=== PATIENT | male | born 1945 | race Caucasian/White ===

== ENCOUNTER 2021-06-05 06:34 | Observation (INO) | payer MEDICARE, OTHER, SELFPAY ==
[2021-06-05] VITALS (15 sets, daily range): BP systolic 110–181; BP diastolic 63–122; PULSE 78–117; RESP 14–26; TEMP 36.5–36.8; O2SAT 95–100; BMI 33.4
--- NOTE | 2021-06-05 06:58 | ECG_ITS ---
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 Measurements Intervals [place] Rate: 91 P: [place]: QRS: -10 QRSD: 86 T: 70 QT: 336 QTc: 413 Interpretive Statements ATRIAL FIBRILLATION WITH ABERRANT CONDUCTION OR VENTRICULAR PREMATURE COMPLEXES Compared to ECG 01/20/2018 12:39:18 Aberrant conduction of supraventricular beat(s) now present Sinus rhythm no longer present Left-axis deviation no longer present Electronically Signed On 06-05-2021 18:28:45 CDT by Grzegorz Santo M.D. [id number]
--- NOTE | 2021-06-05 06:59 | W.ED.SOB ---
HPI - SOB/Dyspnea General: Chief Complaint: Shortness of Breath/Dyspnea Stated Complaint: Pneumonia Time Seen by Provider: 06/05/21 06:36 History of Present Illness: HPI Narrative: 75-year-old male presents to the emergency room complaining of cough and shortness of breath. Reports this been going on for over a week he denies any fever he said moderately productive cough. He has some mild dementia does not provide much for history other than answering some yes/no questions his does answer little bit more. She reports that he is on ivermectin as well as some oral antibiotics. Is generally has not been feeling well no nausea vomiting or diarrhea he is not been vaccinated for Covid nor has he had it that he is aware of. Denies chest pain denies any abdominal pain no dysuria urgency or frequency. MD elicited complaint: shortness of breath and cough Onset (ago): week(s) (1) Timing: constant Exacerbating factors: exertion Relieving factors: rest Associated symptoms: Reports chest congestion, cough, fever(s), myalgias and nausea; Deny abdominal pain, chest pain, diaphoresis, dizziness, extremity pain, hemoptysis, lightheadedness, orthopnea, palpitations, paresthesias, polydipsia, polyuria, rash, sense of impending doom, syncope or vomiting Treatment prior to arrival: none Review of Systems Const: Reports: fever(s); Denies: diaphoresis ENMT: Denies: throat pain, ear or mastoid pain, nasal discharge or nasal congestion Card: Denies: chest pain, palpitations, lightheadedness, syncope or orthopnea Resp: Reports: chest congestion; Denies: hemoptysis GI: Reports: nausea; Denies: abdominal pain or vomiting : Denies: flank pain, dysuria, urinary frequency or urinary urgency Musc: Denies: extremity pain Skin/Breast: Denies: rash or pruritus Neuro: Denies: dizziness Endo: Denies: polyuria or polydipsia PFSH ED PFSH: Medical History Hypogonadism Type 2 diabetes mellitus Social History Smoking and tobacco status: current every day smoker cigarettes Packs smoked per day: 1 Alcohol intake: never Physical Exam Const: COMMON NORMALS: no acute distress GENERAL APPEARANCE: cooperative and comfortable ORIENTATION/CONSCIOUSNESS: Yes awake HENMT: COMMON NORMALS: normocephalic, atraumatic and hearing grossly normal bilaterally HEAD & SCALP: normocephalic and atraumatic Neck/C-Spine: COMMON NORMALS: no JVD Resp: COMMON NORMALS: normal respiratory effort, No retractions, No use of accessory muscles and clear to auscultation bilaterally AUSCULTATION: clear to auscultation bilaterally Cardio: COMMON NORMALS: no JVD, regular rate, regular rhythm and No murmurs present (Cardio) RATE: regular rate RHYTHM: regular rhythm GI: COMMON NORMALS: Soft to palpation and No hepatosplenomegaly present AUSCULTATION: Yes normoactive bowel sounds PALPATION: Yes Soft to palpation, No Tenderness to palpation present (GI), No Guarding due to palpation present (GI) and Yes No hepatosplenomegaly present Extremity: COMMON NORMALS: normal to inspection, capillary refill normal, no clubbing, cyanosis or edema, no calf tenderness and no pedal edema Skin: COMMON NORMALS: no rashes or lesions noted GENERAL SKIN EXAM: no rashes or lesions noted Course Vital Signs: Vital signs: Vital Signs Temperature 98.2 F 06/05/21 12:15 Pulse Rate 78 06/05/21 12:15 Respiratory Rate 20 H 06/05/21 12:15 Blood Pressure 163/76 06/05/21 12:15 Pulse Oximetry 99 06/05/21 12:15 MDM - SOB/Dyspnea MDM Narrative: Medical decision making narrative: Covid PCR is pending. Admit for hyperkalemia hyponatremia hyperglycemia insulin and fluids given discussed with Dr. Matta. Orders written. Lab Data: Labs: Lab Results 06/05/21 06/05/21 06/05/21 Range/Units 06:27 07:08 07:27 WBC (4.0-10.0) 10^3/ uL RBC (4.1-5.3) 10^6/u L Hgb (11.7-16.6) g/dL Hct (42.0-52.0) % MCV (80-94) fL MCH (28.0-34.0) pg MCHC (30.0-36.0) g/dL RDW (12.1-15.1) % Plt Count (130-400) 10^3/c mm MPV (7.4-10.4) fL Neut % (Auto) % Lymph % (Auto) % [place] % (Auto) % Eos % (Auto) % Baso % (Auto) % Neut # (Auto) (1.8-7.7) 10^3/u L Lymph # (Auto) (0.8-4.8) 10^3/u L [place] # (Auto) (0.2-0.9) 10^3/u L Eos # (Auto) (0.0-0.8) 10^3/u L Baso # (Auto) (0.0-0.1) 10^3/u L Nucleated RBC % (a uto) % Nucleated RBCs # /100WBC Sodium (136-145) mmol/L Potassium (3.5-5.1) mmol/L Chloride (98-107) mmol/L Carbon Dioxide (22-29) mmol/L Anion Gap (5-19) BUN (8-23) mg/dL Creatinine (0.7-1.2) mg/dL GFR Calculation Glucose (65-115) mg/dL POC Glucose (70-110) mg/dL Calculated Osmolal ity (285-295) mOsm/k g Lactic Acid 3.6 H (0.5-2.2) mmol/L Lactic Acid (Sepsi s) (0.5-2.2) mmol/L Calcium (8.5-10.5) mg/dL Magnesium (1.7-2.3) mg/dL Total Bilirubin (0.15-1.2) mg/dL AST (0-40) U/L ALT (0-41) U/L Alkaline Phosphata se (40-130) IU/L Creatine Kinase (39-308) U/L Troponin T Baselin e (0-15) ng/L Troponin T 120 Min [place] (0-15) ng/L Delta Troponin T (0-10) ABS# NT-Pro-B Natriuret Pep (0-450) pg/mL Total Protein (6.6-8.7) g/dL Albumin (3.5-5.2) g/dL Globulin (1.3-4.6) g/dL TSH 0.78 (0.27-4.20) uIU/ mL Random Cortisol 6.30 (2.47-19.5) ug/d L Urine Color (Yellow) Urine Appearance (CLEAR) Urine pH (5-7) Ur Specific Gravit y (1.005-1.030) Urine Protein (Negative) Urine Glucose (UA) (Normal) Urine Ketones (Negative) Urine Blood (Negative) Urine Nitrate (Negative) Urine Bilirubin (Negative) Urine Urobilinogen (Negative) mg/dL Ur Leukocyte Peggy ase (Negative) SARS-CoV-2 Ag (Rap id) Negative (Negative) 06/05/21 06/05/21 06/05/21 Range/Units 07:27 07:27 07:27 WBC 14.5 H (4.0-10.0) 10^3/ uL RBC 4.07 L (4.1-5.3) 10^6/u L Hgb 8.5 L (11.7-16.6) g/dL Hct 28.6 L (42.0-52.0) % MCV 70.3 L (80-94) fL MCH 20.9 L (28.0-34.0) pg MCHC 29.7 L (30.0-36.0) g/dL RDW 21.3 H (12.1-15.1) % Plt Count 308 (130-400) 10^3/c mm MPV 10.6 H (7.4-10.4) fL Neut % (Auto) 91.5 % Lymph % (Auto) 5.9 % [place] % (Auto) 1.9 % Eos % (Auto) 0.0 % Baso % (Auto) 0.1 % Neut # (Auto) 13.31 H (1.8-7.7) 10^3/u L Lymph # (Auto) 0.9 (0.8-4.8) 10^3/u L [place] # (Auto) 0.3 (0.2-0.9) 10^3/u L Eos # (Auto) 0.0 (0.0-0.8) 10^3/u L Baso # (Auto) 0.0 (0.0-0.1) 10^3/u L Nucleated RBC % (a uto) 0 % Nucleated RBCs # 0.0 /100WBC Sodium 128 L (136-145) mmol/L Potassium 5.9 H (3.5-5.1) mmol/L Chloride 94 L (98-107) mmol/L Carbon Dioxide 22 (22-29) mmol/L Anion Gap 17.9 (5-19) BUN 26 H (8-23) mg/dL Creatinine 1.2 (0.7-1.2) mg/dL GFR Calculation Not Reportable Glucose 500 H (65-115) mg/dL POC Glucose (70-110) mg/dL Calculated Osmolal ity 293 (285-295) mOsm/k g Lactic Acid (0.5-2.2) mmol/L Lactic Acid (Sepsi s) (0.5-2.2) mmol/L Calcium 9.9 (8.5-10.5) mg/dL Magnesium (1.7-2.3) mg/dL Total Bilirubin 0.4 (0.15-1.2) mg/dL AST 24 (0-40) U/L ALT 32 (0-41) U/L Alkaline Phosphata se 93 (40-130) IU/L Creatine Kinase 45 (39-308) U/L Troponin T Baselin e 20 H (0-15) ng/L Troponin T 120 Min [place] (0-15) ng/L Delta Troponin T (0-10) ABS# NT-Pro-B Natriuret Pep (0-450) pg/mL Total Protein 5.8 L (6.6-8.7) g/dL Albumin 3.5 (3.5-5.2) g/dL Globulin 2.3 (1.3-4.6) g/dL TSH (0.27-4.20) uIU/ mL Random Cortisol (2.47-19.5) ug/d L Urine Color (Yellow) Urine Appearance (CLEAR) Urine pH (5-7) Ur Specific Gravit y (1.005-1.030) Urine Protein (Negative) Urine Glucose (UA) (Normal) Urine Ketones (Negative) Urine Blood (Negative) Urine Nitrate (Negative) Urine Bilirubin (Negative) Urine Urobilinogen (Negative) mg/dL Ur Leukocyte Peggy ase (Negative) SARS-CoV-2 Ag (Rap id) (Negative) 06/05/21 06/05/21 06/05/21 Range/Units 09:48 09:48 09:48 WBC (4.0-10.0) 10^3/ uL RBC (4.1-5.3) 10^6/u L Hgb (11.7-16.6) g/dL Hct (42.0-52.0) % MCV (80-94) fL MCH (28.0-34.0) pg MCHC (30.0-36.0) g/dL RDW (12.1-15.1) % Plt Count (130-400) 10^3/c mm MPV (7.4-10.4) fL Neut % (Auto) % Lymph % (Auto) % [place] % (Auto) % Eos % (Auto) % Baso % (Auto) % Neut # (Auto) (1.8-7.7) 10^3/u L Lymph # (Auto) (0.8-4.8) 10^3/u L [place] # (Auto) (0.2-0.9) 10^3/u L Eos # (Auto) (0.0-0.8) 10^3/u L Baso # (Auto) (0.0-0.1) 10^3/u L Nucleated RBC % (a uto) % Nucleated RBCs # /100WBC Sodium (136-145) mmol/L Potassium (3.5-5.1) mmol/L Chloride (98-107) mmol/L Carbon Dioxide (22-29) mmol/L Anion Gap (5-19) BUN (8-23) mg/dL Creatinine (0.7-1.2) mg/dL GFR Calculation Glucose (65-115) mg/dL POC Glucose (70-110) mg/dL Calculated Osmolal ity (285-295) mOsm/k g Lactic Acid (0.5-2.2) mmol/L Lactic Acid (Sepsi s) 2.9 H (0.5-2.2) mmol/L Calcium (8.5-10.5) mg/dL Magnesium 2.1 (1.7-2.3) mg/dL Total Bilirubin (0.15-1.2) mg/dL AST (0-40) U/L ALT (0-41) U/L Alkaline Phosphata se (40-130) IU/L Creatine Kinase (39-308) U/L Troponin T Baselin e (0-15) ng/L Troponin T 120 Min [place] 17.17 H (0-15) ng/L Delta Troponin T -2.83 L (0-10) ABS# NT-Pro-B Natriuret Pep 1776 H (0-450) pg/mL Total Protein (6.6-8.7) g/dL Albumin (3.5-5.2) g/dL Globulin (1.3-4.6) g/dL TSH (0.27-4.20) uIU/ mL Random Cortisol (2.47-19.5) ug/d L Urine Color (Yellow) Urine Appearance (CLEAR) Urine pH (5-7) Ur Specific Gravit y (1.005-1.030) Urine Protein (Negative) Urine Glucose (UA) (Normal) Urine Ketones (Negative) Urine Blood (Negative) Urine Nitrate (Negative) Urine Bilirubin (Negative) Urine Urobilinogen (Negative) mg/dL Ur Leukocyte Peggy ase (Negative) SARS-CoV-2 Ag (Rap id) (Negative) 06/05/21 06/05/21 Range/Units 10:41 10:56 WBC (4.0-10.0) 10^3/ uL RBC (4.1-5.3) 10^6/u L Hgb (11.7-16.6) g/dL Hct (42.0-52.0) % MCV (80-94) fL MCH (28.0-34.0) pg MCHC (30.0-36.0) g/dL RDW (12.1-15.1) % Plt Count (130-400) 10^3/c mm MPV (7.4-10.4) fL Neut % (Auto) % Lymph % (Auto) % [place] % (Auto) % Eos % (Auto) % Baso % (Auto) % Neut # (Auto) (1.8-7.7) 10^3/u L Lymph # (Auto) (0.8-4.8) 10^3/u L [place] # (Auto) (0.2-0.9) 10^3/u L Eos # (Auto) (0.0-0.8) 10^3/u L Baso # (Auto) (0.0-0.1) 10^3/u L Nucleated RBC % (a uto) % Nucleated RBCs # /100WBC Sodium (136-145) mmol/L Potassium (3.5-5.1) mmol/L Chloride (98-107) mmol/L Carbon Dioxide (22-29) mmol/L Anion Gap (5-19) BUN (8-23) mg/dL Creatinine (0.7-1.2) mg/dL GFR Calculation Glucose (65-115) mg/dL POC Glucose 331 H (70-110) mg/dL Calculated Osmolal ity (285-295) mOsm/k g Lactic Acid (0.5-2.2) mmol/L Lactic Acid (Sepsi s) (0.5-2.2) mmol/L Calcium (8.5-10.5) mg/dL Magnesium (1.7-2.3) mg/dL Total Bilirubin (0.15-1.2) mg/dL AST (0-40) U/L ALT (0-41) U/L Alkaline Phosphata se (40-130) IU/L Creatine Kinase (39-308) U/L Troponin T Baselin e (0-15) ng/L Troponin T 120 Min [place] (0-15) ng/L Delta Troponin T (0-10) ABS# NT-Pro-B Natriuret Pep (0-450) pg/mL Total Protein (6.6-8.7) g/dL Albumin (3.5-5.2) g/dL Globulin (1.3-4.6) g/dL TSH (0.27-4.20) uIU/ mL Random Cortisol (2.47-19.5) ug/d L Urine Color Straw (Yellow) Urine Appearance Clear (CLEAR) Urine pH 5 (5-7) Ur Specific Gravit y 1.015 (1.005-1.030) Urine Protein Neg (Negative) Urine Glucose (UA) 4+ H (Normal) Urine Ketones Negative (Negative) Urine Blood Neg (Negative) Urine Nitrate Negative (Negative) Urine Bilirubin Neg (Negative) Urine Urobilinogen Norm (Negative) mg/dL Ur Leukocyte Peggy ase Negative (Negative) SARS-CoV-2 Ag (Rap id) (Negative) Discharge Plan Discharge Patient Disposition: Admitted As Inpatient Admit Provider: Reece De La Rosa Clinical Impression: Anemia, Hyperkalemia, Hypernatremia, Dyspnea Condition: Stable Coding Level of Care Code 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
[2021-06-05 07:40] LABS: Basophils % 0.1 %; Hematocrit 28.6 % (42.0-52.0); Hemoglobin 8.5 g/dL (11.7-16.6); Lymphocytes # 0.9 10^3/uL (0.8-4.8); Lymphocytes % 5.9 %; Mean Corpuscular HGB Conc 29.7 g/dL (30.0-36.0); Mean Corpuscular Hemoglobin 20.9 pg (28.0-34.0); Mean Corpuscular Volume 70.3 fL (80-94); Mean Platelet Volume 10.6 fL (7.4-10.4); Monocytes # 0.3 10^3/uL (0.2-0.9); Monocytes % 1.9 %; Neutrophils # 13.31 10^3/uL (1.8-7.7); Neutrophils % 91.5 %; Nucleated Red Blood Cells % 0 %; Platelet Count 308 10^3/cmm (130-400); Red Blood Count 4.07 10^6/uL (4.1-5.3); Red Cell Distribution Width 21.3 % (12.1-15.1); White Blood Count 14.5 10^3/uL (4.0-10.0)
[2021-06-05 07:56] LABS: Lactic Sepsis W/Reflex 3.6 mmol/L (0.5-2.2)
[2021-06-05 07:57] LABS: Alanine Aminotransferase 32 U/L (0-41); Albumin Level 3.5 g/dL (3.5-5.2); Alkaline Phosphatase 93 IU/L (40-130); Aspartate Amino Transferase 24 U/L (0-40); Blood Urea Nitrogen 26 mg/dL (8-23); Calcium 9.9 mg/dL (8.5-10.5); Carbon Dioxide 22 mmol/L (22-29); Chloride 94 mmol/L (98-107); Creatine Phosphokinase 45 U/L (39-308); Globulin 2.3 g/dL (1.3-4.6); Glucose 500 mg/dL (65-115); Osmolality Calculated 293 mOsm/kg (285-295); Sodium 128 mmol/L (136-145); Total Bilirubin 0.4 mg/dL (0.15-1.2); Total Protein 5.8 g/dL (6.6-8.7)
[2021-06-05 08:00] LABS: Anion Gap 17.9 (5-19); Potassium 5.9 mmol/L (3.5-5.1); Troponin(5th) Baseline 20 ng/L (0-15)
[2021-06-05 08:17] LABS: SARS Covid-2 Antigen Negative (Negative)
--- NOTE | 2021-06-05 08:44 | XR_ITS ---
WS: [id number] Portable AP upright chest, 06/05/2021 Clinical Data: dyspnea/cough Comparison: PA and lateral chest, 12/27/2018. Findings: No nodules, masses or effusions are seen. The heart is normal. The pulmonary vascularity is not increased. No pneumonia or pneumothorax is seen. The aortic arch and descending aorta shows mild tortuosity. Monitor leads are on the chest wall. XR/XR chest 1V portable [id number] Impression: Negative chest.
--- NOTE | 2021-06-05 08:58 | ECG_ITS ---
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 Measurements Intervals [place] Rate: 92 P: [place]: QRS: -20 QRSD: 88 T: 55 QT: 336 QTc: 417 Interpretive Statements ATRIAL FIBRILLATION WITH ABERRANT CONDUCTION OR VENTRICULAR PREMATURE COMPLEXES NONSPECIFIC T-WAVE ABNORMALITY Compared to ECG 06/05/2021 07:22:56 T-wave abnormality now present Electronically Signed On 06-05-2021 18:35:14 CDT by Grzegorz Santo M.D. [id number]
[2021-06-05 09:19] LABS: Reflex Lactate Order REFLEX LACTIC ORDERD
[2021-06-05] MEDS: insulin regular-human 100 units/1 mL 10 UNIT IVP (09:38)
[2021-06-05] MEDS: sodium polystyrene sulfonate 15 gm/60 mL Btl PO (09:38)
[2021-06-05] MEDS: sodium chloride 0.9% 1,000 ML 999 ML IV (09:38)
[2021-06-05 09:53] LABS: Thyroid Stimulating Hormone 0.78 uIU/mL (0.27-4.20)
--- NOTE | 2021-06-05 10:00 | PC.PHAR ---
PT STATES HE IS UNSURE OF THE NAMES OF HIS MEDICATIONS-PT STATES HIS KNOWS WHAT HE TAKES-PTS STATES THE PT HASNT TAKEN HIS REGULAR MEDS FOR A MONTH OR SO
[2021-06-05 10:12] LABS: Lactic Acid level (Lactate) 2.9 mmol/L (0.5-2.2)
[2021-06-05 10:20] LABS: Troponin 5 2HR 17.17 ng/L (0-15)
[2021-06-05 10:21] LABS: Troponin 5 2HR Delta -2.83 ABS# (0-10)
[2021-06-05 10:46] LABS: Glucose Point of Care 331 mg/dL (70-110)
[2021-06-05 11:11] LABS: Add Urine Microscopic? NO; Charge for UA Resulting for Rev
[2021-06-05 11:14] LABS: Bilirubin Urine Neg (Negative); Blood Urine Neg (Negative); Glucose Urine UA 4+ (Normal); Ketones Urine Negative (Negative); Leukocyte Esterase Urine Negative (Negative); Nitrate Urine Negative (Negative); Protein Urine Neg (Negative); Specific Gravity, Urine 1.015 (1.005-1.030); Urine Appearance Clear (CLEAR); Urine Color Straw (Yellow); Urobilinogen Urine Norm (Negative); pH Urine 5 (5-7)
--- NOTE | 2021-06-05 12:50 | USCV_ITS ---
Luis Jensen Age: 75 Gender: M : 1945 Exam Date: 06/05/2021 14:00 Ordering Phys: Reece De La Rosa MD Technologist: Irwin Lucio [place] [facility] [place]: chest pain BP: 134 / 75 HR: 90 Rhythm: Sinus Technical Quality: Adequate MEASUREMENTS (Male / Female) Normal Values 2D ECHO LV Diastolic Diameter PLAX 4.3 cm 4.2 - 5.9 / 3.9 - 5.3 cm LV Systolic Diameter PLAX 3.1 cm IVS Diastolic Thickness 1.1 cm 0.6 - 1.0 / 0.6 - 0.9 cm IVS Systolic Thickness 1.6 cm LVPW Diastolic Thickness 1.2 cm 0.6 - 1.0 / 0.6 - 0.9 cm LVPW Systolic Thickness 1.6 cm LVOT Diameter 2.0 cm LV Ejection Fraction 2D Teich 53.2 % LV Ejection Fraction MOD 2C 70.9 % LV Ejection Fraction 2C AL 70.0 % LA Diameter 4.3 cm LA Width 4.3 cm LA Height 6.0 cm RA Width 3.4 cm RA Height 5.6 cm Aorta at Sinotubular Diameter 3.1 cm M-MODE Aortic Annulus Diameter 3.4 cm LA Ao Ratio MM 1.1 MV E Point Septal Separation 1.0 cm DOPPLER AV Peak Velocity 203.3 cm/s LVOT Peak Velocity 98.0 cm/s AV Area Cont Eq vti 1.4 cm squared AV Area Cont Eq pk 1.6 cm squared MV Area PHT 4.2 cm squared Mitral E to A Ratio 3.4 MV E' Velocity 79.5 cm/s Mitral E to MV E' Ratio 13.9 Mitral E to LV E' Lateral Ratio 12.5 Mitral E to LV E' Septal Ratio 15.7 TR Peak Velocity 136.0 cm/s TR Peak Gradient 7.4 mmHg PV Peak Velocity 78.0 cm/s FINDINGS Left Ventricle Normal left ventricular cavity size. Moderate left ventricular hypertrophy. No regional wall motion abnormalities. Left ventricular ejection fraction is estimated at 55 %. In the presence of atrial fibrillation diastolic function cannot be assessed accurately. Right Ventricle The right ventricle is normal in size and function. RVSP could not be calculated due to incomplete tricuspid regurgitation velocity profile. Right Atrium The right atrium is normal in size. Left Atrium Moderately increased left atrial size. Mitral Valve Moderately thickened mitral valve. No mitral valve stenosis. Mild mitral annular calcification. Trace mitral valve regurgitation. Aortic Valve Severe aortic valve calcification. Moderate aortic valve stenosis, mean gradient 8.3 mmHg, [place] 1.4 cm2 no aortic valve regurgitation. . Tricuspid Valve Mild tricuspid valve regurgitation. Pulmonic Valve Structurally normal pulmonic valve without significant stenosis. There is no pulmonic regurgitation. Pericardium Normal pericardium without effusion. Aorta Normal ascending aorta dimension. CONCLUSIONS 1-Normal left ventricular cavity size. Moderate left ventricular hypertrophy. No regional wall motion abnormalities. Left ventricular ejection fraction is estimated at 55 %. In the presence of atrial fibrillation diastolic function cannot be assessed accurately. 2-Severe aortic valve calcification. Moderate aortic valve stenosis, mean gradient 8.3 mmHg, [place] 1.4 cm2 no aortic valve regurgitation. . 3-Moderately thickened mitral valve. No mitral valve stenosis. Mild mitral annular calcification. Trace mitral valve regurgitation. 4-Mild tricuspid valve regurgitation. 5-The right ventricle is normal in size and function. RVSP could not be calculated due to incomplete tricuspid regurgitation velocity profile. 6-When compared to the prior echocardiogram dated October 02, 2014 there is moderate aortic valve stenosis now Leidy Vidal MD (Electronically Signed) Final Date: 05 June 2021 19:14 S
--- NOTE | 2021-06-05 12:58 | ECG_ITS ---
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 Measurements Intervals [place] Rate: 89 P: MD: QRS: 0 QRSD: 94 T: 53 QT: 338 QTc: 413 Interpretive Statements ATRIAL FIBRILLATION Compared to ECG 06/05/2021 10:37:06 Ventricular premature complex(es) no longer present Aberrant conduction of supraventricular beat(s) no longer present T-wave abnormality no longer present Electronically Signed On 06-05-2021 18:34:37 CDT by Grzegorz Santo M.D. [id number]
--- NOTE | 2021-06-05 13:08 | PM.HP ---
Providers/Chief Complaint Chief Complaint: Pneumonia History of Present Illness Luis Jensen is a 75 year old male who presents to the emergency department with at least 1 week of cough. He had been put on some ivermectin, Plaquenil, and clindamycin as an outpatient. He has not been tested for Covid prior to arrival to the emergency department. He has been short of breath with exertion. He has had no fever that he is aware of. He has still been eating and drinking. He denies any history of cardiac arrhythmia, CHF. He is hard of hearing. In the emergency department he was Hemoccult negative. Review of Systems General: Reports: 10 or more systems reviewed and unremarkable except in HPI and below Const: Denies: fever(s) or chills Eyes: Denies: change in vision ENMT: Denies: throat pain Card: Denies: chest pain or palpitations Resp: Reports: dyspnea and productive cough GI: Denies: abdominal pain, nausea, vomiting, hematochezia or melena : Denies: flank pain Musc: Denies: neck pain Skin/Breast: Denies: rash Neuro: Denies: headache(s) Psych: Denies: anxiety Endo: Denies: polyuria Roe/Lymph: Denies: easy bruising All/Imm: Denies: urticaria Medications/Allergies Home Medications Medication Instructions Recorded Confirmed Last Taken Type aspirin 325 mg PO DAILY 06/05/21 06/05/21 Unknown History atenolol 25 mg PO DAILY 06/05/21 06/05/21 Unknown History benzonatate [Tessalon Perles] 100 mg PO BID 06/05/21 06/05/21 06/05/21 06:30 History clindamycin HCl 150 mg PO TID 06/05/21 06/05/21 06/05/21 06:30 History diphenhydramine HCl [Benadryl] 25 - 50 mg PO PRN 06/05/21 06/05/21 Unknown History glipizide 10 mg PO DAILY 06/05/21 06/05/21 06/05/21 06:30 History hydroxychloroquine [Plaquenil] 200 mg PO BID 06/05/21 06/05/21 06/05/21 06:30 History ivermectin 3 mg PO BID 06/05/21 06/05/21 06/05/21 06:30 History lisinopril-hydrochlorothiazide 1 tab PO DAILY 06/05/21 06/05/21 Unknown History metformin 1,000 mg PO BID 06/05/21 06/05/21 06/05/21 06:30 History methylprednisolone [Medrol ([place])] See Rx Instructions .ROUTE .COMPLEX 06/05/21 06/05/21 06/05/21 History Allergies Allergy/AdvReac Type Severity Reaction Status Date / Time No Known Allergies Allergy Verified 06/05/21 09:59 PFSH Acute PFSH: Medical History (Updated 06/05/21 @ 14:19 by Reece De La Rosa MD) Hypertension Hypogonadism Type 2 diabetes mellitus Family History (Updated 06/05/21 @ 14:00 by Reece De La Rosa MD) Other Cancer Social History Smoking and tobacco status: current every day smoker cigarettes Packs smoked per day: 1 Alcohol intake: never Supplemental PFSH Information: Denies any significant surgery. Vitals/I&O/Wt Last Vital Signs Temp 98.2 F 06/05/21 12:15 Pulse 78 06/05/21 12:15 Resp 20 H 06/05/21 12:15 BP 163/76 06/05/21 12:15 Pulse Ox 99 06/05/21 12:15 06/04/21 06/05/21 06/05/21 22:59 06:59 14:59 Intake Total 1000 / 1000 Balance 1000 / 1000 Weight last 48 hrs Weight 99.79 kg Physical Exam Narrative: EXAM NARRATIVE: General exam is a white male, with frequent cough HEENT: Atraumatic normocephalic. Pupils equally round. Oropharynx clear. Neck is supple no lymphadenopathy thyromegaly Cardiovascular irregular, irregular with rate of approximately 100 Lungs coarse breath sounds bilaterally but no wheezes or crackles Abdomen is soft with positive bowel sounds. No obvious organomegaly exam is deferred Extremities no cyanosis clubbing or edema, cap refill brisk Skin no rash Neuro no obvious focal deficits. Data : 06/05/21 07:27 06/05/21 07:27 Micro: Microbiology 06/05/21 08:14 Blood Culture - Preliminary Blood SPECIMEN COLLECTED 06/05/21 07:27 Blood Culture - Preliminary Blood SPECIMEN COLLECTED Other data: Glucose was 500 on arrival magnesium 2.1 LFTs normal Troponin XX with repeat of 17 BNP 1776 Urinalysis with glucose but otherwise negative. Rapid Covid negative, PCR pending Chest x-ray no obvious infiltrate EKG demonstrates atrial fibrillation with borderline tachycardia. Occasional PVC. Left axis deviation. Blood culture was collected. A&P Assessment and plan (1) Hyperkalemia: Given Kayexalate in the emergency department as well as insulin Repeat potassium now Hold any products that would contain potassium Discontinue lisinopril currently Observation patient at this time. Status: Acute (2) Anemia: Anemia panel Stool Hemoccult He was Hemoccult negative in the emergency department Monitor hemoglobin carefully Protonix 40 mg twice daily Status: Acute (3) Atrial fibrillation: Change atenolol to metoprolol 25 mg twice daily for rate control DVT prophylaxis anticoagulation initially secondary to significant anemia, and consider increasing if tolerated to full dose BNP significantly elevated, with cough and slight hyponatremia. Lasix x1 Check echocardiogram Troponin without significant delta. Status: Acute (4) Elevated lactic acid level: Hold Metformin Status: Acute (5) Type 2 diabetes mellitus: Sliding scale insulin, aggressive Status: Acute Additional A&P Information Persistent cough with concern of COVID-19 pneumonia. PUI, await PCR, isolation precautions at this time. Discontinue ivermectin, steroids, clindamycin, Plaquenil he was prescribed. Check procalcitonin level. 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
[2021-06-05 13:27] LABS: Magnesium 2.1 mg/dL (1.7-2.3); NT Pro B Type Natriuretic Pept 1776 pg/mL (0-450)
[2021-06-05 14:05] LABS: Coronavirus Test Green County Detected
[2021-06-05 14:11] LABS: Troponin 5 6HR 19.03 ng/L (0-15)
[2021-06-05 14:15] LABS: Troponin 5 6HR Delta -0.97 ng/L (0-12)
[2021-06-05 14:27] LABS: Anion Gap 21.2 (5-19); Blood Urea Nitrogen 24 mg/dL (8-23); Calcium 10.1 mg/dL (8.5-10.5); Carbon Dioxide 18 mmol/L (22-29); Chloride 95 mmol/L (98-107); Glucose 386 mg/dL (65-115); Osmolality Calculated 288 mOsm/kg (285-295); Potassium 5.2 mmol/L (3.5-5.1); Sodium 129 mmol/L (136-145)
[2021-06-05] MEDS: FUROsemide 10 mg/mL SDV 4mL 40 MG IVP (14:57)
[2021-06-05 15:00] LABS: Estmated Average Glucose 306; Hemoglobin A1C 12.3 % (4.0-6.0)
[2021-06-05 15:23] LABS: Procalcitonin 0.28 ng/mL (0-0.5); Vitamin B12 897 pg/mL (232-1245)
--- NOTE | 2021-06-05 15:35 | PC.NURSE ---
fsbs 335
[2021-06-05 15:36] LABS: Glucose Point of Care 335 mg/dL (70-110)
--- NOTE | 2021-06-05 15:36 | PC.NURSE ---
report to Tahira HELM
[2021-06-05 15:37] LABS: Ferritin 23 ng/mL (30-400); Iron 21 ug/dL (59-158); Percent Saturation 6.6 % (20-50); Total Iron Binding Capacity 315 mcg/dl; Unsaturated Iron Binding 294 ug/dL (112-347)
[2021-06-05 17:07] LABS: Folate Level 13.5 ng/mL (4.5-32.2)
[2021-06-05] MEDS: hyDRALAzine 20 mg/mL INJ 1 mL 10 MG IVP (17:24)
[2021-06-05] MEDS: enoxaparin 40 mg/0.4 mL Syringe SUBCUT (17:25)
[2021-06-05] MEDS: pantoprazole DR 40 mg Tablet PO (17:25)
[2021-06-05] MEDS: metoprolol tartrate 25 mg Tablet PO (20:24)
[2021-06-05 20:27] LABS: Glucose Point of Care 373 mg/dL (70-110)
[2021-06-06] VITALS (7 sets, daily range): BP systolic 121–136; BP diastolic 71–79; PULSE 75–100; RESP 17–24; TEMP 36.6–37.1; O2SAT 94–98
[2021-06-06 06:01] LABS: Basophils # 0.1 10^3/uL (0.0-0.1); Basophils % 0.3 %; Eosinophils % 0.3 %; Hematocrit 27.2 % (42.0-52.0); Hemoglobin 7.9 g/dL (11.7-16.6); Lymphocytes # 3.8 10^3/uL (0.8-4.8); Lymphocytes % 26.2 %; Mean Corpuscular Hemoglobin 20.2 pg (28.0-34.0); Mean Corpuscular Volume 69.6 fL (80-94); Mean Platelet Volume 10.9 fL (7.4-10.4); Monocytes # 1.4 10^3/uL (0.2-0.9); Monocytes % 9.5 %; Neutrophils % 63.4 %; Nucleated Red Blood Cells % 0 %; Platelet Count 328 10^3/cmm (130-400); Red Blood Count 3.91 10^6/uL (4.1-5.3); Red Cell Distribution Width 21.6 % (12.1-15.1); White Blood Count 14.5 10^3/uL (4.0-10.0)
[2021-06-06 06:15] LABS: Blood Urea Nitrogen 23 mg/dL (8-23); Calcium 9.5 mg/dL (8.5-10.5); Carbon Dioxide 25 mmol/L (22-29); Chloride 102 mmol/L (98-107); Glucose 75 mg/dL (65-115); Magnesium 2.1 mg/dL (1.7-2.3); Osmolality Calculated 284 mOsm/kg (285-295); Sodium 136 mmol/L (136-145)
[2021-06-06 06:25] LABS: Glucose Point of Care 147 mg/dL (70-110)
--- NOTE | 2021-06-06 08:00 | PC.NURSE ---
Pt lying in bed resting with eyes closed. Resp even and non-labored no distress noted. Pt on room air. Pt had no c/o pain or discomfort at the present time. No needs voiced. Call light in reach.
--- NOTE | 2021-06-06 08:01 | CT_ITS ---
WS: [id number] CT HEAD TECHNIQUE: Noncontrast CT of the head obtained from the skullbase to the vertex. CLINICAL INFORMATION: confusion COMPARISON: CT December 27, 2018 DLP: 905.[address] scans at [facility] use at least one of these dose optimization techniques: automat ed exposure control; mA and/or kV adjustment per patient size (includes targeted exams where dose is matched to clinical indication); or iterative reconstruction. FINDINGS: No evidence of intracranial hemorrhage or mass effect. Ventricular system and basal cisterns are mcintosh nt. Moderate small vessel changes with moderate parenchymal volume loss. Chronic lacunar infarct righ t thalamus. Chronic infarct left parasagittal occipital lobe with encephalomalacia. No extra-axial fl uid collections. No evidence of mass or mass effect. Normal diallo-white differentiation. Maxillary sinuses are well aerated. Paranasal sinusitis. Fluid within the ethmoid air cells and sphen oid sinuses. Left maxillary sinusitis. Cutaneous lesion left frontal scalp. CT/CT head wo con* [id number] IMPRESSION: 1. No evidence of intracranial hemorrhage or mass effect. 2. Mild small vessel changes. Moderate parenchymal volume loss. 3. Chronic lacunar infarct right thalamus. 4. Mastoid air cells well aerated. 5. Paranasal sinusitis. Fluid within the ethmoid air cells and sphenoid sinus es. Left maxillary sinusitis.
[2021-06-06] MEDS: pantoprazole DR 40 mg Tablet PO (08:06)
[2021-06-06] MEDS: metoprolol tartrate 25 mg Tablet PO (08:06)
[2021-06-06] MEDS: iron sucrose 500 MG in sodium chloride 0.9% 250 ML 68.75 MG IV (08:39)
--- NOTE | 2021-06-06 11:00 | PC.CHAP ---
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 engineer soils visit [] Patient/Family/Request visit [] Outpatient visit [] Follow-up visit [] Physician referral [] Code/Alert [] Routine visit [] Staff referral [] Actively dying [] Patient sleeping [] Family support [] [] Out of room [] Palliative care [] [] Receiving care in room [] Pre-surgical visit [] Trauma [] Long length of stay [] ICU visit [x] Other: Isoation Relational/Emotional Strength [] Patient feels connected with others/family/visitors/staff [] Distress [] Loneliness/isolation [] Abandonment Spirituality of Patient [] Person of Mayra [] Attends Sabianism of their Mayra [] Believes in Prayer [] Reads Bible or Temple materials [] There are Spiritual issues to be addressed Psychologist Counseling Interventions [] Prayer [] Active listening [] Non-anxious presence [] Spiritual/emotional support [] Crisis/trauma care [] Spiritual counseling [] Bereavement support [] Provided bereavement packet [] Provided Bible/devotional materials [] Provided toy/stuffed animal, coloring book to patient or family member [] Provided Communion [] Anointing/[place] [] Salvation [] Completed spiritual assessment [] Other: Impact on Illness or Injury [] Angry [] Fearful [] Anxious [] Often cries [] Exhaustion [] Unable to work [] Unable to attend samaritan [] Unable to walk/stand [] Unable to read [] Unable to drive [] Unable to eat/drink [] Unable to sleep [] Unable to be with family [] Patient intubated [] Other: Summary Isoation Time spent with patient 5 mins
[2021-06-06 11:40] LABS: Glucose Point of Care 182 mg/dL (70-110)
[2021-06-06 13:59] LABS: Hematocrit 26.1 % (42.0-52.0); Hemoglobin 7.7 g/dL (11.7-16.6)
--- NOTE | 2021-06-06 14:47 | PM.DCS ---
Discharge Providers Date of Admission: 06/05/21 11:05 Date of Discharge: June 06, 2021 Attending Provider at Admission: Reece De La Rosa MD Attending Provider at Discharge: Reece De La Rosa MD Diagnoses at Discharge Discharge Diagnosis (1) Hyperkalemia: Status: Acute (2) Anemia: Status: Acute (3) Atrial fibrillation: Status: Acute (4) Elevated lactic acid level: Status: Acute (5) Type 2 diabetes mellitus: Status: Acute Reason for Visit Reason for Visit: Pneumonia Hospital Course Hospital Course Luis is a 75-year-old white male with history of being ill for the last several weeks with suspected Covid who presented to the hospital with increased confusion over his baseline, some shortness of breath with exertion. While in the emergency department he was found to have significant anemia, and electrolyte abnormality. He was given Kayexalate. His lisinopril was held. He was placed on Protonix for his anemia. All anticoagulants and antiplatelet medication was held. He was heme-negative in the emergency department. BNP was elevated so he received a dose of Lasix IV. He was also noted to have an elevated lactic acid so his Metformin was held. Chest x-ray showed no pneumonia. Head CT no acute changes. Rapid Covid negative but PCR positive. Echocardiogram demonstrated normal ejection fraction, moderate aortic valve stenosis. EKG demonstrated atrial fibrillation, borderline rapid ventricular rate. After treatment of his hyperkalemia, 1 dose of Lasix, and adjustment of medication for atrial fibrillation the next day he was doing well. who I talked with several times reported he was near her his baseline but still has some confusion which she had been struggling with the last several months. Physical therapy had worked with him to make sure he was safe from a strength and balance point to go home. Hemoglobin had been repeated several times, and appeared to be stable greater than 7 at time of discharge. He had no evidence of significant stooling to suggest a GI bleed. Anemia panel was performed demonstrating significant evidence of iron deficiency anemia and an iron transfusion was given while in the hospital. B12, TSH, random cortisol, procalcitonin, magnesium were all normal. I discussed with his he would need close follow-up with his primary care provider in the next 3 to 5 days and a repeat CBC at that time. His Metformin can be resumed in 1 day at 500 mg twice daily. It is doubtful, although possible that his concomitant illness could have resulted in lactic acidosis from his Metformin. Aspirin will be discontinued. He is not a candidate for anticoagulation secondary to his anemia and this was discussed with the who acknowledges the risks. Aspirin was also discontinued as well as Benadryl which could increase his fall risk. Clindamycin, hydroxychloroquine, ivermectin, steroids are not needed and he appears to be in the recovery phase of Covid secondary to his length of symptoms. He also did not require any oxygen with saturations of 98% on room air. Physical Exam Narrative: EXAM NARRATIVE: General exam is no apparent distress Neck is supple no lymphadenopathy or thyromegaly Cardiovascular regular rate and rhythm without murmur Lungs clear Abdomen is soft with positive bowel sounds Extremities no cyanosis clubbing or edema Discharge Data Data Completed and Pending: Completed Studies During Hospitalization Category Date Time Status CT head wo con* [id number] Routine Cat Scan 06/06/21 08:01 Completed XR chest 1V amanda ble [id number] Stat Exams 06/05/21 08:44 Completed CV. echo complete * [id number] Routine Ultrasound 06/05/21 12:50 Completed Pending at discharge Category Date Time Status Blood Culture Sta t Lab 06/05/21 08:14 Results Immunochemical Fe galo OCB Routine Lab 06/05/21 16:30 Uncollected Labs from last 24 hours 06/06/21 06/06/21 06/06/21 13:27 11:28 06:19 WBC RBC Hgb 7.7 L Hct 26.1 L MCV MCH MCHC RDW Plt Count MPV Neut % (Auto) Lymph % (Auto) [place] % (Auto) Eos % (Auto) Baso % (Auto) Neut # (Auto) Lymph # (Auto) [place] # (Auto) Eos # (Auto) Baso # (Auto) Nucleated RBC % (a uto) Nucleated RBCs # Sodium Potassium Chloride Carbon Dioxide Anion Gap BUN Creatinine GFR Calculation Glucose POC Glucose 182 H 147 H Estimat Average Gl ucose Hemoglobin A1c Calculated Osmolal ity Calcium Magnesium Iron TIBC % Saturation Unsat Iron Binding Ferritin Vitamin B12 Folate Procalcitonin 06/06/21 06/06/21 06/05/21 05:12 05:12 18:55 WBC 14.5 H RBC 3.91 L Hgb 7.9 L Hct 27.2 L MCV 69.6 L MCH 20.2 L MCHC 29.0 L RDW 21.6 H Plt Count 328 MPV 10.9 H Neut % (Auto) 63.4 Lymph % (Auto) 26.2 [place] % (Auto) 9.5 Eos % (Auto) 0.3 Baso % (Auto) 0.3 Neut # (Auto) 9.20 H Lymph # (Auto) 3.8 [place] # (Auto) 1.4 H Eos # (Auto) 0.0 Baso # (Auto) 0.1 Nucleated RBC % (a uto) 0 Nucleated RBCs # 0.0 Sodium 136 Potassium 4.0 Chloride 102 Carbon Dioxide 25 Anion Gap 13.0 BUN 23 Creatinine 1.2 GFR Calculation Not Reportable Glucose 75 POC Glucose 373 H Estimat Average Gl ucose Hemoglobin A1c Calculated Osmolal ity 284 L Calcium 9.5 Magnesium 2.1 Iron TIBC % Saturation Unsat Iron Binding Ferritin Vitamin B12 Folate Procalcitonin 06/05/21 06/05/21 06/05/21 15:32 13:39 07:27 WBC RBC Hgb Hct MCV MCH MCHC RDW Plt Count MPV Neut % (Auto) Lymph % (Auto) [place] % (Auto) Eos % (Auto) Baso % (Auto) Neut # (Auto) Lymph # (Auto) [place] # (Auto) Eos # (Auto) Baso # (Auto) Nucleated RBC % (a uto) Nucleated RBCs # Sodium Potassium Chloride Carbon Dioxide Anion Gap BUN Creatinine GFR Calculation Glucose POC Glucose 335 H Estimat Average Gl ucose Hemoglobin A1c Calculated Osmolal ity Calcium Magnesium Iron 21 L TIBC 315 % Saturation 6.6 L Unsat Iron Binding 294 Ferritin 23 L Vitamin B12 897 Folate 13.5 Procalcitonin 0.28 06/05/21 07:27 WBC RBC Hgb Hct MCV MCH MCHC RDW Plt Count MPV Neut % (Auto) Lymph % (Auto) [place] % (Auto) Eos % (Auto) Baso % (Auto) Neut # (Auto) Lymph # (Auto) [place] # (Auto) Eos # (Auto) Baso # (Auto) Nucleated RBC % (a uto) Nucleated RBCs # Sodium Potassium Chloride Carbon Dioxide Anion Gap BUN Creatinine GFR Calculation Glucose POC Glucose Estimat Average Gl ucose 306 Hemoglobin A1c 12.3 H Calculated Osmolal ity Calcium Magnesium Iron TIBC % Saturation Unsat Iron Binding Ferritin Vitamin B12 Folate Procalcitonin Vitals: Last Vital Signs Temp 98.1 F 06/06/21 12:00 Pulse 78 06/06/21 14:00 Resp 17 06/06/21 12:00 BP 121/73 06/06/21 12:00 Pulse Ox 98 06/06/21 12:00 Discharge Plan Discharge Patient Disposition: Home Condition: Stable Prescriptions: New metoprolol tartrate 25 mg Tablet 25 mg PO BID@0900,2100 Qty: 60 RF: 0 pantoprazole 40 mg Tablet,Delayed Release (Dr/Ec) 40 mg PO BID Qty: 60 RF: 0 metformin 500 mg tablet 500 mg PO BID Qty: 60 RF: 0 Continued aspirin 325 mg Tablet 325 mg PO DAILY RF: 0 glipizide 10 mg Tablet 10 mg PO DAILY RF: 0 Tessalon Perles 100 mg Capsule 100 mg PO BID RF: 0 Discontinued ivermectin 3 mg Tablet 3 mg PO BID RF: 0 atenolol 25 mg Tablet 25 mg PO DAILY RF: 0 clindamycin HCl 150 mg Capsule 150 mg PO TID RF: 0 Benadryl 25 mg Capsule 25 - 50 mg PO PRN RF: 0 metformin 1,000 mg Tablet 1,000 mg PO BID RF: 0 lisinopril-hydrochlorothiazide 20-25 mg Tablet 1 tab PO DAILY RF: 0 Plaquenil 200 mg Tablet 200 mg PO BID RF: 0 Medrol ([place]) 4 mg Tablets,Dose Pack See Rx Instructions .ROUTE .COMPLEX RF: 0 Discharge Orders: Discharge Order (Routine); Ordered 06/06/21 Ordered By: Reece De La Rosa Referrals: Katelynn Beckford DO [Family Provider] - 4-7 days (CBC, BMP on follow-up) Discharge Diet: Diabetic Discharge Activity: Increase activity as tolerated Patient Instructions: Opioid Safety Activity Restrictions/Additional Instructions: Take all medicine as prescribed. Note your dose of Metformin is 500 mg twice daily. May start this tomorrow. Dose has been lowered. Return for any concerns Avoid all anti-inflammatories such as ibuprofen, Aleve Motrin or Naprosyn. You may take Tylenol. No aspirin Follow-up with your primary care provider in 3 to 5 days, and CBC and BMP at that time. Your primary care provider may wish to refer you to have endoscopy when you recover from Covid secondary to your iron deficiency anemia. Discharge Attestations Time Spent in Discharge Care*: greater than 30 min Quality Metrics Clinical Quality Measures During this hospital stay, did patient experience: None Coding Level of Care Code Acute g [facility] note Diagnoses Hyperkalemia E87.5 Anemia D64.9 Atrial fibrillation I48.91 Elevated lactic acid level R79.89 Type 2 diabetes mellitus E11.9
[2021-06-06 16:48] LABS: Glucose Point of Care 99 mg/dL (70-110)
--- NOTE | 2021-06-06 18:16 | PC.NURSE ---
Pt discharged home. IV removed no redness or swelling noted. Pts discharge instructions given along with follow up appointments. Pt had no c/o pain or discomfort at the time of discharge.
--- NOTE | 2021-06-07 17:05 | PC.RESP ---
SMOKING CESSATION INFORMATION SENT TO PATIENT.
== END 2021-06-06 18:15 | disposition home or self-care (01) ==
LOC: ER 13:04 → CSU 21:48
PROVIDERS: Admitting Provider Internal Medicine; Emergency Provider Family Medicine; Family Provider Surgery Plastic and Reconstructive Surgery; Visit Provider Internal Medicine
DX: U07.1 COVID-19 (principal); E87.5 Hyperkalemia; D64.9 Anemia, unspecified; I48.91 Unspecified atrial fibrillation; R79.89 Other specified abnormal findings of blood chemistry; E11.9 Type 2 diabetes mellitus without complications; Z79.82 Long term (current) use of aspirin; Z79.84 Long term (current) use of oral hypoglycemic drugs; F17.210 Nicotine dependence, cigarettes, uncomplicated
CPT/HCPCS: 36415; 36416; 70450; 71045; 80048; 80053; 81003; 82533; 82550; 82607; 82728; 82746; 82962; 83036; 83540; 83550; 83605; 83735; 83880; 84145; 84443; 84484; 85014; 85018; 85025; 87040; 87426; 87635; 93005; 93306; 96361; 96365; 96366; 96367; 96372; 96375; 97161; 99285; G0378; J0360; J1650; J1756; J1815; J1940; J7030; J7050

== ENCOUNTER 2021-06-20 20:32 | Emergency (ER) | payer MEDICARE, OTHER, SELFPAY ==
[2021-06-20] VITALS (9 sets, daily range): BP systolic 151–194; BP diastolic 68–104; PULSE 68–86; RESP 16–22; TEMP 36.9–37.4; O2SAT 97–99; BMI 26.0
--- NOTE | 2021-06-20 20:34 | CTR_ITS ---
PROCEDURE INFORMATION: Exam: CT Head Without Contrast Exam date and time: 06/20/2021 8:34 PM Age: 75 years old Clinical indication: Speech disturbance and weakness, extremity and weakness, facial; Dysphasia; Patient HX: Sudden onset of RT facial droop, right upper ext weakness, and difficulty speaking. ; Additional info: Right sided weakness TECHNIQUE: Imaging protocol: Computed tomography of the head without contrast. Radiation optimization: All CT scans at this facility use at least one of these dose optimization techniques: automated exposure control; mA and/or kV adjustment per patient size (includes targeted exams where dose is matched to clinical indication); or iterative reconstruction. Other technique: STROKE PROTOCOL was implemented. COMPARISON: CT head wo con* [id number] 06/06/2021 8:26 AM RADIATION DOSE METRICS: Total DLP (mGy-cm): 870.77 FINDINGS: Brain: There is moderate cortical atrophy. Low-density changes in the white matter are consistent with nonspecific small vessel chronic ischemic change. There is no intracranial mass, hemorrhage or edema. There is small old lacunar infarct in the right thalamus there is small old cortical infarct in the left occipital lobe tip. Cerebral ventricles: No ventriculomegaly. Paranasal sinuses: Visualized sinuses are unremarkable. No fluid levels. Mastoid air cells: Visualized mastoid air cells are well aerated. Bones/joints: Unremarkable. No acute fracture. Soft tissues: Unremarkable. CT/CT head wo con* [id number] IMPRESSION: Old infarcts. No acute intracranial finding. ASSESSMENT: ASPECTS ([place] Stroke Program Early CT Score) is 10. Radiation Dose CTDIVOL = (mGy): DLP = 870.77 (mGy-cm)
--- NOTE | 2021-06-20 20:35 | ECG_ITS ---
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 Measurements Intervals [place] Rate: 80 P: 70 IN: 160 QRS: 4 QRSD: 83 T: 90 QT: 366 QTc: 425 Interpretive Statements SINUS RHYTHM Compared to ECG 06/05/2021 15:10:15 Atrial fibrillation no longer present Electronically Signed On 06-21-2021 13:57:00 CDT by Martha Dias M.D. [email or web address] [email or web address] stokes clevel[facility].[email or web address]/store/[id number]
--- NOTE | 2021-06-20 20:35 | XRR_ITS ---
PROCEDURE INFORMATION: Exam: XR Chest Exam date and time: 06/20/2021 8:35 PM Age: 75 years old Clinical indication: Chest wall pain; Additional info: Cp TECHNIQUE: Imaging protocol: XR of the chest. Views: 1 view. COMPARISON: CR XR chest 1V portable [id number] 06/05/2021 8:49 AM FINDINGS: Limitations: Study is made with lordotic positioning. Lungs: Visualized portions of the lungs are clear. Pleural spaces: Unremarkable. No pleural effusion. No pneumothorax. Heart/Mediastinum: Heart is within normal limits of size. Bones/joints: There are degenerative changes in the thoracic spine. XR/XR chest 1V portable [id number] IMPRESSION: No acute findings.
--- NOTE | 2021-06-20 20:36 | CTR_ITS ---
PROCEDURE INFORMATION: Exam: CT Angiography Head With Contrast, Arteriography Exam date and time: 06/20/2021 8:36 PM Age: 75 years old Clinical indication: Speech disturbance and weakness; Patient HX: RT side facial droop. RT upper ext weakness. Dysphasia. History of prior stroke. ; Additional info: CVA TECHNIQUE: Imaging protocol: Computed tomography angiography of the head with contrast. Exam focused on the arteries. 3D rendering (Not supervised by radiologist): MIP and/or 3D reconstructed images were created by the technologist. Radiation optimization: All CT scans at this facility use at least one of these dose optimization techniques: automated exposure control; mA and/or kV adjustment per patient size (includes targeted exams where dose is matched to clinical indication); or iterative reconstruction. Contrast material: VISI 320; Contrast volume: 95 ml; Contrast route: INTRAVENOUS (IV); COMPARISON: CT head wo con* [id number] 06/20/2021 8:32 PM RADIATION DOSE METRICS: Total DLP (mGy-cm): 2758.36 FINDINGS: ANTERIOR CIRCULATION: Right internal carotid artery: Unremarkable. Intracranial segment is patent with no significant stenosis. No aneurysm. Right middle cerebral artery: Unremarkable. No occlusion or significant stenosis. No aneurysm. Right anterior cerebral artery: Unremarkable. No occlusion or significant stenosis. No aneurysm. Left internal carotid artery: There is some mild atherosclerotic calcification in the left cavernous carotid artery without significant stenosis. Left middle cerebral artery: There is a focal thrombus or occlusion in in mid left M2 branch in the sylvian fissure such as an image number 228 or 229 of series 4. Distal vessels fill via collaterals. There are some distal M2 branches in the left sylvian fissure that show relative the diminished enhancement. Left anterior cerebral artery: Unremarkable. No occlusion or significant stenosis. No aneurysm. POSTERIOR CIRCULATION: Right vertebral artery: Distal right V4 vertebral artery segment is small, probably on a congenital basis. Left vertebral artery: The basilar artery is supplied mainly by the large left vertebral artery. Basilar artery: Unremarkable. No occlusion or significant stenosis. No aneurysm. Right posterior cerebral artery: Unremarkable. No occlusion or significant stenosis. No aneurysm. Left posterior cerebral artery: Unremarkable. No occlusion or significant stenosis. No aneurysm. Brain: No definite mass, mass effect, or midline shift. Cerebral ventricles: No ventriculomegaly. Bones/joints: Unremarkable. No acute fracture. Soft tissues: Unremarkable. IMPRESSION: There is focal thrombus in left M2 middle cerebral artery branch. COMMENTS: THIS REPORT CONTAINS FINDINGS THAT MAY BE CRITICAL TO PATIENT CARE. The findings were verbally communicated via telephone conference with THOMAS CAST at 9:05 PM CDT on 06/20/2021. The findings were acknowledged and understood. PROCEDURE INFORMATION: Exam: CT Angiography Neck With Contrast Exam date and time: 06/20/2021 8:36 PM Age: 75 years old Clinical indication: Speech disturbance and weakness; Patient HX: RT side facial droop. RT upper ext weakness. Dysphasia. History of prior stroke. ; Additional info: CVA TECHNIQUE: Imaging protocol: Computed tomography angiography of the neck with contrast. 3D rendering (Not supervised by radiologist): MIP and/or 3D reconstructed images were created by the technologist. Radiation optimization: All CT scans at this facility use at least one of these dose optimization techniques: automated exposure control; mA and/or kV adjustment per patient size (includes targeted exams where dose is matched to clinical indication); or iterative reconstruction. Contrast material: VISI 320; Contrast volume: 95 ml; Contrast route: INTRAVENOUS (IV); COMPARISON: CT head wo con* [id number] 06/20/2021 8:32 PM RADIATION DOSE METRICS: Total DLP (mGy-cm): 2758.36 FINDINGS: Limitations: Study is somewhat limited by patient motion. Right common carotid artery: No stenosis. No dissection or occlusion. Right internal carotid artery: There is some minimal calcified plaque in the right carotid bifurcation without evidence of stenosis. Right external carotid artery: No occlusion or stenosis of the origin. Left common carotid artery: No stenosis. No dissection or occlusion. Left internal carotid artery: There is mild calcified plaque in the proximal left internal carotid artery without stenosis as measured according to the NASCET criteria. Left external carotid artery: No occlusion or stenosis of the origin. 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 Left vertebral artery: Left vertebral artery is dominant. There is no stenosis or occlusion. Soft tissues: Normal. No significant soft tissue swelling. Bones/joints: No acute fracture. CT/CT angio headneck* [id number] IMPRESSION: There is no evidence of significant stenosis or occlusion in the carotid or vertebral arteries in the neck. REFERENCES: NASCET CRITERIA. The degree of internal carotid artery stenosis is based on NASCET criteria. Normal is no stenosis. Mild is less than 50% stenosis. Moderate is 50-69% stenosis. Severe is 70% to 99% stenosis. Total occlusion is no detectable patent lumen. Radiation Dose CTDIVOL = (mGy): DLP = 2758.36~2758.36 (mGy-cm)
--- NOTE | 2021-06-20 20:40 | ED_ITS ---
HPI - Neuro Symptoms/Deficit General: Chief Complaint: Neuro Symptoms/Deficit Stated Complaint: STROKE ALERT Time Seen by Provider: 06/20/21 20:34 Source: patient and EMS Mode of arrival: EMS Limitations: no limitations History of Present Illness: HPI Narrative: 75-year-old male who was sent in on the porch with his for 8 PM and had sudden onset of left-sided weakness along with right-sided facial droop and difficulty speaking. EMS states that he has had some slight improvement to the weakness but he still is quite aphasic. He does have a arm drift and does have a right-sided facial droop as well. He denies any headache. Associated symptoms: Deny chest pain, nausea or vomiting Review of Systems Const: Denies: fever(s), chills, body aches or change in appetite Eyes: Denies: blurry vision or eye discomfort ENMT: Denies: throat pain or dental pain Card: Denies: chest pain Resp: Denies: dyspnea GI: Denies: abdominal pain, nausea, vomiting or diarrhea : Denies: dysuria Musc: Denies: neck pain or back pain Skin/Breast: Denies: rash Neuro: Reports: weakness in extremities Psych: Denies: depression Roe/Lymph: Denies: easy bruising All/Imm: Denies: urticaria PFSH ED PFSH: Medical History (Updated 06/07/21 @ 00:02 by ) Hypertension Hypogonadism Type 2 diabetes mellitus Family History (Updated 06/05/21 @ 14:00 by Reece De La Rosa MD) Other Cancer Social History Smoking and tobacco status: current every day smoker cigarettes Packs smoked per day: 1 Alcohol intake: never NIH stroke score NIHSS: Level Of Consciousness - 1a: 0 Level Of Consciousness Questions - 1b: Both Correct Level Of Consciousness Commands - 1c: Both Correct Best Gaze - 2: Normal Visual Zhu - 3: No Visual Loss Facial Palsy - 4: Minor Paralysis Motor Arm Right - 5: Drift Motor Arm Left - 5: No Drift Motor Leg Right - 6: No Drift Motor Leg Left - 6: No Drift Limb Ataxia - 7: Absent Sensory - 8: Normal Best Language - 9: Severe Aphasia Dysarthia - 10: Severe Dysarthia Extinction And Inattention - 11: 0 Score: Total Score: 6 Physical Exam Const: COMMON NORMALS: no acute distress, patient oriented x3 and healthy appearing HENMT: COMMON NORMALS: normocephalic and atraumatic HEAD & SCALP: normocephalic and atraumatic Eye: COMMON NORMALS: Equal, round and reactive pupils present and EOMs intact bilaterally PUPIL: Yes Equal, round and reactive pupils present Neck/C-Spine: COMMON NORMALS: full ROM and supple Chest: COMMONS NORMALS: normal inspection of the chest and normal palpation of entire chest wall Resp: COMMON NORMALS: normal respiratory effort, No retractions, No use of accessory muscles and clear to auscultation bilaterally AUSCULTATION: clear to auscultation bilaterally Cardio: COMMON NORMALS: regular rate, regular rhythm and No murmurs present (Cardio) RATE: regular rate RHYTHM: regular rhythm GI: COMMON NORMALS: Normal to inspection, nondistended, normoactive bowel sounds present, Soft to palpation, non-tender and no masses PALPATION: Yes Soft to palpation Extremity: COMMON NORMALS: normal to inspection and full ROM Neuro: COMMON NORMALS: patient oriented x3 SPEECH: abnormal speech GAIT: Yes Unable to assess gait MOTOR EXAM: No 5/5 motor strength present throughout Psych: COMMON NORMALS: mental status grossly normal, Normal thought process present and cooperative THOUGHT PROCESS: Normal thought process present Skin: COMMON NORMALS: no rashes or lesions noted and no wounds GENERAL SKIN EXAM: no rashes or lesions noted Course Vital Signs: Vital signs: Vital Signs Temperature 98.9 F 06/20/21 20:53 Pulse Rate 68 06/20/21 21:35 Respiratory Rate 21 H 06/20/21 22:00 Blood Pressure 164/74 06/20/21 21:35 Pulse Oximetry 98 06/20/21 22:00 MDM - Neuro Symptoms/Deficit MDM Narrative: Medical decision making narrative: Patient presents here with a CVA with last known normal roughly 805. Patient was given TPA here. He has had minimal improvement here. CTA did show a clot in left MCA. Spoke to physician at [facility] and will transfer there for possible thrombectomy if he still continues to not improve. Lab Data: Labs: Lab Results 06/20/21 06/20/21 06/20/21 Range/Units 20:27 20:27 21:02 WBC 10.0 (4.0-10.0) 10^3/ uL RBC 4.15 (4.1-5.3) 10^6/u L Hgb 8.9 L (11.7-16.6) g/dL Hct 31.2 L (42.0-52.0) % MCV 75.2 L (80-94) fL MCH 21.4 L (28.0-34.0) pg MCHC 28.5 L (30.0-36.0) g/dL RDW 26.9 H (12.1-15.1) % Plt Count 704 H (130-400) 10^3/c mm MPV 8.8 (7.4-10.4) fL Neut % (Auto) 67.5 % Lymph % (Auto) 20.3 % [place] % (Auto) 9.8 % Eos % (Auto) 1.1 % Baso % (Auto) 0.4 % Neut # (Auto) 6.78 (1.8-7.7) 10^3/u L Lymph # (Auto) 2.0 (0.8-4.8) 10^3/u L [place] # (Auto) 1.0 H (0.2-0.9) 10^3/u L Eos # (Auto) 0.1 (0.0-0.8) 10^3/u L Baso # (Auto) 0.0 (0.0-0.1) 10^3/u L Nucleated RBC % (a uto) 0.2 % Nucleated RBCs # 0.0 /100WBC PT 15.20 H (12.1-14.9) SECO NDS INR 1.16 (0.8-1.2) Sodium 136 (136-145) mmol/L Potassium 4.7 (3.5-5.1) mmol/L Chloride 101 (98-107) mmol/L Carbon Dioxide 25 (22-29) mmol/L Anion Gap 14.7 (5-19) BUN 15 (8-23) mg/dL Creatinine 1.4 H (0.7-1.2) mg/dL GFR Calculation Not Reportable Glucose 171 H (65-115) mg/dL Calculated Osmolal ity 287 (285-295) mOsm/k g Calcium 10.0 (8.5-10.5) mg/dL Total Bilirubin 0.4 (0.15-1.2) mg/dL AST 32 (0-40) U/L ALT 23 (0-41) U/L Alkaline Phosphata se 94 (40-130) IU/L Total Protein 7.0 (6.6-8.7) g/dL Albumin 3.6 (3.5-5.2) g/dL Globulin 3.4 (1.3-4.6) g/dL Imaging Data^: CT Head: Radiologist's impression: [address] [address] [address] Scan Report Signed Patient: Luis Jensen Unit #: [id number] : 1945 Age/Sex: 75 / M ADM Date: 06/20/21 Loc: ER Room/Bed: Attending Dr: Ordering Provider/Ordering MD: Thomas Cast MD Date of Service: 06/20/21 Procedure(s): CT head wo con* [id number] Accession Number(s): [id number] Report Number: [id number] PROCEDURE INFORMATION: Exam: CT Head Without Contrast Exam date and time: 06/20/2021 8:34 PM Age: 75 years old Clinical indication: Speech disturbance and weakness, extremity and weakness, facial; Dysphasia; Patient HX: Sudden onset of RT facial droop, right upper ext weakness, and difficulty speaking. ; Additional info: Right sided weakness TECHNIQUE: Imaging protocol: Computed tomography of the head without contrast. Radiation optimization: All CT scans at this facility use at least one of these dose optimization techniques: automated exposure control; mA and/or kV adjustment per patient size (includes targeted exams where dose is matched to clinical indication); or iterative reconstruction. Other technique: STROKE PROTOCOL was implemented. COMPARISON: CT head wo con* [id number] 06/06/2021 8:26 AM RADIATION DOSE METRICS: Total DLP (mGy-cm): 870.77 FINDINGS: Brain: There is moderate cortical atrophy. Low-density changes in the white matter are consistent with nonspecific small vessel chronic ischemic change. There is no intracranial mass, hemorrhage or edema. There is small old lacunar infarct in the right thalamus there is small old cortical infarct in the left occipital lobe tip. Cerebral ventricles: No ventriculomegaly. Paranasal sinuses: Visualized sinuses are unremarkable. No fluid levels. Mastoid air cells: Visualized mastoid air cells are well aerated. Bones/joints: Unremarkable. No acute fracture. Soft tissues: Unremarkable. CT/CT head wo con* [id number] IMPRESSION: Old infarcts. No acute intracranial finding. ASSESSMENT: ASPECTS ([place] Stroke Program Early CT Score) is 10. Radiation Dose CTDIVOL = (mGy): DLP = 870.77 (mGy-cm) Dictated By: Cristhian Calixto Signed By: Cristhian Calixto Signed Date/Time: 06/20/212049 DD/ [address]: Radiologist's impression: [facility] [employer] [address] [address] Scan Report Signed Patient: Luis Jensen Unit #: [id number] : 1945 Age/Sex: 75 / M ADM Date: 06/20/21 Loc: ER Room/Bed: Attending Dr: Ordering Provider/Ordering MD: Thomas Cast MD Date of Service: 06/20/21 Procedure(s): CT angio headneck* [id number] Accession Number(s): [id number] Report Number: [id number] PROCEDURE INFORMATION: Exam: CT Angiography Head With Contrast, Arteriography Exam date and time: 06/20/2021 8:36 PM Age: 75 years old Clinical indication: Speech disturbance and weakness; Patient HX: RT side facial droop. RT upper ext weakness. Dysphasia. History of prior stroke. ; Additional info: CVA TECHNIQUE: Imaging protocol: Computed tomography angiography of the head with contrast. Exam focused on the arteries. 3D rendering (Not supervised by radiologist): MIP and/or 3D reconstructed images were created by the technologist. Radiation optimization: All CT scans at this facility use at least one of these dose optimization techniques: automated exposure control; mA and/or kV adjustment per patient size (includes targeted exams where dose is matched to clinical indication); or iterative reconstruction. Contrast material: VISI 320; Contrast volume: 95 ml; Contrast route: INTRAVENOUS (IV); COMPARISON: CT head wo con* [id number] 06/20/2021 8:32 PM RADIATION DOSE METRICS: Total DLP (mGy-cm): 2758.36 FINDINGS: ANTERIOR CIRCULATION: Right internal carotid artery: Unremarkable. Intracranial segment is patent with no significant stenosis. No aneurysm. Right middle cerebral artery: Unremarkable. No occlusion or significant stenosis. No aneurysm. Right anterior cerebral artery: Unremarkable. No occlusion or significant stenosis. No aneurysm. Left internal carotid artery: There is some mild atherosclerotic calcification in the left cavernous carotid artery without significant stenosis. Left middle cerebral artery: There is a focal thrombus or occlusion in in mid left M2 branch in the sylvian fissure such as an image number 228 or 229 of series 4. Distal vessels fill via collaterals. There are some distal M2 branches in the left sylvian fissure that show relative the diminished enhancement. Left anterior cerebral artery: Unremarkable. No occlusion or significant stenosis. No aneurysm. POSTERIOR CIRCULATION: Right vertebral artery: Distal right V4 vertebral artery segment is small, probably on a congenital basis. Left vertebral artery: The basilar artery is supplied mainly by the large left vertebral artery. Basilar artery: Unremarkable. No occlusion or significant stenosis. No aneurysm. Right posterior cerebral artery: Unremarkable. No occlusion or significant stenosis. No aneurysm. Left posterior cerebral artery: Unremarkable. No occlusion or significant stenosis. No aneurysm. Brain: No definite mass, mass effect, or midline shift. Cerebral ventricles: No ventriculomegaly. Bones/joints: Unremarkable. No acute fracture. Soft tissues: Unremarkable. IMPRESSION: There is focal thrombus in left M2 middle cerebral artery branch. COMMENTS: THIS REPORT CONTAINS FINDINGS THAT MAY BE CRITICAL TO PATIENT CARE. The findings were verbally communicated via telephone conference with THOMAS CAST at 9:05 PM CDT on 06/20/2021. The findings were acknowledged and understood. PROCEDURE INFORMATION: Exam: CT Angiography Neck With Contrast Exam date and time: 06/20/2021 8:36 PM Age: 75 years old Clinical indication: Speech disturbance and weakness; Patient HX: RT side facial droop. RT upper ext weakness. Dysphasia. History of prior stroke. ; Additional info: CVA TECHNIQUE: Imaging protocol: Computed tomography angiography of the neck with contrast. 3D rendering (Not supervised by radiologist): MIP and/or 3D reconstructed images were created by the technologist. Radiation optimization: All CT scans at this facility use at least one of these dose optimization techniques: automated exposure control; mA and/or kV adjustment per patient size (includes targeted exams where dose is matched to clinical indication); or iterative reconstruction. Contrast material: VISI 320; Contrast volume: 95 ml; Contrast route: INTRAVENOUS (IV); COMPARISON: EKG Data^: EKG 1: Attestation: I personally reviewed and interpreted this EKG as follows: EKG interpretation date: 06/20/21 EKG interpretation time: 20:51 Interpretation: nsr hr [address] or t wave abnormalities qrs 83 qtc 403 Critical Care Time Critical Care Time: Critical Care Time: Yes Total Critical Care Time: 36 Attestation: This case had a high probability of a clinically significant, sudden, or life threatening deterioration of this patient's condition which required my full and direct attention, intervention and personal management. Discharge Plan Discharge Prescriptions: No Action aspirin 325 mg Tablet 325 mg PO DAILY RF: 0 glipizide 10 mg Tablet 10 mg PO DAILY RF: 0 Tessalon Perles 100 mg Capsule 100 mg PO BID RF: 0 pantoprazole 40 mg Tablet,Delayed Release (Dr/Ec) 40 mg PO BID Qty: 60 RF: 0 metoprolol tartrate 25 mg Tablet 25 mg PO BID@0900,2100 Qty: 60 RF: 0 metformin 500 mg tablet 500 mg PO BID Qty: 60 RF: 0 Coding Level of Care Code ED Multifocal Lens Assembler for Chg 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
[2021-06-20] MEDS: iodixanol 320 mg/mL 100mL Btl IV (20:43)
[2021-06-20 20:44] LABS: Basophils % 0.4 %; Eosinophils # 0.1 10^3/uL (0.0-0.8); Eosinophils % 1.1 %; Hematocrit 31.2 % (42.0-52.0); Hemoglobin 8.9 g/dL (11.7-16.6); Lymphocytes % 20.3 %; Mean Corpuscular HGB Conc 28.5 g/dL (30.0-36.0); Mean Corpuscular Hemoglobin 21.4 pg (28.0-34.0); Mean Corpuscular Volume 75.2 fL (80-94); Mean Platelet Volume 8.8 fL (7.4-10.4); Monocytes % 9.8 %; Neutrophils # 6.78 10^3/uL (1.8-7.7); Neutrophils % 67.5 %; Nucleated Red Blood Cells % 0.2 %; Platelet Count 704 10^3/cmm (130-400); Red Blood Count 4.15 10^6/uL (4.1-5.3); Red Cell Distribution Width 26.9 % (12.1-15.1)
[2021-06-20] MEDS: labetalol 5 mg/mL SDV 20mL 20 MG IVP (20:54)
[2021-06-20 21:10] LABS: Alanine Aminotransferase 23 U/L (0-41); Albumin Level 3.6 g/dL (3.5-5.2); Alkaline Phosphatase 94 IU/L (40-130); Anion Gap 14.7 (5-19); Aspartate Amino Transferase 32 U/L (0-40); Blood Urea Nitrogen 15 mg/dL (8-23); Carbon Dioxide 25 mmol/L (22-29); Chloride 101 mmol/L (98-107); Globulin 3.4 g/dL (1.3-4.6); Glucose 171 mg/dL (65-115); Osmolality Calculated 287 mOsm/kg (285-295); Potassium 4.7 mmol/L (3.5-5.1); Sodium 136 mmol/L (136-145); Total Bilirubin 0.4 mg/dL (0.15-1.2)
[2021-06-20 21:25] LABS: INR 1.16 (0.8-1.2)
[2021-06-20] MEDS: morphine 4 mg/mL SDV 1 mL IVP (22:00)
[2021-06-20] MEDS: ondansetron 2 mg/ML SDV 2 mL 4 MG IVP (22:00)
--- NOTE | 2021-06-20 22:16 | PC.NURSE ---
Report called to Emili Lawrence RN @ [facility]. All questions answered.
[2021-06-20 22:58] LABS: Glucose Point of Care 197 mg/dL (70-110)
--- NOTE | 2021-06-20 23:04 | PC.NURSE ---
RETURNS FROM RADIOLOGY
--- NOTE | 2021-06-21 11:31 | PM.SAN ---
Stroke Alert Activation ED Arrival Date: 06/20/21 ED Arrival Time: 20:30 ED Physican at Bedside: 20:34 Last Known Normal/at Baseline: < 1 hour ago Other Last Known Well Infomation: I was called stat for stroke alert just as the patient was rolling through the door at 2030. I immediately talked with the triage nurse who notified me that Dr. Booth was in the company of the patient on the way to CAT scan. Dr. Booth called me as soon as he had completed his evaluation and described a stroke scale score of 5 based upon right-sided weakness more in the right arm and face than the leg with some impairment of speech in the form of dysarthria. Dr. Booth sent me the CAT scan on video and there were no acute abnormalities. At that time the blood pressure was normal and Tracer was unremarkable and we did a timeout and agreed that based upon the patient's stroke scale score, significant right-sided weakness and lack of any contraindications to treatment that he would go ahead and receive TPA. We both agreed he should have CT angiogram to rule out thrombus or embolus. Subsequently the patient's blood pressure went up and he had to get labetalol before he could be treated with TPA and that was done. The patient was treated with TPA within 30 minutes of arrival to [facility] and approximately 1 hour from onset of symptoms. Subsequently his CT angiogram revealed a focal thrombus in the left M2 middle cerebral artery branch. He was transferred to [facility] at 2216. Stroke Alert Activated by: Triage Stroke Alert Activation Time: 20:30 Stroke MD @ Bedside Time: 20:30 Critical Care Time Critical Care Time: less than 30 mins A&P Assessment and plan (1) Left middle cerebral artery stroke: 75-year-old man, diabetic and hypertensive presented with an acute left middle cerebral artery stroke and a clot in the left middle cerebral artery. I participated in his care through telemetry stroke. Status: Acute Coding Level of Care Code Acute Market Intelligence Consultant for William Reyes Diagnoses Left middle cerebral artery stroke I63.512
== END 2021-06-20 22:25 ==
PROVIDERS: Emergency Provider Emergency Medicine; Family Provider Surgery Plastic and Reconstructive Surgery
DX: R53.1 Weakness (principal); Z79.82 Long term (current) use of aspirin; Z79.84 Long term (current) use of oral hypoglycemic drugs; I10 Essential (primary) hypertension; E11.9 Type 2 diabetes mellitus without complications; F17.210 Nicotine dependence, cigarettes, uncomplicated
CPT/HCPCS: 36416; 70450; 70496; 70498; 71045; 80053; 82962; 85025; 85610; 93005; 96374; 96375; 99291; 99292; J2270; J2405; J2997; J3490; Q9967

== ENCOUNTER 2021-07-24 06:00 | Outpatient (RCR) | payer MEDICARE, OTHER, SELFPAY | END 2021-08-15 23:59 | disposition home or self-care (01) | LOC: SPO 06:00 | PROVIDERS: PCP Physical Medicine & Rehabilitation; Referring Provider Physical Medicine & Rehabilitation; Visit Provider Physical Medicine & Rehabilitation | DX: I63.81 Other cerebral infarction due to occlusion or stenosis of small artery (principal); R26.89 Other abnormalities of gait and mobility | CPT/HCPCS: 97110; 97112; 97116; 97161; 97167; 97535 ==

== ENCOUNTER 2021-08-16 06:00 | Outpatient (RCR) | payer MEDICARE, OTHER, SELFPAY | END 2021-09-15 23:59 | disposition home or self-care (01) | LOC: SPO 06:00 | PROVIDERS: PCP Surgery Plastic and Reconstructive Surgery; Referring Provider Physical Medicine & Rehabilitation; Visit Provider Physical Medicine & Rehabilitation | DX: R26.89 Other abnormalities of gait and mobility (principal); I63.81 Other cerebral infarction due to occlusion or stenosis of small artery | CPT/HCPCS: 97110; 97112; 97116; 97140; 97530; 97535 ==

== ENCOUNTER → 2021-09-04 12:51 | Outpatient (BNVA) | payer MEDICARE, OTHER, SELFPAY | PROVIDERS: PCP Surgery Plastic and Reconstructive Surgery; Visit Provider Specialist | DX: G31.84 Mild cognitive impairment of uncertain or unknown etiology (principal); I69.320 Aphasia following cerebral infarction; I48.91 Unspecified atrial fibrillation; Z79.01 Long term (current) use of anticoagulants; Z87.891 Personal history of nicotine dependence | CPT/HCPCS: 99205 ==

== ENCOUNTER 2021-09-16 06:00 | Outpatient (RCR) | payer MEDICARE, OTHER, SELFPAY | END 2021-10-15 23:59 | disposition home or self-care (01) | LOC: SPO 06:00 | PROVIDERS: PCP Surgery Plastic and Reconstructive Surgery; Visit Provider Physical Medicine & Rehabilitation | DX: I63.81 Other cerebral infarction due to occlusion or stenosis of small artery (principal); R26.89 Other abnormalities of gait and mobility | CPT/HCPCS: 97110; 97112; 97116; 97140; L3923 ==

== ENCOUNTER 2021-10-16 06:00 | Outpatient (RCR) | payer MEDICARE, OTHER, SELFPAY | END 2021-11-15 23:59 | disposition home or self-care (01) | LOC: SPO 06:00 | PROVIDERS: PCP Surgery Plastic and Reconstructive Surgery; Visit Provider Physical Medicine & Rehabilitation | DX: I63.81 Other cerebral infarction due to occlusion or stenosis of small artery (principal) | CPT/HCPCS: 97110; 97112; 97116; 97140; 97168 ==

== ENCOUNTER 2022-03-20 12:53 | Emergency (ER) | payer MEDICARE, OTHER, SELFPAY ==
[2022-03-20 12:38] VITALS: BP 103/71; PULSE 67; RESP 16; O2SAT 99
[2022-03-20 12:44] VITALS: BMI 30.4
--- NOTE | 2022-03-20 12:48 | PC.NURSE ---
Patient vitals stable upon arrival to triage 99% on room air.
[2022-03-20 12:51] VITALS: BP 139/67
--- NOTE | 2022-03-20 13:20 | US_ITS ---
WS: [id number] ULTRASOUND ABDOMEN CLINICAL INFORMATION: abd distention COMPARISON: None. FINDINGS: Limited examination due to bowel gas. Liver Size: Normal. Craniocaudal length: 13.8 cm. Echogenicity: Normal. Surface nodularity: None. Mass (size and location): None. Bile ducts Intrahepatic ducts: Normal. Common bile duct diameter: 0.4 cm. Gallbladder Normal. Gallstones: None. Gallbladder sludge: None. Gallbladder wall thickening: None. Pericholecystic fluid: None. Sonographic Wyman sign: Absent. Pancreas Not well seen Spleen Not seen due to bowel gas Right kidney: Nonobstructing renal parenchymal calculi. Hydronephrosis: None. Size: 10.7 cm x 6.3 cm x 4.2 cm Left kidney: Nonobstructing renal parenchymal calculi. Hydronephrosis: None. Size: 10.3 cm x 4.7 cm x 4.4 cm. Abdominal aorta and IVC Visualized portions are normal. Ascites: None. US/US abdomen complete* [id number] IMPRESSION: Technically difficult examination due to bowel gas. 1. Normal liver. 2. Normal gallbladder. No cholelithiasis. 3. No hydronephrosis in either kidney. 4. Nonobstructing renal parenchymal calculi upper pole both kidneys largest on the RIGHT measuring 15 mm 5. Spleen not seen due to bowel gas. 6. No ascites.
--- NOTE | 2022-03-20 13:20 | ED_ITS ---
HPI - General Adult General: Chief complaint: General Medical Stated complaint: ABD DISTENDED Source: patient Mode of arrival: EMS Limitations: other (Difficulty with processing and verbalizing due to previous stroke.) History of Present Illness: 76-year-old male presents emergency room complaining lightheadedness dizziness as well as abdominal distention his and him reporting a 40 pound weight gain in the last week with no swelling in the legs. He denies any chest or abdominal pain just a bloating sensation. No vomiting or diarrhea. Patient is diabetic he is on glipizide and metformin he is also on apixaban. Onset (ago): day(s) Location: abdomen Severity: mild Relieving factors: none Exacerbating factors: none Associated symptoms: Reports decreased appetite, malaise and nausea; Deny chest pain, confusion, cough, diaphoresis, dyspnea, fevers/chills, headache(s), rash, palpitations, seizures, short of breath, syncope, vomiting or weakness Treatments prior to arrival: none Review of Systems Const: Reports: malaise; Denies: fever(s), chills, body aches or diaphoresis ENMT: Denies: throat pain, ear or mastoid pain, nasal discharge or nasal congestion Card: Denies: chest pain, palpitations or syncope Resp: Denies: dyspnea GI: Reports: nausea and bloating; Denies: abdominal pain, vomiting, hematemesis, coffee ground emesis, dysphagia, diarrhea, constipation or GI cramping : Denies: flank pain, difficulty urinating, dysuria, urinary frequency or urinary urgency Skin/Breast: Denies: rash Neuro: Denies: headache(s) or confusion PFSH ED PFSH: Medical History Hypertension Hypogonadism Type 2 diabetes mellitus Family History Other Cancer Social History Smoking and tobacco status: former smoker Second hand smoke exposure: No Alcohol intake: never Physical Exam Const: COMMON NORMALS: no acute distress GENERAL APPEARANCE: cooperative and comfortable ORIENTATION/CONSCIOUSNESS: Yes awake, Yes oriented to person, Yes oriented to place and Yes oriented to time HENMT: COMMON NORMALS: normocephalic, atraumatic and hearing grossly normal bilaterally HEAD & SCALP: normocephalic and atraumatic Neck/C-Spine: COMMON NORMALS: no JVD Resp: COMMON NORMALS: normal respiratory effort, No retractions, No use of accessory muscles and clear to auscultation bilaterally AUSCULTATION: clear to auscultation bilaterally Cardio: COMMON NORMALS: no JVD, regular rate, regular rhythm and No murmurs present (Cardio) RATE: regular rate RHYTHM: regular rhythm GI: COMMON NORMALS: Soft to palpation and No hepatosplenomegaly present AUSCULTATION: Yes normoactive bowel sounds PALPATION: Yes Soft to palpation, No Tenderness to palpation present (GI), No Guarding due to palpation present (GI) and Yes No hepatosplenomegaly present Extremity: COMMON NORMALS: normal to inspection, capillary refill normal, no clubbing, cyanosis or edema, no calf tenderness and no pedal edema Neuro: SENSORIUM/ORIENTATION: Yes oriented to person, Yes oriented to place and Yes oriented to time Skin: COMMON NORMALS: no rashes or lesions noted GENERAL SKIN EXAM: no rashes or lesions noted Course Vital Signs: Vital signs: Vital Signs Pulse Rate 66 03/20/22 14:27 Respiratory Rate 16 03/20/22 12:38 Blood Pressure 156/78 03/20/22 14:27 Pulse Oximetry 99 03/20/22 12:38 [facility] - General Adult Medical Decision Making Patient is anemic. Rectal exam is negative for blood. Last she was anemic it was significantly iron deficient. His MCV is improved at this time. As orthostatics are okay he is very slightly hyperkalemic he was given some IV fluids we will discharge him to outpatients with he will get transfused 1 unit of blood follow-up with his primary care doctor. Return if has further problems. Patient reported significant abdominal distention and bloating CT of his abdomen does not show any fluid buildup he is relating this occurred over a week. I do not see any exam findings or imaging findings consistent with follow-up with his primary care doctor this persists. Medical Records I reviewed the patient's medical records. Lab Data I reviewed the patient's lab results. : 03/20/22 13:27 03/20/22 13:27 Laboratory Results WBC 7.3 10^3/uL (4.0-10.0) 03/20/22 13:27 RBC 3.20 10^6/uL (4.1-5.3) L 03/20/22 13:27 Hgb 7.5 g/dL (11.7-16.6) L 03/20/22 13:27 Hct 25.6 % (42.0-52.0) L 03/20/22 13:27 MCV 80.0 fl (80-94) 03/20/22 13:27 MCH 23.4 pg (28.0-34.0) L 03/20/22 13: MCHC 29.3 g/dL (30.0-36.0) L 03/20/22 13:27 RDW 16.8 % (12.1-15.1) H 03/20/22 13:27 Plt Count 375 10^3/cmm (130-400) 03/20/22 13:27 MPV 10.3 fL (7.4-10.4) 03/20/22 13:27 Neut % (Auto) 60.7 % 03/20/22 13:27 Lymph % (Auto) 25.6 % 03/20/22 13:27 [place] % (Auto) 9.7 % 03/20/22 13:27 Eos % (Auto) 2.7 % 03/20/22 13:27 Baso % (Auto) 1.0 % 03/20/22 13:27 Neut # (Auto) 4.45 10^3/uL (1.8-7.7) 03/20/22 13:27 Lymph # (Auto) 1.9 10^3/uL (0.8-4.8) 03/20/22 13:27 [place] # (Auto) 0.7 10^3/uL (0.2-0.9) 03/20/22 13:27 Eos # (Auto) 0.2 10^3/uL (0.0-0.8) 03/20/22 13:27 Baso # (Auto) 0.1 10^3/uL (0.0-0.1) 03/20/22 13:27 Nucleated RBC % (auto) 0 % 03/20/22 13:27 Nucleated RBCs # 0.0 /100WBC 03/20/22 13:27 Sodium 136 mmol/L (136-145) 03/20/22 13:27 Potassium 5.3 mmol/L (3.5-5.1) H 03/20/22 13:27 Chloride 102 mmol/L (98-107) 03/20/22 13:27 Carbon Dioxide 21 mmol/L (22-29) L 03/20/22 13:27 Anion Gap 18.3 (5-19) 03/20/22 13:27 BUN 24 mg/dL (8-23) H 03/20/22 13:27 Creatinine 1.1 mg/dL (0.7-1.2) 03/20/22 13:27 GFR Calculation Not Reportable 03/20/22 13:27 Glucose 176 mg/dL (65-115) H 03/20/22 13:27 Calculated Osmolality 290 mOsm/kg (285-295) 03/20/22 13:27 Calcium 10.4 mg/dL (8.5-10.5) 03/20/22 13:27 Total Bilirubin 0.3 mg/dL (0.15-1.2) 03/20/22 13:27 AST 21 U/L (0-40) 03/20/22 13:27 ALT 15 U/L (0-41) 03/20/22 13:27 Alkaline Phosphatase 88 IU/L (40-130) 03/20/22 13:27 Total Protein 7.2 g/dL (6.6-8.7) 03/20/22 13:27 Albumin 4.1 g/dL (3.5-5.2) 03/20/22 13:27 Globulin 3.1 g/dL (1.3-4.6) 03/20/22 13:27 Blood Type Cancelled 03/20/22 14:14 Rho(D) Type Cancelled 03/20/22 14:14 Antibody Screen Cancelled 03/20/22 14:14 Crossmatch See Detail 03/20/22 14:14 Discharge Plan Discharge Patient Disposition: Home Clinical Impression: Anemia Condition: Stable Prescriptions: No Action galantamine 4 mg tablet 4 mg PO BID Qty: 60 2RF Rx Instructions: administer with AM and PM meals amlodipine 5 mg tablet 5 mg PO DAILY 0RF atorvastatin [Lipitor] 80 mg tablet 80 mg PO DAILY 0RF fluoxetine [Prozac] 10 mg capsule 10 mg PO DAILY 0RF Saccharomyces boulardii [Daily Probiotic (S. boulardii)] 250 mg capsule 250 mg PO BID 0RF Eliquis 5 mg tablet 5 mg PO BID Qty: 180 3RF Rx Instructions: 340 B metoprolol tartrate 25 mg Tablet 25 mg PO BID@0900,2100 Qty: 60 0RF metformin 500 mg tablet 500 mg PO BID Qty: 60 0RF glipizide 10 mg tablet 5 mg PO DAILY 0RF Discharge Orders: Discharge ED (Routine); Ordered 03/20/22 Ordered By: Sammy Nguyen Referrals: Katelynn Beckford DO [Primary Care Provider] - Discharge Diet: Usual diet Discharge Activity: Increase activity as tolerated Patient Instructions: Opioid Safety Activity Restrictions/Additional Instructions: Follow-up with your primary care doctor within the week. Coding Level of Care Code ED Keg Washer for William Fwramin Exam Comprehensive
[2022-03-20 13:34] LABS: Basophils # 0.1 10^3/uL (0.0-0.1); Eosinophils # 0.2 10^3/uL (0.0-0.8); Eosinophils % 2.7 %; Hematocrit 25.6 % (42.0-52.0); Hemoglobin 7.5 g/dL (11.7-16.6); Lymphocytes # 1.9 10^3/uL (0.8-4.8); Lymphocytes % 25.6 %; Mean Corpuscular HGB Conc 29.3 g/dL (30.0-36.0); Mean Corpuscular Hemoglobin 23.4 pg (28.0-34.0); Mean Platelet Volume 10.3 fL (7.4-10.4); Monocytes # 0.7 10^3/uL (0.2-0.9); Monocytes % 9.7 %; Neutrophils # 4.45 10^3/uL (1.8-7.7); Neutrophils % 60.7 %; Nucleated Red Blood Cells % 0 %; Platelet Count 375 10^3/cmm (130-400); Red Cell Distribution Width 16.8 % (12.1-15.1); White Blood Count 7.3 10^3/uL (4.0-10.0)
[2022-03-20 13:57] LABS: Alanine Aminotransferase 15 U/L (0-41); Albumin Level 4.1 g/dL (3.5-5.2); Alkaline Phosphatase 88 IU/L (40-130); Blood Urea Nitrogen 24 mg/dL (8-23); Calcium 10.4 mg/dL (8.5-10.5); Carbon Dioxide 21 mmol/L (22-29); Chloride 102 mmol/L (98-107); Globulin 3.1 g/dL (1.3-4.6); Glucose 176 mg/dL (65-115); Osmolality Calculated 290 mOsm/kg (285-295); Sodium 136 mmol/L (136-145); Total Bilirubin 0.3 mg/dL (0.15-1.2); Total Protein 7.2 g/dL (6.6-8.7)
[2022-03-20 14:00] LABS: Anion Gap 18.3 (5-19); Potassium 5.3 mmol/L (3.5-5.1)
[2022-03-20 14:06] LABS: Aspartate Amino Transferase 21 U/L (0-40)
[2022-03-20 14:27] VITALS: BP 135/48; BP 138/55; BP 156/78; PULSE 66; PULSE 70
[2022-03-20] MEDS: sodium chloride 0.9% 500 ML 999 ML IV (14:33)
[2022-03-20 15:44] VITALS: BP 145/65; PULSE 64; RESP 16; O2SAT 100
[2022-03-20 15:58] VITALS: BP 145/65; PULSE 64; RESP 16; O2SAT 100
== END 2022-03-20 16:01 | disposition home or self-care (01) ==
PROVIDERS: Emergency Provider Family Medicine; PCP Surgery Plastic and Reconstructive Surgery
DX: D64.9 Anemia, unspecified (principal); R11.0 Nausea; E87.5 Hyperkalemia; R14.0 Abdominal distension (gaseous); I10 Essential (primary) hypertension; E11.9 Type 2 diabetes mellitus without complications; I69.398 Other sequelae of cerebral infarction; Z87.891 Personal history of nicotine dependence; Z79.01 Long term (current) use of anticoagulants; Z79.84 Long term (current) use of oral hypoglycemic drugs
CPT/HCPCS: 36430; 76700; 80053; 85025; 86850; 86900; 86920; 96360; 99284; J7040; P9058

== ENCOUNTER 2022-03-20 16:54 | Outpatient (CLI) | payer MEDICARE, OTHER, SELFPAY ==
[2022-03-20] VITALS (7 sets, daily range): BP systolic 159–178; BP diastolic 77–86; PULSE 63–87; RESP 17–18; TEMP 36.6–36.8; O2SAT 98–100
== END 2022-03-20 16:55 | disposition home or self-care (01) ==
PROVIDERS: PCP Surgery Plastic and Reconstructive Surgery; Visit Provider Family Medicine
DX: D64.9 Anemia, unspecified (principal)
CPT/HCPCS: 36430; 86850; 86900; 86920; P9058

== ENCOUNTER 2023-10-08 15:18 | Inpatient (IN) | payer MEDICARE, OTHER, SELFPAY ==
[2023-10-08 15:18] VITALS: BP 189/117; PULSE 119; RESP 20; TEMP 37.7; O2SAT 93; BMI 25.8
--- NOTE | 2023-10-08 15:28 | CTR_ITS ---
PROCEDURE INFORMATION: Exam: CT Head Without Contrast Exam date and time: 10/08/2023 3:42 PM Age: 77 years old Clinical indication: Altered mental status/memory loss; Other: Unknown; Additional info: Possible stroke TECHNIQUE: Imaging protocol: Computed tomography of the head without contrast. Radiation optimization: All CT scans at this facility use at least one of these dose optimization techniques: automated exposure control; mA and/or kV adjustment per patient size (includes targeted exams where dose is matched to clinical indication); or iterative reconstruction. REPORTING DATA: Count of CT and Cardiac NM exams in prior 12 months: This patient has received 0 known CTs and 0 known cardiac nuclear medicine studies in the 12 months prior to the current study. COMPARISON: CT angio headneck* [id number] 06/20/2021 8:38 PM RADIATION DOSE METRICS: Total DLP (mGy-cm): 1087.18 FINDINGS: Brain: There is moderate cortical atrophy. Low-density changes in the white matter are consistent with nonspecific small vessel chronic ischemic change. There is no intracranial mass, hemorrhage or edema. There is some focal low-density in the left internal capsule which may represent chronic lacunar infarct, new from 06/20/2021. There is focal hypodensity in the right thalamus consistent with chronic lacunar infarct not significantly changed. Small chronic infarct in the left occipital lobe tip again identified not significantly changed. Cerebral ventricles: No ventriculomegaly. Paranasal sinuses: Visualized sinuses are unremarkable. No fluid levels. Mastoid air cells: Visualized mastoid air cells are well aerated. Bones/joints: Unremarkable. No acute fracture. Soft tissues: Unremarkable. CT/CT head wo con* [id number] IMPRESSION: 1. Old infarcts. 2. No acute intracranial finding.
--- NOTE | 2023-10-08 15:29 | XRR_ITS ---
PROCEDURE INFORMATION: Exam: XR Chest Exam date and time: 10/08/2023 3:40 PM Age: 77 years old Clinical indication: Shortness of breath; Patient HX: SOB; AMS TECHNIQUE: Imaging protocol: Radiologic exam of the chest. Views: 1 view. COMPARISON: CR (CHEST, ) 06/20/2021 8:34 PM FINDINGS: Lungs: Unremarkable. No consolidation. Pleural spaces: Unremarkable. No pleural effusion. No pneumothorax. Heart/Mediastinum: Unremarkable. No cardiomegaly. Bones/joints: Unremarkable. XR/XR chest 1V portable [id number] IMPRESSION: No acute findings.
--- NOTE | 2023-10-08 15:32 | W.ED.AMS ---
HPI - Altered Mental Status General: Chief Complaint: Altered Mental Status Stated Complaint: weakness Time Seen by Provider: 10/08/23 15:23 History of Present Illness: 77-year-old male presents emergency department via EMS personnel secondary to increased weakness over the previous 1 week. His who is accompanying him states that 1 week ago he was treated for streptococcal pharyngitis and his states she feels like he has not gotten any better. Patient does have a elevated temperature of 101 prior to arrival here in the emergency department. He does a history of CVA and is on apixaban. He does have post stroke weakness with right-sided facial droop and right upper extremity partial paralysis with contraction. Review of Systems General: Reports: 10 or more systems reviewed and unremarkable except in HPI and below Const: Reports: fever(s), chills, body aches, fatigue and malaise Resp: Reports: productive cough Neuro: Reports: weakness in extremities [facility] PFSH: Medical History Hypertension Hypogonadism Type 2 diabetes mellitus Family History Other Cancer Social History Smoking and tobacco/nicotine status: former use of tobacco/nicotine Second hand smoke exposure: No Alcohol intake: never Substance/Drug Use: never Physical Exam Narrative: Constitutional: the patient appears well nourished and with normal development. Vital signs reviewed as documented. Febrile, HENMT: Normocephalic, atraumatic. External ears with normal appearance without drainage. Nose without drainage, normal appearance. Mucus membranes moist. Right-sided facial droop from previous CVA Neck is supple, No jugular venous distension, trachea is midline, no appreciable carotid bruits. No lymphadenopathy. No meningeal signs. Flexion, extension and lateral rotation is without pain. Eyes: Pupils are equal, round, reactive to light and accommodation. No scleral icterus. Extra-ocular movement are intact. Thorax is symmetrical and with equal rise and fall with respirations. Resp: Lungs are clear to auscultation. No wheezes, rales, crackles or ronchi at present. Cardio: Regular rate and rhythm. Positive S1, S2. No appreciable murmurs, rubs or gallops. GI: Abdominal exam reveals normal bowel sounds to all quadrants. No organomegaly. No obvious palpable masses noted. No hepatomegally appreciated. Soft, nontender to palpation. Extremity: Extremities are non-edematous and both femoral and pedal pulses are 2+ and equal bilaterally. Moves all extremities well, sensation in all extremities. Neuro: Alert and oriented x4, person, place, time and situation. Cranial nerves II through XII are grossly intact, there is no focal neurological deficits that I can appreciate at present. Motor strength in the upper and lower extremities are equal and bilateral 5/5. Psych: Cooperative, calm, normal thought process, appropriate judgment. Skin: No lesions, rashes. No gross abnormalities noted. Back: Symmetrical, no obvious deformity, No CVA tenderness Course Vital Signs: Vital signs: Vital Signs Temperature 99.8 F H 10/08/23 15:18 Pulse Rate 109 H 10/08/23 17:45 Respiratory Rate 18 10/08/23 17:45 Blood Pressure 141/111 10/08/23 17:45 Pulse Oximetry 93 10/08/23 17:45 Oxygen Delivery Me thod Room Air 10/08/23 17:45 MDM - Altered Mental Status Medical Decision Making Physical exam completed and documented, I will obtain a CT scan of his head given his increased weakness fatigue and complaints of headache. I will provide him IV Zofran for his nausea and vomiting episode. We will obtain twelve-lead EKG as well as cardiac enzymes and CBC, CMP and influenza, COVID screen and rapid strep screen. Differential diagnosis to include pneumonia, urinary tract infection, CVA, COVID infection, influenza, dehydration, uti Medical Records I reviewed the patient's medical records. Lab Data 10/08/23 15:36 10/08/23 15:[address] 10/08/23 15:28 IMPRESSION: 1. Old infarcts. 2. No acute intracranial finding. Chest X-Ray 10/08/23 15:29 IMPRESSION: No acute findings. Laboratory Results WBC 9.98 10^3/uL (3.29-11.43) 10/08/23 15:36 RBC 4.99 10^6/uL (3.85-5.65) 10/08/23 15:36 Hgb 15.10 g/dL (11.27-16.99) 10/08/23 15:36 Hct 45.9 % (37-53) 10/08/23 15:36 MCV 92.0 fl (82-101) 10/08/23 15:36 MCH 30.3 pg (27-33) 10/08/23 15:36 MCHC 32.9 g/dL (30-55) 10/08/23 15:36 RDW 14.4 % (12.1-15.1) 10/08/23 15:36 Plt Count 275 10^3/cmm (157-399) 10/08/23 15:36 MPV 10.5 fL (7.4-10.4) H 10/08/23 15:36 Neut % (Auto) 79.1 % 10/08/23 15:36 Lymph % (Auto) 8.0 % 10/08/23 15:36 [place] % (Auto) 11.6 % 10/08/23 15:36 Eos % (Auto) 0.4 % 10/08/23 15:36 Baso % (Auto) 0.7 % 10/08/23 15:36 Neut # (Auto) 7.89 10^3/uL (1.8-7.7) H 10/08/23 15:36 Lymph # (Auto) 0.8 10^3/uL (0.8-4.8) 10/08/23 15:36 [place] # (Auto) 1.2 10^3/uL (0.2-0.9) H 10/08/23 15:36 Eos # (Auto) 0.0 10^3/uL (0.0-0.8) 10/08/23 15:36 Baso # (Auto) 0.1 10^3/uL (0.0-0.1) 10/08/23 15:36 Nucleated RBC % (auto) 0 % 10/08/23 15:36 Nucleated RBCs # 0.0 /100WBC 10/08/23 15:36 PT 14.10 SECONDS (12.1-14.9) 10/08/23 15:36 INR 1.06 (0.8-1.2) 10/08/23 15:36 APTT 34.5 SECONDS (23.9-36.7) 10/08/23 15:36 Sodium 140 mmol/L (136-145) 10/08/23 15:36 Potassium 4.4 mmol/L (3.5-5.1) 10/08/23 15:36 Chloride 104 mmol/L (98-107) 10/08/23 15:36 Carbon Dioxide 23 mmol/L (22-29) 10/08/23 15:36 Anion Gap 17.4 (5-19) 10/08/23 15:36 BUN 21 mg/dL (8-23) 10/08/23 15:36 Creatinine 1.4 mg/dL (0.7-1.2) H 10/08/23 15:36 GFR Calculation Not Reportable 10/08/23 15:36 Glucose 132 mg/dL (65-115) H 10/08/23 15:36 Calculated Osmolality 295 mOsm/kg (285-295) 10/08/23 15:36 Lactic Acid 2.4 mmol/L (0.5-2.2) H 10/08/23 15:36 Calcium 10.6 mg/dL (8.5-10.5) H 10/08/23 15:36 Total Bilirubin 0.6 mg/dL (0.15-1.2) 10/08/23 15:36 AST 22 U/L (0-40) 10/08/23 15:36 ALT 30 U/L (0-41) 10/08/23 15:36 Alkaline Phosphatase 107 U/L (40-130) 10/08/23 15:36 Troponin T Baseline 30 ng/L (0-15) H 10/08/23 15:36 NT-Pro-B Natriuret Pep 1440 pg/mL (0-450) H 10/08/23 15:36 Total Protein 7.2 g/dL (6.6-8.7) 10/08/23 15:36 Albumin 4.5 g/dL (3.5-5.2) 10/08/23 15:36 Globulin 2.7 g/dL (1.3-4.6) 10/08/23 15:36 Procalcitonin 0.37 ng/mL (0-0.5) 10/08/23 15:36 Urine Color Yellow (Yellow) 10/08/23 16:31 Urine Appearance Sl hazy (CLEAR) A 10/08/23 16:31 Urine pH 8 (5-7) H 10/08/23 16:31 Ur Specific [place] 1.010 (1.005-1.030) 10/08/23 16:31 Urine Protein 2+ (Negative) H 10/08/23 16:31 Urine Glucose (UA) 1+ (Normal) H 10/08/23 16:31 Urine Ketones 1+ (Negative) H 10/08/23 16:31 Urine Blood Trace (Negative) H 10/08/23 16:31 Urine Nitrate Negative (Negative) 10/08/23 16:31 Urine Bilirubin 1+ (Negative) H 10/08/23 16:31 Prot Sulfosalicylic Acd Positive (Negative) 10/08/23 16:31 Urine Urobilinogen 1 mg/dL (Negative) H 10/08/23 16:31 Ur Leukocyte Esterase 1+ (Negative) H 10/08/23 16:31 Urine RBC 0-4 /hpf (0-2) H 10/08/23 16:31 Urine WBC 25-40 /hpf (0-5) H 10/08/23 16:31 Ur Squamous Epith Cells 0-4 /hpf (0-5) H 10/08/23 16:31 Amorphous Sediment Not Reportable 10/08/23 16:31 Urine Bacteria 1+ /hpf (NONE) H 10/08/23 16:31 Urine Mucus 1+ /hpf 10/08/23 16:31 Influenza Type A Ag negative (Negative) 10/08/23 16:00 Influenza Type B Ag negative (Negative) 10/08/23 16:00 SARS-CoV-2 Ag (Rapid) positive (Negative) H 10/08/23 16:00 Group A Strep Rapid Negative (Negative) 10/08/23 16:00 All radiology interpretation(s) finalized by discharge Critical Care Time Critical Care Time: Critical Care Time: Yes Total Critical Care Time: 60 Attestation: This case had a high probability of a clinically significant, sudden, or life threatening deterioration of this patient's condition which required my full and direct attention, intervention and personal management. Discharge Plan Discharge Patient Disposition: Admitted As Inpatient Clinical Impression: Altered mental status, Acute UTI, COVID-19 Condition: Stable Prescriptions: No Action galantamine 4 mg tablet 4 mg PO BID Qty: 60 2RF Rx Instructions: administer with AM and PM meals amlodipine 5 mg tablet 5 mg PO DAILY atorvastatin [Lipitor] 80 mg tablet 80 mg PO DAILY fluoxetine [Prozac] 10 mg capsule 10 mg PO DAILY Saccharomyces boulardii [Daily Probiotic (S. boulardii)] 250 mg capsule 250 mg PO BID Eliquis 5 mg tablet 5 mg PO BID Qty: 180 3RF Rx Instructions: 340 B metoprolol tartrate 25 mg Tablet 25 mg PO BID@0900,2100 Qty: 60 0RF metformin 500 mg tablet 500 mg PO BID Qty: 60 0RF glipizide 10 mg tablet 5 mg PO DAILY Referrals: Katelynn Beckford DO [Primary Care Provider] - Patient Instructions: Hyponatremia (ED), Benzodiazepine Use Disorder (ED), Dementia (ED), Non-diabetic Hypoglycemia (ED), Hypoglycemia in a Person with Diabetes (ED), Concussion (ED), Alcohol Intoxication (ED), Subarachnoid Hemorrhage (GEN), Altered Mental Status (ED) Coding Level of Care Code ED Tap Builder for William Reyes
--- NOTE | 2023-10-08 15:33 | ECG_ITS ---
[facility] Test Date: 2023-10-08 Pat Name: Luis Jensen Department: Room: Gender: Male Pressure Controller: : 1945 Requested By: Pierre El Order Number: [id number] Fidencio MD: Kane Clarke M.D. Measurements Intervals [place] Rate: 116 P: 0 ME: 0 QRS: -31 QRSD: 85 T: 95 QT: 331 QTc: 460 Interpretive Statements ATRIAL FIBRILLATION WITH RAPID VENTRICULAR RESPONSE WITH ABERRANT CONDUCTION OR VENTRICULAR PREMATURE COMPLEXES LEFT AXIS DEVIATION [QRS AXIS < -30] MODERATE ST DEPRESSION [0.05+ mV ST DEPRESSION] Compared to ECG 06/20/2021 20:51:04 Rhythm is changed from sinus to atrial fibrillation Electronically Signed On 10-09-2023 14:05:01 FOOT WORKER by Kane Clarke M.D. [id number]
[2023-10-08 15:45] LABS: Basophils # 0.1 10^3/uL (0.0-0.1); Basophils % 0.7 %; Eosinophils % 0.4 %; Hematocrit 45.9 % (37-53); Lymphocytes # 0.8 10^3/uL (0.8-4.8); Mean Corpuscular HGB Conc 32.9 g/dL (30-55); Mean Corpuscular Hemoglobin 30.3 pg (27-33); Mean Platelet Volume 10.5 fL (7.4-10.4); Monocytes # 1.2 10^3/uL (0.2-0.9); Monocytes % 11.6 %; Neutrophils # 7.89 10^3/uL (1.8-7.7); Neutrophils % 79.1 %; Nucleated Red Blood Cells % 0 %; Platelet Count 275 10^3/cmm (157-399); Red Blood Count 4.99 10^6/uL (3.85-5.65); Red Cell Distribution Width 14.4 % (12.1-15.1); White Blood Count 9.98 10^3/uL (3.29-11.43)
[2023-10-08 15:55] LABS: INR 1.06 (0.8-1.2)
[2023-10-08 15:56] LABS: Partial Thromboplastin Time 34.5 SECONDS (23.9-36.7)
[2023-10-08 16:00] LABS: Lactic Sepsis W/Reflex 2.4 mmol/L (0.5-2.2)
[2023-10-08 16:02] LABS: Troponin(5th) Baseline 30 ng/L (0-15)
[2023-10-08 16:10] LABS: NT Pro B Type Natriuretic Pept 1440 pg/mL (0-450); Procalcitonin 0.37 ng/mL (0-0.5)
[2023-10-08] MEDS: ondansetron 2 mg/ML SDV 2 mL 4 MG IVP (16:12)
[2023-10-08 16:21] LABS: Alanine Aminotransferase 30 U/L (0-41); Albumin Level 4.5 g/dL (3.5-5.2); Alkaline Phosphatase 107 U/L (40-130); Anion Gap 17.4 (5-19); Aspartate Amino Transferase 22 U/L (0-40); Blood Urea Nitrogen 21 mg/dL (8-23); Calcium 10.6 mg/dL (8.5-10.5); Carbon Dioxide 23 mmol/L (22-29); Chloride 104 mmol/L (98-107); Globulin 2.7 g/dL (1.3-4.6); Glucose 132 mg/dL (65-115); Osmolality Calculated 295 mOsm/kg (285-295); Potassium 4.4 mmol/L (3.5-5.1); Sodium 140 mmol/L (136-145); Total Bilirubin 0.6 mg/dL (0.15-1.2); Total Protein 7.2 g/dL (6.6-8.7)
[2023-10-08 16:28] LABS: Rapid Strep A Test Negative (Negative)
[2023-10-08 16:34] LABS: Influenza A by IFA negative (Negative); Influenza B by IFA negative (Negative)
[2023-10-08 16:49] VITALS: BP 146/84; PULSE 95; RESP 18; O2SAT 94
[2023-10-08 16:55] LABS: SARS Covid-2 Antigen positive (Negative)
[2023-10-08 17:25] LABS: Reflex Lactate Order REFLEX LACTIC ORDERD
--- NOTE | 2023-10-08 17:34 | ECG_ITS ---
[facility] Test Date: 2023-10-08 Pat Name: Luis Jensen Department: Room: Gender: Male Supervisor Stave Cutting: : 1945 Requested By: Pierre El Order Number: [id number] Fidencio MD: Kane Clarke M.D. Measurements Intervals [place] Rate: 114 P: 0 DE: 0 QRS: -45 QRSD: 90 T: 95 QT: 340 QTc: 468 Interpretive Statements ATRIAL FIBRILLATION WITH RAPID VENTRICULAR RESPONSE WITH ABERRANT CONDUCTION OR VENTRICULAR PREMATURE COMPLEXES LEFT AXIS DEVIATION [QRS AXIS < -30] MODERATE ST DEPRESSION [0.05+ mV ST DEPRESSION] ABNORMAL QRS-T ANGLE [QRS-T AXIS DIFFERENCE > 60] Compared to ECG 10/08/2023 15:33:43 No significant changes Electronically Signed On 10-09-2023 14:15:51 CHIN STRAP CUTTER by Kane Clarke M.D. [id number]
[2023-10-08 17:35] LABS: Add Urine Microscopic? YES; Bilirubin Urine 1+ (Negative); Blood Urine Trace (Negative); Glucose Urine UA 1+ (Normal); Ketones Urine 1+ (Negative); Leukocyte Esterase Urine 1+ (Negative); Nitrate Urine Negative (Negative); Protein Urine 2+ (Negative); Sulfosalicylic Acid Urine Positive (Negative); Urine Appearance SL Hazy (CLEAR); Urine Color Yellow (Yellow); Urobilinogen Urine 1 mg/dL (Negative); pH Urine 8 (5-7)
[2023-10-08 17:36] LABS: Add Urine Culture? Yes; Bacteria Urine 1+ /hpf; Mucus Urine 1+ /hpf; RBC Urine 0-4 /hpf (0-2); Squamous Epithelial Cell Urine 0-4 /hpf (0-5); WBC Urine 25-40 /hpf (0-5)
[2023-10-08 17:45] VITALS: BP 141/111; PULSE 109; RESP 18; O2SAT 93
--- NOTE | 2023-10-08 18:01 | P.HP_ITS ---
Providers/Chief Complaint Primary Care Provider: Katelynn Beckford DO Chief Complaint: weakness History of Present Illness Luis Jensen is a 77 year old male who was brought in by for weakness, confusion and fever. Patient developed streptococcal pharyngitis a week ago however since then he has not recovered completely, he does have old CVA with right-sided weakness right facial droop right upper extremity hemiparesis with contracture. Patient is confused, he is on Eliquis for previous history of A- fib and CVA.In the ER work-up showed CELENA, lactic acidemia related to hypotension and dehydration BNP 1440, he does have signs of UTI, COVID antigen positive Most of the information taken from collateral patient is confused with metabolic encephalopathy not able to provide any significant meaningful history. Self interpretation of EKG, A-fib with multiple PVCs unifocal Review of Systems General: Reports: ROS unobtainable due to medical condition Const: Reports: fever(s) and chills Eyes: Denies: change in vision ENMT: Denies: throat pain Medications/Allergies Home Medications Medication Instructions Recorded Confirmed Last Taken Type metformin 500 mg tablet 500 mg PO BID #60 tabs 06/06/21 03/20/22 03/19/22 Rx metoprolol tartrate 25 mg tablet 25 mg PO BID@0900,2100 #60 tabs 06/06/21 03/20/22 03/19/22 Rx Saccharomyces boulardii 250 mg 250 mg PO BID 07/25/21 03/20/22 03/19/22 History capsule (Daily Probiotic (S. boulardii)) amlodipine 5 mg tablet 5 mg PO DAILY 07/25/21 03/20/22 03/19/22 History apixaban 5 mg tablet (Eliquis) 5 mg PO BID #180 tabs 07/25/21 03/20/22 03/19/22 Rx atorvastatin 80 mg tablet (Lipitor) 80 mg PO DAILY 07/25/21 03/20/22 03/19/22 History fluoxetine 10 mg capsule (Prozac) 10 mg PO DAILY 07/25/21 03/20/22 03/19/22 History glipizide 10 mg tablet 5 mg PO DAILY SEE PHARMACY COMMENTS 07/25/21 03/20/22 03/19/22 History galantamine 4 mg tablet 4 mg PO BID #60 tabs 09/04/21 03/20/22 03/19/22 Rx Allergies Allergy/AdvReac Type Severity Reaction Status Date / Time No Known Allergies Allergy Verified 10/08/23 15:27 PFSH Acute PFSH: Medical History Hypertension Hypogonadism Type 2 diabetes mellitus Family History Other Cancer Social History Smoking and tobacco/nicotine status: former use of tobacco/nicotine Second hand smoke exposure: No Alcohol intake: never Substance/Drug Use: never Vitals/I&O/Wt Last Vital Signs Temp 99.8 F H 10/08/23 15:18 Pulse 109 H 10/08/23 17:45 Resp 18 10/08/23 17:45 BP 141/111 10/08/23 17:45 Pulse Ox 93 10/08/23 17:45 O2 Del Method Room Air 10/08/23 17:45 Weight last 48 hrs Weight 77.111 kg Physical Exam Narrative: Patient clinically looks dry GCS 15 Not able to follow commands Confused Speech is muffled Right-sided weakness noted Abdomen distended, mild tenderness left lower quadrant no rebound tenderness or signs of rigidity S1, S2 bradycardia able A-fib RVR 102 Patient able to move extremities Data 10/08/23 15:36 10/08/23 15:36 A&P Assessment and plan (1) Altered mental status: (2) Acute UTI: (3) COVID-19: (4) Mild cognitive impairment with memory loss: (5) Atrial fibrillation: (6) Anemia: (7) Type 2 diabetes mellitus: (8) CELENA (acute kidney injury): Plan Metabolic encephalopathy related to UTI COVID-19 Start remdesivir and Decadron Start antibiotics for UTI Patient has previous history of stroke related to A-fib Continue Eliquis We will use sliding scale with consistent carb diet Patient is full code CELENA likely related to dehydration continue IV fluids Patient does have high BNP clinically looks dry Most of the information taken from collateral, patient not able to provide history EKG interpretation A-fib with unifocal PVCs Mild left lower quadrant tenderness of abdomen noted requested KUB Attestations Medical Necessity Statement*: More than 2 midnights anticipated Diagnoses Altered mental status R41.82 Acute UTI N39.0 COVID-19 U07.1 Mild cognitive impairment with memory loss G31.84 Atrial fibrillation I48.91 Anemia D64.9 Type 2 diabetes mellitus E11.9 CELENA (acute kidney injury) N17.9
[2023-10-08] MEDS: cefTRIAXone 1,000 MG in sodium chloride 0.9% (plus) 50 ML 100 MG IV (18:30)
[2023-10-08 18:37] LABS: Procalcitonin 0.37 ng/mL (0-0.5)
[2023-10-08 18:41] LABS: Lactic Acid level (Lactate) 1.8 mmol/L (0.5-2.2)
[2023-10-08 18:42] LABS: Troponin 5 2HR 34.03 ng/L (0-15); Troponin 5 2HR Delta 4.03 ABS# (0-10)
[2023-10-08 18:45] VITALS: BP 145/107; PULSE 111; RESP 18; O2SAT 96
[2023-10-08 19:52] VITALS: BP 154/103; PULSE 102; RESP 24; TEMP 36.7; O2SAT 95
--- NOTE | 2023-10-08 20:16 | PC.NURSE ---
remdesivir ordered for patient, no pharmacist on duty, medication unavailable. Dr Cantu notified.
[2023-10-08] MEDS: levoFLOXacin 750 mg Tablet PO (20:25)
[2023-10-08] MEDS: metoprolol tartrate 25 mg Tablet PO (20:25)
[2023-10-08 21:01] LABS: Glucose Point of Care 111 mg/dL (70-110)
--- NOTE | 2023-10-08 21:25 | XRR_ITS ---
PROCEDURE INFORMATION: Exam: XR Abdomen Exam date and time: 10/08/2023 10:33 PM Age: 77 years old Clinical indication: Abdominal pain; Generalized; Patient HX: Abdominal tenderness; Bloating TECHNIQUE: Imaging protocol: Radiologic exam of the abdomen. Views: Frontal supine view of the abdomen. 1 View. COMPARISON: CR (CHEST, ) 10/08/2023 3:40 PM FINDINGS: Gastrointestinal tract: There is a nonspecific gas pattern with some mild gaseous distention of the transverse colon but no evidence of obstruction. Organs: No urinary tract calculi are demonstrated. Bones/joints: There are degenerative changes in the lumbar spine. XR/XR KUB portable [id number] IMPRESSION: Nonspecific gas pattern. No acute finding.
[2023-10-08 22:16] LABS: Troponin 5 6HR 39.64 ng/L (0-15)
[2023-10-08 22:17] LABS: Troponin 5 6HR Delta 9.64 ng/L (0-12)
[2023-10-08 22:51] VITALS: RESP 19; O2SAT 94
[2023-10-08] MEDS: morphine IR 15 mg Tablet PO (22:51)
[2023-10-08] MEDS: OLANZapine 10 mg VIAL IM (23:44)
[2023-10-09] VITALS (59 sets, daily range): BP systolic 112–164; BP diastolic 65–115; PULSE 63–140; RESP 18–25; TEMP 36.4–37.9; O2SAT 90–98
[2023-10-09] MEDS: acetaminophen 500 mg Tablet PO (04:04)
[2023-10-09 06:26] LABS: Glucose Point of Care 142 mg/dL (70-110)
[2023-10-09 06:41] LABS: Blood Urea Nitrogen 22 mg/dL (8-23); C Reactive Protein 70.6 mg/L (0.0-4.9); Calcium 9.9 mg/dL (8.5-10.5); Carbon Dioxide 19 mmol/L (22-29); Chloride 104 mmol/L (98-107); Glucose 155 mg/dL (65-115); Magnesium 1.9 mg/dL (1.7-2.3); Osmolality Calculated 292 mOsm/kg (285-295); Sodium 138 mmol/L (136-145)
[2023-10-09 06:45] LABS: Anion Gap 19.6 (5-19); Potassium 4.6 mmol/L (3.5-5.1)
[2023-10-09 07:48] LABS: Basophils % 0.3 %; Hematocrit 39.3 % (37-53); Lymphocytes # 0.7 10^3/uL (0.8-4.8); Lymphocytes % 7.2 %; Mean Corpuscular HGB Conc 33.1 g/dL (30-55); Mean Corpuscular Hemoglobin 30.2 pg (27-33); Mean Corpuscular Volume 91.2 fl (82-101); Mean Platelet Volume 10.8 fL (7.4-10.4); Monocytes # 1.2 10^3/uL (0.2-0.9); Monocytes % 12.8 %; Neutrophils # 7.53 10^3/uL (1.8-7.7); Neutrophils % 79.3 %; Nucleated Red Blood Cells % 0 %; Platelet Count 217 10^3/cmm (157-399); Red Blood Count 4.31 10^6/uL (3.85-5.65); Red Cell Distribution Width 14.4 % (12.1-15.1)
[2023-10-09] MEDS: remdesivir 200 MG in sodium chloride 0.9% (100 ml) 60 ML 100 MG IV (07:54)
[2023-10-09] MEDS: dexamethasone 4 mg Tablet 6 MG PO (08:46)
[2023-10-09] MEDS: metoprolol tartrate 25 mg Tablet PO ×2 (08:47→20:21)
[2023-10-09] MEDS: apixaban 5 mg Tablet PO ×2 (08:47→17:38)
[2023-10-09] MEDS: insulin lispro 100 unit/1 mL SUBCUT ×3 (08:47→17:38)
[2023-10-09] MEDS: sennosides-docusate Tablet 1 TAB PO (08:48)
[2023-10-09 11:04] LABS: Glucose Point of Care 220 mg/dL (70-110)
--- NOTE | 2023-10-09 13:07 | P.PN_ITS ---
Subjective Subjective: This morning. Patient is confused. Sitter at bedside. Vitals/I&O/Wt Last Vital Signs Temp 98.2 F 10/09/23 12:00 Pulse 68 10/09/23 12:00 Resp 20 H 10/09/23 08:00 BP 112/65 10/09/23 12:00 Pulse Ox 97 10/09/23 12:00 O2 Del Method Room Air 10/09/23 12:00 10/08/23 10/09/23 10/09/23 22:59 06:59 14:59 Intake Total 50 / 50 240 / 290 100 / 100 Output Total 200 / 200 Balance 50 / 50 40 / 90 100 / 100 Weight last 48 hrs Weight 79.832 kg Weight 76.748 kg Weight 77.111 kg Physical Exam Narrative: Not able to follow commands Confused Speech is muffled Right-sided weakness noted Abdomen distended, mild tenderness left lower quadrant no rebound tenderness or signs of rigidity S1, S2 irregularly irregular rhythm Patient able to move extremities Urinary Catheter Management: Mckeon: Cath Placed During This Visit: yes Reason for Continuing Indwelling Catheter: Assist Healing of Perineal & Sacral Wounds- Incontinent Patients Urinary Catheter Date of Insertion: 10/09/23 Urinary Catheter Time of Insertion: 01:48 Data 10/09/23 07:28 10/09/23 06:17 Micro: Microbiology 10/08/23 16:00 Group A Streptococcus Rapid Screen - Preliminary Throat 10/08/23 16:31 Urine Culture - Preliminary Urine,Clean Catch Strep species, gamma-hemolytic A&P Assessment and plan (1) Altered mental status: (2) Acute UTI: (3) COVID-19: (4) Mild cognitive impairment with memory loss: (5) Atrial fibrillation: (6) Anemia: (7) Type 2 diabetes mellitus: (8) CELENA (acute kidney injury): Plan #Metabolic encephalopathy related to UTI #COVID-19 #Atrial fibrillation #History of left middle cerebral artery stroke #Type 2 diabetes mellitus #Acute kidney injury on CKD ?Continue Eliquis 5 twice daily ? Continue amlodipine 5 daily ? Continue levothyroxine daily ? Continue venlafaxine daily ? Continue atorvastatin ? Hold glipizide ? Continue on remdesivir and Decadron 6 IV daily ? Ceftriaxone 1 g daily ? Check blood cultures, urine culture ? Patient is COVID-positive ? DuoNeb every 6 hours as needed ? Sliding scale insulin with consistent carbohydrate diet ? CELENA most likely related to dehydration. Continue IV fluids ? Check chest x-ray in a.m. ? KUB reviewed. Nonspecific gas pattern. Patient not experiencing any te nderness at this time. ? Discontinue oral morphine. Placed on Tylenol orally as needed for pain. ? Patient received 10 of Zyprexa overnight. Full code DVT prophylaxis: On Eliquis Diet: Dysphagia level 5 diet minced and moist GI prophylaxis: Patient chronically on Protonix at home Attestations Medical Necessity Statement*: Patient requires inpatient stay for management of altered mental status secondar y to UTI Diagnoses Altered mental status R41.82 Acute UTI N39.0 COVID-19 U07.1 Mild cognitive impairment with memory loss G31.84 Atrial fibrillation I48.91 Anemia D64.9 Type 2 diabetes mellitus E11.9 CELENA (acute kidney injury) N17.9
[2023-10-09 14:33] LABS: Add Urine Microscopic? YES; Bacteria Urine TRACE /hpf; Bilirubin Urine Neg (Negative); Blood Urine 3+ (Negative); Glucose Urine UA 2+ (Normal); Hyaline Casts Urine 0-4 /lpf; Ketones Urine 1+ (Negative); Leukocyte Esterase Urine Negative (Negative); Nitrate Urine Negative (Negative); Protein Urine 1+ (Negative); Specific Gravity, Urine 1.025 (1.005-1.030); Squamous Epithelial Cell Urine 0-4 /hpf (0-5); Urine Appearance Cloudy (CLEAR); Urine Color Yellow (Yellow); Urobilinogen Urine Norm (Negative); WBC Urine 25-40 /hpf (0-5); pH Urine 5 (5-7)
[2023-10-09 14:34] LABS: Add Urine Culture? Yes; Coarse Granular Casts Urine 0-4 /lpf
--- NOTE | 2023-10-09 15:45 | PC.NURSE ---
1:1 sitter was told she could go as patient had no order for a 1:1 sitter and it was no longer needed. Patient calm and relaxed, lying in bed watching TV. Bed alarm will be turned on.
[2023-10-09] MEDS: cefTRIAXone 1,000 MG in sodium chloride 0.9% (plus) 50 ML 100 MG IV (17:10)
[2023-10-09 17:31] LABS: Glucose Point of Care 235 mg/dL (70-110)
[2023-10-09] MEDS: venlafaxine ER (24HR) 37.5 mg Capsule PO (17:38)
[2023-10-09 22:49] LABS: Glucose Point of Care 305 mg/dL (70-110)
[2023-10-10] VITALS (10 sets, daily range): BP systolic 117–164; BP diastolic 63–99; PULSE 74–113; RESP 15–25; TEMP 36–37.4; O2SAT 90–94
[2023-10-10 06:00] LABS: Basophils % 0.1 %; Hematocrit 42.3 % (37-53); Lymphocytes # 1.2 10^3/uL (0.8-4.8); Lymphocytes % 10.6 %; Mean Corpuscular HGB Conc 33.1 g/dL (30-55); Mean Corpuscular Hemoglobin 29.8 pg (27-33); Mean Platelet Volume 11.1 fL (7.4-10.4); Monocytes # 1.5 10^3/uL (0.2-0.9); Monocytes % 12.9 %; Nucleated Red Blood Cells % 0 %; Platelet Count 246 10^3/cmm (157-399); Red Cell Distribution Width 14.3 % (12.1-15.1); White Blood Count 11.31 10^3/uL (3.29-11.43)
[2023-10-10] MEDS: levothyroxine 50 mcg Tablet PO (06:15)
[2023-10-10] MEDS: folic acid 1 mg Tablet PO (06:15)
[2023-10-10] MEDS: pantoprazole DR 40 mg Tablet PO (06:15)
[2023-10-10] MEDS: amlodipine 5 mg Tablet PO (06:15)
[2023-10-10 06:17] LABS: Blood Urea Nitrogen 30 mg/dL (8-23); Calcium 10.2 mg/dL (8.5-10.5); Carbon Dioxide 22 mmol/L (22-29); Chloride 107 mmol/L (98-107); Glucose 192 mg/dL (65-115); Osmolality Calculated 299 mOsm/kg (285-295); Sodium 139 mmol/L (136-145)
[2023-10-10 06:20] LABS: Anion Gap 14.6 (5-19); Potassium 4.6 mmol/L (3.5-5.1)
[2023-10-10] MEDS: remdesivir 100 MG in sodium chloride 0.9% (100 ml) 100 ML IV (06:35)
[2023-10-10 07:21] LABS: Glucose Point of Care 173 mg/dL (70-110)
[2023-10-10] MEDS: metoprolol tartrate 25 mg Tablet PO ×2 (10:13→21:07)
[2023-10-10] MEDS: dexamethasone 4 mg Tablet 6 MG PO (10:13)
[2023-10-10] MEDS: apixaban 5 mg Tablet PO ×2 (10:13→17:52)
[2023-10-10] MEDS: atorvastatin 40 mg Tablet 80 MG PO (10:13)
[2023-10-10] MEDS: sennosides-docusate Tablet 1 TAB PO (10:14)
[2023-10-10] MEDS: insulin lispro 100 unit/1 mL SUBCUT ×3 (10:14→17:54)
[2023-10-10 12:07] LABS: Glucose Point of Care 303 mg/dL (70-110)
--- NOTE | 2023-10-10 14:13 | P.PN_ITS ---
Subjective Subjective: Family requesting SNF placement for rehab Patient alert oriented x3 doing better. I believe he is back to baseline He knows where he is he knows what is going on however is a little hard to understand. Denies pain, shortness of breath, any other problems. Vitals/I&O/Wt Last Vital Signs Temp 98.4 F 10/10/23 12:00 Pulse 75 10/10/23 12:00 Resp 16 10/10/23 07:59 BP 123/63 10/10/23 12:00 Pulse Ox 90 10/10/23 12:00 O2 Del Method Room Air 10/10/23 12:00 O2 Flow Rate 2 10/09/23 23:58 10/09/23 10/10/23 10/10/23 22:59 06:59 14:59 Intake Total 50 / 270 320 / 320 Output Total 880 / 1200 200 / 1400 Balance -830 / -930 -200 / -1130 320 / 320 Weight last 48 hrs Weight 78.245 kg Weight 79.832 kg Weight 76.748 kg Weight 77.111 kg Physical Exam Narrative: Alert oriented x3 Speech is muffled Right-sided weakness noted Abdomen obese rounded, nontender, soft S1, S2 irregularly irregular rhythm Patient able to move extremities Urinary Catheter Management: Mckeon: Cath Placed During This Visit: yes Reason for Continuing Indwelling Catheter: Accurate Measurement of Urinary Output in Critically Ill Patients Urinary Catheter Date of Insertion: 10/09/23 Urinary Catheter Time of Insertion: 01:48 Data 10/10/23 05:05 10/10/23 05:05 Micro: Microbiology 10/08/23 16:31 Urine Culture - Final Urine,Clean Catch Enterococcus faecalis 10/08/23 16:00 Group A Streptococcus Rapid Screen - Final Throat 10/09/23 13:44 Urine Culture - Preliminary Urine,Clean Catch Streptococcus species 10/09/23 16:23 Blood Culture - Preliminary Blood SPECIMEN COLLECTED 10/09/23 16:19 Blood Culture - Preliminary Blood SPECIMEN COLLECTED A&P Assessment and plan (1) Altered mental status: (2) Acute UTI: (3) COVID-19: (4) Mild cognitive impairment with memory loss: (5) Atrial fibrillation: (6) Anemia: (7) Type 2 diabetes mellitus: (8) CELENA (acute kidney injury): Plan #Metabolic encephalopathy related to UTI #COVID-19 #Atrial fibrillation #History of left middle cerebral artery stroke #Type 2 diabetes mellitus #Acute kidney injury on CKD ?Continue Eliquis 5 twice daily ? Continue amlodipine 5 daily ? Continue levothyroxine daily ? Continue venlafaxine daily ? Continue atorvastatin ? Hold glipizide ? Continue on remdesivir and Decadron 6 IV daily ? Ceftriaxone 1 g daily ? Check blood cultures, urine culture. Urine culture grows Enterococcus faecali s pansensitive. Blood cultures negative to date. ? Patient is COVID-positive ? DuoNeb every 6 hours as needed ? Sliding scale insulin with consistent carbohydrate diet ? CELENA most likely related to dehydration. Continue IV fluids Creatinine improving. 1.3 today. ? KUB reviewed. Nonspecific gas pattern. Patient not experiencing any tenderness at this time. ? Discontinue oral morphine. Placed on Tylenol orally as needed for pain. ? Patient received 10 of Zyprexa overnight. Full code DVT prophylaxis: On Eliquis Diet: Dysphagia level 5 diet minced and moist GI prophylaxis: Patient chronically on Protonix at home Disposition: Patient's family is requesting SNF placement. Attestations Medical Necessity Statement*: Continue inpatient treatment for COVID and UTI. Patient may be able to medically discharge in a.m. however is requesting [facility] placement. Diagnoses Altered mental status R41.82 Acute UTI N39.0 COVID-19 U07.1 Mild cognitive impairment with memory loss G31.84 Atrial fibrillation I48.91 Anemia D64.9 Type 2 diabetes mellitus E11.9 CELENA (acute kidney injury) N17.9
[2023-10-10 16:32] LABS: Glucose Point of Care 343 mg/dL (70-110)
[2023-10-10] MEDS: venlafaxine ER (24HR) 37.5 mg Capsule PO (17:53)
[2023-10-10] MEDS: cefTRIAXone 1,000 MG in sodium chloride 0.9% (plus) 50 ML 100 MG IV (17:53)
[2023-10-10 21:26] LABS: Glucose Point of Care 358 mg/dL (70-110)
[2023-10-11] VITALS (11 sets, daily range): BP systolic 122–195; BP diastolic 78–117; PULSE 73–99; RESP 16–28; TEMP 36.3–36.7; O2SAT 92–97
[2023-10-11 03:06] LABS: Basophils % 0.1 %; Hematocrit 41.4 % (37-53); Lymphocytes # 1.1 10^3/uL (0.8-4.8); Lymphocytes % 10.7 %; Mean Corpuscular HGB Conc 33.1 g/dL (30-55); Mean Corpuscular Hemoglobin 30.2 pg (27-33); Mean Corpuscular Volume 91.2 fl (82-101); Mean Platelet Volume 10.9 fL (7.4-10.4); Monocytes # 0.8 10^3/uL (0.2-0.9); Monocytes % 7.5 %; Neutrophils # 8.55 10^3/uL (1.8-7.7); Neutrophils % 81.4 %; Nucleated Red Blood Cells % 0 %; Platelet Count 243 10^3/cmm (157-399); Red Blood Count 4.54 10^6/uL (3.85-5.65); Red Cell Distribution Width 14.3 % (12.1-15.1)
[2023-10-11 03:23] LABS: Anion Gap 13.3 (5-19); Blood Urea Nitrogen 39 mg/dL (8-23); Carbon Dioxide 22 mmol/L (22-29); Chloride 110 mmol/L (98-107); Glucose 285 mg/dL (65-115); Osmolality Calculated 312 mOsm/kg (285-295); Potassium 4.3 mmol/L (3.5-5.1); Sodium 141 mmol/L (136-145)
[2023-10-11] MEDS: pantoprazole DR 40 mg Tablet PO (05:25)
[2023-10-11] MEDS: folic acid 1 mg Tablet PO (05:25)
[2023-10-11] MEDS: amlodipine 5 mg Tablet PO (05:25)
[2023-10-11] MEDS: levothyroxine 50 mcg Tablet PO (05:25)
[2023-10-11 06:43] LABS: Glucose Point of Care 214 mg/dL (70-110)
[2023-10-11] MEDS: remdesivir 100 MG in sodium chloride 0.9% (100 ml) 100 ML IV (07:10)
--- NOTE | 2023-10-11 09:32 | P.PN_ITS ---
Subjective Subjective: Seen this morning. Resting comfortably in bed. Creatinine at 1.8. BP 177/100 this morning. He has not received his morning medications yet. Vitals/I&O/Wt Last Vital Signs Temp 98.1 F 10/11/23 09:04 Pulse 91 10/11/23 09:04 Resp 16 10/11/23 09:04 BP 177/100 10/11/23 09:04 Pulse Ox 95 10/11/23 09:04 O2 Del Method Nasal Cannula 10/11/23 04:00 O2 Flow Rate 2 10/09/23 23:58 10/10/23 10/11/23 10/11/23 22:59 06:59 14:59 Intake Total 150 / 470 300 / 770 Output Total 290 / 290 650 / 940 Balance -140 / 180 -350 / -170 Weight last 48 hrs Weight 80.014 kg Weight 78.245 kg Physical Exam Narrative: Alert oriented x3 Speech is muffled Right-sided weakness noted Abdomen obese rounded, nontender, soft S1, S2 irregularly irregular rhythm but rate controlled Patient able to move extremities Urinary Catheter Management: Mckeon: Cath Placed During This Visit: yes Reason for Continuing Indwelling Catheter: Accurate Measurement of Urinary Outpu t in Critically Ill Patients Urinary Catheter Date of Insertion: 10/09/23 Urinary Catheter Time of Insertion: 01:48 Data 10/11/23 02:28 10/11/23 02:28 Micro: Microbiology 10/09/23 16:23 Blood Culture - Preliminary Blood NEGATIVE TO DATE 10/09/23 16:19 Blood Culture - Preliminary Blood NEGATIVE TO DATE 10/08/23 16:31 Urine Culture - Final Urine,Clean Catch Enterococcus faecalis 10/08/23 16:00 Group A Streptococcus Rapid Screen - Final Throat 10/09/23 13:44 Urine Culture - Preliminary Urine,Clean Catch Streptococcus species A&P Assessment and plan (1) Altered mental status: (2) Acute UTI: (3) COVID-19: (4) Mild cognitive impairment with memory loss: (5) Atrial fibrillation: (6) Anemia: (7) Type 2 diabetes mellitus: (8) CELENA (acute kidney injury): Plan #Metabolic encephalopathy related to UTI #COVID-19 #Atrial fibrillation #History of left middle cerebral artery stroke #Type 2 diabetes mellitus #Acute kidney injury on CKD ?Continue Eliquis 5 twice daily ? Continue amlodipine 5 daily ? Continue levothyroxine daily ? Continue venlafaxine daily ? Continue atorvastatin ? Hold glipizide ? Continue on remdesivir and Decadron 6 IV daily ? Ceftriaxone 1 g daily ? Check blood cultures, urine culture. Urine culture grows Enterococcus faecalis pansensitive. Blood cultures negative to date. ? Patient is COVID-positive ? DuoNeb every 6 hours as needed ? Sliding scale insulin with consistent carbohydrate diet ? CELENA most likely related to dehydration. Continue IV fluids Creatinine improving ? KUB reviewed. Nonspecific gas pattern. Patient not experiencing any tenderness at this time. ? Discontinue oral morphine. Placed on Tylenol orally as needed for pain. Full code DVT prophylaxis: On Eliquis Diet: Dysphagia level 5 diet minced and moist GI prophylaxis: Patient chronically on Protonix at home Disposition: Patient's family is requesting SNF placement. Attestations Medical Necessity Statement*: Continue inpatient treatment for COVID and UTI. Pending placement Diagnoses Altered mental status R41.82 Acute UTI N39.0 COVID-19 U07.1 Mild cognitive impairment with memory loss G31.84 Atrial fibrillation I48.91 Anemia D64.9 Type 2 diabetes mellitus E11.9 CELENA (acute kidney injury) N17.9
[2023-10-11] MEDS: sennosides-docusate Tablet 1 TAB PO (11:47)
[2023-10-11] MEDS: apixaban 5 mg Tablet PO ×2 (11:47→18:38)
[2023-10-11] MEDS: atorvastatin 40 mg Tablet 80 MG PO (11:47)
[2023-10-11] MEDS: dexamethasone 4 mg Tablet 6 MG PO (11:47)
[2023-10-11] MEDS: insulin lispro 100 unit/1 mL SUBCUT ×2 (11:48→18:39)
[2023-10-11] MEDS: metoprolol tartrate 25 mg Tablet PO ×2 (11:48→21:25)
[2023-10-11 12:47] LABS: Glucose Point of Care 349 mg/dL (70-110)
[2023-10-11 17:56] LABS: Glucose Point of Care 221 mg/dL (70-110)
[2023-10-11] MEDS: venlafaxine ER (24HR) 37.5 mg Capsule PO (18:38)
[2023-10-11] MEDS: cefTRIAXone 1,000 MG in sodium chloride 0.9% (plus) 50 ML 100 MG IV (18:38)
[2023-10-11 21:38] LABS: Glucose Point of Care 445 mg/dL (70-110)
[2023-10-11] MEDS: insulin lispro 100 unit/1 mL 15 UNIT SUBCUT (22:45)
[2023-10-12] VITALS (9 sets, daily range): BP systolic 115–183; BP diastolic 70–99; PULSE 56–94; RESP 16–20; TEMP 36.6–36.8; O2SAT 94–100
[2023-10-12 00:09] LABS: Glucose Point of Care 338 mg/dL (70-110)
[2023-10-12 03:37] LABS: Glucose Point of Care 218 mg/dL (70-110)
[2023-10-12 04:59] LABS: Basophils % 0.1 %; Hematocrit 43.9 % (37-53); Lymphocytes # 1.3 10^3/uL (0.8-4.8); Lymphocytes % 14.3 %; Mean Corpuscular HGB Conc 32.3 g/dL (30-55); Mean Corpuscular Hemoglobin 29.4 pg (27-33); Mean Corpuscular Volume 90.9 fl (82-101); Mean Platelet Volume 11.2 fL (7.4-10.4); Monocytes # 0.9 10^3/uL (0.2-0.9); Monocytes % 9.3 %; Neutrophils # 6.94 10^3/uL (1.8-7.7); Neutrophils % 76.1 %; Nucleated Red Blood Cells % 0 %; Platelet Count 275 10^3/cmm (157-399); Red Blood Count 4.83 10^6/uL (3.85-5.65); Red Cell Distribution Width 14.4 % (12.1-15.1); White Blood Count 9.13 10^3/uL (3.29-11.43)
[2023-10-12 05:23] LABS: Anion Gap 14.7 (5-19); Blood Urea Nitrogen 37 mg/dL (8-23); Calcium 10.4 mg/dL (8.5-10.5); Carbon Dioxide 24 mmol/L (22-29); Chloride 107 mmol/L (98-107); Glucose 214 mg/dL (65-115); Osmolality Calculated 307 mOsm/kg (285-295); Potassium 4.7 mmol/L (3.5-5.1); Sodium 141 mmol/L (136-145)
[2023-10-12] MEDS: pantoprazole DR 40 mg Tablet PO (06:12)
[2023-10-12] MEDS: levothyroxine 50 mcg Tablet PO (06:12)
[2023-10-12] MEDS: amlodipine 5 mg Tablet PO (06:12)
[2023-10-12] MEDS: folic acid 1 mg Tablet PO (06:12)
[2023-10-12 06:56] LABS: Glucose Point of Care 185 mg/dL (70-110)
[2023-10-12 11:33] LABS: Glucose Point of Care 230 mg/dL (70-110)
[2023-10-12] MEDS: metoprolol tartrate 25 mg Tablet PO ×2 (11:34→22:14)
[2023-10-12] MEDS: sennosides-docusate Tablet 1 TAB PO (11:34)
[2023-10-12] MEDS: atorvastatin 40 mg Tablet 80 MG PO (11:34)
[2023-10-12] MEDS: apixaban 5 mg Tablet PO ×2 (11:35→18:30)
[2023-10-12] MEDS: remdesivir 100 MG in sodium chloride 0.9% (100 ml) 100 ML IV (11:35)
[2023-10-12] MEDS: dexamethasone 4 mg Tablet 6 MG PO (11:35)
[2023-10-12] MEDS: insulin lispro 100 unit/1 mL SUBCUT ×2 (11:36→18:30)
--- NOTE | 2023-10-12 16:49 | P.PN_ITS ---
Subjective Subjective: No new complaints, resting in bed at time of assessment Medications: Reviewed: Yes Vitals/I&O/Wt Last Vital Signs Temp 98.3 F 10/12/23 07:40 Pulse 62 10/12/23 15:52 Resp 18 10/12/23 15:52 BP 144/70 10/12/23 15:52 Pulse Ox 97 10/12/23 15:52 O2 Del Method Nasal Cannula 10/12/23 15:52 O2 Flow Rate 2 10/12/23 08:00 10/12/23 10/12/23 10/12/23 06:59 14:59 22:59 Intake Total 240 / 240 Output Total 500 / 1150 Balance -500 / -760 240 / 240 Weight last 48 hrs Weight 75.296 kg Weight 80.014 kg Physical Exam Narrative: General: No acute distress, AO x1-2 HEENT: PERRLA, pupils bilaterally equal and reactive, pallors not present Chest: Normal vesicular breath sounds, no added sounds, equal good air entry bilaterally CVS: S1-S2 regular, no murmurs, no tachycardia, no gallops, no rubs Abdomen: Soft, nontender, no organomegaly, bowel sounds present Urinary Catheter Management: Mckeon: Cath Placed During This Visit: yes Reason for Continuing Indwelling Catheter: Accurate Measurement of Urinary Output in Critically Ill Patients Urinary Catheter Date of Insertion: 10/09/23 Urinary Catheter Time of Insertion: 01:48 Data 10/12/23 04:15 10/12/23 04:15 Micro: Microbiology 10/09/23 13:44 Urine Culture - Final Urine,Clean Catch Enterococcus faecalis A&P Assessment and plan (1) Altered mental status: (2) Acute UTI: (3) COVID-19: (4) Mild cognitive impairment with memory loss: (5) Atrial fibrillation: (6) Anemia: (7) Type 2 diabetes mellitus: (8) CELENA (acute kidney injury): Plan #Metabolic encephalopathy related to UTI #COVID-19 #Atrial fibrillation #History of left middle cerebral artery stroke #Type 2 diabetes mellitus #Acute kidney injury on CKD ?Continue Eliquis 5 twice daily ? Continue amlodipine 5 daily ? Continue levothyroxine daily ? Continue venlafaxine daily ? Continue atorvastatin ? Hold glipizide ? Continue on remdesivir and Decadron 6 IV daily ? Ceftriaxone 1 g daily ? Check blood cultures, urine culture. Urine culture grows Enterococcus charlie calis pansensitive. Blood cultures negative to date. ? Patient is COVID-positive ? DuoNeb every 6 hours as needed ? Sliding scale insulin with consistent carbohydrate diet ? CELENA most likely related to dehydration. Continue IV fluids Creatinine improving ? KUB reviewed. Nonspecific gas pattern. Patient not experiencing any tenderness at this time. ? Discontinue oral morphine. Placed on Tylenol orally as needed for pain. Full code DVT prophylaxis: On Eliquis Diet: Dysphagia level 5 diet minced and moist GI prophylaxis: Patient chronically on Protonix at home Disposition: Patient's family is requesting SNF placement. Plan for today: COntinued treatment of COvid pneumonia, continue iv abx and iv remdisivir, monitor respiratory status Attestations Medical Necessity Statement*: continued need for iv antibiotics, monitor respiratory status, disposiiton planning Coding Level of Care Code Acute Code for Chg Fwd Diagnoses Altered mental status R41.82 Acute UTI N39.0 COVID-19 U07.1 Mild cognitive impairment with memory loss G31.84 Atrial fibrillation I48.91 Anemia D64.9 Type 2 diabetes mellitus E11.9 CELENA (acute kidney injury) N17.9
[2023-10-12 16:53] LABS: Glucose Point of Care 365 mg/dL (70-110)
[2023-10-12] MEDS: venlafaxine ER (24HR) 37.5 mg Capsule PO (18:30)
[2023-10-12] MEDS: cefTRIAXone 1,000 MG in sodium chloride 0.9% (plus) 50 ML 100 MG IV (18:31)
[2023-10-12 22:18] LABS: Glucose Point of Care 380 mg/dL (70-110)
[2023-10-13] VITALS (12 sets, daily range): BP systolic 142–169; BP diastolic 70–109; PULSE 56–82; RESP 17–20; TEMP 36.4–36.8; O2SAT 95–98
[2023-10-13] MEDS: folic acid 1 mg Tablet PO (06:48)
[2023-10-13] MEDS: levothyroxine 50 mcg Tablet PO (06:49)
[2023-10-13] MEDS: pantoprazole DR 40 mg Tablet PO (06:49)
[2023-10-13] MEDS: remdesivir 100 MG in sodium chloride 0.9% (100 ml) 100 ML IV (06:50)
[2023-10-13 08:22] LABS: Glucose Point of Care 229 mg/dL (70-110)
[2023-10-13 08:27] LABS: Alanine Aminotransferase 71 U/L (0-41); Albumin Level 3.4 g/dL (3.5-5.2); Alkaline Phosphatase 88 U/L (40-130); Anion Gap 13.6 (5-19); Aspartate Amino Transferase 64 U/L (0-40); Blood Urea Nitrogen 36 mg/dL (8-23); Calcium 10.2 mg/dL (8.5-10.5); Carbon Dioxide 24 mmol/L (22-29); Chloride 106 mmol/L (98-107); Globulin 2.8 g/dL (1.3-4.6); Glucose 263 mg/dL (65-115); Osmolality Calculated 305 mOsm/kg (285-295); Potassium 4.6 mmol/L (3.5-5.1); Sodium 139 mmol/L (136-145); Total Bilirubin 0.3 mg/dL (0.15-1.2); Total Protein 6.2 g/dL (6.6-8.7)
[2023-10-13 09:25] LABS: C Reactive Protein 13.2 mg/L (0.0-4.9)
[2023-10-13] MEDS: apixaban 5 mg Tablet PO ×2 (09:41→18:41)
[2023-10-13] MEDS: atorvastatin 40 mg Tablet 80 MG PO (09:41)
[2023-10-13] MEDS: sennosides-docusate Tablet 1 TAB PO (09:41)
[2023-10-13] MEDS: dexamethasone 4 mg Tablet 6 MG PO (09:41)
[2023-10-13] MEDS: amlodipine 5 mg Tablet PO (09:41)
[2023-10-13] MEDS: insulin lispro 100 unit/1 mL SUBCUT ×3 (09:42→18:42)
[2023-10-13] MEDS: metoprolol tartrate 25 mg Tablet PO ×2 (09:45→22:05)
[2023-10-13 12:53] LABS: Glucose Point of Care 297 mg/dL (70-110)
[2023-10-13 16:41] LABS: Glucose Point of Care 449 mg/dL (70-110)
--- NOTE | 2023-10-13 16:45 | P.PN_ITS ---
Subjective 2 Subjective: No acute events overnight. Awaiting disposition planning. Patient feels well today. He is on room air. Medications: Reviewed: Yes Vitals/I&O/Wt Last Vital Signs Temp 98.1 F 10/13/23 08:54 Pulse 67 10/13/23 16:00 Resp 20 H 10/13/23 16:00 BP 156/109 10/13/23 16:00 Pulse Ox 96 10/13/23 16:00 O2 Del Method Room Air 10/13/23 16:00 O2 Flow Rate 2 10/13/23 08:44 10/13/23 10/13/23 10/13/23 06:59 14:59 22:59 Intake Total 580 / 580 Output Total 950 / 950 800 / 1750 Balance -370 / -370 -800 / -1170 Weight last 48 hrs Weight 75.296 kg Physical Exam 2 Narrative: General: No acute distress, AO x3 HEENT: PERRLA, pupils bilaterally equal and reactive, pallors not present Chest: Normal vesicular breath sounds, no added sounds, equal good air entry bilaterally CVS: S1-S2 regular, no murmurs, no tachycardia, no gallops, no rubs Abdomen: Soft, nontender, no organomegaly, bowel sounds present Urinary Catheter Management: Mckeon: Cath Placed During This Visit: yes, but has since been removed by the nurse Reason for Continuing Indwelling Catheter: Decision to DC Catheter Urinary Catheter Date of Insertion: 10/09/23 Urinary Catheter Time of Insertion: 01:48 Date Urinary Catheter Removed: 10/13/23 Time Urinary Catheter Discontinued: 16:00 Data 10/14/23 07:29 10/13/23 04:20 A&P Assessment and plan (1) Altered mental status: (2) Acute UTI: (3) COVID-19: (4) Mild cognitive impairment with memory loss: (5) Atrial fibrillation: (6) Anemia: (7) Type 2 diabetes mellitus: (8) CELENA (acute kidney injury): Plan #Metabolic encephalopathy related to UTI #COVID-19 #Atrial fibrillation #History of left middle cerebral artery stroke #Type 2 diabetes mellitus #Acute kidney injury on CKD ?Continue Eliquis 5 twice daily ? Continue amlodipine 5 daily ? Continue levothyroxine daily ? Continue venlafaxine daily ? Continue atorvastatin ? Hold glipizide ? Continue on remdesivir and Decadron 6 IV daily ? Ceftriaxone 1 g daily ? Check blood cultures, urine culture. Urine culture grows Enterococcus faecalis pansensitive. Blood cultures negative to date. ? Patient is COVID-positive ? DuoNeb every 6 hours as needed ? Sliding scale insulin with consistent carbohydrate diet ? CELENA most likely related to dehydration. Continue IV fluids Creatinine improving ? KUB reviewed. Nonspecific gas pattern. Patient not experiencing any tenderness at this time. ? Discontinue oral morphine. Placed on Tylenol orally as needed for pain. Full code DVT prophylaxis: On Eliquis Diet: Dysphagia level 5 diet minced and moist GI prophylaxis: Patient chronically on Protonix at home Disposition: Patient's family is requesting SNF placement. Plan for today: COntinued treatment of COvid pneumonia, continue iv abx and iv remdisivir, monitor respiratory status Attestations 2 Medical Necessity Statement*: Continue treatment for COVID-pneumonia, awaiting disposition planning. Coding Level of Care Code Acute Code for Chg Fwd Diagnoses Altered mental status R41.82 Acute UTI N39.0 COVID-19 U07.1 Mild cognitive impairment with memory loss G31.84 Atrial fibrillation I48.91 Anemia D64.9 Type 2 diabetes mellitus E11.9 CELENA (acute kidney injury) N17.9
[2023-10-13] MEDS: cefTRIAXone 1,000 MG in sodium chloride 0.9% (plus) 50 ML 100 MG IV (18:41)
[2023-10-13] MEDS: venlafaxine ER (24HR) 37.5 mg Capsule PO (18:41)
[2023-10-14] VITALS (8 sets, daily range): BP systolic 151–180; BP diastolic 85–95; PULSE 50–65; RESP 18; TEMP 36.6–37; O2SAT 93–97
[2023-10-14 00:05] LABS: Glucose Point of Care 301 mg/dL (70-110)
[2023-10-14 01:31] LABS: SARS Covid-2 Antigen positive (Negative)
[2023-10-14] MEDS: levothyroxine 50 mcg Tablet PO (06:33)
[2023-10-14] MEDS: folic acid 1 mg Tablet PO (06:33)
[2023-10-14] MEDS: pantoprazole DR 40 mg Tablet PO (06:34)
[2023-10-14] MEDS: amlodipine 5 mg Tablet PO (07:38)
--- NOTE | 2023-10-14 07:39 | PC.NURSE ---
amlodipine was given 10/14, could not scan, 10/13 dose was scanned for the 10/14.
[2023-10-14 07:40] LABS: Basophils % 0.1 %; Eosinophils % 0.1 %; Hematocrit 44.1 % (37-53); Lymphocytes # 1.6 10^3/uL (0.8-4.8); Mean Corpuscular HGB Conc 32.7 g/dL (30-55); Mean Corpuscular Hemoglobin 29.8 pg (27-33); Mean Corpuscular Volume 91.1 fl (82-101); Mean Platelet Volume 10.8 fL (7.4-10.4); Monocytes # 0.9 10^3/uL (0.2-0.9); Monocytes % 10.4 %; Neutrophils # 6.14 10^3/uL (1.8-7.7); Neutrophils % 70.9 %; Nucleated Red Blood Cells % 0 %; Platelet Count 260 10^3/cmm (157-399); Red Blood Count 4.84 10^6/uL (3.85-5.65); Red Cell Distribution Width 13.9 % (12.1-15.1); White Blood Count 8.66 10^3/uL (3.29-11.43)
[2023-10-14 07:50] LABS: Glucose Point of Care 237 mg/dL (70-110)
--- NOTE | 2023-10-14 07:51 | PC.SOCIAL ---
Late Entry: IMM Update On 10/12/23 @ 4530...IMM updated and reviewed w/ patients . Copy left @ bedside and copy dated, initialed and placed in chart.
[2023-10-14] MEDS: dexamethasone 4 mg Tablet 6 MG PO (09:35)
[2023-10-14] MEDS: apixaban 5 mg Tablet PO (09:36)
[2023-10-14] MEDS: sennosides-docusate Tablet 1 TAB PO (09:36)
[2023-10-14] MEDS: atorvastatin 40 mg Tablet 80 MG PO (09:36)
[2023-10-14] MEDS: insulin lispro 100 unit/1 mL SUBCUT ×2 (09:36→12:59)
[2023-10-14] MEDS: metoprolol tartrate 25 mg Tablet PO (09:43)
[2023-10-14 11:52] LABS: Glucose Point of Care 316 mg/dL (70-110)
--- NOTE | 2023-10-14 12:12 | P.DS_ITS ---
Discharge Providers Date of Admission: 10/08/23 18:31 Date of Discharge: October 14, 2023 Attending Provider at Admission: Leidy Cantu MD Attending Provider at Discharge: Rosio Mullins MD Primary Care Provider: Katelynn Beckford DO Diagnoses at Discharge Discharge Diagnosis (1) Altered mental status: Status: Acute (2) Acute UTI: Status: Acute (3) COVID-19: Status: Acute (4) Mild cognitive impairment with memory loss: Status: Acute (5) Atrial fibrillation: Status: Acute (6) Anemia: Status: Acute (7) Type 2 diabetes mellitus: Status: Acute (8) CELENA (acute kidney injury): Status: Acute Reason for Visit Reason for Visit: weakness Brief History: Luis Jensen is a 77 year old male who was brought in by for weakness, confusion and fever.He does have old CVA with right-sided weakness right facial droop right upper extremity hemiparesis with contracture. Patient is confused, he is on Eliquis for previous history of A-fib and CVA.In the ER work-up showed CELENA, lactic acidemia related to hypotension and dehydration. He was found to have COVID 19 pneumonia on evaluation. He was treated with iv remidisivir, empiric ceftriaxone and iv Decadron. He was also diagnosed with a UTI. His mentation improved back to his baseline with these interventions. More likely that documented metabolic encephalopathy was related to COVID-19 rather than UTI with Enterococcus since mentation improved on treatment with ceftriaxone. Patient is back to his baseline mentation. He is clinically doing well. He is being discharged to SNF in a stable condition. For his UTI he is recommended to complete a course of Augmentin. Physical Exam Narrative: General: No acute distress, AO x3 HEENT: PERRLA, pupils bilaterally equal and reactive, pallors not present Chest: Normal vesicular breath sounds, no added sounds, equal good air entry bilaterally CVS: S1-S2 regular, no murmurs, no tachycardia, no gallops, no rubs Abdomen: Soft, nontender, no organomegaly, bowel sounds present Neuro: No focal deficits, no facial deformity, AO x3, power 5/5 in all limbs Extremities: residual right hemiparesis Urinary Catheter Management: Mckeon: Cath Placed During This Visit: yes, but has since been removed by the nurse Reason for Continuing Indwelling Catheter: Decision to DC Catheter Urinary Catheter Date of Insertion: 10/09/23 Urinary Catheter Time of Insertion: 01:48 Date Urinary Catheter Removed: 10/13/23 Time Urinary Catheter Discontinued: 16:00 Discharge Data Studies Completed and Pending Completed Studies During Hospitalization Category Date Time Status CT head wo con* [id number] Stat Cat Scan 10/08/23 15:28 Completed XR KUB portable [id number] Routine Exams 10/08/23 21:25 Completed XR chest 1V portable [id number] Stat Exams 10/08/23 15:29 Completed Pending at discharge Category Date Time Status Blood Culture Stat Lab 10/09/23 16:23 Results Radiology Impressions Head CT 10/08/23 15:28 IMPRESSION: 1. Old infarcts. 2. No acute intracranial finding. Chest X-Ray 10/08/23 15:29 IMPRESSION: No acute findings. KUB X-Ray 10/08/23 21:25 IMPRESSION: Nonspecific gas pattern. No acute finding. Laboratory Results WBC 8.66 10^3/uL (3.29-11.43) 10/14/23 07:29 Corrected WBC Cancelled 10/14/23 04:10 RBC 4.84 10^6/uL (3.85-5.65) 10/14/23 07:29 Hgb 14.40 g/dL (11.27-16.99) 10/14/23 07:29 Hct 44.1 % (37-53) 10/14/23 07:29 MCV 91.1 fl (82-101) 10/14/23 07: MCH 29.8 pg (27-33) 10/14/23 07: MCHC 32.7 g/dL (30-55) 10/14/23 07:29 RDW 13.9 % (12.1-15.1) 10/14/23 07:29 Plt Count 260 10^3/cmm (157-399) 10/14/23 07:29 MPV 10.8 fL (7.4-10.4) H 10/14/23 07:29 Gran % Cancelled 10/14/23 04:10 Neut % (Auto) 70.9 % 10/14/23 07:29 Lymph % (Auto) 18.0 % 10/14/23 07:29 [place] % (Auto) 10.4 % 10/14/23 07:29 Eos % (Auto) 0.1 % 10/14/23 07: Baso % (Auto) 0.1 % 10/14/23 07: Neut # (Auto) 6.14 10^3/uL (1.8-7.7) 10/14/23 07:29 Lymph # (Auto) 1.6 10^3/uL (0.8-4.8) 10/14/23 07: [place] # (Auto) 0.9 10^3/uL (0.2-0.9) 10/14/23 07: Eos # (Auto) 0.0 10^3/uL (0.0-0.8) 10/14/23 07: Baso # (Auto) 0.0 10^3/uL (0.0-0.1) 10/14/23 07:29 Absolute Gran (auto) Cancelled 10/14/23 04:10 Nucleated RBC % (auto) 0 % 10/14/23 07: Nucleated RBCs # 0.0 /100WBC 10/14/23 07: PT 14.10 SECONDS (12.1-14.9) 10/08/23 15:36 INR 1.06 (0.8-1.2) 10/08/23 15:36 APTT 34.5 SECONDS (23.9-36.7) 10/08/23 15:36 Sodium 139 mmol/L (136-145) 10/13/23 04:20 Potassium 4.6 mmol/L (3.5-5.1) 10/13/23 04:20 Chloride 106 mmol/L (98-107) 10/13/23 04:20 Carbon Dioxide 24 mmol/L (22-29) 10/13/23 04:20 Anion Gap 13.6 (5-19) 10/13/23 04:20 BUN 36 mg/dL (8-23) H 10/13/23 04:20 Creatinine 1.1 mg/dL (0.7-1.2) 10/13/23 04:20 GFR Calculation Not Reportable 10/12/23 04:15 Glucose 263 mg/dL (65-115) H 10/13/23 04:20 POC Glucose 316 mg/dL (70-110) H 10/14/23 11:21 Calculated Osmolality 305 mOsm/kg (285-295) H 10/13/23 04:20 Lactic Acid 2.4 mmol/L (0.5-2.2) H 10/08/23 15:36 Lactic Acid (Sepsis) 1.8 mmol/L (0.5-2.2) 10/08/23 18:16 Calcium 10.2 mg/dL (8.5-10.5) 10/13/23 04:20 Magnesium 1.9 mg/dL (1.7-2.3) 10/09/23 06:17 Total Bilirubin 0.3 mg/dL (0.15-1.2) 10/13/23 04:20 AST 64 U/L (0-40) H 10/13/23 04:20 ALT 71 U/L (0-41) H 10/13/23 04:20 Alkaline Phosphatase 88 U/L (40-130) 10/13/23 04:20 Troponin T Baseline 30 ng/L (0-15) H 10/08/23 15:36 Troponin T 120 Minute 34.03 ng/L (0-15) H 10/08/23 18:16 Delta Troponin T 4.03 ABS# (0-10) 10/08/23 18:16 Troponin T Hi Sens 6Hr 39.64 ng/L (0-15) H 10/08/23 21:31 Troponin T Hi Sens 6Hr Delta 9.64 ng/L (0-12) 10/08/23 21:31 C-Reactive Protein 13.2 mg/L (0.0-4.9) H 10/13/23 04:20 NT-Pro-B Natriuret Pep 1440 pg/mL (0-450) H 10/08/23 15:36 Total Protein 6.2 g/dL (6.6-8.7) L 10/13/23 04:20 Albumin 3.4 g/dL (3.5-5.2) L 10/13/23 04:20 Globulin 2.8 g/dL (1.3-4.6) 10/13/23 04:20 Procalcitonin 0.37 ng/mL (0-0.5) 10/08/23 15:36 Procalcitonin 0.37 ng/mL (0-0.5) 10/08/23 15:36 Urine Color Yellow (Yellow) 10/09/23 13:44 Urine Appearance Cloudy (CLEAR) A 10/09/23 13:44 Urine pH 5 (5-7) 10/09/23 13:44 Ur Specific [place] 1.025 (1.005-1.030) 10/09/23 13:44 Urine Protein 1+ (Negative) H 10/09/23 13:44 Urine Glucose (UA) 2+ (Normal) H 10/09/23 13:44 Urine Ketones 1+ (Negative) H 10/09/23 13:44 Urine Blood 3+ (Negative) H 10/09/23 13:44 Urine Nitrate Negative (Negative) 10/09/23 13:44 Urine Bilirubin Neg (Negative) 10/09/23 13:44 Prot Sulfosalicylic Acd Positive (Negative) 10/08/23 16:31 Urine Urobilinogen Norm mg/dL (Negative) 10/09/23 13:44 Ur Leukocyte Esterase Negative (Negative) 10/09/23 13:44 Urine RBC 5-10 /hpf (0-2) H 10/09/23 13:44 Urine WBC 25-40 /hpf (0-5) H 10/09/23 13:44 Ur Squamous Epith Cells 0-4 /hpf (0-5) H 10/09/23 13:44 Amorphous Sediment Not Reportable 10/09/23 13:44 Urine Bacteria Trace /hpf (NONE) 10/09/23 13:44 Hyaline Casts 0-4 /lpf H 10/09/23 13:44 Coarse Granular Casts 0-4 /lpf H 10/09/23 13:44 Urine Mucus 1+ /hpf 10/08/23 16:31 Influenza Type A Ag negative (Negative) 10/08/23 16:00 Influenza Type B Ag negative (Negative) 10/08/23 16:00 SARS-CoV-2 Ag (Rapid) positive (Negative) H 10/14/23 00:43 Group A Strep Rapid Negative (Negative) 10/08/23 16:00 Vitals Last Vital Signs Temp 98.6 F 10/14/23 07:32 Pulse 65 10/14/23 08:35 Resp 18 10/14/23 08:35 BP 180/85 10/14/23 07:32 Pulse Ox 96 10/14/23 08:35 O2 Del Method Room Air 10/14/23 08:35 O2 Flow Rate 2 10/13/23 22:18 Discharge Plan Discharge Patient Disposition: Xfer SNF Condition: Stable Prescriptions: New ipratropium-albuterol 0.5 mg-3 mg(2.5 mg base)/3 mL Solution For Nebulization 3 ml inhalation Q6H PRN (Reason: Shortness Of Breath) 30 Days Qty: 30 0RF Eliquis 5 mg Tablet 5 mg PO BID Qty: 30 0RF prednisone 20 mg tablet 20 mg PO BID 5 Days Qty: 10 0RF Continued amlodipine 5 mg tablet 5 mg PO QAM atorvastatin [Lipitor] 80 mg tablet 80 mg PO DAILY glipizide 10 mg tablet 5 mg PO QAM venlafaxine 37.5 mg capsule,extended release 24hr 37.5 mg PO QPM levothyroxine 50 mcg Tablet 50 mcg PO QAM pantoprazole 40 mg tablet,delayed release (DR/EC) 40 mg PO QAM folic acid 1 mg tablet 1 mg PO QAM metformin 500 mg tablet See Rx Instructions .ROUTE .COMPLEX Rx Instructions: 500 mg orally in the morning and 1000 mg in the evening ferrous sulfate 325 mg (65 mg iron) Tablet 325 mg PO DAILY Discontinued Eliquis 5 mg Tablet 5 mg PO EVERY OTHER DAY Discharge Orders: Discharge Order (Routine); Ordered 10/14/23 Ordered By: Rosio Mullins Referrals: Katelynn Beckford DO [Primary Care Provider] - (Dr. Beckford will be calling your to schedule your follow up appointment. Thank you.) Discharge Diet: Usual diet Discharge Activity: Resume usual activity Patient Instructions: Ipratropium (By breathing) (Atrovent HFA), Prednisone (By mouth) (predniSONE Intensol, Prednicot, Deltasone, Sonido), Apixaban (By mouth) (Eliquis), Hyponatremia (ED), Benzodiazepine Use Disorder (ED), Dementia (ED), Non-diabetic Hypoglycemia (ED), Hypoglycemia in a Person with Diabetes (ED), Concussion (ED), Alcohol Intoxication (ED), Subarachnoid Hemorrhage (GEN), Altered Mental Status (ED) Discharge Attestations Time Spent in Discharge Care*: greater than 30 min Quality Metrics Clinical Quality Measures [ No reported AMI, CVA or VTE this stay] Coding Level of Care Code Acute Code for Chg Fwd Diagnoses Altered mental status R41.82 Acute UTI N39.0 COVID-19 U07.1 Mild cognitive impairment with memory loss G31.84 Atrial fibrillation I48.91 Anemia D64.9 Type 2 diabetes mellitus E11.9 CELENA (acute kidney injury) N17.9
--- NOTE | 2023-10-14 14:08 | PC.NURSE ---
called snf for a report regarding his discharge papers,instructions.
--- NOTE | 2023-10-14 14:28 | PC.NURSE ---
called and informed her that pt is getting ready to be discharge to snf rehab at 1500.
== END 2023-10-14 15:34 | disposition skilled nursing facility (03) | DRG 177 ==
LOC: ER 18:01 → CSU 18:36
PROVIDERS: Internal Medicine; Admitting Provider Internal Medicine; Emergency Provider Internal Medicine; PCP Surgery Plastic and Reconstructive Surgery; Visit Provider Student in an Organized Health Care Education/Training Program
DX: U07.1 COVID-19 (principal); G93.41 Metabolic encephalopathy; J12.82 Pneumonia due to coronavirus disease 2019; N39.0 Urinary tract infection, site not specified; N17.9 Acute kidney failure, unspecified; I69.351 Hemiplegia and hemiparesis following cerebral infarction affecting right dominant side; B95.2 Enterococcus as the cause of diseases classified elsewhere; I12.9 Hypertensive chronic kidney disease with stage 1 through stage 4 chronic kidney disease, or unspecified chronic kidney disease; E11.22 Type 2 diabetes mellitus with diabetic chronic kidney disease; N18.9 Chronic kidney disease, unspecified; E29.1 Testicular hypofunction; I48.91 Unspecified atrial fibrillation; D64.9 Anemia, unspecified; I95.9 Hypotension, unspecified; E86.0 Dehydration; I49.3 Ventricular premature depolarization; I69.392 Facial weakness following cerebral infarction; I69.331 Monoplegia of upper limb following cerebral infarction affecting right dominant side
CPT/HCPCS: 36415; 36416; 51702; 70450; 71045; 74018; 80048; 80053; 81001; 82962; 83605; 83735; 83880; 84145; 84484; 85025; 85610; 85730; 86140; 87040; 87077; 87081; 87086; 87186; 87426; 87804; 87880; 93005; 93010; 96365; 96372; 96375; 97110; 97162; 97530; 99285; J0248; J0696; J1815; J2405; J3490; J8540

== ENCOUNTER 2024-07-25 10:45 | Inpatient (IN) | payer MEDICARE, OTHER, SELFPAY ==
[2024-07-25] VITALS (14 sets, daily range): BP systolic 118–181; BP diastolic 54–110; PULSE 77–106; RESP 15–21; TEMP 36.5–36.9; O2SAT 94–99; BMI 30.4
--- NOTE | 2024-07-25 11:00 | XR_ITS ---
WS: [id number] XR chest 1V portable [id number] REASON FOR EXAM: sob FINDINGS: The chest is unchanged compared to 10/08/2023. Mild tortuosity of the thoracic aorta and normal heart size. Calcified granulomas disease in both hemithoraces. No acute pulmonary parenchymal pleural abnormality is identified. Severe degenerative spondylosis in the mid and lower thoracic spine. 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 XR/XR chest 1V portable [id number] IMPRESSION: Stable chest without acute abnormality.
--- NOTE | 2024-07-25 11:01 | ECG_ITS ---
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 Measurements Intervals [place] Rate: 104 P: 0 FL: 0 QRS: -2 QRSD: 136 T: 122 QT: 369 QTc: 487 Interpretive Statements ATRIAL FIBRILLATION WITH RAPID VENTRICULAR RESPONSE LEFT BUNDLE BRANCH BLOCK [120+ ms QRS DURATION, 80+ ms Q/S IN V1/V2, 85+ ms R IN I/aVL/V5/V6] Electronically Signed On 07-25-2024 11:19:27 CDT by Grzegorz Santo M.D. [id number]
[2024-07-25 12:42] LABS: Basophils # 0.1 10^3/uL (0.0-0.1); Basophils % 1.3 %; Eosinophils # 0.2 10^3/uL (0.0-0.8); Eosinophils % 2.1 %; Hematocrit 21.9 % (37-53); Lymphocytes # 1.5 10^3/uL (0.8-4.8); Mean Corpuscular HGB Conc 27.4 g/dL (30-55); Mean Corpuscular Hemoglobin 18.9 pg (27-33); Mean Corpuscular Volume 68.9 fl (82-101); Monocytes % 9.5 %; Neutrophils # 7.32 10^3/uL (1.8-7.7); Neutrophils % 71.5 %; Nucleated Red Blood Cells % 0.2 %; Platelet Count 507 10^3/cmm (157-399); Red Blood Count 3.18 10^6/uL (3.85-5.65); White Blood Count 10.22 10^3/uL (3.29-11.43)
[2024-07-25 13:13] LABS: Alanine Aminotransferase 15 U/L (0-41); Albumin Level 4.1 g/dL (3.5-5.2); Alkaline Phosphatase 89 U/L (40-130); Anion Gap 19.7 (5-19); Aspartate Amino Transferase 15 U/L (0-40); Blood Urea Nitrogen 22 mg/dL (8-23); Calcium 9.9 mg/dL (8.5-10.5); Carbon Dioxide 21 mmol/L (22-29); Chloride 105 mmol/L (98-107); Creatinine Clr Calc Pharmacy 46.7952; Globulin 3.2 g/dL (1.3-4.6); Glucose 235 mg/dL (65-115); Lipase 23 U/L (13-60); NT Pro B Type Natriuretic Pept 2109 pg/mL (0-450); Osmolality Calculated 301 mOsm/kg (285-295); Potassium 5.7 mmol/L (3.5-5.1); Sodium 140 mmol/L (136-145); Total Bilirubin 0.3 mg/dL (0.15-1.2); Total Protein 7.3 g/dL (6.6-8.7)
--- NOTE | 2024-07-25 13:42 | ED_ITS ---
HPI - SOB/Dyspnea 2 General: Chief Complaint: Shortness of Breath/Dyspnea Stated Complaint: abd pain and lung problems Time Seen by Provider: 07/25/24 13:20 Source: patient Mode of arrival: ambulatory Limitations: no limitations History of Present Illness: HPI Narrative: 78-year-old male states that over the la st 3 weeks he has been having increasing fatigue along with some shortness of breath. He had a history of CVA in the past along with A-fib and is currently on Eliquis. He is found to be anemic he states he was anemic in the past they were unsure what the cause was he denies any blood in his stool. He denies any chest pain. Associated symptoms: Deny abdominal pain, chest pain, fever(s), nausea or vomiting Related Data Home Medications Medication Instructions Recorded Confirmed amlodipine 5 mg tablet 5 mg PO QAM 07/25/21 10/09/23 atorvastatin 80 mg tablet (Lipitor) 80 mg PO DAILY 07/25/21 10/09/23 glipizide 10 mg tablet 5 mg PO QAM 07/25/21 10/09/23 ferrous sulfate 325 mg (65 mg 325 mg PO DAILY 10/09/23 10/09/23 iron) tablet folic acid 1 mg tablet 1 mg PO QAM 10/09/23 10/09/23 levothyroxine 50 mcg tablet 50 mcg PO QAM 10/09/23 10/09/23 metformin 500 mg tablet See Rx Instructions .Route .COMPLEX 10/09/23 10/09/23 pantoprazole 40 mg tablet,delayed 40 mg PO QAM 10/09/23 10/09/23 release venlafaxine 37.5 mg 37.5 mg PO QPM 10/09/23 10/09/23 capsule,extended release 24 hr Previous Rx's Medication Instructions Recorded apixaban 5 mg tablet (Eliquis) 5 mg PO BID #30 tabs 10/14/23 Allergies Allergy/AdvReac Type Severity Reaction Status Date / Time No Known Allergies Allergy Verified 10/08/23 15:27 Review of Systems 2 Const: Reports: fatigue; Denies: fever(s), chills, body aches or change in appetite Eyes: Denies: eye discomfort ENMT: Denies: throat pain or dental pain Card: Denies: chest pain Resp: Reports: dyspnea GI: Denies: abdominal pain, nausea, vomiting or diarrhea : Denies: dysuria Musc: Denies: neck pain or back pain Skin/Breast: Denies: rash Neuro: Denies: headache(s) PFSH ED 2 PFSH: Medical History Hypertension Type 2 diabetes mellitus Hypogonadism Family History Other Cancer Social History Smoking and tobacco/nicotine status: former use of tobacco/nicotine Second hand smoke exposure: No Alcohol intake: never Substance/Drug Use: never Physical Exam 2 Const: COMMON NORMALS: patient oriented x3 HENMT: COMMON NORMALS: normocephalic and atraumatic HEAD & SCALP: n ormocephalic and atraumatic Eye: COMMON NORMALS: Equal, round and reactive pupils present and EOMs intact bilaterally PUPIL: Yes Equal, round and reactive pupils present Neck/C-Spine: COMMON NORMALS: full ROM and supple Chest: COMMONS NORMALS: normal inspection of the chest and normal palpation of entire chest wall Resp: COMMON NORMALS: normal respiratory effort, No retractions, No use of accessory muscles and clear to auscultation bilaterally AUSCULTATION: clear to auscultation bilaterally Cardio: COMMON NORMALS: regular rate, regular rhythm and No murmurs present (Cardio) RATE: regular rate RHYTHM: regular rhythm GI: COMMON NORMALS: Normal to inspection, nondistended, normoactive bowel sounds present, Soft to palpation, non-tender and no masses PALPATION: Yes Soft to palpation Extremity: COMMON NORMALS: normal to inspection and full ROM Neuro: COMMON NORMALS: patient oriented x3, moves all extremities and no focal motor deficits Psych: COMMON NORMALS: mental status grossly normal, Normal thought process present and cooperative THOUGHT PROCESS: Normal thought process present Skin: COMMON NORMALS: no rashes or lesions noted and no wounds GENERAL SKIN EXAM: no rashes or lesions noted Course 2 Vital Signs: Vital signs: Vital Signs Temperature 97.7 F 07/25/24 11:21 Pulse Rate 85 07/25/24 13:38 Respiratory Rate 20 H 07/25/24 13:38 Blood Pressure 144/78 07/25/24 13:38 Pulse Oximetry 94 07/25/24 13:38 Oxygen Delivery Me thod Room Air 07/25/24 13:38 MDM - SOB/Dyspnea Medical Decision Making Patient presents here with dyspnea he is found to be anemic this could be causing some of his dyspnea no signs of pneumonia is had no chest pain blood pressure has been normal he has had anemia in the past denies any blood in his stools. Will transfuse a spoke to hospitalist will admit Medical Records I reviewed the patient's medical records. Lab Data I reviewed the patient's lab results. 07/25/24 12:31 07/25/24 12:31 Labs/Radiology: Radiology Impressions Chest X-Ray 07/25/24 11:00 IMPRESSION: Stable chest without acute abnormality. Laboratory Results WBC 10.22 10^3/uL (3.29-11.43) 07/25/24 12:31 RBC 3.18 10^6/uL (3.85-5.65) L 07/25/24 12:31 Hgb 6.00 g/dL (11.27-16.99) L* 07/25/24 12:31 Hct 21.9 % (37-53) L 07/25/24 12:31 MCV 68.9 fl (82-101) L 07/25/24 12:31 MCH 18.9 pg (27-33) L 07/25/24 12:31 MCHC 27.4 g/dL (30-55) L 07/25/24 12:31 RDW 19.0 % (12.1-15.1) H 07/25/24 12:31 Plt Count 507 10^3/cmm (157-399) H 07/25/24 12:31 MPV 9.0 fL (7.4-10.4) 07/25/24 12:31 Neut % (Auto) 71.5 % 07/25/24 12:31 Lymph % (Auto) 15.0 % 07/25/24 12:31 [place] % (Auto) 9.5 % 07/25/24 12:31 Eos % (Auto) 2.1 % 07/25/24 12:31 Baso % (Auto) 1.3 % 07/25/24 12:31 Neut # (Auto) 7.32 10^3/uL (1.8-7.7) 07/25/24 12:31 Lymph # (Auto) 1.5 10^3/uL (0.8-4.8) 07/25/24 12:31 [place] # (Auto) 1.0 10^3/uL (0.2-0.9) H 07/25/24 12:31 Eos # (Auto) 0.2 10^3/uL (0.0-0.8) 07/25/24 12:31 Baso # (Auto) 0.1 10^3/uL (0.0-0.1) 07/25/24 12:31 Nucleated RBC % (auto) 0.2 % 07/25/24 12:31 Nucleated RBCs # 0.0 /100WBC 07/25/24 12:31 Sodium 140 mmol/L (136-145) 07/25/24 12:31 Potassium 5.7 mmol/L (3.5-5.1) H 07/25/24 12:31 Chloride 105 mmol/L (98-107) 07/25/24 12:31 Carbon Dioxide 21 mmol/L (22-29) L 07/25/24 12:31 Anion Gap 19.7 (5-19) H 07/25/24 12:31 BUN 22 mg/dL (8-23) 07/25/24 12:31 Creatinine 1.4 mg/dL (0.7-1.2) H 07/25/24 12:31 GFR Calculation Not Reportable 07/25/24 12:31 Glucose 235 mg/dL (65-115) H 07/25/24 12:31 Calculated Osmolality 301 mOsm/kg (285-295) H 07/25/24 12:31 Calcium 9.9 mg/dL (8.5-10.5) 07/25/24 12:31 Total Bilirubin 0.3 mg/dL (0.15-1.2) 07/25/24 12:31 AST 15 U/L (0-40) 07/25/24 12:31 ALT 15 U/L (0-41) 07/25/24 12:31 Alkaline Phosphatase 89 U/L (40-130) 07/25/24 12:31 NT-Pro-B Natriuret Pep 2109 pg/mL (0-450) H 07/25/24 12:31 Total Protein 7.3 g/dL (6.6-8.7) 07/25/24 12:31 Albumin 4.1 g/dL (3.5-5.2) 07/25/24 12:31 Globulin 3.2 g/dL (1.3-4.6) 07/25/24 12:31 Lipase 23 U/L (13-60) 07/25/24 12:31 All radiology interpretation(s) finalized by discharge Discharge Plan Discharge Patient Disposition: Admitted As Inpatient Clinical Impression: Anemia, Dyspnea Condition: Stable Prescriptions: No Action amlodipine 5 mg tablet 5 mg PO QAM atorvastatin [Lipitor] 80 mg tablet 80 mg PO DAILY glipizide 10 mg tablet 5 mg PO QAM venlafaxine 37.5 mg capsule,extended release 24hr 37.5 mg PO QPM levothyroxine 50 mcg Tablet 50 mcg PO QAM pantoprazole 40 mg tablet,delayed release (DR/EC) 40 mg PO QAM folic acid 1 mg tablet 1 mg PO QAM metformin 500 mg tablet See Rx Instructions .ROUTE .COMPLEX Rx Instructions: 500 mg orally in the morning and 1000 mg in the evening ferrous sulfate 325 mg (65 mg iron) Tablet 325 mg PO DAILY Eliquis 5 mg Tablet 5 mg PO BID Qty: 30 0RF Referrals: Katelynn Beckford DO [Primary Care Provider] - Coding Level of Care Code ED [place] [facility] for [facility] Amy
[2024-07-25 14:03] LABS: Iron 11 ug/dL (59-158); Percent Saturation 3.3 % (20-50); Total Iron Binding Capacity 324 mcg/dl; Unsaturated Iron Binding 313 ug/dL (112-347)
--- NOTE | 2024-07-25 17:28 | P.HP_ITS ---
Providers/Chief Complaint 2 Admitting Physician: Eunice Lo MD Primary Care Provider: Katelynn Beckford DO Chief Complaint: abd pain and lung problems History of Present Illness Luis Jensen is a 78 year old male who presented to the emergency room with chief complaint of shortness of breath, fatigue. He has been getting progressively worse over the last few weeks. At the end of June he took a course of antibiotics, steroids and cough medicine prescribed by his primary care provider. His cough has not been as bad but his breathing overall has not improved. It is to the point that he is short of breath with minimal exertion, not able to perform usual baseline ADLs because of his symptoms. At baseline he has right sided weakness with gait instability, uses a walker. Getting around has been more challenging due to the dyspnea and fatigue. No fevers. Not having any sputum production. No hemoptysis. No nausea or vomiting. He has been constipated and had some cramps but no juliet abdominal pain. No report of any blood in his stools or black tarry stools. No hematuria. No flank pain. No new focal weakness though again baseline functions have been impacted. He presented to the emergency room because things were not improving despite course of outpatient treatment. Workup in the emergency room today revealed a hemoglobin of 6. Last available comparative study was from September 2023 when hemoglobin was 14. He has seen his primary care provider Dr. Katelynn Beckford and Dipti recently and had blood work either at the end of May or June. Was due to get it done soon as repeat. He has never had a colonoscopy. He had a boss that had colonoscopy with some polyps removed in the past. That boss approximately 6 months later from colon cancer and in his mind, Mr. Jensen has always associated that colonoscopy with the cancer diagnosis. He had significant anemia in 2020 and 2021. He had transfusion of 1 unit of packed red blood cells here at [facility] in March 2022 and 5 or 6 units transfused at [facility]. Workup except for colonoscopy was performed from what him and his described without any source of blood loss identified. He is on Eliquis chronically due to a history of both atrial fibrillation and prior stroke. He has been taking as prescribed. No known gross blood loss. Has been on iron therapy previously. With symptomatic anemia and significantly low hemoglobin he is being admitted for further evaluation and treatment. Review of Systems 2 General: Reports: Other (ROS as per HPI or as otherwise noted here) ENMT: Denies: epistaxis Card: Reports: dyspnea on exertion; Denies: chest pain or palpitations Resp: Denies: hemoptysis GI: Denies: hematemesis, hematochezia or melena : Denies: hematuria Musc: Reports: muscle weakness Neuro: Reports: weakness in extremities (Right sided, requires assistance with setting up for eating, uses walker) Roe/Lymph: Denies: easy bruising or easy bleeding Medications/Allergies Home Medications Medication Instructions Recorded Confirmed Last Taken Type amlodipine 5 mg tablet 5 mg PO QAM 07/25/21 07/25/24 07/25/24 History atorvastatin 80 mg tablet (Lipitor) 80 mg PO DAILY 07/25/21 07/25/24 07/25/24 History glipizide 10 mg tablet 10 mg PO QAM 07/25/21 07/25/24 07/25/24 History levothyroxine 50 mcg tablet 50 mcg PO QAM 10/09/23 07/25/24 07/25/24 History venlafaxine 37.5 mg 37.5 mg PO QPM 10/09/23 07/25/24 07/24/24 History capsule,extended release 24 hr apixaban 5 mg tablet (Eliquis) 5 mg PO BID #30 tabs 10/14/23 07/25/24 07/25/24 Rx cephalexin 500 mg capsule 500 mg PO Q8H 07/25/24 07/25/24 Unknown History docusate sodium 100 mg capsule 100 mg PO BID 07/25/24 07/25/24 07/25/24 History (Colace) magnesium hydroxide 400 mg/5 mL 15 ml PO BID PRN Constipation 07/25/24 07/25/24 Unknown History oral suspension (Milk of Magnesia) metformin 1,000 mg tablet 1,000 mg PO BID 07/25/24 07/25/24 07/25/24 History promethazine-DM 6.25 mg-15 mg/5 mL 5 ml PO Q8H PRN Cough 07/25/24 07/25/24 Unknown History oral syrup Allergies Allergy/AdvReac Type Severity Reaction Status Date / Time No Known Allergies Allergy Verified 10/08/23 15:27 PFSH Acute 2 PFSH: Medical History (Updated 07/25/24 @ 19:23 by Eunice Lo MD) Depression Hyperlipidemia Hypothyroidism History of anemia has required transfusion, no source of bleeding identified, has not had colonoscopy due to knowing someone who several months after having procedure (associates the colonoscopy with getting cancer) 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) stroke (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) Left middle cerebral artery stroke (2020) COVID-19 06/05, 10/08 Atrial fibrillation Hypertension Type 2 diabetes mellitus Hypogonadism Surgical History (Updated 07/25/24 @ 18:09 by Eunice Lo MD) History of open reduction and internal fixation (ORIF) procedure right leg, abdirashid in place tibia History of tonsillectomy Family History (Updated 07/25/24 @ 17:42 by Eunice Lo MD) Other Cancer Diabetes Social History Smoking and tobacco/nicotine status: former use of tobacco/nicotine Second hand smoke exposure: No Alcohol intake: never Substance/Drug Use: never Vitals/I&O/Wt Last Vital Signs Temp 97.9 F 07/25/24 16:07 Pulse 89 07/25/24 16:07 Resp 16 07/25/24 16:07 BP 157/64 07/25/24 16:07 Pulse Ox 98 07/25/24 16:07 O2 Del Method Room Air 07/25/24 15:25 07/25/24 07/25/24 07/25/24 06:59 14:59 22:59 Intake Total 0 / 0 Balance 0 / 0 Weight last 48 hrs Weight 81.148 kg Weight 90.718 kg Physical Exam 2 Narrative: Patient is awake and alert. Able to provide history though speech is a little difficult to understand at times though improves with repetition. Left pupil is slightly larger than right pupil. Slight facial droop noted. Pale mucosa. Neck is supple. Lungs are currently clear to auscultation bilaterally without any rales rhonchi or wheezes noted. Regular rhythm. Murmur noted. Abdomen is soft, slightly rotund but nontender. No flank tenderness. No bruising. No pitting edema. Mild deformity right distal lower extremity from prior surgery with hyperpigmented skin. Right sided weakness noted. Skin is pale. No large bruises appreciated. No petechia noted. Oriented x 3. Data 07/25/24 12:31 07/25/24 12:31 Other Labs: Radiology Impressions Chest X-Ray 07/25/24 11:00 IMPRESSION: Stable chest without acute abnormality. Comparative Laboratory Tests 10/14/23 07:29 Hgb 14.40 Hct 44.1 Laboratory Results WBC 10.22 10^3/uL (3.29-11.43) 07/25/24 12:31 RBC 3.18 10^6/uL (3.85-5.65) L 07/25/24 12:31 Hgb 6.00 g/dL (11.27-16.99) L* 07/25/24 12:31 Hct 21.9 % (37-53) L 07/25/24 12:31 MCV 68.9 fl (82-101) L 07/25/24 12:31 MCH 18.9 pg (27-33) L 07/25/24 12:31 MCHC 27.4 g/dL (30-55) L 07/25/24 12:31 RDW 19.0 % (12.1-15.1) H 07/25/24 12:31 Plt Count 507 10^3/cmm (157-399) H 07/25/24 12:31 MPV 9.0 fL (7.4-10.4) 07/25/24 12:31 Neut % (Auto) 71.5 % 07/25/24 12:31 Lymph % (Auto) 15.0 % 07/25/24 12:31 [place] % (Auto) 9.5 % 07/25/24 12:31 Eos % (Auto) 2.1 % 07/25/24 12:31 Baso % (Auto) 1.3 % 07/25/24 12:31 Neut # (Auto) 7.32 10^3/uL (1.8-7.7) 07/25/24 12:31 Lymph # (Auto) 1.5 10^3/uL (0.8-4.8) 07/25/24 12:31 [place] # (Auto) 1.0 10^3/uL (0.2-0.9) H 07/25/24 12:31 Eos # (Auto) 0.2 10^3/uL (0.0-0.8) 07/25/24 12:31 Baso # (Auto) 0.1 10^3/uL (0.0-0.1) 07/25/24 12:31 Nucleated RBC % (auto) 0.2 % 07/25/24 12:31 Nucleated RBCs # 0.0 /100WBC 07/25/24 12:31 Sodium 140 mmol/L (136-145) 07/25/24 12:31 Potassium 5.7 mmol/L (3.5-5.1) H 07/25/24 12:31 Chloride 105 mmol/L (98-107) 07/25/24 12:31 Carbon Dioxide 21 mmol/L (22-29) L 07/25/24 12:31 Anion Gap 19.7 (5-19) H 07/25/24 12:31 BUN 22 mg/dL (8-23) 07/25/24 12:31 Creatinine 1.4 mg/dL (0.7-1.2) H 07/25/24 12:31 GFR Calculation Not Reportable 07/25/24 12:31 Glucose 235 mg/dL (65-115) H 07/25/24 12:31 Calculated Osmolality 301 mOsm/kg (285-295) H 07/25/24 12:31 Calcium 9.9 mg/dL (8.5-10.5) 07/25/24 12:31 Iron 11 ug/dL (59-158) L 07/25/24 12:31 TIBC 324 mcg/dl 07/25/24 12:31 % Saturation 3.3 % (20-50) L 07/25/24 12:31 Unsat Iron Binding 313 ug/dL (112-347) 07/25/24 12:31 Total Bilirubin 0.3 mg/dL (0.15-1.2) 07/25/24 12:31 AST 15 U/L (0-40) 07/25/24 12:31 ALT 15 U/L (0-41) 07/25/24 12:31 Alkaline Phosphatase 89 U/L (40-130) 07/25/24 12:31 NT-Pro-B Natriuret Pep 2109 pg/mL (0-450) H 07/25/24 12:31 Total Protein 7.3 g/dL (6.6-8.7) 07/25/24 12:31 Albumin 4.1 g/dL (3.5-5.2) 07/25/24 12:31 Globulin 3.2 g/dL (1.3-4.6) 07/25/24 12:31 Lipase 23 U/L (13-60) 07/25/24 12:31 Blood Type O Negative 07/25/24 14:28 Rho(D) Type Rh negative 07/25/24 14:28 Antibody Screen Negative 07/25/24 14:28 Crossmatch See Detail 07/25/24 14:28 A&P Assessment and plan (1) Anemia: With iron deficiency, likely secondary to chronic miccroscopic blood loss in this patient on chronic anticoagulation. He has had previous episodes of anemia requiring transfusion without definitive etiology identified though as declined colonoscopy due to association from his point of view of colonoscopy with developing colon cancer based on experience of a former boss. Workup was done at [facility] and records are not available. No grossly visible bleeding has been noted by patient or . BUN and creatinine are slightly higher than previous values so contribution of chronic kidney disease is a consideration. No evidence of hemolysis noted. Currently quite symptomatic with dyspnea on minimal exertion and fatigue that is impacting ability to attend to activities of daily living as described. (2) Dyspnea: Dyspnea on exertion secondary to degree of anemia. Has also recently had acute respiratory illness that was treated with antibiotics (cephalexin) and steroids (3 days Medrol). That has improved though the dyspnea with exertion has continued to worsen. (3) Chronic anticoagulation: Chronically on Eliquis due to history of atrial fibrillation and prior strokes (4) Hyperkalemia: Potassium 5.7 at admission. Creatinine is 1.4. Last comparative labs showed creatinine of 1.1. May have chronic kidney disease stage II would be volume depleted. Is not on medications that would classically associate with dehydration or hyperkalemia. Blood was drawn prior to initiation of blood transfusion. Not noted to be hemolyzed. (5) Atrial fibrillation: Chronic, rate controlled. Not on specific rate controlling agent. Is on chronic anticoagulation. (6) Hypertension: Primary hypertension chronically on amlodipine, with current blood pressure values above goal (7) History of stroke with residual effects: Initial stroke in 2013 and has had several since then most recent in 2020. Has residual left-sided weakness, mild dysarthria and gait instability. Uses a walker at baseline. Is on chronic anticoagulation in part because of this. (8) Type 2 diabetes mellitus: Non-insulin requiring, currently with hyperglycemia. May have associated chronic kidney disease stage II. Chronically on metformin and glipizide. (9) Hyperlipidemia: Mixed hyperlipidemia on chronic statin therapy (10) Hypothyroidism: Acquired hypothyroidism on chronic levothyroxine (11) Depression: Chronically on venlafaxine Plan Constipation Inpatient admission Has been typed and crossed with plan to transfuse 2 units of packed red blood cells; had transfusion in the past no questions Will monitor hemoglobin thereafter Check PT, PTT, reticulocyte count Iron is quite low, will replace Holding home Eliquis, reviewed with patient and his increased risk of stroke but given degree of anemia have to hold for now BID PPI for gastritis coverage with recent oral steroids Watch for any gross bleeding Discuss work up with patient again in am, keeping in mind his reluctance to consider colonoscopy For now we will give a clear liquid diet in the event that he has gross bleeding Stool softeners/laxatives With planned transfusion will give Lasix x 1 dose Have requested labs from PCP done in May or June to see comparative Hgb, creatinine and potassium Recheck BMP in the morning Monitor renal function Check urinalysis Check TSH Continue home amlodipine Telemetry monitoring Echo cardiogram Monitor blood pressures Hold home metformin and glipizide for now Continue home statin Continue home levothyroxine Continue home venlafaxine VTE prophylaxis: SCDs, no pharmacological prophylaxis due to anemia GI Prophylaxis: PPI Antibiotics: has been on oral cephalexin at home for respiratory symptoms/cough Pending studies: coags, retic, echo, urinalysis, labs requested from PCP Telemetry: ordered due to anemia, elevated bnp, hx afib Mckeon: not currently indicated Line(s): peripheral IVs Disposition plan: Home with outpatient follow up currently, will need repeat labs, Eliquis will be held Code Status: Full Code Supportive care otherwise Findings, concerns and plans were discussed with patient and and they were given an opportunity to ask questions Attestations 2 Medical Necessity Statement*: Anticipated stay greater than two midnights in this gentleman presenting with symptomatic anemia and a hemoglobin of 6. Last available comparative hemoglobin was 14 though from sometime ago. He is on anticoagulation in the form of Eliquis. With his comorbid history of prior stroke with residual weakness the effect of his profound anemia is impacting his activities of daily living quite a bit. He is also going to be at increased risk of recurrent stroke coming off of Eliquis but with degree of anemia continuation not an option presently. He has declined colonoscopy in the past. Has had previous episodes of anemia requiring transfusion but not to this degree that I have been able to find. In addition he has hyperkalemia and an increased creatinine from baseline that we have available here as well as elevation in BNP.. With his comorbid conditions at risk for continued decline without attention in the inpatient setting to include transfusion and further workup as outlined. Has recently been on steroids and oral antibiotic treatment. Coding Level of Care Code Acute Code for Chg Fwd Diagnoses Anemia D64.9 Dyspnea R06.00 Chronic anticoagulation Z79.01 Hyperkalemia E87.5 Atrial fibrillation I48.91 Hypertension I10 History of stroke with residual effects I69.30 Type 2 diabetes mellitus E11.9 Hyperlipidemia E78.5 Hypothyroidism E03.9 Depression F32.A
[2024-07-25] MEDS: pantoprazole 40 mg SDV IVP (19:30)
[2024-07-25] MEDS: ferrous sulfate EC 325 mg Tablet PO (19:30)
[2024-07-25] MEDS: docusate sodium 100 mg Capsule PO (19:30)
[2024-07-25] MEDS: FUROsemide 10 mg/mL SDV 2mL 20 MG IVP (19:31)
--- NOTE | 2024-07-25 19:36 | USCV_ITS ---
Luis Jensen Age: 78 Gender: M : 1945 Exam Date: 07/25/2024 23:20 Ordering Phys: Eunice Lo MD Technologist: HOLGER [place] [facility] [place] [place]: dyspnea, elevated B-type natriuretic Peptide BP: 146 / 65 HR: 89 Rhythm: Atrial fibrillation Technical Quality: Adequate MEASUREMENTS (Male / Female) Normal Values 2D ECHO LV Diastolic Diameter PLAX 4.6 cm 4.2 - 5.9 / 3.9 - 5.3 cm IVS Diastolic Thickness 1.5 cm 0.6 - 1.0 / 0.6 - 0.9 cm IVS Systolic Thickness 1.3 cm LVPW Diastolic Thickness 1.5 cm 0.6 - 1.0 / 0.6 - 0.9 cm LVPW Systolic Thickness 1.8 cm LVOT Diameter 1.8 cm LV Ejection Fraction 2D Teich 39.8 % LV Ejection Fraction MOD 4C 31.4 % LV Ejection Fraction MOD 2C 46.8 % LV Ejection Fraction 2C AL 46.8 % LA Diameter 5.0 cm LA Sys Volume AL 85.3 cm cubed LA Sys Volume Index AL 43.0 cm cubed/m squared Aorta at Sinotubular Diameter 2.9 cm IVC Diameter 2.0 cm M-MODE LA Ao Ratio MM 1.6 AV Cusp Separation MM 1.6 cm DOPPLER AV Peak Velocity 249.0 cm/s LVOT Peak Velocity 64.0 cm/s AV Area Cont Eq vti 0.8 cm squared AV Area Cont Eq pk 0.6 cm squared MV Peak Velocity 148.0 cm/s MV Area PHT 3.8 cm squared Mitral E to A Ratio 0.0 TV Peak Velocity 278.5 cm/s TR Peak Velocity 286.0 cm/s TR Peak Gradient 32.7 mmHg TV Peak E Velocity 53.0 cm/s Right Atrial Pressure 10.0 mmHg Pulmonary Artery Systolic Pressu 42.7 mmHg PV Peak Velocity 92.0 cm/s FINDINGS Left Ventricle Diffuse hypokinesis of the left ventricule with and ejection fraction of 38%.. Normal LV size. Right Ventricle The right ventricle is normal in size and function. Right Atrium Mildly increased right atrial size. Left Atrium Moderately increased left atrial size. Mitral Valve Mild-moderate mitral valve regurgitation. Aortic Valve Mild to moderate aortic valve calcification Tricuspid Valve Mild tricuspid valve regurgitation. Estimated pulmonary artery peak systolic pressure 43 mmHg Pulmonic Valve Pulmonic valve not well visualized. Pericardium No pericardial effusion. Aorta Normal aortic annulus size. IVC Inferior vena cava not visualized. CONCLUSIONS Diffuse hypokinesis of the left ventricule with and ejection fraction of 38%.. Normal LV size. Moderately increased left atrial size. Mildly increased right atrial size. Mild-moderate mitral valve regurgitation. Mild to moderate aortic valve calcification. Severe low gradient aortic valve stenosis with a valve area of 0.8 cm squared. Peak velocity of 2.5 m/s There is no pericardial effusion. There are no intracardiac masses. Mild tricuspid valve regurgitation. Estimated pulmonary artery peak systolic pressure 43 mmHg Compared to the study from 06/05/2021, there is a significant drop in the LV ejection fraction from 55% to 38%. Possibly severe low gradient aortic valve stenosis Dr Maximilian Avina MD FACC (Electronically Signed) Final Date: 26 July 2024 16:37 S
[2024-07-25 19:59] LABS: Reticulocyte % 1.2 % (0.5-2.0)
[2024-07-25 20:15] LABS: INR 1.25 (0.8-1.2)
[2024-07-25 20:16] LABS: Partial Thromboplastin Time 37.5 SECONDS (23.9-36.7)
[2024-07-25] MEDS: iron sucrose 200 MG in sodium chloride 0.9% (100 ml) 100 ML 220 MG IV (20:36)
[2024-07-25] MEDS: sennosides 8.6 mg Tablet 17.2 MG PO (20:36)
[2024-07-25 21:02] LABS: Glucose Point of Care 110 mg/dL (70-110)
[2024-07-25 23:12] LABS: Charge for UA Resulting for Rev
[2024-07-25 23:14] LABS: Bilirubin Urine Negative (Negative); Blood Urine Negative (Negative); Glucose Urine UA Negative (Normal); Ketones Urine Negative (Negative); Leukocyte Esterase Urine Negative (Negative); Nitrate Urine Negative (Negative); Protein Urine Negative (Negative); Specific Gravity, Urine 1.008 (1.005-1.030); Urine Appearance Clear (CLEAR); Urine Color Yellow (Yellow); Urobilinogen Urine 0.2 mg/dL (Negative)
[2024-07-25 23:18] LABS: Bacteria Urine None Seen /hpf; Hyaline Casts Urine 1.21 /lpf; RBC Urine 0-2 /hpf (0-2); Squamous Epithelial Cell Urine 0-5 /hpf (0-5); WBC Urine 0-5 /hpf (0-5)
--- NOTE | 2024-07-25 23:33 | PC.NURSE ---
Pt has been having high blood pressures all evening. The two most recent blood pressures were 172/110 and 181/98. Dr. Donis notified and ordered Amlodipine 10mg PO now and increased pt's daily dose of Amlodipine from 5mg to 10mg and changed time to 0900.
[2024-07-26] VITALS (9 sets, daily range): BP systolic 130–167; BP diastolic 65–88; PULSE 80–95; RESP 16–19; TEMP 36.4–36.8; O2SAT 93–97
[2024-07-26] MEDS: amlodipine 10 mg Tablet PO (00:08)
[2024-07-26 02:30] LABS: Basophils # 0.1 10^3/uL (0.0-0.1); Basophils % 0.9 %; Eosinophils # 0.3 10^3/uL (0.0-0.8); Eosinophils % 2.6 %; Hematocrit 26.6 % (37-53); Lymphocytes # 2.1 10^3/uL (0.8-4.8); Lymphocytes % 20.5 %; Mean Corpuscular HGB Conc 29.7 g/dL (30-55); Mean Corpuscular Hemoglobin 20.8 pg (27-33); Mean Platelet Volume 9.1 fL (7.4-10.4); Monocytes # 1.2 10^3/uL (0.2-0.9); Neutrophils # 6.74 10^3/uL (1.8-7.7); Neutrophils % 64.5 %; Nucleated Red Blood Cells # 0.1 /100WBC; Nucleated Red Blood Cells % 0.5 %; Platelet Count 437 10^3/cmm (157-399); Red Cell Distribution Width 19.5 % (12.1-15.1); White Blood Count 10.44 10^3/uL (3.29-11.43)
[2024-07-26 02:46] LABS: Estmated Average Glucose 148; Hemoglobin A1C 6.8 % (4.0-6.0)
[2024-07-26 03:00] LABS: Anion Gap 13.1 (5-19); Blood Urea Nitrogen 19 mg/dL (8-23); Calcium 9.1 mg/dL (8.5-10.5); Carbon Dioxide 23 mmol/L (22-29); Chloride 103 mmol/L (98-107); Creatinine Clr Calc Pharmacy 47.9001; Glucose 87 mg/dL (65-115); Magnesium 2.1 mg/dL (1.7-2.3); Osmolality Calculated 282 mOsm/kg (285-295); Phosphorus 2.8 mg/dL (2.5-4.5); Potassium 4.1 mmol/L (3.5-5.1); Sodium 135 mmol/L (136-145); Thyroid Stimulating Hormone 1.73 uIU/mL (0.27-4.20)
[2024-07-26 03:05] LABS: Slide Review Slide Review Perform
[2024-07-26] MEDS: levothyroxine 50 mcg Tablet PO (05:26)
[2024-07-26] MEDS: pantoprazole 40 mg SDV IVP ×2 (05:26→17:21)
[2024-07-26 06:31] LABS: Glucose Point of Care 99 mg/dL (70-110)
--- NOTE | 2024-07-26 09:23 | PC.CHAP ---
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 wood planer visit [] Patient/Family/Request visit [] Outpatient visit [] Follow-up visit [] Physician referral [] Code/Alert [x] Routine visit [] Staff referral [] Actively dying [] Patient sleeping [x] Family support [] [] Out of room [] Palliative care [] [] Receiving care in room [] Pre-surgical visit [] Trauma [] Long length of stay [] ICU visit [] Other: Relational/Emotional Strength [x] Patient feels connected with others/family/visitors/staff [] Distress [] Loneliness/isolation [] Abandonment Spirituality of Patient [x] Person of Mayra [] Attends Yazidism of their Mayra [x] Believes in Prayer [] Reads Bible or Uatsdin materials [] There are Spiritual issues to be addressed Bulk Clerk Interventions [x] Prayer [x] Active listening [] Non-anxious presence [x] Spiritual/emotional support [] Crisis/trauma care [] Spiritual counseling [] Bereavement support [] Provided bereavement packet [] Provided Bible/devotional materials [] Provided toy/stuffed animal, coloring book to patient or family member [] Provided Communion [] Anointing/[place] [] Salvation [x] Completed spiritual assessment [] Other: Impact on Illness or Injury [] Angry [] Fearful [] Anxious [] Often cries [] Exhaustion [] Unable to work [] Unable to attend caodaism [] Unable to walk/stand [] Unable to read [] Unable to drive [] Unable to eat/drink [] Unable to sleep [] Unable to be with family [] Patient intubated [] Other: Summary Time spent with patient 5 min
[2024-07-26] MEDS: ferrous sulfate EC 325 mg Tablet PO ×3 (09:36→17:21)
[2024-07-26] MEDS: atorvastatin 40 mg Tablet 80 MG PO (09:47)
[2024-07-26] MEDS: amlodipine 5 mg Tablet 10 MG PO (09:47)
[2024-07-26] MEDS: docusate sodium 100 mg Capsule PO ×2 (09:47→17:21)
[2024-07-26 11:17] LABS: Glucose Point of Care 225 mg/dL (70-110)
[2024-07-26] MEDS: insulin lispro 100 unit/1 mL SUBCUT ×3 (12:12→21:02)
--- NOTE | 2024-07-26 13:53 | P.PN_ITS ---
Subjective 2 Subjective: Denies any outright bleeding. No hematochezia or melena. Did have hematochezia 2 years ago at which point required 6 units RBC transfusions during past hospitalization. At that time had an EGD which was reportedly unremarkable without a source of bleeding. Has never had a colonoscopy due to his prior fears outlined in H&P. However, currently they have discussed with his and he is agreeable for colonoscopy during this admission only. He otherwise has been constipated. Vitals/I&O/Wt Last Vital Signs Temp 98.1 F 07/26/24 11:05 Pulse 90 07/26/24 11:05 Resp 16 07/26/24 11:05 BP 138/71 07/26/24 11:05 Pulse Ox 94 07/26/24 11:05 O2 Del Method Room Air 07/26/24 11:05 07/25/24 07/26/24 07/26/24 22:59 06:59 14:59 Intake Total 480 / 480 0 / 480 200 / 200 Output Total 350 / 350 420 / 420 Balance 480 / 480 -350 / 130 -220 / -220 Weight last 48 hrs Weight 81.732 kg Weight 81.148 kg Weight 90.718 kg Physical Exam 2 Narrative: Sitting up in bed. Const: COMMON NORMALS: patient oriented x3 and alert GENERAL APPEARANCE: c ooperative ORIENTATION/CONSCIOUSNESS: Yes awake HENMT: COMMON NORMALS: oropharynx normal Neck/C-Spine: COMMON NORMALS: no JVD Resp: COMMON NORMALS: normal respiratory effort and clear to auscultation bilaterally AUSCULTATION: clear to auscultation bilaterally Cardio: COMMON NORMALS: no JVD, regular rhythm, S1 normal heart sound present, S2 normal heart sound present and No murmurs present (Cardio) RHYTHM: regular rhythm HEART SOUNDS: S1 normal heart sound present and S2 normal heart sound present GI: COMMON NORMALS: Normal to inspection, nondistended, normoactive bowel sounds present, Soft to palpation and non-tender PALPATION: Yes Soft to palpation Extremity: COMMON NORMALS: no joint enlargement and no pedal edema Neuro: COMMON NORMALS: patient oriented x3 and moves all extremities S ENSORIUM/ORIENTATION: Yes alert Skin: COMMON NORMALS: no rashes or lesions noted GENERAL SKIN EXAM: no rashes or lesions noted Data 07/26/24 02:07/26/24 02:20 A&P Assessment and plan (1) Anemia: Symptomatic severe blood loss anemia. Reviewed vitals, hemoglobin, platelets, transfusion history, has received 2 units RBC transfusion. Hemoglobin came up from 6-7.9. Discussed with him and his . Adequate response so far. Will recheck hemoglobin this afternoon. He had recently received antibiotics and prednisone, reviewed and discussed iron studies, TIBC, ferritin, noted iron deficiency anemia. Likely chronic GI blood loss suspected with iron deficiency, but unclear whether he may have had some more acute bleeding after recent course of prednisone. He had an upper GI study 2 years ago at which point he required 6 units of RBC transfusion. He has never had a colonoscopy due to fevers outlined in H&P. However, he states that they have discussed with his and he is considering that he would be willing to undergo colonoscopy during this admission only. Discussed with him and his surgery consultation. Discussed with surgeon, appreciate consultation discussion regarding endoscopic evaluation. In the meantime continue IV PPI twice daily, recheck hemoglobin tonight. Continue to hold Eliquis for now. Cont iron replacement. Will need to also follow-up with PCP after discharge. Continue clear liquid diet for now. Anticipation of possible endoscopic evaluation during his hospitalization. He otherwise has been at baseline state of health. He is not particularly functional, normally gets around in an electric scooter, but has been able to transfer from bed to chair prior to the worsening of symptomatic blood loss anemia. Reviewed EKG. Has developed LBBB since prior EKGs. Echocardiogram has been obtained. Collect Hemoccult if possible. Possible component of chronic kidney disease. Reviewed reticulocyte count, but may be affected by transfusion at this point, although suggests hypoproliferation as well. Possibly due to iron deficiency. Replace iron, will need follow-up. If still hypoproliferation will need consideration of other causes. Reviewed TSH, normal. Will check B12, folic acid as well. (2) Dyspnea: With some improvement so far after transfusion, although he has not gotten up. He does not normally ambulate. Dyspnea on exertion secondary to degree of anemia. Has also recently had acute respiratory illness that was treated with antibiotics (cephalexin) and steroids (3 days Medrol). That has improved though the dyspnea with exertion has continued to worsen. (3) Chronic anticoagulation: Chronically on Eliquis due to history of atrial fibrillation and prior strokes (4) Hyperkalemia: Reviewed potassium, hyperkalemia resolved. On presentation potassium 5.7 at admission. Creatinine is 1.4. Last comparative labs showed creatinine of 1.1. May have chronic kidney disease stage II would be volume depleted. Is not on medications that would classically associate with dehydration or hyperkalemia. Blood was drawn prior to initiation of blood transfusion. Not noted to be hemolyzed. (5) Atrial fibrillation: Chronic, rate controlled. Not on specific rate controlling agent. Is on chronic anticoagulation. (6) Hypertension: Primary hypertension chronically on amlodipine, with current blood pressure values above goal (7) History of stroke with residual effects: Initial stroke in 2013 and has had several since then most recent in 2020. Has residual left-sided weakness, mild dysarthria and gait instability. Uses a walker at baseline. Is on chronic anticoagulation in part because of this. (8) Type 2 diabetes mellitus: Reviewed POC glucose. Continue sliding scale insulin. Change to consistent carbohydrate diet. Non-insulin requiring, currently with hyperglycemia. May have associated chronic kidney disease stage II. Chronically on metformin and glipizide. (9) Hyperlipidemia: Mixed hyperlipidemia on chronic statin therapy. (10) Hypothyroidism: Acquired hypothyroidism on chronic levothyroxine (11) Depression: Chronically on venlafaxine Plan Constipation: Still no bowel movement. Will give Dulcolax suppository. Recent possible pneumonia: Had undergone a course of antibiotic treatment, prednisone as well. Continue home statin Continue home levothyroxine Continue home venlafaxine VTE prophylaxis: SCDs, no pharmacological prophylaxis due to anemia GI Prophylaxis: PPI Antibiotics: has been on oral cephalexin at home for respiratory symptoms/cough Disposition plan: Home with outpatient follow up currently, will need repeat labs, Eliquis will be held Code Status: Full Code Attestations 2 Medical Necessity Statement*: Continue admission for assessment and management of severe symptomatic blood loss iron deficiency anemia. and High MDM includes amount and/or complexity of data reviewed/ordered [ resulted lab(s)/test(s), ordered lab(s)/test(s) and other healthcare professional discussion] as documented Diagnoses Anemia D64.9 Dyspnea R06.00 Chronic anticoagulation Z79.01 Hyperkalemia E87.5 Atrial fibrillation I48.91 Hypertension I10 History of stroke with residual effects I69.30 Type 2 diabetes mellitus E11.9 Hyperlipidemia E78.5 Hypothyroidism E03.9 Depression F32.A
[2024-07-26 16:23] LABS: Glucose Point of Care 253 mg/dL (70-110)
--- NOTE | 2024-07-26 16:28 | P.CONIM_ITS ---
Providers/Reason For Consult 2 Consulting Physician/Specialty*: General surgery Dr. Prince Reason for Consult*: Occult GI bleed Attending Physician: Adam Sears Primary Care Provider: Katelynn Beckford DO History of Present Illness History of Present Illness Luis Jensen is a 78 year old male multiple comorbidities whom surgery was consulted to rule out occult GI bleed. Patient came in with anemia and required transfusion. Patient does have a history of GI bleed a couple years ago. At that time EGD was unremarkable. He has not had a colonoscopy. Currently denies any hematochezia, melena, or any change in stool. Medications/Allergies Home Medications Medication Instructions Recorded Confirmed Last Taken Type amlodipine 5 mg tablet 5 mg PO QAM 07/25/21 07/25/24 07/25/24 History atorvastatin 80 mg tablet (Lipitor) 80 mg PO DAILY 07/25/21 07/25/24 07/25/24 History glipizide 10 mg tablet 10 mg PO QAM 07/25/21 07/25/24 07/25/24 History levothyroxine 50 mcg tablet 50 mcg PO QAM 10/09/23 07/25/24 07/25/24 History venlafaxine 37.5 mg 37.5 mg PO QPM 10/09/23 07/25/24 07/24/24 History capsule,extended release 24 hr apixaban 5 mg tablet (Eliquis) 5 mg PO BID #30 tabs 10/14/23 07/25/24 07/25/24 Rx cephalexin 500 mg capsule 500 mg PO Q8H 07/25/24 07/25/24 Unknown History docusate sodium 100 mg capsule 100 mg PO BID 07/25/24 07/25/24 07/25/24 History (Colace) magnesium hydroxide 400 mg/5 mL 15 ml PO BID PRN Constipation 07/25/24 07/25/24 Unknown History oral suspension (Milk of Magnesia) metformin 1,000 mg tablet 1,000 mg PO BID 07/25/24 07/25/24 07/25/24 History promethazine-DM 6.25 mg-15 mg/5 mL 5 ml PO Q8H PRN Cough 07/25/24 07/25/24 Unknown History oral syrup Allergies Allergy/AdvReac Type Severity Reaction Status Date / Time No Known Allergies Allergy Verified 10/08/23 15:27 Current Medications Generic Name Dose Route Start Last Admin Trade Name Lisa PRN Reason Stop Dose Admin Amlodipine Besylate 10 mg 07/26/24 09:00 07/26/24 09:47 Amlodipine 5 Mg Tablet PO 10 mg QAM ERIK Administration Atorvastatin Calcium 80 mg 07/26/24 09:00 07/26/24 09:47 Atorvastatin 40 Mg Tablet PO 80 mg DAILY ERIK Administration Docusate Sodium 100 mg 07/25/24 18:00 07/26/24 09:47 Docusate Sodium 100 Mg Capsule PO 100 mg BID ERIK Administration Ferrous Sulfate 325 mg 07/25/24 18:00 07/26/24 12:12 Ferrous Sulfate Ec 325 Mg Tablet PO 325 mg TIDWM ERIK Administration Insulin Human Lispro 0 unit 07/25/24 21:00 07/25/24 21:07 Insulin Lispro 100 Unit/1 Ml SUBCUT Not Given BEDTIME ERIK Protocol Insulin Human Lispro 0 unit 07/26/24 08:00 07/26/24 12:12 Insulin Lispro 100 Unit/1 Ml SUBCUT 6 unit TIDWM ERIK Administration Protocol Levothyroxine Sodium 50 mcg 07/26/24 06:00 07/26/24 05:26 Levothyroxine 50 Mcg Tablet PO 50 mcg QAM ERIK Administration Pantoprazole Sodium 40 mg 07/25/24 17:30 07/26/24 05:26 Pantoprazole 40 Mg Sdv IVP 40 mg Q12H ERIK Administration Senna 17.2 mg 07/25/24 21:00 07/25/24 20:36 Sennosides 8.6 Mg Tablet PO 17.2 mg BEDTIME ERIK Administration PFSH Acute 2 PFSH: Medical History (Updated 07/26/24 @ 16:55 by Fortunato Prince MD) Depression Hyperlipidemia Hypothyroidism History of anemia has required transfusion, no source of bleeding identified, has not had colonoscopy due to knowing someone who several months after having procedure (associates the colonoscopy with getting cancer) 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) Left middle cerebral artery stroke (2020) COVID-19 06/05, 10/08 Atrial fibrillation Hypertension Type 2 diabetes mellitus Hypogonadism Surgical History (Updated 07/25/24 @ 18:09 by Eunice Lo MD) History of open reduction and internal fixation (ORIF) procedure right leg, abdirashid in place tibia History of tonsillectomy Family History (Updated 07/25/24 @ 17:42 by Eunice Lo MD) Other Cancer Diabetes Social History Smoking and tobacco/nicotine status: former use of tobacco/nicotine Second hand smoke exposure: No Alcohol intake: never Substance/Drug Use: never Vitals/I&O/Wt Last Vital Signs Temp 98.1 F 07/26/24 11:05 Pulse 90 07/26/24 11:05 Resp 16 07/26/24 11:05 BP 138/71 07/26/24 11:05 Pulse Ox 94 07/26/24 11:05 O2 Del Method Room Air 07/26/24 11:05 07/26/24 07/26/24 07/26/24 06:59 14:59 22:59 Intake Total 0 / 480 200 / 200 Output Total 350 / 350 420 / 420 Balance -350 / 130 -220 / -220 Weight last 48 hrs Weight 180 lb 3 oz Weight 178 lb 14.4 oz Weight 200 lb Physical Exam 2 Narrative: Chest: Unlabored breathing room air. No lymphadenopathy. Heart: Regular rate and rhythm. Abdomen: Soft, nontender, nondistended. No masses or lymphadenopathy. Data 07/26/24 02:20 07/26/24 02:20 A&P Assessment and plan (1) GIB (gastrointestinal bleeding): Qualifiers: GI bleed type/associated pathology: unspecified gastrointestinal hemorrhage type Qualified Code(s): K92.2 - Gastrointestinal hemorrhage, unspecified Plan 78-year-old male whom surgery was consulted to rule out occult GI bleed. Patient is unsure if he wants to proceed with endoscopy. I had a discussion with patient and and they will consider doing it either as outpatient or afternoon as inpatient. Patient will need a prep for colonoscopy. I would also recommend an EGD. Coding Level of Care Code 79579 Diagnoses Gastrointestinal hemorrhage, unspecified gastrointestinal hemorrhage type K92.2 GI bleed type/associated pathology: unspecified gastrointestinal hemorrhage type Time Spent (min) 30
[2024-07-26] MEDS: bisacodyl 5 mg Tablet 10 MG PO (17:21)
[2024-07-26] MEDS: venlafaxine ER (24HR) 37.5 mg Capsule PO (17:21)
[2024-07-26 17:34] LABS: Hematocrit 28.4 % (37-53); Retic Production Index 1.21; Reticulocyte % 1.7 % (0.5-2.0)
[2024-07-26 17:58] LABS: Vitamin B12 265 pg/mL (232-1245)
[2024-07-26 19:28] LABS: Folate Level > 20.0 ng/mL (4.5-32.2)
[2024-07-26 20:27] LABS: Glucose Point of Care 200 mg/dL (70-110)
[2024-07-26] MEDS: sennosides 8.6 mg Tablet 17.2 MG PO (21:01)
[2024-07-27 04:00] VITALS: BP 146/78; PULSE 86; RESP 18; TEMP 36.8; O2SAT 95
[2024-07-27 05:11] LABS: Basophils # 0.1 10^3/uL (0.0-0.1); Basophils % 1.2 %; Eosinophils # 0.4 10^3/uL (0.0-0.8); Eosinophils % 4.1 %; Hematocrit 28.2 % (37-53); Lymphocytes # 2.2 10^3/uL (0.8-4.8); Lymphocytes % 21.7 %; Mean Corpuscular HGB Conc 28.7 g/dL (30-55); Mean Corpuscular Hemoglobin 20.5 pg (27-33); Mean Corpuscular Volume 71.2 fl (82-101); Monocytes # 0.9 10^3/uL (0.2-0.9); Monocytes % 9.2 %; Neutrophils # 6.33 10^3/uL (1.8-7.7); Nucleated Red Blood Cells # 0.1 /100WBC; Nucleated Red Blood Cells % 0.5 %; Platelet Count 466 10^3/cmm (157-399); Red Blood Count 3.96 10^6/uL (3.85-5.65); Red Cell Distribution Width 20.4 % (12.1-15.1); White Blood Count 10.04 10^3/uL (3.29-11.43)
[2024-07-27 05:27] LABS: Anion Gap 13.5 (5-19); Blood Urea Nitrogen 14 mg/dL (8-23); Calcium 9.5 mg/dL (8.5-10.5); Carbon Dioxide 26 mmol/L (22-29); Chloride 106 mmol/L (98-107); Creatinine Clr Calc Pharmacy 47.6871; Glucose 127 mg/dL (65-115); Osmolality Calculated 294 mOsm/kg (285-295); Potassium 4.5 mmol/L (3.5-5.1); Sodium 141 mmol/L (136-145)
[2024-07-27] MEDS: amlodipine 5 mg Tablet 10 MG PO (05:49)
[2024-07-27] MEDS: pantoprazole 40 mg SDV IVP ×2 (05:49→17:37)
[2024-07-27] MEDS: levothyroxine 50 mcg Tablet PO (05:50)
[2024-07-27 05:53] LABS: Slide Review Slide Review Perform
[2024-07-27 06:21] LABS: Glucose Point of Care 133 mg/dL (70-110)
[2024-07-27 08:00] VITALS: BP 134/64; PULSE 99; RESP 18; TEMP 36.7; O2SAT 96
[2024-07-27] MEDS: ferrous sulfate EC 325 mg Tablet PO ×3 (08:48→17:37)
[2024-07-27] MEDS: docusate sodium 100 mg Capsule PO ×2 (08:48→17:37)
[2024-07-27] MEDS: atorvastatin 40 mg Tablet 80 MG PO (08:48)
--- NOTE | 2024-07-27 10:13 | PC.SOCIAL ---
IMM Update pg 2 of IMM updated and reviewed w/ patient and his . Copy provided and copy dated, initialed and placed in chart.
[2024-07-27 11:34] LABS: Glucose Point of Care 379 mg/dL (70-110)
[2024-07-27 12:00] VITALS: BP 125/67; PULSE 85; RESP 17; TEMP 36.7; O2SAT 96
[2024-07-27] MEDS: insulin lispro 100 unit/1 mL SUBCUT ×2 (12:13→20:51)
[2024-07-27] MEDS: bisacodyl 5 mg Tablet 20 MG PO (12:13)
[2024-07-27] MEDS: magnesium citrate Btl 296 mL PO ×2 (12:13→17:36)
[2024-07-27 16:00] VITALS: BP 132/75; PULSE 90; RESP 16; TEMP 36.6; O2SAT 96
[2024-07-27 16:20] LABS: Glucose Point of Care 137 mg/dL (70-110)
[2024-07-27] MEDS: venlafaxine ER (24HR) 37.5 mg Capsule PO (17:37)
--- NOTE | 2024-07-27 17:58 | PM.PN ---
Subjective Subjective: He feels his symptoms are showing improvement. He is not quite as fatigued transferring to the chair today. Vitals/I&O/Wt Last Vital Signs Temp 97.8 F 07/27/24 16:00 Pulse 90 07/27/24 16:00 Resp 16 07/27/24 16:00 BP 132/75 07/27/24 16:00 Pulse Ox 96 07/27/24 16:00 O2 Del Method Room Air 07/27/24 16:00 07/27/24 07/27/24 07/27/24 06:59 14:59 22:59 Intake Total 0 / 560 600 / 600 Output Total 250 / 1145 Balance -250 / -585 600 / 600 Weight last 48 hrs Weight 80.331 kg Weight 81.732 kg Physical Exam Narrative: Sitting up. His is at bedside. Const: COMMON NORMALS: patient oriented x3 and alert GENERAL APPEARANCE: cooperative ORIENTATION/CONSCIOUSNESS: Yes awake HENMT: COMMON NORMALS: oropharynx normal Neck/C-Spine: COMMON NORMALS: no JVD Resp: COMMON NORMALS: normal respiratory effort and clear to auscultation bilaterally AUSCULTATION: clear to auscultation bilaterally Cardio: COMMON NORMALS: no JVD, regular rhythm, S1 normal heart sound present, S2 normal heart sound present and No murmurs present (Cardio) RHYTHM: regular rhythm HEART SOUNDS: S1 normal heart sound present and S2 normal heart sound present GI: COMMON NORMALS: Normal to inspection, nondistended, normoactive bowel sounds present, Soft to palpation and non-tender PALPATION: Yes Soft to palpation Extremity: COMMON NORMALS: no joint enlargement and no pedal edema Neuro: COMMON NORMALS: patient oriented x3 and moves all extremities SENSORIUM/ORIENTATION: Yes alert Skin: COMMON NORMALS: no rashes or lesions noted GENERAL SKIN EXAM: no rashes or lesions noted Data 07/27/24 04:45 07/27/24 04:45 A&P Assessment and plan (1) Anemia: Improvement in symptoms. Reviewed vitals, hemoglobin, platelets. Hemoglobin with slight decrease compared to yesterday from 8.5-8.1. Reviewed Hemoccult, so far uncollected. Denies juliet bleeding. Reviewed surgery note, prep for upper and lower endoscopy tomorrow. With his prior concerns patient knows that if he goes home he will not do the endoscopy. Discussed with nursing staff, shelter case manager. Continue IV PPI twice daily, recheck hemoglobin tonight. Continue to hold Eliquis for now. Cont iron replacement. Will need to also follow-up with PCP after discharge. Anticipation of possible endoscopic evaluation during his hospitalization. He otherwise has been at baseline state of health. He is not particularly functional, normally gets around in an electric scooter, but has been able to transfer from bed to chair prior to the worsening of symptomatic blood loss anemia. Reviewed EKG. Has developed LBBB since prior EKGs. Echocardiogram has been obtained. Reviewed echocardiogram, ejection fraction 38%, mild to moderate MVR, severe low gradient aortic stenosis, valve area 0.8 cm?. Estimated pulmonary artery pressure 43 mmHg. Newly decreased ejection fraction, although compensated without signs of CHF. EKG with atrial fibrillation, without sign of acute ND. Will obtain troponin, NT proBNP. He is saturating well on room air. Maintaining blood pressure. Caution with any medications that may cause hypotension. Caution with fluid overload. Risk of CHF. Discussed with vertical contour band saw operator, will refer also for further work up for angiography. Possible component of chronic kidney disease. Reviewed reticulocyte count, but may be affected by transfusion at this point, although suggests hypoproliferation as well. Possibly due to iron deficiency. Replace iron, will need follow-up. If still hypoproliferation will need consideration of other causes. Reviewed TSH, normal. Will check B12, folic acid as well. (2) Dyspnea: Reviewed vitals, reviewed WBC. WBC WNL. Afebrile. With some improvement so far after transfusion. He does not normally ambulate. Dyspnea on exertion secondary to degree of anemia. Has also recently had acute respiratory illness that was treated with antibiotics (cephalexin) and steroids (3 days Medrol). That has improved though the dyspnea with exertion has continued to worsen. (3) Chronic anticoagulation: Continue to hold Eliquis. Chronically on Eliquis due to history of atrial fibrillation and prior strokes (4) Hyperkalemia: Reviewed potassium, hyperkalemia resolved. Repeat BMP. On presentation potassium 5.7 at admission. Creatinine is 1.4. Last comparative labs showed creatinine of 1.1. May have chronic kidney disease stage II would be volume depleted. Is not on medications that would classically associate with dehydration or hyperkalemia. Blood was drawn prior to initiation of blood transfusion. Not noted to be hemolyzed. (5) Atrial fibrillation: Chronic, rate controlled. Not on specific rate controlling agent. Is on chronic anticoagulation. (6) Hypertension: Primary hypertension chronically on amlodipine, with current blood pressure values above goal (7) History of stroke with residual effects: Initial stroke in 2013 and has had several since then most recent in 2020. Has residual left-sided weakness, mild dysarthria and gait instability. Uses a walker at baseline. Is on chronic anticoagulation in part because of this. (8) Type 2 diabetes mellitus: Reviewed POC glucose. Doing well. Continue sliding scale insulin. Change to consistent carbohydrate diet. Non-insulin requiring, currently with hyperglycemia. May have associated chronic kidney disease stage II. Chronically on metformin and glipizide. (9) Hyperlipidemia: Mixed hyperlipidemia on chronic statin therapy. (10) Hypothyroidism: Acquired hypothyroidism on chronic levothyroxine (11) Depression: Chronically on venlafaxine Plan New decrease in ejection fraction: Cardiomyopathy, EF down to 38%. EKG reviewed, atrial fibrillation, no sign of acute ND. Check troponin. Obtain NT proBNP. Will benefit from follow-up with cardiology, consideration of coronary angiography, further workup for CAD, aortic stenosis, consideration of valve replacement. Aortic stenosis: Echocardiogram with low gradient severe aortic valve stenosis, area 0.8 cm, peak velocity 2.5 m/s. Constipation: Still no bowel movement. Will give Dulcolax suppository. Recent possible pneumonia: Had undergone a course of antibiotic treatment, prednisone as well. Continue home statin Continue home levothyroxine Continue home venlafaxine VTE prophylaxis: SCDs, no pharmacological prophylaxis due to anemia GI Prophylaxis: PPI Antibiotics: has been on oral cephalexin at home for respiratory symptoms/cough Disposition plan: Home with outpatient follow up currently, will need repeat labs, Eliquis will be held Code Status: Full Code Attestations Medical Necessity Statement*: Continue admission for assessment and management of severe symptomatic blood loss iron deficiency anemia, with underlying cardiomyopathy, aortic stenosis. and High MDM includes amount and/or complexity of data reviewed/ordered [ previous or external records, resulted lab(s)/test(s), ordered lab(s)/test(s) and other healthcare professional discussion] as documented Diagnoses Anemia D64.9 Dyspnea R06.00 Chronic anticoagulation Z79.01 Hyperkalemia E87.5 Atrial fibrillation I48.91 Hypertension I10 History of stroke with residual effects I69.30 Type 2 diabetes mellitus E11.9 Hyperlipidemia E78.5 Hypothyroidism E03.9 Depression F32.A
[2024-07-27 19:39] LABS: Troponin T (5th) Once 46 ng/L (0-15)
[2024-07-27 19:47] LABS: NT Pro B Type Natriuretic Pept 1120 pg/mL (0-450)
[2024-07-27 19:57] VITALS: BP 131/67; PULSE 83; RESP 18; TEMP 36.3; O2SAT 94
[2024-07-27 20:24] LABS: Glucose Point of Care 235 mg/dL (70-110)
[2024-07-27] MEDS: sennosides 8.6 mg Tablet 17.2 MG PO (20:51)
[2024-07-27 23:58] VITALS: BP 168/61; PULSE 69; RESP 19; TEMP 36.9; O2SAT 97
[2024-07-28] VITALS (7 sets, daily range): BP systolic 114–161; BP diastolic 47–82; PULSE 73–93; RESP 16–18; TEMP 36.3–36.7; O2SAT 93–100
[2024-07-28 04:51] LABS: Basophils # 0.1 10^3/uL (0.0-0.1); Basophils % 0.8 %; Eosinophils # 0.3 10^3/uL (0.0-0.8); Eosinophils % 2.8 %; Hematocrit 28.2 % (37-53); Lymphocytes % 20.2 %; Mean Corpuscular HGB Conc 29.1 g/dL (30-55); Mean Corpuscular Volume 72.3 fl (82-101); Mean Platelet Volume 9.1 fL (7.4-10.4); Monocytes % 9.9 %; Neutrophils # 6.34 10^3/uL (1.8-7.7); Neutrophils % 65.8 %; Nucleated Red Blood Cells % 0.3 %; Platelet Count 427 10^3/cmm (157-399); Red Cell Distribution Width 21.2 % (12.1-15.1); White Blood Count 9.64 10^3/uL (3.29-11.43)
[2024-07-28 05:09] LABS: Slide Review Slide Review Perform
[2024-07-28 05:10] LABS: Anion Gap 12.8 (5-19); Blood Urea Nitrogen 14 mg/dL (8-23); Calcium 9.4 mg/dL (8.5-10.5); Carbon Dioxide 26 mmol/L (22-29); Chloride 106 mmol/L (98-107); Creatinine Clr Calc Pharmacy 47.1314; Glucose 167 mg/dL (65-115); Osmolality Calculated 296 mOsm/kg (285-295); Potassium 3.8 mmol/L (3.5-5.1); Sodium 141 mmol/L (136-145)
[2024-07-28] MEDS: pantoprazole 40 mg SDV IVP (05:11)
[2024-07-28] MEDS: amlodipine 5 mg Tablet 10 MG PO (05:12)
[2024-07-28] MEDS: levothyroxine 50 mcg Tablet PO (05:12)
[2024-07-28 06:35] LABS: Glucose Point of Care 161 mg/dL (70-110)
[2024-07-28] MEDS: sodium chloride 0.9% 1,000 ML 30 ML IV (06:51)
--- NOTE | 2024-07-28 06:53 | P.ANESASSM_ITS ---
Pre-Anesthetic Assessment Height/Weight: Height 1.73 m Weight 78.199 kg Temp Pulse Resp BP Pulse Ox O2 Del Method 97.5 F L 93 18 161/82 96 Room Air 07/28/24 06:27 07/28/24 06:27 07/28/24 06:27 07/28/24 06:27 07/28/24 06:27 07/28/24 06:27 Preop Diagnosis: GI Bleed Operation Date: 07/28/24 07:00 Proposed Procedures p EGD(Not Applicable) - Fortunato Prince MD s Colonoscopy(Not Applicable) - Fortunato Prince MD Familial anesthetic complications: none Was Beta Zoe taken within 24 hours: N/A Was Clonidine taken within 24 hours: N/A Last intake: Intake Last Liquid Date 07/27/24 Last Liquid Time 23:30 Last Solid Date 07/27/24 Last Solid Time 18:00 Social No alcohol and No tobacco Exam alert, oriented x 3, clear to auscultation bilaterally and regular rate & rhythm Airway Submandibular: within normal limits Cervical ROM: within normal limits Mallampati: Class II Dentition: false History/ROS No significant history except as noted Pulmonary Shortness of Breath CV/HEM Hypertension None reported Hepatic None reported GI None reported Metabolic Diabetes Mellitus Neuropsych Cerebrovascular Accident Anesthetic Plan ASA status: 3 Anesthesia: MAC Risk of > 500 ml blood loss (7ml/kg in children): No Medications/Allergies Home Medications Medication Instructions Recorded Confirmed Last Taken Type amlodipine 5 mg tablet 5 mg PO QAM 07/25/21 07/25/24 07/25/24 History atorvastatin 80 mg tablet (Lipitor) 80 mg PO DAILY 07/25/21 07/25/24 07/25/24 History glipizide 10 mg tablet 10 mg PO QAM 07/25/21 07/25/24 07/25/24 History levothyroxine 50 mcg tablet 50 mcg PO QAM 10/09/23 07/25/24 07/25/24 History venlafaxine 37.5 mg 37.5 mg PO QPM 10/09/23 07/25/24 07/24/24 History capsule,extended release 24 hr apixaban 5 mg tablet (Eliquis) 5 mg PO BID #30 tabs 10/14/23 07/25/24 07/25/24 Rx cephalexin 500 mg capsule 500 mg PO Q8H 07/25/24 07/25/24 Unknown History docusate sodium 100 mg capsule 100 mg PO BID 07/25/24 07/25/24 07/25/24 History (Colace) magnesium hydroxide 400 mg/5 mL 15 ml PO BID PRN Constipation 07/25/24 07/25/24 Unknown History oral suspension (Milk of Magnesia) metformin 1,000 mg tablet 1,000 mg PO BID 07/25/24 07/25/24 07/25/24 History promethazine-DM 6.25 mg-15 mg/5 mL 5 ml PO Q8H PRN Cough 07/25/24 07/25/24 Unknown History oral syrup Allergies Allergy/AdvReac Type Severity Reaction Status Date / Time No Known Allergies Allergy Verified 10/08/23 15:27 Current Medications Generic Name Dose Route Start Last Admin Trade Name Freq PRN Reason Stop Dose Admin Amlodipine Besylate 10 mg 07/26/24 09:00 07/28/24 05:12 Amlodipine 5 Mg Tablet PO 10 mg QAM ERIK Administration Atorvastatin Calcium 80 mg 07/26/24 09:00 07/27/24 08:48 Atorvastatin 40 Mg Tablet PO 80 mg DAILY ERIK Administration Bisacodyl 10 mg 07/25/24 17:29 07/26/24 17:21 Bisacodyl 5 Mg Tablet PO 10 mg DAILY PRN Administration Constipation (see protocol) Protocol Docusate Sodium 100 mg 07/25/24 18:00 07/27/24 17:37 Docusate Sodium 100 Mg Capsule PO 100 mg BID ERIK Administration Ferrous Sulfate 325 mg 07/25/24 18:00 07/27/24 17:37 Ferrous Sulfate Ec 325 Mg Tablet PO 325 mg TIDWM ERIK Administration Sodium Chloride 1,000 mls @ 30 mls/hr 07/28/24 06:45 07/28/24 06:51 Sodium Chloride 0.9% IV 07/29/24 06:44 30 mls/hr .Q24H ERIK Administration Insulin Human Lispro 0 unit 07/25/24 21:00 07/27/24 20:51 Insulin Lispro 100 Unit/1 Ml SUBCUT 3 unit BEDTIME ERIK Administration Protocol Insulin Human Lispro 0 unit 07/26/24 08:00 07/27/24 17:17 Insulin Lispro 100 Unit/1 Ml SUBCUT Not Given [facility] Protocol Levothyroxine Sodium 50 mcg 07/26/24 06:00 07/28/24 05:12 Levothyroxine 50 Mcg Tablet PO 50 mcg QAM ERIK Administration Pantoprazole Sodium 40 mg 07/25/24 17:30 07/28/24 05:11 Pantoprazole 40 Mg Sdv IVP 40 mg Q12H ERIK Administration Senna 17.2 mg 07/25/24 21:00 07/27/24 20:51 Sennosides 8.6 Mg Tablet PO 17.2 mg BEDTIME ERIK Administration Venlafaxine HCl 37.5 mg 07/26/24 18:00 07/27/24 17:37 Venlafaxine Er (24hr) 37.5 Mg Capsule PO 37.5 mg QPM ERIK Administration [facility] Anesthesia Medical History (Updated 07/26/24 @ 16:55 by Fortunato Prince MD) Depression Hyperlipidemia Hypothyroidism History of anemia has required transfusion, no source of bleeding identified, has not had colonoscopy due to knowing someone who several months after having procedure (associates the colonoscopy with getting cancer) 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) Left middle cerebral artery stroke (2020) COVID-19 06/05, 10/08 Atrial fibrillation Hypertension Type 2 diabetes mellitus Hypogonadism Surgical History (Updated 07/25/24 @ 18:09 by Eunice Lo MD) History of open reduction and internal fixation (ORIF) procedure right leg, abdirashid in place tibia History of tonsillectomy Family History (Updated 07/25/24 @ 17:42 by Eunice Lo MD) Other Cancer Diabetes Social History Smoking and tobacco/nicotine status: former use of tobacco/nicotine Second hand smoke exposure: No Alcohol intake: never Substance/Drug Use: never Data Anesthesia 07/28/24 04:34 07/28/24 04:34 Short CBC 07/26/24 07/27/24 07/28/24 Range/Units 16:50 04:45 04:34 WBC 10.04 9.64 (3.29-11.43) 10^3/uL Hgb 8.50 L 8.10 L 8.20 L (11.27-16.99) g/dL Hct 28.4 L 28.2 L 28.2 L (37-53) % MCV 71.2 L 72.3 L (82-101) fl Plt Count 466 H 427 H (157-399) 10^3/cmm Neut % (Auto) 63.0 65.8 % Neut # (Auto) 6.33 6.34 (1.8-7.7) 10^3/uL BMP 07/27/24 07/28/24 04:45 04:34 Sodium 141 141 Potassium 4.5 3.8 Chloride 106 106 Carbon Dioxide 26 26 BUN 14 14 Creatinine 1.3 H 1.3 H Glucose 127 H 167 H Calcium 9.5 9.4 Cardiac Enzymes 07/27/24 Range/Units 18:52 Troponin T 5th Gen ng/L 46 H (0-15) ng/L NT-Pro-B Natriuret Pep 1120 H (0-450) pg/mL Microbiology 07/27/24 19:31 Occult Blood (FIT) - Final Stool Routine Collection Cardiac Studies: 2 Echocardiogram 07/25/24
--- NOTE | 2024-07-28 07:02 | W.PM.OPSFHP ---
Same Day Surgery H&P Indication for Procedure/HPI DATE OF PROCEDURE: July 28, 2024 CHIEF COMPLAINT/INDICATIONFOR SURGICAL PROCEDURE: GIB PREOP DIAGNOSIS: GI Bleed PLANNED PROCEDURE: Operation Date: 07/28/24 07:00 Proposed Procedures p EGD(Not Applicable) - Fortunato Prince MD s Colonoscopy(Not Applicable) - Fortunato Prince MD Medications/Allergies* Home Medications Medication Instructions Recorded Confirmed Type amlodipine 5 mg tablet 5 mg PO QAM 07/25/21 07/25/24 History atorvastatin 80 mg tablet (Lipitor) 80 mg PO DAILY 07/25/21 07/25/24 History glipizide 10 mg tablet 10 mg PO QAM 07/25/21 07/25/24 History levothyroxine 50 mcg tablet 50 mcg PO QAM 10/09/23 07/25/24 History venlafaxine 37.5 mg 37.5 mg PO QPM 10/09/23 07/25/24 History capsule,extended release 24 hr cephalexin 500 mg capsule 500 mg PO Q8H 07/25/24 07/25/24 History docusate sodium 100 mg capsule 100 mg PO BID 07/25/24 07/25/24 History (Colace) magnesium hydroxide 400 mg/5 mL 15 ml PO BID PRN Constipation 07/25/24 07/25/24 History oral suspension (Milk of Magnesia) metformin 1,000 mg tablet 1,000 mg PO BID 07/25/24 07/25/24 History promethazine-DM 6.25 mg-15 mg/5 mL 5 ml PO Q8H PRN Cough 07/25/24 07/25/24 History oral syrup Allergies/Adverse Reactions Allergy/AdvReac Type Severity Reaction Status Date / Time No Known Allergies Allergy Verified 10/08/23 15:27 Current Medications: Generic Name Dose Route Start Last Admin Trade Name Freq PRN Reason Stop Dose Admin Amlodipine Besylate 10 mg 07/26/24 09:00 07/28/24 05:12 Amlodipine 5 Mg Tablet PO 10 mg QAM ERIK Administration Atorvastatin Calcium 80 mg 07/26/24 09:00 07/27/24 08:48 Atorvastatin 40 Mg Tablet PO 80 mg DAILY ERIK Administration Bisacodyl 10 mg 07/25/24 17:29 07/26/24 17:21 Bisacodyl 5 Mg Tablet PO 10 mg DAILY PRN Administration Constipation (see protocol) Protocol Docusate Sodium 100 mg 07/25/24 18:00 07/27/24 17:37 Docusate Sodium 100 Mg Capsule PO 100 mg BID ERIK Administration Ferrous Sulfate 325 mg 07/25/24 18:00 07/27/24 17:37 Ferrous Sulfate Ec 325 Mg Tablet PO 325 mg TIDWM ERIK Administration Sodium Chloride 1,000 mls @ 30 mls/hr 07/28/24 06:45 07/28/24 06:51 Sodium Chloride 0.9% IV 07/29/24 06:44 30 mls/hr .Q24H ERIK Administration Insulin Human Lispro 0 unit 07/25/24 21:00 07/27/24 20:51 Insulin Lispro 100 Unit/1 Ml SUBCUT 3 unit BEDTIME ERIK Administration Protocol Insulin Human Lispro 0 unit 07/26/24 08:00 07/27/24 17:17 Insulin Lispro 100 Unit/1 Ml SUBCUT Not Given TIDWM ERIK Protocol Levothyroxine Sodium 50 mcg 07/26/24 06:00 07/28/24 05:12 Levothyroxine 50 Mcg Tablet PO 50 mcg QAM ERIK Administration Pantoprazole Sodium 40 mg 07/25/24 17:30 07/28/24 05:11 Pantoprazole 40 Mg Sdv IVP 40 mg Q12H ERIK Administration Senna 17.2 mg 07/25/24 21:00 07/27/24 20:51 Sennosides 8.6 Mg Tablet PO 17.2 mg BEDTIME ERIK Administration Venlafaxine HCl 37.5 mg 07/26/24 18:00 07/27/24 17:37 Venlafaxine Er (24hr) 37.5 Mg Capsule PO 37.5 mg QPM ERIK Administration Pertinent History/Comorbid Conditions* Medical History (Updated 07/26/24 @ 16:55 by Fortunato Prince MD) Depression Hyperlipidemia Hypothyroidism History of anemia has required transfusion, no source of bleeding identified, has not had colonoscopy due to knowing someone who several months after having procedure (associates the colonoscopy with getting cancer) 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) Left middle cerebral artery stroke (2020) COVID-19 06/05, 10/08 Atrial fibrillation Hypertension Type 2 diabetes mellitus Hypogonadism Surgical History (Updated 07/25/24 @ 18:09 by Eunice Lo MD) History of open reduction and internal fixation (ORIF) procedure right leg, abdirashid in place tibia History of tonsillectomy Family History (Updated 07/25/24 @ 17:42 by Eunice Lo MD) Diabetes Cancer Social History Smoking and tobacco/nicotine status: former use of tobacco/nicotine Second hand smoke exposure: No Alcohol intake: never Substance/Drug Use: never Pertinent Exam Findings alert, oriented x 3 (hard of hearing. is POA and consented for him.), regular rate & rhythm and procedure specific exam findings abdomen soft, NT, ND Recommendations Surgery/Procedure today Other Plans: EGD & colonoscopy today as part of his workup for occult GIB Coding Level of Care Code Acute Code for Chg Fwd Time Spent (min) 30
--- NOTE | 2024-07-28 07:59 | P.PN_ITS ---
Subjective 2 Subjective: No hematochezia No hematemesis No melena Vitals/I&O/Wt Last Vital Signs Temp 97.5 F L 07/28/24 06:27 Pulse 93 07/28/24 06:27 Resp 18 07/28/24 06:27 BP 161/82 07/28/24 06:27 Pulse Ox 96 07/28/24 06:27 O2 Del Method Room Air 07/28/24 06:27 07/27/24 07/28/24 07/28/24 22:59 06:59 14:59 Intake Total 600 / 1200 0 / 1200 Output Total 1000 / 1000 200 / 200 Balance -400 / 200 0 / 200 -200 / -200 Weight last 48 hrs Weight 172 lb 6.4 oz Weight 177 lb 1.6 oz Physical Exam 2 Narrative: General: AOx3 Heart: RRR Lungs: unlabored breathing RA Abdomen: soft, non tended, non distended. No masses. No lymphadenopathy Data 07/28/24 04:34 07/28/24 04:34 Micro: Microbiology 07/27/24 19:31 Occult Blood (FIT) - Final Stool Routine Collection A&P Assessment and plan (1) GIB (gastrointestinal bleeding): Qualifiers: GI bleed type/associated pathology: unspecified gastrointestinal hemorrhage type Qualified Code(s): K92.2 - Gastrointestinal hemorrhage, unspecified Plan 78-year-old male whom general surgery was consulted for anemia. We proceeded with an EGD and colonoscopy today. There was no evidence of a GI bleed. The colonoscopy was limited due to poor prep. Attestations 2 Medical Necessity Statement*: N/A Coding Level of Care Code 81349 Diagnoses Gastrointestinal hemorrhage, unspecified gastrointestinal hemorrhage type K92.2 GI bleed type/associated pathology: unspecified gastrointestinal hemorrhage type Time Spent (min) 30
--- NOTE | 2024-07-28 08:15 | ANE.PACU2 ---
Inpatient post-anesthesia follow up: Airway intact: Yes Vital signs: Temperature 97.8 F Pulse Rate 84 Respiratory Rate 16 Blood Pressure 129/69 Pulse Oximetry 93 Oxygen Delivery Me thod Room Air Oxygen Flow Rate Fraction of Inspir ed Oxygen Hydration adequate: Yes Nausea and vomiting: No Pain level: 1 Mental status: Baseline
--- NOTE | 2024-07-28 14:54 | P.DS_ITS ---
Discharge Providers Date of Admission: 07/25/24 15:08 Date of Discharge: July 28, 2024 Attending Provider at Admission: Eunice Lo MD Attending Provider at Discharge: Adam Sears Primary Care Provider: Katelynn Beckford DO Diagnoses at Discharge Discharge Diagnosis (1) GIB (gastrointestinal bleeding): Status: Acute Qualifiers: GI bleed type/associated pathology: unspecified gastrointestinal hemorrhage type Qualified Code(s): K92.2 - Gastrointestinal hemorrhage, unspecified Reason for Visit Reason for Visit: abd pain and lung problems Brief History: Luis Jensen is a 78 year old male who presented to the emergency room with chief complaint of shortness of breath, fatigue. He has been getting progressively worse over the last few weeks. At the end of June he took a course of antibiotics, steroids and cough medicine prescribed by his primary care provider. His cough has not been as bad but his breathing overall has not improved. It is to the point that he is short of breath with minimal exertion, not able to perform usual baseline ADLs because of his symptoms. At baseline he has right sided weakness with gait instability, uses a walker. Getting around has been more challenging due to the dyspnea and fatigue. No fevers. Not having any sputum production. No hemoptysis. No nausea or vomiting. He has b een constipated and had some cramps but no juliet abdominal pain. No report of any blood in his stools or black tarry stools. No hematuria. No flank pain. No new focal weakness though again baseline functions have been impacted. He presented to the emergency room because things were not improving despite course of outpatient treatment. Workup in the emergency room today revealed a hemoglobin of 6. Last available comparative study was from September 2023 when hemoglobin was 14. He has seen his primary care provider Dr. Katelynn Beckford and Dipti recently and had blood work either at the end of May or June. Was due to get it done soon as repeat. He has never had a colonoscopy. He had a boss that had colonoscopy with some polyps removed in the past. That boss approximately 6 months later from colon cancer and in his mind, Mr. Jensen has always associated that colonoscopy with the cancer diagnosis. He had significant anemia in 2020 and 2021. He had transfusion of 1 unit of packed red blood cells here at [facility] in March 2022 and 5 or 6 units transfused at [place]. Workup except for colonoscopy was performed from what him and his described without any source of blood loss identified. He is on Eliquis chronically due to a history of both atrial fibrillation and prior stroke. He has been taking as prescribed. No known gross blood loss. Has been on iron therapy previously. With symptomatic anemia and significantly low hemoglobin he is being admitted for further evaluation and treatment. Hospital Course Hospital Course He received 2 units RBC transfusion, hemoglobin came up from 6-7.9. Anticoagulant was held while in the hospital. Hemoccult was requested. His blood counts were monitored. On further consideration and discussion with his he decided he would agree to pursue upper and lower endoscopy but only while in the hospital. Additionally echocardiogram returned with new cardiomyopathy ejection fraction down to 38%, from previously in the 50s, as well as low gradient possibly severe aortic stenosis. With risks discussed with him and with surgery and cardiology and consensus was it would be safe to proceed for colonoscopy but will need additional follow-up with cardiology to further arrange for coronary angiography and assess for CAD and further assess aortic stenosis. He underwent EGD and colonoscopy with surgery which did not identify source of bleeding, unremarkable EGD, colonoscopy with suboptimal prep but without any obvious bleeding, should follow-up with PCP as per discussion with surgery. Hemoccult was also collected and at that point came back negative. He otherwise has been doing well without any chest pain or pressure. He is resumed on Eliquis. Please follow-up blood counts. Please continue workup with regards to anemia. He is started on iron supplementation. He additionally is asked to follow-up with cardiology for further assessment as above. Discharge Data Studies Completed and Pending Completed Studies During Hospitalization Category Date Time Status CXRP [XR chest 1V portable [id number]] Stat Exams 07/25/24 11:00 Completed CV. echo complete* [id number] Routine Ultrasound 07/25/24 19:36 Completed Radiology Impressions Chest X-Ray 07/25/24 11:00 IMPRESSION: Stable chest without acute abnormality. Laboratory Results WBC 9.64 10^3/uL (3.29-11.43) 07/28/24 04:34 RBC 3.90 10^6/uL (3.85-5.65) 07/28/24 04:34 Hgb 8.20 g/dL (11.27-16.99) L 07/28/24 04:34 Hct 28.2 % (37-53) L 07/28/24 04:34 MCV 72.3 fl (82-101) L 07/28/24 04:34 MCH 21.0 pg (27-33) L 07/28/24 04:34 MCHC 29.1 g/dL (30-55) L 07/28/24 04:34 RDW 21.2 % (12.1-15.1) H 07/28/24 04:34 Plt Count 427 10^3/cmm (157-399) H 07/28/24 04:34 MPV 9.1 fL (7.4-10.4) 07/28/24 04:34 Neut % (Auto) 65.8 % 07/28/24 04:34 Lymph % (Auto) 20.2 % 07/28/24 04:34 [place] % (Auto) 9.9 % 07/28/24 04:34 Eos % (Auto) 2.8 % 07/28/24 04:34 Baso % (Auto) 0.8 % 07/28/24 04:34 Reticulocyte % (Auto) 1.7 % (0.5-2.0) 07/26/24 16:50 Neut # (Auto) 6.34 10^3/uL (1.8-7.7) 07/28/24 04:34 Lymph # (Auto) 2.0 10^3/uL (0.8-4.8) 07/28/24 04:34 [place] # (Auto) 1.0 10^3/uL (0.2-0.9) H 07/28/24 04:34 Eos # (Auto) 0.3 10^3/uL (0.0-0.8) 07/28/24 04:34 Baso # (Auto) 0.1 10^3/uL (0.0-0.1) 07/28/24 04:34 Nucleated RBC % (auto) 0.3 % 07/28/24 04:34 Nucleated RBCs # 0.0 /100WBC 07/28/24 04:34 Retic Production Index 1.21 07/26/24 16:50 PT 16.10 SECONDS (12.1-14.9) H 07/25/24 19:44 INR 1.25 (0.8-1.2) H 07/25/24 19:44 APTT 37.5 SECONDS (23.9-36.7) H 07/25/24 19:44 Sodium 141 mmol/L (136-145) 07/28/24 04:34 Potassium 3.8 mmol/L (3.5-5.1) 07/28/24 04:34 Chloride 106 mmol/L (98-107) 07/28/24 04:34 Carbon Dioxide 26 mmol/L (22-29) 07/28/24 04:34 Anion Gap 12.8 (5-19) 07/28/24 04:34 BUN 14 mg/dL (8-23) 07/28/24 04:34 Creatinine 1.3 mg/dL (0.7-1.2) H 07/28/24 04:34 GFR Calculation Not Reportable 07/28/24 04:34 Glucose 167 mg/dL (65-115) H 07/28/24 04:34 POC Glucose 161 mg/dL (70-110) H 07/28/24 06:17 Estimat Average Glucose 148 07/26/24 02:20 Hemoglobin A1c 6.8 % (4.0-6.0) H 07/26/24 02:20 Calculated Osmolality 296 mOsm/kg (285-295) H 07/28/24 04:34 Calcium 9.4 mg/dL (8.5-10.5) 07/28/24 04:34 Phosphorus 2.8 mg/dL (2.5-4.5) 07/26/24 02:20 Magnesium 2.1 mg/dL (1.7-2.3) 07/26/24 02:20 Iron 11 ug/dL (59-158) L 07/25/24 12:31 TIBC 324 mcg/dl 07/25/24 12:31 % Saturation 3.3 % (20-50) L 07/25/24 12:31 Unsat Iron Binding 313 ug/dL (112-347) 07/25/24 12:31 Total Bilirubin 0.3 mg/dL (0.15-1.2) 07/25/24 12:31 AST 15 U/L (0-40) 07/25/24 12:31 ALT 15 U/L (0-41) 07/25/24 12:31 Alkaline Phosphatase 89 U/L (40-130) 07/25/24 12:31 Troponin T 5th Gen ng/L 46 ng/L (0-15) H 07/27/24 18:52 NT-Pro-B Natriuret Pep 1120 pg/mL (0-450) H 07/27/24 18:52 Total Protein 7.3 g/dL (6.6-8.7) 07/25/24 12:31 Albumin 4.1 g/dL (3.5-5.2) 07/25/24 12:31 Globulin 3.2 g/dL (1.3-4.6) 07/25/24 12:31 Lipase 23 U/L (13-60) 07/25/24 12:31 Vitamin B12 265 pg/mL (232-1245) 07/26/24 16:50 Folate > 20.0 ng/mL (4.5-32.2) 07/26/24 16:50 TSH 1.73 uIU/mL (0.27-4.20) 07/26/24 02:20 Urine Color Yellow (Yellow) 07/25/24 23:04 Urine Appearance Clear (CLEAR) 07/25/24 23:04 Urine pH 6.0 (5-7) 07/25/24 23:04 Ur Specific [place] 1.008 (1.005-1.030) 07/25/24 23:04 Urine Protein Negative (Negative) 07/25/24 23:04 Urine Glucose (UA) Negative (Normal) 07/25/24 23:04 Urine Ketones Negative (Negative) 07/25/24 23:04 Urine Blood Negative (Negative) 07/25/24 23:04 Urine Nitrate Negative (Negative) 07/25/24 23:04 Urine Bilirubin Negative (Negative) 07/25/24 23:04 Urine Urobilinogen 0.2 mg/dL (Negative) 07/25/24 23:04 Ur Leukocyte Esterase Negative (Negative) 07/25/24 23:04 Urine RBC 0-2 /hpf (0-2) 07/25/24 23:04 Urine WBC 0-5 /hpf (0-5) 07/25/24 23:04 Ur Squamous Epith Cells 0-5 /hpf (0-5) 07/25/24 23:04 Amorphous Sediment Not Reportable 07/25/24 23:04 Urine Bacteria None seen /hpf (NONE) 07/25/24 23:04 Hyaline Casts 1.21 /lpf 07/25/24 23:04 Blood Type O Negative 07/25/24 14:28 Rho(D) Type Rh negative 07/25/24 14:28 Antibody Screen Negative 07/25/24 14:28 Crossmatch See Detail 07/25/24 14:28 Vitals Last Vital Signs Temp 97.8 F 07/28/24 10:00 Pulse 84 07/28/24 10:00 Resp 16 07/28/24 10:00 BP 129/69 07/28/24 10:00 Pulse Ox 93 07/28/24 10:00 O2 Del Method Room Air 07/28/24 10:00 Discharge Plan Discharge Patient Disposition: Home Condition: Stable Prescriptions: New pantoprazole 40 mg tablet,delayed release (DR/EC) 40 mg PO DAILY 42 Days Qty: 42 0RF ferrous sulfate 325 mg (65 mg iron) tablet 325 mg PO EVERY OTHER DAY Qty: 90 0RF Continued amlodipine 5 mg tablet 5 mg PO QAM atorvastatin [Lipitor] 80 mg tablet 80 mg PO DAILY glipizide 10 mg tablet 10 mg PO QAM venlafaxine 37.5 mg capsule,extended release 24hr 37.5 mg PO QPM levothyroxine 50 mcg Tablet 50 mcg PO QAM Eliquis 5 mg Tablet 5 mg PO BID Qty: 30 0RF promethazine-DM 6.25-15 mg/5 mL syrup 5 ml PO Q8H PRN (Reason: Cough) cephalexin 500 mg capsule 500 mg PO Q8H metformin 1,000 mg tablet 1,000 mg PO BID Milk of Magnesia 400 mg/5 mL Suspension 15 ml PO BID PRN (Reason: Constipation) Colace 100 mg Capsule 100 mg PO BID Discharge Orders: Discharge Order (Routine); Ordered 07/28/24 Ordered By: Adam Sears Referrals: Fortunato Prince MD [Physician] - 08/12/24 8:35 am () Grzegorz Santo M.D [Physician] - 7-10 days (We have notified your physician's clinic of the need for a follow-up appointment to be scheduled. If you have not heard from them within the next 2 business days, please call them directly. ) Katelynn Beckford, [Primary Care Provider] - 4-7 days (We have notified your physician's clinic of the need for a follow-up appointment to be scheduled. If you have not heard from them within the next 2 business days, please call them directly. ) Discharge Diet: Cardiac Discharge Activity: Increase activity as tolerated Patient Instructions: Pantoprazole (By mouth), Heart Failure (GEN), Aortic Stenosis (GEN), Anemia (GEN), GI Post Discharge Instructions w/ Anesthesia Activity Restrictions/Additional Instructions: Follow-up with your primary provider for reassessment of anemia. Cautiously resume Eliquis, but if you notice any blood in your urine, stool, or other outward bleeding, discontinue the medication. Please have your primary doctor recheck your blood counts. In case of any krystina tional worsening of anemia discuss referral for additional assessment by gastroenterology, consideration of capsule endoscopy and other evaluation. Please follow-up with cardiology and your primary provider for additional assessment of weakening of your heart (cardiomyopathy) putting you at risk of congestive heart failure and other complications, as well as aortic valve narrowing, possibly severe, both possibly contributing to near feeling of getting weak and short of breath with strenuous activity in addition to anemia. Cardiology may discuss with you regarding coronary angiography and other necessary testing. Limit total fluid intake to less than 1500 mL/day to help avoid fluid overload and congestive heart failure, although avoid dehydration as with dehydration you may be at risk of low blood pressures with aortic valve narrowing. Monitor your blood pressures 3 times daily, write down values to bring to your appointment. Seek medical attention in case of any worsening or new concerning symptoms. Discharge Attestations Time Spent in Discharge Care*: greater than 30 min Quality Metrics Clinical Quality Measures [ No reported AMI, CVA or VTE this stay] Coding Level of Care Code 56369 Total time (in minutes) for Discharge: 35 Diagnoses Gastrointestinal hemorrhage, unspecified gastrointestinal hemorrhage type K92.2 GI bleed type/associated pathology: unspecified gastrointestinal hemorrhage type
== END 2024-07-28 11:42 | disposition home or self-care (01) | DRG 812 ==
LOC: ER 13:50 → MEDSURG 15:09
PROVIDERS: Student in an Organized Health Care Education/Training Program; Admitting Provider Hospitalist; Emergency Provider Emergency Medicine; PCP Surgery Plastic and Reconstructive Surgery; Visit Provider Internal Medicine
PROC: 0DJ08ZZ Inspection of Upper Intestinal Tract, Via Natural or Artificial Opening Endoscopic (ICD-10-PCS; CPT 43235; principal; 2024-07-28 07:00)
PROC: 0DJD8ZZ Inspection of Lower Intestinal Tract, Via Natural or Artificial Opening Endoscopic (ICD-10-PCS; CPT 45378; 2024-07-28 07:00)
DX: D50.9 Iron deficiency anemia, unspecified (principal); I42.9 Cardiomyopathy, unspecified; I69.951 Hemiplegia and hemiparesis following unspecified cerebrovascular disease affecting right dominant side; I48.91 Unspecified atrial fibrillation; I35.0 Nonrheumatic aortic (valve) stenosis; E11.65 Type 2 diabetes mellitus with hyperglycemia; E11.22 Type 2 diabetes mellitus with diabetic chronic kidney disease; I12.9 Hypertensive chronic kidney disease with stage 1 through stage 4 chronic kidney disease, or unspecified chronic kidney disease; N18.2 Chronic kidney disease, stage 2 (mild); E78.5 Hyperlipidemia, unspecified; E03.9 Hypothyroidism, unspecified; F32.A Depression, unspecified; E87.5 Hyperkalemia; K59.00 Constipation, unspecified; I69.922 Dysarthria following unspecified cerebrovascular disease; I69.998 Other sequelae following unspecified cerebrovascular disease; R26.89 Other abnormalities of gait and mobility; Z87.891 Personal history of nicotine dependence; Z79.01 Long term (current) use of anticoagulants; Z79.84 Long term (current) use of oral hypoglycemic drugs
CPT/HCPCS: 36415; 36416; 36430; 43235; 45378; 71045; 80048; 80053; 81003; 81015; 82274; 82607; 82746; 82962; 83036; 83540; 83550; 83690; 83735; 83880; 84100; 84443; 84484; 85014; 85018; 85025; 85045; 85610; 85730; 86850; 86900; 86920; 93005; 93306; 96372; 99285; J1756; J1815; J1940; J2470; J2704; J7030; P9016; P9040

== ENCOUNTER → 2024-09-15 15:13 | Outpatient (BNVA) | payer MEDICARE, OTHER, SELFPAY | PROVIDERS: PCP Surgery Plastic and Reconstructive Surgery; Visit Provider Internal Medicine Cardiovascular Disease | DX: D64.9 Anemia, unspecified (principal) | CPT/HCPCS: 80048; 85025 ==

== ENCOUNTER 2024-10-14 07:58 | Oncology outpatient (recurring) (ONCR) | payer MEDICARE, OTHER, SELFPAY ==
[2024-09-28 11:13] LABS: Basophils # 0.1 10^3/uL (0.0-0.1); Basophils % 1.3 %; Eosinophils # 0.2 10^3/uL (0.0-0.8); Eosinophils % 2.9 %; Hematocrit 29.1 % (37-53); Lymphocytes # 1.7 10^3/uL (0.8-4.8); Lymphocytes % 21.7 %; Mean Corpuscular HGB Conc 28.5 g/dL (30-55); Mean Corpuscular Hemoglobin 21.1 pg (27-33); Mean Corpuscular Volume 73.9 fl (82-101); Mean Platelet Volume 9.9 fL (7.4-10.4); Monocytes # 0.7 10^3/uL (0.2-0.9); Monocytes % 8.9 %; Neutrophils # 5.09 10^3/uL (1.8-7.7); Neutrophils % 65.1 %; Nucleated Red Blood Cells % 0 %; Platelet Count 478 10^3/cmm (157-399); Red Blood Count 3.94 10^6/uL (3.85-5.65); White Blood Count 7.83 10^3/uL (3.29-11.43)
[2024-09-28 11:32] LABS: INR 1.29 (0.8-1.2)
[2024-09-28 11:34] LABS: Partial Thromboplastin Time 37.2 SECONDS (23.9-36.7)
[2024-09-28 11:41] LABS: Alanine Aminotransferase 15 U/L (0-41); Albumin Level 4.1 g/dL (3.5-5.2); Alkaline Phosphatase 75 U/L (40-130); Anion Gap 17.8 (5-19); Aspartate Amino Transferase 17 U/L (0-40); Blood Urea Nitrogen 23 mg/dL (8-23); Calcium 9.8 mg/dL (8.5-10.5); Carbon Dioxide 23 mmol/L (22-29); Chloride 104 mmol/L (98-107); Creatinine Clr Calc Pharmacy 52.0327; Globulin 3.1 g/dL (1.3-4.6); Glucose 102 mg/dL (65-115); Lactate Dehydrogenase 155 U/L (135-225); Osmolality Calculated 292 mOsm/kg (285-295); Potassium 5.8 mmol/L (3.5-5.1); Sodium 139 mmol/L (136-145); Total Bilirubin 0.2 mg/dL (0.15-1.2); Total Protein 7.2 g/dL (6.6-8.7)
[2024-09-28 13:05] LABS: Folate Level 18.9 ng/mL (4.5-32.2); Reticulocyte % 0.8 % (0.5-2.0)
[2024-09-28 13:08] LABS: Ferritin 8 ng/mL (30-400); Iron 65 ug/dL (59-158); Percent Saturation 19.2 % (20-50); Total Iron Binding Capacity 338 mcg/dl; Unsaturated Iron Binding 273 ug/dL (112-347); Vitamin B12 236 pg/mL (232-1245)
[2024-10-04 11:40] LABS: Erythropoietin 171.1 mIU/mL (2.6-18.5)
--- NOTE | 2024-10-14 08:15 | US_ITS ---
WS: [id number] Complete ABDOMINAL ULTRASOUND HISTORY: anemia COMPARISON: 03/20/2022 Technically difficult and limited evaluation of the abdominal structures. Liver: 13.9 cm in length. Poorly visualized in its entirety. Mild hepatic steatosis. No mass or bile duct dilatation is evident. Portal Vein: Normal hepatopetal flow with monophasic waveform. Gallbladder: No abnormality identified. Stones would be difficult to exclude. CBD: 0.4 cm Pancreas: Not visualized. Right kidney: 10.1 cm x 4.6 x 5.3 cm. Cortex:0.9 cm. Normal size kidney with diffuse cortical thinning and increased echogenicity. No hydronephrosis or ma ss. Left kidney: 10.7 cm x 4.4 cm x 5.1 cm. Cortex: 1.0 cm. Normal size kidney with mild cortical thinning. Increased echogenicity. No mass or hydronephrosis. Spleen: 8.1 cm. Normal size and echogenicity. Aorta and IVC: Unremarkable abdominal aorta and IVC. US/US abdomen complete* [id number] Impression: 1. Technically difficult abdominal ultrasound due to body habitus and extensiv e bowel gas. 2. Mild diffuse cortical thinning with increased echogenicity involving each k idney consistent with chronic medical renal disease. Does appear to be progress ed since the prior study from 2021. 3. No renal obstruction. 4. Limited gallbladder but no abnormality identified.
== END 2024-10-15 23:59 | disposition home or self-care (01) ==
PROVIDERS: PCP Surgery Plastic and Reconstructive Surgery; Visit Provider Internal Medicine
DX: D64.9 Anemia, unspecified (principal); N18.9 Chronic kidney disease, unspecified
CPT/HCPCS: 36415; 76700; 80053; 82607; 82668; 82728; 82746; 83010; 83540; 83550; 83615; 85025; 85045; 85610; 85730; 86880; 99205

== ENCOUNTER → 2024-10-17 09:32 | Outpatient (BNVA) | payer MEDICARE, OTHER, SELFPAY | PROVIDERS: PCP Surgery Plastic and Reconstructive Surgery; Visit Provider Nurse Practitioner Family | DX: I48.11 Longstanding persistent atrial fibrillation (principal); I11.0 Hypertensive heart disease with heart failure; I50.22 Chronic systolic (congestive) heart failure; Z87.891 Personal history of nicotine dependence; Z79.01 Long term (current) use of anticoagulants | CPT/HCPCS: 99213 ==

== ENCOUNTER 2024-11-02 14:00 | Oncology outpatient (recurring) (ONCR) | payer MEDICARE, OTHER, SELFPAY ==
[2024-10-25 13:31] VITALS: BP 159/77; PULSE 91; RESP 16; TEMP 36.3; O2SAT 98
[2024-10-25] MEDS: ferric carboxy (PYXIS) 750 MG in sodium chloride 0.9% (100 ml) 100 ML 345 MG IV (13:54)
[2024-10-25 14:52] VITALS: BP 118/66; PULSE 71; RESP 16; TEMP 36.3; O2SAT 96
[2024-11-02] MEDS: ferric carboxy (PYXIS) 750 MG in sodium chloride 0.9% (100 ml) 100 ML 345 MG IV (13:58)
[2024-11-02 14:01] LABS: Basophils # 0.1 10^3/uL (0.0-0.1); Basophils % 1.2 %; Eosinophils # 0.2 10^3/uL (0.0-0.8); Eosinophils % 3.2 %; Hematocrit 29.5 % (37-53); Lymphocytes # 1.4 10^3/uL (0.8-4.8); Lymphocytes % 20.5 %; Mean Corpuscular HGB Conc 28.8 g/dL (30-55); Mean Corpuscular Hemoglobin 22.5 pg (27-33); Mean Platelet Volume 9.7 fL (7.4-10.4); Monocytes # 0.7 10^3/uL (0.2-0.9); Monocytes % 9.4 %; Neutrophils # 4.51 10^3/uL (1.8-7.7); Neutrophils % 65.1 %; Nucleated Red Blood Cells % 0 %; Platelet Count 367 10^3/cmm (157-399); Red Blood Count 3.78 10^6/uL (3.85-5.65); Red Cell Distribution Width 27.5 % (12.1-15.1); White Blood Count 6.92 10^3/uL (3.29-11.43)
[2024-11-02 14:21] LABS: Alanine Aminotransferase 29 U/L (0-41); Alkaline Phosphatase 77 U/L (40-130); Anion Gap 14.4 (5-19); Aspartate Amino Transferase 36 U/L (0-40); Blood Urea Nitrogen 24 mg/dL (8-23); Calcium 10.6 mg/dL (8.5-10.5); Carbon Dioxide 22 mmol/L (22-29); Chloride 102 mmol/L (98-107); Glucose 241 mg/dL (65-115); Homocysteine 19.86 umol/l (0-15); Osmolality Calculated 288 mOsm/kg (285-295); Potassium 5.4 mmol/L (3.5-5.1); Sodium 133 mmol/L (136-145); Total Bilirubin 0.2 mg/dL (0.15-1.2)
[2024-11-02 14:36] VITALS: BP 116/64; PULSE 84; RESP 16; TEMP 36.3; O2SAT 96
[2024-11-02 14:37] LABS: Vitamin B12 261 pg/mL (232-1245)
[2024-11-02 14:41] LABS: Slide Review Slide Review Perform
[2024-11-07 07:24] LABS: Methylmalonic Acid 291 nmol/L (69-390)
== END 2024-11-15 23:59 | disposition home or self-care (01) ==
PROVIDERS: PCP Surgery Plastic and Reconstructive Surgery; Visit Provider Internal Medicine
DX: Z79.899 Other long term (current) drug therapy; Z53.9 Procedure and treatment not carried out, unspecified reason; D50.9 Iron deficiency anemia, unspecified
CPT/HCPCS: 80053; 82607; 83090; 83921; 85025; 96365; J1439

== ENCOUNTER → 2024-12-19 09:46 | Outpatient (BNVA) | payer MEDICARE, OTHER, SELFPAY | PROVIDERS: PCP Surgery Plastic and Reconstructive Surgery; Visit Provider Nurse Practitioner Family | DX: I35.0 Nonrheumatic aortic (valve) stenosis (principal); I11.0 Hypertensive heart disease with heart failure; I50.22 Chronic systolic (congestive) heart failure; Z79.01 Long term (current) use of anticoagulants; I48.11 Longstanding persistent atrial fibrillation; Z87.891 Personal history of nicotine dependence | CPT/HCPCS: 99214 ==

== ENCOUNTER 2025-01-13 08:31 | Oncology outpatient (recurring) (ONCR) | payer MEDICARE, OTHER, SELFPAY ==
--- NOTE | 2025-01-13 09:15 | USCV_ITS ---
Luis Jensen Age: 79 Gender: M : 1945 Exam Date: 01/13/2025 09:09 Ordering Phys: Geneva Hercules Technologist: CT Exam Location: [facility] Indication: BP: 136 / 80 HR: 75 Rhythm: Sinus Technical Quality: Adequate MEASUREMENTS (Male / Female) Normal Values 2D ECHO LVOT Diameter 2.0 cm LV Ejection Fraction MOD 4C 34.0 % LV Ejection Fraction MOD 2C 43.4 % LV Ejection Fraction 2C AL 45.4 % LA Diameter 5.0 cm RA Systolic Volume 4C AL 42.4 ml RA Systolic Volume 4C MOD 42.5 ml LA Sys Volume AL 64.5 cm cubed LA Sys Volume Index AL 32.9 cm cubed/m squared Aorta at Sinotubular Diameter 2.9 cm M-MODE LA Ao Ratio MM 1.9 MV E Point Septal Separation 1.7 cm AV Cusp Separation MM 1.2 cm DOPPLER AV Peak Velocity 248.0 cm/s LVOT Peak Velocity 74.0 cm/s AV Area Cont Eq vti 0.9 cm squared AV Area Cont Eq pk 0.9 cm squared MV Peak Velocity 101.0 cm/s MV Area PHT 3.6 cm squared Mitral E to A Ratio 2.8 TR Peak Velocity 162.0 cm/s TR Peak Gradient 10.5 mmHg TV Peak E Velocity 53.0 cm/s PV Peak Velocity 128.0 cm/s FINDINGS Left Ventricle Moderately reduced LV systolic function. Hypokinesis of mid distal and anterior anteroseptal wall, and anteroapical segments. Overall estimated LVEF 40 to 45%. Right Ventricle Normal right ventricular size and systolic function. Right Atrium Normal right atrial size. Left Atrium Dilated left atrium Mitral Valve Thickened mitral valve. Trace mitral valve regurgitation. No significant stenosis. Aortic Valve Thickened calcified aortic valve. There is mild aortic stenosis (peak aortic gradient 24 mmHg, mean gradient 15 mmHg). Tricuspid Valve Structurally normal tricuspid valve. Trace regurgitation. Pulmonic Valve Pulmonic valve not well visualized. Pericardium No pericardial effusion. Aorta Normal size aortic root and proximal ascending aorta. IVC Normal IVC dimension with >50% respiratory change of the inferior vena cava. CONCLUSIONS Moderately reduced LV systolic function. Estimated LVEF 40 to 45%. Hypokinesis of mid distal anterior and anteroseptal wall and anteroapical segments. Normal RV size and RV systolic function. Thickened calcified aortic valve, mild aortic stenosis as per gradient (peak gradient 44 mmHg, mean gradient 15 mmHg). Normal right heart and pulmonary pressures. Kane Clarke MD (Electronically Signed) Final Date: 13 January 2025 16:24 S
== END 2025-01-13 23:59 | disposition home or self-care (01) ==
LOC: RAD 08:31 → ONCMED 01-16 10:36
PROVIDERS: PCP Surgery Plastic and Reconstructive Surgery; Visit Provider Internal Medicine
DX: D50.9 Iron deficiency anemia, unspecified (principal); Z79.899 Other long term (current) drug therapy; Z53.9 Procedure and treatment not carried out, unspecified reason; D64.9 Anemia, unspecified; I35.0 Nonrheumatic aortic (valve) stenosis
CPT/HCPCS: 93306

== ENCOUNTER 2025-02-01 12:10 | Oncology outpatient (recurring) (ONCR) | payer MEDICARE, OTHER, SELFPAY ==
[2025-02-01 13:01] LABS: Basophils # 0.1 10^3/uL (0.0-0.1); Eosinophils # 0.3 10^3/uL (0.0-0.8); Eosinophils % 3.6 %; Hematocrit 37.2 % (37-53); Lymphocytes # 1.1 10^3/uL (0.8-4.8); Lymphocytes % 13.8 %; Mean Corpuscular HGB Conc 32.3 g/dL (30-55); Mean Corpuscular Hemoglobin 28.9 pg (27-33); Mean Corpuscular Volume 89.6 fl (82-101); Mean Platelet Volume 9.9 fL (7.4-10.4); Monocytes # 0.7 10^3/uL (0.2-0.9); Monocytes % 8.6 %; Neutrophils # 5.85 10^3/uL (1.8-7.7); Neutrophils % 72.8 %; Nucleated Red Blood Cells % 0 %; Platelet Count 357 10^3/cmm (157-399); Red Blood Count 4.15 10^6/uL (3.85-5.65); Red Cell Distribution Width 15.3 % (12.1-15.1); White Blood Count 8.04 10^3/uL (3.29-11.43)
[2025-02-01 13:41] LABS: Alanine Aminotransferase 28 U/L (0-41); Albumin Level 3.8 g/dL (3.5-5.2); Alkaline Phosphatase 91 U/L (40-130); Aspartate Amino Transferase 18 U/L (0-40); Blood Urea Nitrogen 31 mg/dL (8-23); Calcium 10.8 mg/dL (8.5-10.5); Carbon Dioxide 23 mmol/L (22-29); Chloride 99 mmol/L (98-107); Ferritin 47 ng/mL (30-400); Glucose 283 mg/dL (65-115); Iron 38 ug/dL (59-158); Lactate Dehydrogenase 125 U/L (135-225); Osmolality Calculated 293 mOsm/kg (285-295); Percent Saturation 14.2 % (20-50); Sodium 133 mmol/L (136-145); Total Bilirubin 0.2 mg/dL (0.15-1.2); Total Iron Binding Capacity 267 mcg/dl; Total Protein 6.8 g/dL (6.6-8.7); Unsaturated Iron Binding 229 ug/dL (112-347); Vitamin B12 278 pg/mL (232-1245)
== END 2025-02-13 23:59 | disposition home or self-care (01) ==
PROVIDERS: PCP Surgery Plastic and Reconstructive Surgery; Visit Provider Internal Medicine
DX: D50.9 Iron deficiency anemia, unspecified (principal); N18.31 Chronic kidney disease, stage 3a; Z87.891 Personal history of nicotine dependence; I48.11 Longstanding persistent atrial fibrillation; Z79.01 Long term (current) use of anticoagulants; I69.30 Unspecified sequelae of cerebral infarction; I50.22 Chronic systolic (congestive) heart failure; I13.0 Hypertensive heart and chronic kidney disease with heart failure and stage 1 through stage 4 chronic kidney disease, or unspecified chronic kidney disease
CPT/HCPCS: 36415; 80053; 82607; 82728; 83010; 83540; 83550; 83615; 85025; 99213

== ENCOUNTER 2025-03-01 13:23 | Oncology outpatient (recurring) (ONCR) | payer MEDICARE, OTHER, SELFPAY ==
[2025-03-01 14:31] LABS: Basophils # 0.1 10^3/uL (0.0-0.1); Basophils % 1.5 %; Eosinophils # 0.4 10^3/uL (0.0-0.8); Eosinophils % 4.8 %; Hematocrit 38.5 % (37-53); Lymphocytes # 1.6 10^3/uL (0.8-4.8); Lymphocytes % 22.3 %; Mean Corpuscular HGB Conc 31.7 g/dL (30-55); Mean Corpuscular Hemoglobin 28.2 pg (27-33); Mean Corpuscular Volume 89.1 fl (82-101); Mean Platelet Volume 9.8 fL (7.4-10.4); Monocytes # 0.7 10^3/uL (0.2-0.9); Monocytes % 9.3 %; Neutrophils # 4.53 10^3/uL (1.8-7.7); Neutrophils % 61.7 %; Nucleated Red Blood Cells % 0 %; Platelet Count 393 10^3/cmm (157-399); Red Blood Count 4.32 10^6/uL (3.85-5.65); Red Cell Distribution Width 14.4 % (12.1-15.1); White Blood Count 7.34 10^3/uL (3.29-11.43)
[2025-03-01 14:45] LABS: Alanine Aminotransferase 46 U/L (0-41); Alkaline Phosphatase 82 U/L (40-130); Anion Gap 15.3 (5-19); Aspartate Amino Transferase 38 U/L (0-40); Blood Urea Nitrogen 29 mg/dL (8-23); Calcium 10.9 mg/dL (8.5-10.5); Carbon Dioxide 25 mmol/L (22-29); Chloride 102 mmol/L (98-107); Creatinine Clr Calc Pharmacy 48.9614; Ferritin 31 ng/mL (30-400); Globulin 3.4 g/dL (1.3-4.6); Glucose 139 mg/dL (65-115); Homocysteine 28.71 umol/l (0-15); Iron 39 ug/dL (59-158); Osmolality Calculated 292 mOsm/kg (285-295); Percent Saturation 11.7 % (20-50); Potassium 5.3 mmol/L (3.5-5.1); Sodium 137 mmol/L (136-145); Total Bilirubin 0.2 mg/dL (0.15-1.2); Total Iron Binding Capacity 333 mcg/dl; Total Protein 7.4 g/dL (6.6-8.7); Unsaturated Iron Binding 294 ug/dL (112-347)
[2025-03-01 15:01] LABS: Vitamin B12 349 pg/mL (232-1245)
[2025-03-01 15:04] LABS: Folate Level 3.7 ng/mL (4.5-32.2)
[2025-03-05 04:24] LABS: Methylmalonic Acid 224 nmol/L (85-423)
== END 2025-03-15 23:59 | disposition home or self-care (01) ==
PROVIDERS: PCP Surgery Plastic and Reconstructive Surgery; Visit Provider Internal Medicine
DX: D50.9 Iron deficiency anemia, unspecified (principal); N18.31 Chronic kidney disease, stage 3a; Z79.01 Long term (current) use of anticoagulants; Z87.891 Personal history of nicotine dependence; I48.11 Longstanding persistent atrial fibrillation; I50.22 Chronic systolic (congestive) heart failure; I69.30 Unspecified sequelae of cerebral infarction; I13.10 Hypertensive heart and chronic kidney disease without heart failure, with stage 1 through stage 4 chronic kidney disease, or unspecified chronic kidney disease
CPT/HCPCS: 36415; 80053; 82607; 82728; 82746; 83090; 83540; 83550; 83921; 85025; 99214

== ENCOUNTER 2025-05-31 11:15 | Oncology outpatient (recurring) (ONCR) | payer MEDICARE, OTHER, SELFPAY ==
[2025-05-31 11:46] LABS: Hematocrit 32.8 % (37-53); Hemoglobin 10.00 g/dL (11.27-16.99); Mean Corpuscular HGB Conc 30.5 g/dL (30-55); Mean Corpuscular Hemoglobin 23.3 pg (27-33); Mean Corpuscular Volume 76.5 fl (82-101); Nucleated Red Blood Cells % 0 %; Platelet Count 415 10^3/cmm (157-399); Red Blood Count 4.29 10^6/uL (3.85-5.65); White Blood Count 8.61 10^3/uL (3.29-11.43)
[2025-05-31 12:16] LABS: Alanine Aminotransferase 28 U/L (0-41); Albumin Level 3.8 g/dL (3.5-5.2); Alkaline Phosphatase 98 U/L (40-130); Anion Gap 18.5 (5-19); Aspartate Amino Transferase 23 U/L (0-40); Blood Urea Nitrogen 32 mg/dL (8-23); Calcium 10.3 mg/dL (8.5-10.5); Carbon Dioxide 21 mmol/L (22-29); Chloride 100 mmol/L (98-107); Ferritin 8 ng/mL (30-400); Globulin 3.2 g/dL (1.3-4.6); Glucose 187 mg/dL (65-115); Iron 18 ug/dL (59-158); Osmolality Calculated 290 mOsm/kg (285-295); Potassium 5.5 mmol/L (3.5-5.1); Sodium 134 mmol/L (136-145); Total Iron Binding Capacity 372 mcg/dl; Total Protein 7.0 g/dL (6.6-8.7); Unsaturated Iron Binding 354 ug/dL (112-347)
[2025-05-31 12:17] LABS: Slide Review Slide Review Perform
[2025-05-31 12:25] LABS: Creatinine Clr Calc Pharmacy 43.2629
[2025-05-31 12:30] LABS: Vitamin B12 326 pg/mL (232-1245)
== END 2025-06-15 23:59 | disposition home or self-care (01) ==
PROVIDERS: Internal Medicine Medical Oncology; PCP Surgery Plastic and Reconstructive Surgery; Visit Provider Internal Medicine
DX: D50.9 Iron deficiency anemia, unspecified (principal); N18.31 Chronic kidney disease, stage 3a; Z79.01 Long term (current) use of anticoagulants; Z87.891 Personal history of nicotine dependence; I48.11 Longstanding persistent atrial fibrillation; I50.22 Chronic systolic (congestive) heart failure; I69.30 Unspecified sequelae of cerebral infarction; R03.0 Elevated blood-pressure reading, without diagnosis of hypertension
CPT/HCPCS: 36415; 80053; 82607; 82728; 82746; 83540; 83550; 85025; 99214

== ENCOUNTER 2025-06-05 13:31 | Inpatient (IN) | payer MEDICARE, OTHER, SELFPAY ==
[2025-06-05] VITALS (8 sets, daily range): BP systolic 124–209; BP diastolic 79–103; PULSE 53–117; RESP 14–18; TEMP 37.9; O2SAT 94–98; BMI 28.1
--- OUTSIDE RECORDS SUMMARY | 2025-06-05 13:35 | XMS_ITS ---
Author Organization [facility] are Care Team Providers Care Art Gilder Name Role Phone Jose Guadalupe Torre Unavailable Unavailable Munir Lopez Unavailable Unavailable Avtar Solitario Unavailable Unavailable Nelli Torre Unavailable Unavailable Logan Colmenares Unavailable Unavailable Allergies and adverse reactions No Known Allergies Care Team Name Role Address Phone Organization Dates Munir Lopez PCP [address] [place], [address], [facility] (Office): [facility] 10/14/2023 - 11/03/2023 Jose Guadalupe Torre [address] [place], [address], [facility] (Office): : [facility] 10/14/2023 - 11/03/2023 Avtar Solitario [address] [place], [address], [facility] (Office): : [facility] 10/14/2023 - 11/03/2023 Nelli Torre [address] [place], [address], [facility] (Office): : [facility] 10/14/2023 - 11/03/2023 Logan Colmenares [address] [place], [address], [place] (Office): [facility] 10/14/2023 - 11/03/2023 Immunizations Immunization Status Vaccine Details Vaccine Code CodeSystem Date Notes TB 1 Step Mantoux (PPD) completed tuberculin skin test; unspecified formulation lotNumber: [id number] expiry: 08/15/2024 Mfg: Aplisol Given 0.1 ml Left Forearm subcutaneously 98 CVX created date: 10/15/2023 consent date: 10/15/2023 administere d date: 10/15/2023 SARS - COV2 (Moderna) Booster cancelled SARS-COV-2 (COVID-19) vaccine, mRNA, spike protein, LNP, preservative free, 100 mcg/0.5mL dose or 50 mcg/0.25mL dose 207 CVX created date: 10/15/2023 consent date: 10/15/2023 Prevnar 20 cancelled Pneumococcal conjugate vaccine 20-valent (PCV20), polysaccharide [id number] conjugate, adjuvant, preservative free 216 CVX created date: 10/15/2023 consent date: 10/15/2023 Mental Status Section Date Assessment Total Score Description 11/03/2023 BIMS 01 severe cognitiv e impairment CAM 3 Delirium indica lakshmi PHQ-9 01 minimal depress ion 10/21/2023 BIMS 00 severe cognitiv e impairment CAM 3 Delirium indica lakshmi PHQ-9 00 Problems Problem # Description Date of onset Resolved Date Code CodeSystem Concern Status 1 ACUTE KIDNEY FAILURE, UNSPECIFIED 10/14/[address] active 2 ALTERED MENTAL STATUS, UNSPECIFIED 10/14/[address] active 3 ANEMIA, UNSPECIFIED 10/14/[address] active 4 CEREBRAL INFARCTION, UNSPECIFIED 10/14/[address] active 5 CONSTIPATION, UNSPECIFIED 10/14/[address] active 6 COVID-19 10/14/[address] active 7 ENCOUNTER FOR IMMUNIZATION 10/14/[address] active 8 ESSENTIAL (PRIMARY) HYPERTENSION 10/14/[address] active 9 HYPERLIPIDEMIA, UNSPECIFIED 10/14/[address] active 10 HYPOTHYROIDISM, UNSPECIFIED 10/14/[address] active 11 MAJOR DEPRESSIVE DISORDER, SINGLE EPISODE, UNSPECIFIED 10/14/[address] active 12 METABOLIC ENCEPHALOPATHY 10/14/[address] active 13 MILD COGNITIVE IMPAIRMENT OF UNCERTAIN OR UNKNOWN ETIOLOGY 10/14/[address] active 14 PAIN, UNSPECIFIED 10/14/[address] active 15 TESTICULAR HYPOFUNCTION 10/14/[address] active 16 TYPE 2 DIABETES MELLITUS WITHOUT COMPLICATIONS 10/14/[address] active 17 UNSPECIFIED ATRIAL FIBRILLATION 10/14/[address] active 18 URINARY TRACT INFECTION, SITE NOT SPECIFIED 10/14/[address] active Reason for Referral No Reasons for Referral Entered Social History Social History Observation Description Start Date End Date Code Code System Current Smoking Status Tobacco smoking consumption unknown 571252053 SNOMED CT Sex Assigned At Male 1945 86190-3 [facility] Gender Identity Male 14370501843696 [address] Vital Signs Code Code System Vitals Name Values and Units Timing Information 04815-0 [facility] Weight Fkcma=703.0 Units=Lbs 9279-1 [facility] Respiratory Rate Value=24.0 Units=/m in 11/02/2023 8462-4 [facility] Blood Pressure-Diastolic Value=96 Un its=mmHg 11/02/2023 8480-6 [facility] Blood Pressure-Systolic Tzilc=705 Un its=mmHg 11/02/2023 8310-5 [facility] Body Temperature Value=97.6 Units= F 11/02/2023 8867-4 [facility] Heart rate Value=93.0 Units=/min 82234-1 [facility] O2 % BldC Oximetry Value=93.0 Units= % 11/02/2023 2339-0 [facility] Blood Sugar Xzdyn=028.0 Units=mg/dL 10/29/2023
--- OUTSIDE RECORDS SUMMARY | 2025-06-05 13:35 | XMS_ITS | Patient Health Record ---
Author Organization [facility] Address [address] [place] [address] Care Team Providers Care Early Childhood Teacher Assistant Name Role Phone Katelynn Beckford DO Primary Care Provider Unavail able Benjamin Holguin Unavailable [phone] Allergies Allergen (clinical drug ingredient) Drug/Non Drug Allergy documented on EMR Reaction Allergy Type Onset Date Status No Known Drug Allergy Unknown Drug Allergy Active Reason For Referral No Information Medications Medication SIG (Take, Route, Frequency, Duration) Notes Start Date End Date Status FLUoxetine HCl 10 MG Capsule 1 capsule Orally Once a day Active Eliquis 5 MG Tablet 1 tablet Orally twic e a day Active Lipitor 80 MG Tablet 1 tablet Orally Once a day Active glyBURIDE 5 MG Tablet 1 tablet with morgan kfast or the first main meal of the day Orally Once a day Active Ferrous Sulfate CR 325 MG Tablet Extended Release 1 tablet po Orally BID; Duration: 30 days 05/22/2022 Active amLODIPine Besylate 5 MG Tablet 1 tablet Orally Once a day A ctive Protonix 40 MG Tablet Delayed Release 1 tablet Orally Once a day Active metFORMIN HCl 500 MG Tablet 1 tablet with a meal Orally Twice a day Active Social History Tobacco Use: Social History Observation Description Date Details (start date - stop date) Former Smoker NA - NA Social History Tobacco Use: Social Info Question Answer Notes xTobacco Use/Smoking Are you a former smoker Section Notes: former tobacco, denies alcoh ol, reports caffeine former tobacco, denies alcoh ol, reports caffeine Problems Problem Type SNOMED Code ICD Code Onset Dates Problem Status W/U Status Risk Notes Problem Peripheral circulato ry disorder associated with diabetes mellitus (351729529) Type 2 diabetes mellitus with other circulatory complications (E11.59) Active confirmed Problem Long-term current us e of anticoagulant (559530094) assisted (current) use of anticoagulants (Z79.01) Active confirmed Problem Long-term current us e of insulin (644437658) assisted (current) use of insulin (Z79.4) Active confirmed Problem Essential hypertensi on (23461705) Essential hypertension (I10) Active confirmed Problem hypercholesterolemia (disorder) (82917529) Hypercholesteremia (E78.00) Active confirmed Problem Persistent atrial fibrillation (709198302) Persistent atrial fibrillation (I48.19) Active confirmed Problem Iron deficiency anem ia (30110052) Iron deficiency anemia, unspecified iron deficiency anemia type (D50.9) Active confirmed Problem Iron deficiency anem ia due to chronic blood loss (609036793) Iron deficiency anemia due to chronic blood loss (D50.0) Active confirmed Problem Acute on chronic systolic heart failure (177488758) Acute on chronic systolic heart failure (I50.23) Active confirmed Plan Of Treatment No Information Insurance Providers Payer Name Payer Address Payer Phone Subscriber Number Group Number Insured Name Patient Relationship to Insured Coverage Start Date Coverage End Date [place] [address] [place] [phone] [id number] [place] Self - patient is the insured [address] [place] [address] [employer] [place] [phone] [id number] [place] Self - patient is the insured Medical (General) History Medical History History ICD Code a fib anemia Hx CVA right sided weakness congestive heart failure hypertension measles mumps chicken pox whooping cough pneumonia anemia diabetes glaucoma blood transfusions hemorrhoids bronchitis anxiety cataracts hyperlipidemia Surgical History Surgery Date(Month/Year) shoulder surgery-right leg surgery Hospitalization History Reason Date(Month/Year) stroke therapy-[facility] 2020 blood transfusion 2021 pneumonia 2020 stroke-[facility] 2020 surgical hx
--- OUTSIDE RECORDS SUMMARY | 2025-06-05 13:35 | XMS_ITS | Data Portability ---
Author Organization EDILBERTO [facility] Tee Henning [facility] Address [address] [address] Assessment No assessment recorded. Plan of Treatment Reminders Order Date Submit Date Provider Last Modified By Organization Details Last Modified Time Details Appointments None record ed. Lab None record ed. Referral None record ed. Procedures None record ed. Surgeries None record ed. Imaging None record ed. Medication Orders None record ed. Patient TargetsNo targets recorded. Patient Instructions Encounter Date Encounter Id Patient Instructions Last Modified By Organization Details Last Modified Time 10/15/2023 [id number] Records reviewed . Pt with history of CVA, admitted with worsening weakness. On Eliquis for a fib. Found to have CELENA and lactic acidosis, and covid pneumonia. Tx with IV remdesivir, rocephin. Labs Thursday and weekly x 4 weeks. Hemoglobin 14 on discharge. Cr 1.1. Check sugars bid x 2 weeks. f/u 1 week. [email or web address] Not available 10/15/2023 16:08:27 10/20/2023 [id number] Doing well, sugars a little high, but will give time to settle in facility before adjusting. [email or web address] Not available 10/20/2023 12:53:40 10/27/2023 [id number] UA showed yeast, does have rash on back. Will d/c statin. Labs show elevated ALT, minimal improvement from last week, suspect r/t CVA. Will get hep panel, labs and liver US. [email or web address] Not available 10/27/2023 14:52:40 11/03/2023 [id number] Labs from hospital reviewed with normal liver function, repeat labs on the show mild improvement. Discussed with and patient, but ready to discharge. Will need home health eval and tx. f/u PCP 7-14 days. Will re-start metformin. [email or web address] Not available 11/03/2023 12:12:08 Reason for Referral None Reported. Problems Name Problem SNOMED Code Status Onset Date Resolution Date Notes Provider Name and Address Organization Details Recorded Time Hospital inpatient stay within past 30 days 3540868779517 Active [address] [facility] 3 16:05:51 Metabolic encephalop athy 16984385 Active 2022 [facility] 3 16:05:52 Acute urinary tract infection 794960357 Active 2022 [facility] 3 16:05:53 COVID-19 389774956 Active 2022 [facility] 3 16:05:55 Minimal cognitive impairment 064589802 Active 2022 [facility] 3 16:05:56 Atrial fibrillati on 14645698 Active 2022 [facility] 3 16:05:58 Anemia 112459221 Active 2022 [facility] 3 16:05:59 Type 2 diabetes mellitus without complicati on 159158115 Active 2022 [facility] 3 16:06:00 Liver enzymes level above reference range 290557307 [facility] 14:50:48 Problem Notes None recorded. Medical Equipment None Reported. Medications Name Sig Start Date Stop Date Status Note LastModified by Organization Details LastModified Time atorvastatin 80 mg tablet TAKE 1 TABLET BY MOUTH EVERY DAY 11/03 completed Not Available Not Available Not Available venlafaxine ER 37.5 mg capsule,exte nded release 24 hr TAKE ONE CAPSULE BY MOUTH DAILY active Not Available Not Available No t Available azithromycin 250 mg tablet TAKE 2 TABLETS BY MOUTH TODAY, THEN TAKE 1 TABLET DAILY ON DAYS 2-5 11/03 completed Not Available Not Available Not Available amlodipine 5 mg tablet TAKE 1 TABLET BY MOUTH EVERY DAY active Not Available Not Available No t Available benzonatate 100 mg capsule take 1 capsule BY MOUTH THREE TIMES DAILY NEEDED active Not Available Not Available No t Available pantoprazole 40 mg tablet,delay ed release TAKE ONE TABLET BY MOUTH EVERY DAY active Not Available Not Available No t Available metformin 1,000 mg tablet TAKE 1 TABLET BY MOUTH TWICE DAILY active Not Available Not Available No t Available nystatin 100,000 unit/gram topical cream APPLY BETWEEN LEGS EVERY DAY for 5 days AND NEEDED active Not Available Not Available No t Available folic acid 1 mg tablet TAKE 1 TABLET BY MOUTH EVERY DAY active Not Available Not Available No t Available Vitals Date Recorded Body weight Heart rate Respiratory rate Body temperature Oxygen saturation Oxygen saturation in Arterial blood by Pulse oximetry Systolic And Diastolic Provider Name and Address Organization Details Last Updated DateTime 3 23249.3 g 84 /min 22 /min 97.8 [degF] 91 % 91 % 158/76 mm[Hg] [facility] 3 16:02:57 Date Recorded Body weight Heart rate Respiratory rate Body temperature Oxygen saturation Oxygen saturation in Arterial blood by Pulse oximetry Systolic And Diastolic Provider Name and Address Organization Details Last Updated DateTime 3 48026.3 g 97 /min 18 /min 97 [degF] 94 % 94 % 144/68 mm[Hg] [facility] 3 12:50:54 Date Recorded Body weight Heart rate Respiratory rate Body temperature Oxygen saturation Oxygen saturation in Arterial blood by Pulse oximetry Systolic And Diastolic Provider Name and Address Organization Details Last Updated DateTime 3 67672.9 6 g 86 /min 17 /min 97.7 [degF] 98 % 98 % 131/78 mm[Hg] [facility] 3 14:49:03 Date Recorded Body weight Heart rate Respiratory rate Body temperature Oxygen saturation Oxygen saturation in Arterial blood by Pulse oximetry Systolic And Diastolic Provider Name and Address Organization Details Last Updated DateTime 3 23227.7 g 97 /min 16 /min 97.8 [degF] 93 % 93 % 126/74 mm[Hg] [facility] 3 11:55:21 Social History None recorded. Functional Status None recorded. Mental Status None recorded. Family History Nothing Reported. Medical History No medical history recorded. Past Encounters Encounter ID Performer Location Encounter Start Date Encounter Closed Date Diagnosis/Indication Diagnosis SNOMED-CT Code Diagnosis ICD10 Code Diagnosis Note [id number] Munir DO Jessica [facility]) [address] [place] [address] 5 10/15/2023 15:14:39 10/20/2023 11:16:20 Hospital inpatient stay within past 30 days 0405116018 106 Z76.89 Metabolic encephalopathy 46126358 G93.41 Acute urin albertina tract infection 271471156 N39.0 COVID-19 262906307 U07.1 Minimal co gnitive impairment 286346953 R41.89 Atrial fibrillation 4943 6004 I48.91 Anemia 751031182 D64.9 Type 2 za betes mellitus without complication 517691240 E11.9 [id number] Munir Lopez DO [facility] ([facility]) [address] [place], [place] [phone] 10/20/2023 07:56:12 10/23/2023 13:36:06 Type 2 diabetes mellitus without complication 876209932 E11.9 Anemia 070587557 D64.9 Minimal co gnitive impairment 796883160 R41.89 [id number] Munir Lopez [facility]) [address] [place] [phone] 10/27/2023 14:26:32 11/02/2023 12:53:38 Type 2 diabetes mellitus without complication 292899991 E11.9 Liver enzy mes level above reference range 713473705 R74.01 [id number] Munir Lopez DO [facility] ([facility]) [address] [place] [address] 11/03/2023 08:39:58 11/22/2023 20:26:02 Minimal cognitive impairment 824629521 R41.89 Type 2 za betes mellitus without complication 097650069 E11.9 Liver enzy mes level above reference range 096341649 R74.01 Health Concerns Section Related Observation LastModified by Organization Detai ls LastModified Time None Recorded Concern Status LastModified by Organization Details LastModified Time None Recorded Advance Directives Directive None Recorded Payers Insurance Date Sequence Insurance Name Policy Number Policy Mayo Covered Member ID Mayo Member ID Guarantor Name 10/19/2023 1 MEDICARE [place]: [place] Luis Jensen [id number] Luis Jensen 11/23/2023 2 [employer] (PP[employer]) Luis Jensen [id number] Luis Jensen 10/15/2023 1 *SELF PAY* Ja adalberto Jensen 10/20/2023 [facility] - [facility] A - [facility] (MEDICARE) Luis Jensen [id number] 2 Luis Jensen 11/05/2023 2 [employer] (MEDICARE SUPPLEMENT) Luis Jensen Notes Date Note Type Note Provider Name and Address Organization Details Recorded Time 10/15/2023 text/html DiabetesReported bypatient.Duration:chr onic Control:usually well controlled Compliance:compliant with medications; compliant with follow-up visits Munir Lopez DO [address] [place] [address], [phone], [facility] Milady L.LPariCPari 10/19/2023 12:32:29 10/20/2023 text/html DiabetesReported bypatient.Duration:chr onic Control:usually well controlled Compliance:compliant with medications; compliant with follow-up visits Munir Lopez DO [address] [place] [address], [phone], [facility] Milady, L.L.CPari 10/21/2023 09:58:29 10/27/2023 text/html DiabetesReported bypatient.Duration:chr onic Control:usually well controlled Compliance:compliant with medications; compliant with follow-up visits Munir Lopez DO [address] [place] [address], [phone], [facility] 11/01/2023 12:02:03 11/03/2023 text/html DiabetesReported bypatient.Duration:[facility] onic Control:usually well controlled Compliance:compliant with medications; compliant with follow-up visits Munir Lopez DO [address] [place] [address], [phone], [facility] Tee Henning 11/22/2023 18:43:26
--- NOTE | 2025-06-05 13:37 | CT_ITS ---
WS: [id number] CT HEAD NONCONTRAST HISTORY: AMS TECHNIQUE: Contiguous axial imaging performed through the brain. Bone and soft tissue windows. Sagittal and coronal reformats reviewed. All CT scans at [facility] use at least one of these dose optimization techniques: automated exposure control; mA and/or kV adjustment per patient size (includes targeted exams where dose is matched to clinical indication); or iterative reconstruction. DLP: 1669.98 mGy.cm COMPARISON: 10/08/2023 No acute intracranial hemorrhage, midline shift or mass effect. Moderate symmetric atrophy in the cerebrum and cerebellum. Advanced small vessel disease. Prior lacunar infarct in the LEFT centrum semiovale. Additional lacunar infarcts were described on the prior CT. These are not as well visualized today as the quality is degraded. Ventricles: Normal size with no hydrocephalus. No inferior displacement the cerebellar tonsils. Paranasal sinuses: As visualized are clear. Mastoid air cells: Well pneumatized. Calvarium and scalp: Skull is intact with no soft tissue edema or swelling. CT/CT head wo con* [id number] IMPRESSION: 1. Limited quality due to motion artifact and imaging technique. 2. No acute intracranial hemorrhage or edema. 3. Moderate cerebral and cerebellar atrophy is stable. 4. Moderate small vessel ischemic disease.
--- NOTE | 2025-06-05 13:37 | XRR_ITS ---
PROCEDURE INFORMATION: Exam: XR Chest Exam date and time: 06/05/2025 1:40 PM Age: 79 years old Clinical indication: Cough and dyspnea; Prior surgery; Surgery date: 6+ months; Surgery type: Tonsil; HX of melanoma; Additional info: Dyspnea/cough TECHNIQUE: Imaging protocol: Radiologic exam of the chest. Views: 1 view. COMPARISON: CR XR chest 1V portable [id number] 07/25/2024 11:08 AM FINDINGS: Lungs: Unremarkable. No consolidation. Pleural spaces: Unremarkable. No pleural effusion. No pneumothorax. Heart/Mediastinum: Unremarkable. No cardiomegaly. Bones/joints: Unremarkable. XR/XR chest 1V portable [id number] IMPRESSION: No acute findings.
--- NOTE | 2025-06-05 13:37 | ECG_ITS ---
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 Measurements Intervals Hunter Rate: 116 P: 0 NC: 0 QRS: -43 QRSD: 85 T: 83 QT: 310 QTc: 431 Interpretive Statements ATRIAL FIBRILLATION WITH RAPID VENTRICULAR RESPONSE WITH ABERRANT CONDUCTION OR VENTRICULAR PREMATURE COMPLEXES LEFT AXIS DEVIATION [QRS AXIS < -30] NONSPECIFIC ST & T-WAVE ABNORMALITY Compared to ECG 07/25/2024 11:18:53 Ventricular premature complex(es) now present Aberrant conduction of supraventricular beat(s) now present Left-axis deviation now present T-wave abnormality now present Left bundle-branch block no longer present Electronically Signed On 06-05-2025 16:55:26 CDT by Maximilian Avina M.D. [email or web address]
[2025-06-05 13:46] LABS: Hematocrit 32.4 % (37-53); Hemoglobin 10.10 g/dL (11.27-16.99); Mean Corpuscular HGB Conc 31.2 g/dL (30-55); Mean Corpuscular Hemoglobin 23.3 pg (27-33); Mean Corpuscular Volume 74.7 fl (82-101); Nucleated Red Blood Cells % 0 %; Platelet Count 436 10^3/cmm (157-399); Red Blood Count 4.34 10^6/uL (3.85-5.65); White Blood Count 17.37 10^3/uL (3.29-11.43)
[2025-06-05 14:05] LABS: Troponin(5th) Baseline 38 ng/L (0-15)
[2025-06-05 14:19] LABS: Alanine Aminotransferase 46 U/L (0-41); Albumin Level 3.9 g/dL (3.5-5.2); Alkaline Phosphatase 89 U/L (40-130); Anion Gap 21.2 (5-19); Aspartate Amino Transferase 42 U/L (0-40); Blood Urea Nitrogen 27 mg/dL (8-23); Calcium 10.5 mg/dL (8.5-10.5); Carbon Dioxide 21 mmol/L (22-29); Chloride 95 mmol/L (98-107); Creatinine Clr Calc Pharmacy 43.0469; Globulin 2.8 g/dL (1.3-4.6); Glucose 203 mg/dL (65-115); NT Pro B Type Natriuretic Pept 1028 pg/mL (0-450); Osmolality Calculated 283 mOsm/kg (285-295); Potassium 6.2 mmol/L (3.5-5.1); Sodium 131 mmol/L (136-145); Total Protein 6.7 g/dL (6.6-8.7)
[2025-06-05 15:45] LABS: Glucose Urine UA 2+ (Normal); Nitrate Urine Negative (Negative); Specific Gravity, Urine 1.022 (1.005-1.030)
[2025-06-05 15:48] LABS: Add Urine Microscopic? YES
--- NOTE | 2025-06-05 16:00 | ECG_ITS ---
[facility] Date: 2025-06-05 Pat Name: Luis Jensen Department: Room: Gender: Male Floor Hand: : 1945 Requested By: Sammy Child Order Number: [id number] Fidencio MD: Maximilian Avina M.D. Measurements Intervals [place] Rate: 95 P: 0 MA: 0 QRS: -41 QRSD: 86 T: 86 QT: 333 QTc: 420 Interpretive Statements ATRIAL FIBRILLATION LEFT AXIS DEVIATION [QRS AXIS < -30] NONSPECIFIC T-WAVE ABNORMALITY Compared to ECG 06/05/2025 13:39:00 Ventricular premature complex(es) no longer present Aberrant conduction of supraventricular beat(s) no longer present T-wave abnormality still present Electronically Signed On 06-05-2025 17:05:14 CDT by Maximilian Avina M.D. [email or web address]
[2025-06-05 16:04] LABS: Troponin 5 2HR 36.79 ng/L (0-15)
[2025-06-05 16:05] LABS: Troponin 5 2HR Delta -1.21 ABS# (0-10)
[2025-06-05 16:06] LABS: Lactic Sepsis W/Reflex 3.2 mmol/L (0.5-2.2)
--- NOTE | 2025-06-05 16:30 | ED_ITS ---
HPI - Altered Mental Status 2 General: Chief Complaint: ER Hold Stated Complaint: AMS Time Seen by Provider: 06/05/25 13:37 History of Present Illness: 79-year-old male presents to the emergen cy room from home with altered mental status. Patient has some alteration at baseline but usually is a little better than this. He has right-sided deficits from a previous stroke his is at the bedside states he has been progressively worsening the last few days he has a low-grade temp on arrival. He is complaining of some mild abdominal discomfort she denies any other specific symptoms Related Data Home Medications ?Medication ?Instructions ?Recorded ?Confirmed venlafaxine 37.5 mg 37.5 mg PO QPM 10/09/2305/17 capsule,extended release 24 hr docusate sodium 100 mg capsule 100 mg PO BID 07/25/24 06/05/25 (Colace) metformin 1,000 mg tablet 1,000 mg PO BID 07/25/24 pantoprazole 40 mg tablet,delayed 40 mg PO DAILY 09/1506/05/25 release apixaban 5 mg tablet (Eliquis) 5 mg PO BID 06/06/25 Previous Rx's ?Medication ?Instructions ?Recorded folic acid 1 mg tablet 1 mg PO DAILY #30 tabs 05/31 amiodarone 200 mg tablet 200 mg PO DAILY 30 days #30 tabs 06/10/25 doxycycline hyclate 100 mg tablet 100 mg PO BID 10 day s #20 tabs 06/10/25 glucometer testing kit #1 ea 06/10/25 insulin aspart U-100 100 unit/mL See Rx Instructions . Route 06/10/25 (3 mL) subcutaneous pen (Novolog .COMPLEX 30 days #15 mL FlexPen U-100 Insulin aspart) metoprolol tartrate 25 mg tablet 25 mg PO BID@0900,210 0 30 days #60 06/10/25 tabs polyethylene glycol 3350 17 gram 17 g PO DAILY 30 days #30 ea 06/10/25 oral powder packet valacyclovir 1 gram tablet 1,000 mg PO Q8H 10 days #30 tabs 06/10/25 Allergies Allergy/AdvReac Type Severity Reaction Status Date / Time No Known Allergies Allergy Verified 05/31/25 12:14 [facility] 2 PFSH: Medical History Skin cancer of face Depression Hyperlipidemia Hypothyroidism History of anemia has required transfusion, no source of bleeding identified, has not had colonoscopy due to knowing someone who several months after having procedure (associates the colonoscopy with getting cancer) Acute ischemic left posterior cerebral artery ([employer] SU[employer]IST) stroke (2013) Left middle cerebral artery stroke (2020) COVID-19 06/05, 10/08 Atrial fibrillation Hypertension Type 2 diabetes mellitus Hypogonadism Surgical History History of open reduction and internal fixation (ORIF) procedure right leg, abdirashid in place tibia History of tonsillectomy Family History Other Cancer Diabetes Social History Smoking and tobacco/nicotine status: former use of tobacco/nicotine Second hand smoke exposure: No Alcohol intake: never Substance/Drug Use: never Physical Exam 2 Const: COMMON NORMALS: no acute distress GENERAL APPEARANCE: cooperative and comfortable ORIENTATION/CONSCIOUSNESS: Yes awake HENMT: COMMON NORMALS: normocephalic, atraumatic and hearing grossly normal bilaterally HEAD & SCALP: normocephalic and atraumatic Resp: COMMON NORMALS: normal respiratory effort, No retractions, No use of accessory muscles and clear to auscultation bilaterally AUSCULTATION: clear to auscultation bilaterally Cardio: COMMON NORMALS: regular rate, regular rhythm and No murmurs present (Cardio) RATE: regular rate RHYTHM: regular rhythm GI: COMMON NORMALS: Soft to palpation and No hepatosplenomegaly present A USCULTATION: Yes normoactive bowel sounds PALPATION: Yes Soft to palpation, No Tenderness to palpation present (GI), No Guarding due to palpation present (GI) and Yes No hepatosplenomegaly present Extremity: COMMON NORMALS: normal to inspection, capillary refill normal, no clubbing, cyanosis or edema, no calf tenderness and no pedal edema Skin: COMMON NORMALS: no rashes or lesions noted GENERAL SKIN EXAM: no rashes or lesions noted Course 2 Vital Signs: Vital signs: Vital Signs Temperature 97.5 F L 06/10/25 13:17 Pulse Rate 71 06/10/25 13:17 Respiratory Rate 21 H 06/10/25 11:39 Blood Pressure 172/84 06/10/25 13:17 Pulse Oximetry 98 06/10/25 13:17 Oxygen Delivery Me thod Room Air 06/10/25 11:39 MDM - Altered Mental Status Medical Decision Making Patient presents encephalopathic hypertension poorly controlled. Initial A-fib with RVR controlled with single push dose Cardizem and remained under adequate control. White count 17,000. Sodium 132. Mild CELENA as well. Discussed with hospitalist will admit. Cultures have been done is initially started on Levaquin. CT of head was negative. CT abdomen did not show any acute pathology but he does have a area of concern in the pancreas that we will need further workup as an outpatient basis. May need to consider lumbar tap for meningitis however patient is on Eliquis. Reviewed with hospitalist orders are written Lab Data 06/10/25 01:51 06/10/25 01:51 Radiology Impressions Chest X-Ray 06/05/25 13:37 IMPRESSION: No acute findings. Head CT 06/05/25 13:37 IMPRESSION: 1. Limited quality due to motion artifact and imaging technique. 2. No acute intracranial hemorrhage or edema. 3. Moderate cerebral and cerebellar atrophy is stable. 4. Moderate small vessel ischemic disease. Abdomen/Pelvis CT 06/05/25 16:31 IMPRESSION: 1. No bowel obstruction or inflammatory process associated with the bowel. 2. No free air or significant free fluid in the abdomen or pelvis. 3. No evidence of appendicitis. 4. There is a 1.1 x 0.9 cm hyperdense structure in the uncinate process of the pancreas (series 4, image 33) of indeterminate etiology. While this may be artifactual, a true lesion can not be excluded and a pancreatic MRI/MRCP on a nonemergent basis may be of benefit to further assess this finding. Of note, there is no dilatation of the pancreatic duct or common bile duct. Chest CT 06/05/25 18:47 IMPRESSION: No acute findings. Lumbar Puncture Fluoroscopy 06/07/25 20:25 IMPRESSION: Fluoroscopically guided lumbar puncture. No immediate complications Laboratory Results WBC 17.37 10^3/uL (3.29-11.43) H 06/05/25 13:16 RBC 4.34 10^6/uL (3.85-5.65) 06/05/25 13:16 Hgb 10.10 g/dL (11.27-16.99) L 06/05/25 13:16 Hct 32.4 % (37-53) L 06/05/25 13:16 MCV 74.7 fl (82-101) L 06/05/25 13:16 MCH 23.3 pg (27-33) L 06/05/25 13:16 MCHC 31.2 g/dL (30-55) 06/05/25 13:16 RDW 16.1 % (12.1-15.1) H 06/05/25 13:16 Plt Count 436 10^3/cmm (157-399) H 06/05/25 13:16 MPV 9.4 fL (7.4-10.4) 06/05/25 13:16 Neut % (Auto) 86.4 % 06/05/25 13:16 Lymph % (Auto) 4.3 % 06/05/25 13:16 Day % (Auto) 7.7 % 06/05/25 13:16 Eos % (Auto) 0.7 % 06/05/25 13:16 Baso % (Auto) 0.3 % 06/05/25 13:16 Neut # (Auto) 15.01 10^3/uL (1.8-7.7) H 06/05/25 13:16 Lymph # (Auto) 0.7 10^3/uL (0.8-4.8) L 06/05/25 13:16 Day # (Auto) 1.3 10^3/uL (0.2-0.9) H 06/05/25 13:16 Eos # (Auto) 0.1 10^3/uL (0.0-0.8) 06/05/25 13:16 Baso # (Auto) 0.1 10^3/uL (0.0-0.1) 06/05/25 13:16 Nucleated RBC % (auto) 0 % 06/05/25 13:16 Nucleated RBCs # 0.0 /100WBC 06/05/25 13:16 Sodium 131 mmol/L (136-145) L 06/05/25 13:16 Potassium 6.2 mmol/L (3.5-5.1) H 06/05/25 13:16 Chloride 95 mmol/L (98-107) L 06/05/25 13:16 Carbon Dioxide 21 mmol/L (22-29) L 06/05/25 13:16 Anion Gap 21.2 (5-19) H 06/05/25 13:16 BUN 27 mg/dL (8-23) H 06/05/25 13:16 Creatinine 1.4 mg/dL (0.7-1.2) H 06/05/25 13:16 GFR Calculation Not Reportable 06/05/25 13:16 Glucose 203 mg/dL (65-115) H 06/05/25 13:16 Estimat Average Glucose 235 06/05/25 13:16 Hemoglobin A1c 9.8 % (4.0-6.0) H 06/05/25 13:16 Calculated Osmolality 283 mOsm/kg (285-295) L 06/05/25 13:16 Lactic Acid 3.2 mmol/L (0.5-2.2) H 06/05/25 15:14 Calcium 10.5 mg/dL (8.5-10.5) 06/05/25 13:16 Total Bilirubin 0.3 mg/dL (0.15-1.2) 06/05/25 13:16 AST 42 U/L (0-40) H 06/05/25 13:16 ALT 46 U/L (0-41) H 06/05/25 13:16 Alkaline Phosphatase 89 U/L (40-130) 06/05/25 13:16 Troponin T Baseline 38 ng/L (0-15) H 06/05/25 13:16 Troponin T 120 Minute 36.79 ng/L (0-15) H 06/05/25 15:14 Delta Troponin T -1.21 ABS# (0-10) L 06/05/25 15:14 NT-Pro-B Natriuret Pep 1028 pg/mL (0-450) H 06/05/25 13:16 Total Protein 6.7 g/dL (6.6-8.7) 06/05/25 13:16 Albumin 3.9 g/dL (3.5-5.2) 06/05/25 13:16 Globulin 2.8 g/dL (1.3-4.6) 06/05/25 13:16 Urine Color Yellow (Yellow) 06/05/25 15:00 Urine Appearance Clear (CLEAR) 06/05/25 15:00 Urine pH 6.0 (5-7) 06/05/25 15:00 Ur Specific [place] 1.022 (1.005-1.030) 06/05/25 15:00 Urine Protein 2+ (Negative) A 06/05/25 15:00 Urine Glucose (UA) 2+ (Normal) H 06/05/25 15:00 Urine Ketones Trace (Negative) 06/05/25 15:00 Urine Blood Negative (Negative) 06/05/25 15:00 Urine Nitrate Negative (Negative) 06/05/25 15:00 Urine Bilirubin Negative (Negative) 06/05/25 15:00 Urine Urobilinogen 1.0 mg/dL (Negative) 06/05/25 15:00 Ur Leukocyte Esterase Negative (Negative) 06/05/25 15:00 Urine RBC 0-2 /hpf (0-2) 06/05/25 15:00 Urine WBC 0-5 /hpf (0-5) 06/05/25 15:00 Ur Squamous Epith Cells 0-5 /hpf (0-5) 06/05/25 15:00 Amorphous Sediment Not Reportable 06/05/25 15:00 Urine Bacteria None seen /hpf (NONE) 06/05/25 15:00 Hyaline Casts 2.05 /lpf 06/05/25 15:00 Influenza A (PCR) Negative (Negative) 06/05/25 17:42 Influenza Type B (PCR) Negative (Negative) 06/05/25 17:42 RSV (PCR) Negative (Negative) 06/05/25 17:42 SARS-CoV-2 (PCR) Negative (Negative) 06/05/25 17:42 All radiology interpretation(s) finalized by discharge Discharge Plan Discharge Patient Disposition: Admitted As Inpatient Admit Provider: Maksim Donis Clinical Impression: Encephalopathy acute, Mild cognitive impairment with memory loss, History of stroke with residual effects, Type 2 diabetes mellitus, Chronic anticoagulation, Hyperkalemia, CELENA (acute kidney injury), Hyponatremia, Lactic acidosis Atrial fibrillation Qualifiers: Atrial fibrillation type: longstanding persistent Qualified Code(s): I48.11 - Longstanding persistent atrial fibrillation Condition: Stable Discharge Diet: Cardiac Discharge Activity: Resume usual activity Coding Level of Care Code ED 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
--- NOTE | 2025-06-05 16:31 | CTR_ITS ---
PROCEDURE INFORMATION: Exam: CT Abdomen And Pelvis With Contrast Exam date and time: 06/05/2025 5:26 PM Age: 79 years old Clinical indication: Abdominal pain; Acute; Additional info: Abd pain TECHNIQUE: Imaging protocol: Computed tomography of the abdomen and pelvis with contrast. Radiation optimization: All CT scans at this facility use at least one of these dose optimization techniques: automated exposure control; mA and/or kV adjustment per patient size (includes targeted exams where dose is matched to clinical indication); or iterative reconstruction. Contrast material: OMNI 350; Contrast volume: 100 ml; Contrast route: INTRAVENOUS (IV); COMPARISON: CR XR KUB portable [id number] 10/08/2023 10:33 PM RADIATION DOSE METRICS: Total DLP (mGy-cm): 821.23 FINDINGS: Coronary arteries: Coronary arterial atherosclerotic calcifications are present. Liver: The liver is diffusely low in attenuation consistent with hepatic steatosis. Gallbladder and biliary ducts: See Pancreas finding. Pancreas: There is a 1.1 x 0.9 cm hyperdense structure in the uncinate process of the pancreas (series 4, image 33) of indeterminate etiology. While this may be artifactual, a true lesion can not be excluded and a pancreatic MRI/MRCP on a nonemergent basis may be of benefit to further assess this finding. Of note, there is no dilatation of the pancreatic duct or common bile duct. Spleen: Multiple punctate calcifications in the spleen consistent with prior granulomatous infection. Adrenal glands: Normal. No mass. Kidneys and ureters: Cortical irregularities in the right and left kidneys may represent sequela of prior injury. Stomach and bowel: Unremarkable. No obstruction. No mucosal thickening. Appendix: No evidence of appendicitis. Intraperitoneal space: Unremarkable. No free air. No significant fluid collection. Vasculature: Severe atherosclerotic disease of the abdominal aorta iliac arteries. Lymph nodes: Unremarkable. No enlarged lymph nodes. Urinary bladder: Unremarkable as visualized. Reproductive: Unremarkable as visualized. Bones/joints: Unremarkable. No acute fracture. Soft tissues: Unremarkable. CT/CT abdomen pelvis w con* [id number] IMPRESSION: 1. No bowel obstruction or inflammatory process associated with the bowel. 2. No free air or significant free fluid in the abdomen or pelvis. 3. No evidence of appendicitis. 4. There is a 1.1 x 0.9 cm hyperdense structure in the uncinate process of the pancreas (series 4, image 33) of indeterminate etiology. While this may be artifactual, a true lesion can not be excluded and a pancreatic MRI/MRCP on a nonemergent basis may be of benefit to further assess this finding. Of note, there is no dilatation of the pancreatic duct or common bile duct.
[2025-06-05 17:24] LABS: Reflex Lactate Order REFLEX LACTIC ORDERD
[2025-06-05] MEDS: iohexol 350 mg/mL 500 mL Btl (per mL) IV (17:29)
[2025-06-05] MEDS: levofloxacin-dextrose 5 % 750 MG/150 ML PREMIX 100 MG IV (17:55)
[2025-06-05 18:43] LABS: Respiratory Syncytial Virus Ce NEGATIVE (Negative); SARS-CoV-2 PCR NEGATIVE (Negative)
--- NOTE | 2025-06-05 18:47 | CTR_ITS ---
PROCEDURE INFORMATION: Exam: CT Chest Without Contrast; Diagnostic Exam date and time: 06/05/2025 7:11 PM Age: 79 years old Clinical indication: Fever; Additional info: AMS, fever' TECHNIQUE: Imaging protocol: Diagnostic computed tomography of the chest without contrast. Radiation optimization: All CT scans at this facility use at least one of these dose optimization techniques: automated exposure control; mA and/or kV adjustment per patient size (includes targeted exams where dose is matched to clinical indication); or iterative reconstruction. COMPARISON: CR XR chest 1V portable [id number] 06/05/2025 1:40 PM RADIATION DOSE METRICS: Total DLP (mGy-cm): 568.92 FINDINGS: Lungs: Unremarkable. No consolidation. No masses. Pleural spaces: Unremarkable. No pneumothorax. No pleural effusion. Heart: Unremarkable. No cardiomegaly. No pericardial effusion. Coronary arteries: Coronary arterial atherosclerotic calcifications are present. Lymph nodes: Calcified lymph nodes in the left mediastinum. Vasculature: Unremarkable. No aortic aneurysm. Liver: The liver is diffusely low in attenuation consistent with hepatic steatosis. Spleen: Multiple punctate calcifications in the spleen consistent with prior granulomatous infection. Bones/joints: Unremarkable. No acute fracture. Soft tissues: Unremarkable. CT/CT chest [facility] [id number] IMPRESSION: No acute findings.
[2025-06-05 19:16] LABS: Lactic Acid level (Lactate) 2.7 mmol/L (0.5-2.2)
[2025-06-05 19:18] LABS: Troponin 5 6HR 36.77 ng/L (0-15)
[2025-06-05 19:21] LABS: Troponin 5 6HR Delta -1.23 ng/L (0-12)
--- NOTE | 2025-06-05 19:37 | ECG_ITS ---
[facility] Test Date: 2025-06-05 Pat Name: Luis Jensen Department: Room: EDIP Gender: Male Development Executive: : 1945 Requested By: Sammy Child Order Number: [id number] Fidencio MD: Garrison Dumont M.D. Measurements Intervals [place] Rate: 106 P: 0 DE: 0 QRS: -37 QRSD: 88 T: 95 QT: 338 QTc: 449 Interpretive Statements ATRIAL FIBRILLATION WITH RAPID VENTRICULAR RESPONSE WITH ABERRANT CONDUCTION OR VENTRICULAR PREMATURE COMPLEXES LEFT AXIS DEVIATION [QRS AXIS < -30] NONSPECIFIC ST & T-WAVE ABNORMALITY Compared to ECG 06/05/2025 16:00:34 Ventricular premature complex(es) now present Electronically Signed On 06-10-2025 14:43:16 CDT by Julia [email or web address]
[2025-06-05] MEDS: pantoprazole 40 mg SDV IVP (19:43)
[2025-06-05] MEDS: cefTRIAXone 2,000 mg SDV 2000 MG IVP (19:44)
[2025-06-05 19:45] LABS: Procalcitonin 1.56 ng/mL (0-0.5)
[2025-06-05] MEDS: calcium gluconate 0.9% NaCL 1 GM/50 ML PREMIX IV (19:47)
[2025-06-05] MEDS: ampicillin 2,000 MG in sodium chloride 0.9% (plus) 50 ML 100 MG IV ×2 (19:51→22:21)
[2025-06-05] MEDS: doxycycline 100 MG in sodium chloride 0.9% (plus) 100 ML IV (20:00)
[2025-06-05] MEDS: insulin regular-human 100 units/1 mL 10 UNIT IVP (20:03)
[2025-06-05 20:47] LABS: Thyroid Stimulating Hormone 2.09 uIU/mL (0.27-4.20)
--- NOTE | 2025-06-05 21:46 | PM.HP ---
Providers/Chief Complaint Admitting Physician: Maksim Donis MD Primary Care Provider: Katelynn Beckford DO Chief Complaint: AMS History of Present Illness Luis Jensen is a 79 year old male with a past medical history of chronic iron deficiency anemia for which he gets Venofer infusions with hematology, chronic A-fib maintained on Eliquis, cardiomyopathy with last ejection fraction of 38%, moderate AAS and pulmonary hypertension with a history of CVA with residual right hemiparesis, chronically wheelchair-bound. He is brought into the emergency room today by his who reports that patient has been exhibiting some confusion over the last 2 to 3 days. He recently had blood work at oncology 1 week ago where he was noted to have hyperkalemia, he was asked to follow-up in a week today however his noted him acting bizarre today. On waking up today, he was confused, disoriented, with slurred speech. He was taking off his clothes and was overall agitated and confused. Patient does have a residual hemiparesis affecting the face, however reports that mostly his speech is intelligible and he is away from his baseline today. She states that she has noticed more subtle cognitive disturbance over the past week becoming more pronounced today. He has been vomiting during the day today and has been complaining of a headache. No diarrhea. No abdominal pain. No chest pain. No cough. No known fever, however here he does have a low-grade temperature of 100.2 Fahrenheit. Patient denied any dysuria at home. Patient is mainly homebound in a wheelchair, no recent known tick bites. No pets at home. There are several birds on their porch, however patient does not have any direct contact with them. Review of Systems General: Reports: ROS unobtainable due to mental status Medications/Allergies Home Medications ?Medication ?Instructions ?Recorded ?Confirmed ?Last Taken ?Type amlodipine 5 mg tablet 5 mg PO QAM 07/25/21 06/05/25 06/05/25 History venlafaxine 37.5 mg 37.5 mg PO QPM 10/09/23 06/05/25 06/04/25 History capsule,extended release 24 hr docusate sodium 100 mg capsule 100 mg PO BID 07/25/24 06/05/25 06/05/25 History (Colace) metformin 1,000 mg tablet 1,000 mg PO BID 07/25/24 06/05/25 06/05/25 History pantoprazole 40 mg tablet,delayed 40 mg PO DAILY 09/15/24 06/05/25 06/05/25 History release folic acid 1 mg tablet 1 mg PO DAILY #30 tabs 05/31/25 06/05/25 06/05/25 Rx Allergies Allergy/AdvReac Type Severity Reaction Status Date / Time No Known Allergies Allergy Verified 05/31/25 12:14 PFSH Acute PFSH: Medical History Skin cancer of face Depression Hyperlipidemia Hypothyroidism History of anemia has required transfusion, no source of bleeding identified, has not had colonoscopy due to knowing someone who several months after having procedure (associates the colonoscopy with getting cancer) Acute ischemic left posterior cerebral artery (ADMITTING COORDINATOR) stroke (2013) Left middle cerebral artery stroke (2020) COVID-19 06/05, 10/08 Atrial fibrillation Hypertension Type 2 diabetes mellitus Hypogonadism Surgical History History of open reduction and internal fixation (ORIF) procedure right leg, abdirasihd in place tibia History of tonsillectomy Family History Other Cancer Diabetes Social History Smoking and tobacco/nicotine status: former use of tobacco/nicotine Second hand smoke exposure: No Alcohol intake: never Substance/Drug Use: never Vitals/I&O/Wt Last Vital Signs Temp 100.2 F H 06/05/25 13:33 Pulse 96 06/05/25 18:32 Resp 16 06/05/25 18:32 BP 124/86 06/05/25 18:18 Pulse Ox 98 06/05/25 18:32 O2 Del Method Room Air 06/05/25 18:32 06/05/25 06/05/25 06/05/25 06:59 14:59 22:59 Intake Total 0 / 0 600 / 600 Balance 0 / 0 600 / 600 Weight last 48 hrs Weight 81.647 kg Physical Exam Narrative: General: No acute distress, AO x2, speech is slurred HEENT: PERRLA, pupils bilaterally equal and reactive, pallors not present Chest: Normal vesicular breath sounds, no added sounds, equal good air entry bilaterally CVS: S1-S2 regular, no murmurs, no tachycardia, no gallops, no rubs Abdomen: Soft, mildly distended, no organomegaly, bowel sounds present Neuro: right hemiparesis, facial asymmetry.speech is slurred, able to answer 2/3 orientation questions with his name and , but then has tangential conversation. Data 06/05/25 13:16 06/05/25 23:27 Micro: Microbiology 06/05/25 17:41 Blood Culture - Preliminary Blood SPECIMEN COLLECTED 06/05/25 17:48 Blood Culture - Preliminary Blood SPECIMEN COLLECTED Other data: Radiology Impressions Chest X-Ray 06/05/25 13:37 IMPRESSION: No acute findings. Head CT 06/05/25 13:37 IMPRESSION: 1. Limited quality due to motion artifact and imaging technique. 2. No acute intracranial hemorrhage or edema. 3. Moderate cerebral and cerebellar atrophy is stable. 4. Moderate small vessel ischemic disease. Abdomen/Pelvis CT 06/05/25 16:31 IMPRESSION: 1. No bowel obstruction or inflammatory process associated with the bowel. 2. No free air or significant free fluid in the abdomen or pelvis. 3. No evidence of appendicitis. 4. There is a 1.1 x 0.9 cm hyperdense structure in the uncinate process of the pancreas (series 4, image 33) of indeterminate etiology. While this may be artifactual, a true lesion can not be excluded and a pancreatic MRI/MRCP on a nonemergent basis may be of benefit to further assess this finding. Of note, there is no dilatation of the pancreatic duct or common bile duct. Chest CT 06/05/25 18:47 IMPRESSION: No acute findings. Laboratory Results WBC 17.37 10^3/uL (3.29-11.43) H 06/05/25 13:16 RBC 4.34 10^6/uL (3.85-5.65) 06/05/25 13:16 Hgb 10.10 g/dL (11.27-16.99) L 06/05/25 13:16 Hct 32.4 % (37-53) L 06/05/25 13:16 MCV 74.7 fl (82-101) L 06/05/25 13:16 MCH 23.3 pg (27-33) L 06/05/25 13:16 MCHC 31.2 g/dL (30-55) 06/05/25 13:16 RDW 16.1 % (12.1-15.1) H 06/05/25 13:16 Plt Count 436 10^3/cmm (157-399) H 06/05/25 13:16 MPV 9.4 fL (7.4-10.4) 06/05/25 13:16 Neut % (Auto) 86.4 % 06/05/25 13:16 Lymph % (Auto) 4.3 % 06/05/25 13:16 [place] % (Auto) 7.7 % 06/05/25 13:16 Eos % (Auto) 0.7 % 06/05/25 13:16 Baso % (Auto) 0.3 % 06/05/25 13:16 Neut # (Auto) 15.01 10^3/uL (1.8-7.7) H 06/05/25 13:16 Lymph # (Auto) 0.7 10^3/uL (0.8-4.8) L 06/05/25 13:16 [place] # (Auto) 1.3 10^3/uL (0.2-0.9) H 06/05/25 13:16 Eos # (Auto) 0.1 10^3/uL (0.0-0.8) 06/05/25 13:16 Baso # (Auto) 0.1 10^3/uL (0.0-0.1) 06/05/25 13:16 Nucleated RBC % (auto) 0 % 06/05/25 13:16 Nucleated RBCs # 0.0 /100WBC 06/05/25 13:16 PT 14.20 SECONDS (12.1-14.9) 06/05/25 21:48 INR 1.03 (0.8-1.2) 06/05/25 21:48 APTT 30.6 SECONDS (23.9-36.7) 06/05/25 21:48 Sodium 131 mmol/L (136-145) L 06/05/25 13:16 Potassium 4.9 mmol/L (3.5-5.1) 06/05/25 23:27 Chloride 95 mmol/L (98-107) L 06/05/25 13:16 Carbon Dioxide 21 mmol/L (22-29) L 06/05/25 13:16 Anion Gap 21.2 (5-19) H 06/05/25 13:16 BUN 27 mg/dL (8-23) H 06/05/25 13:16 Creatinine 1.4 mg/dL (0.7-1.2) H 06/05/25 13:16 GFR Calculation Not Reportable 06/05/25 23:27 Glucose 203 mg/dL (65-115) H 06/05/25 13:16 POC Glucose 243 mg/dL (70-110) H 06/05/25 21:45 Estimat Average Glucose 235 06/05/25 13:16 Hemoglobin A1c 9.8 % (4.0-6.0) H 06/05/25 13:16 Calculated Osmolality 287 mOsm/kg (285-295) 06/05/25 23:27 Lactic Acid 3.2 mmol/L (0.5-2.2) H 06/05/25 15:14 Lactic Acid (Sepsis) 2.7 mmol/L (0.5-2.2) H 06/05/25 18:40 Calcium 10.4 mg/dL (8.5-10.5) 06/05/25 23:27 Total Bilirubin 0.3 mg/dL (0.15-1.2) 06/05/25 23:27 AST 37 U/L (0-40) 06/05/25 23:27 ALT 46 U/L (0-41) H 06/05/25 13:16 Alkaline Phosphatase 83 U/L (40-130) 06/05/25 23:27 Troponin T Baseline 38 ng/L (0-15) H 06/05/25 13:16 Troponin T 120 Minute 36.79 ng/L (0-15) H 06/05/25 15:14 Delta Troponin T -1.21 ABS# (0-10) L 06/05/25 15:14 Troponin T Hi Sens 6Hr 36.77 ng/L (0-15) H 06/05/25 18:40 Troponin T Hi Sens 6Hr Delta -1.23 ng/L (0-12) L 06/05/25 18:40 C-Reactive Protein 25.8 mg/L (0.0-4.9) H 06/05/25 18:40 NT-Pro-B Natriuret Pep 1028 pg/mL (0-450) H 06/05/25 13:16 Total Protein 7.6 g/dL (6.6-8.7) 06/05/25 23:27 Albumin 3.9 g/dL (3.5-5.2) 06/05/25 23:27 Globulin 3.7 g/dL (1.3-4.6) 06/05/25 23:27 Procalcitonin 1.56 ng/mL (0-0.5) H 06/05/25 18:40 TSH 2.09 uIU/mL (0.27-4.20) 06/05/25 18:40 Urine Color Yellow (Yellow) 06/05/25 15:00 Urine Appearance Clear (CLEAR) 06/05/25 15:00 Urine pH 6.0 (5-7) 06/05/25 15:00 Ur Specific [place] 1.022 (1.005-1.030) 06/05/25 15:00 Urine Protein 2+ (Negative) A 06/05/25 15:00 Urine Glucose (UA) 2+ (Normal) H 06/05/25 15:00 Urine Ketones Trace (Negative) 06/05/25 15:00 Urine Blood Negative (Negative) 06/05/25 15:00 Urine Nitrate Negative (Negative) 06/05/25 15:00 Urine Bilirubin Negative (Negative) 06/05/25 15:00 Urine Urobilinogen 1.0 mg/dL (Negative) 06/05/25 15:00 Ur Leukocyte Esterase Negative (Negative) 06/05/25 15:00 Urine RBC 0-2 /hpf (0-2) 06/05/25 15:00 Urine WBC 0-5 /hpf (0-5) 06/05/25 15:00 Ur Squamous Epith Cells 0-5 /hpf (0-5) 06/05/25 15:00 Amorphous Sediment Not Reportable 06/05/25 15:00 Urine Bacteria None seen /hpf (NONE) 06/05/25 15:00 Hyaline Casts 2.05 /lpf 06/05/25 15:00 Influenza A (PCR) Negative (Negative) 06/05/25 17:42 Influenza Type B (PCR) Negative (Negative) 06/05/25 17:42 RSV (PCR) Negative (Negative) 06/05/25 17:42 SARS-CoV-2 (PCR) Negative (Negative) 06/05/25 17:42 A&P Assessment and plan 1. Atrial fibrillation: 2. Chronic anticoagulation: 3. Type 2 diabetes mellitus: 4. Hyperkalemia: 5. History of stroke with residual effects: 6. Altered mental status: 7. Fever: 8. Uncontrolled hypertension: Plan: # 79-year-old man with past medical history as outlined above, presented to the hospital today with complaints of headache and altered mental status, found to have a fever in the emergency room. Additionally noted to have mildly deranged AST and ALT today. CT of the abdomen and pelvis without any abdominal source of infection. Incidentally noted pancreatic hyperdense lesion of indeterminate etiology, unlikely to be the cause of current symptoms. Chest x-ray without any consolidation Urine analysis without any gross signs of UTI. Pending blood culture Meningitis is currently on the differentials. Lumbar puncture has been ordered. Eliquis has been placed on hold at this time as anticipate he would need to be off for 48 hours before undergoing lumbar puncture safely. On the lumbar puncture, would obtain CSF cell count, culture, protein, glucose, cytology, cryptococcal antigen, Lyme antibodies. Given also deranged LFT, tach mediated illness is on the differential. Tick serology,tularemia IgG/IgM has been ordered. He has been started on empiric meningitis coverage with ceftriaxone 2 g IV every 12 hours, ampicillin 2 g IV every 4 hours, vancomycin renally dosed, doxycycline 100mg iv q12h. Add Acyclovir 10mg/kg iv every 12 hrs. (renally dosed for cr cl of 45) Adjunctive steroids dexamethasone 10 mg IV every 6 hours. IVF NS @ 75 cc/ hr with close monitoring for fluid overload CT head is without any acute intracranial events. # DM2: insulin sliding scale # A fib with RVR, improved after receiving Cardizem 20 mg IV push in the emergency room. Currently rate is controlled at 89 bpm. # Uncontrolled blood pressure, at the time of this assessment blood pressure is 196/102 mmHg. Start hydralazine 10 mg IV every 4 hours as needed for SBP greater than 160. DVT prophylaxis: Holding off anticoagulation for now in view of anticipated lumbar puncture. Eliquis to be resumed after. Full code PDMP PDMP Reviewed: Not Reviewed Attestations Medical Necessity Statement*: Greater than 2 midnight admission is anticipated Coding Level of Care Code Acute Code for Chg Fwd High MDM includes number and complexity of problems actively addressed during encounter, amount and/or complexity of data reviewed/ordered and described risk of complication, morbidity or mortality of management as documented Diagnoses Atrial fibrillation I48.91 Chronic anticoagulation Z79.01 Type 2 diabetes mellitus E11.9 Hyperkalemia E87.5 History of stroke with residual effects I69.30 Altered mental status R41.82 Fever R50.9 Uncontrolled hypertension I10
[2025-06-05 22:05] LABS: INR 1.03 (0.8-1.2); Prothrombin Time 14.20 SECONDS (12.1-14.9)
[2025-06-05 22:06] LABS: Partial Thromboplastin Time 30.6 SECONDS (23.9-36.7)
[2025-06-05] MEDS: hyDRALAzine 20 mg/mL INJ 1 mL 10 MG IVP (22:22)
[2025-06-05 22:27] LABS: Estmated Average Glucose 235; Hemoglobin A1C 9.8 % (4.0-6.0)
[2025-06-05 23:47] LABS: Alanine Aminotransferase 51 U/L (0-41); Albumin Level 3.9 g/dL (3.5-5.2); Alkaline Phosphatase 83 U/L (40-130); Anion Gap 21.9 (5-19); Aspartate Amino Transferase 37 U/L (0-40); Blood Urea Nitrogen 26 mg/dL (8-23); Calcium 10.4 mg/dL (8.5-10.5); Carbon Dioxide 19 mmol/L (22-29); Chloride 96 mmol/L (98-107); Creatinine Clr Calc Pharmacy 40.1771; Globulin 3.7 g/dL (1.3-4.6); Glucose 248 mg/dL (65-115); Osmolality Calculated 287 mOsm/kg (285-295); Potassium 4.9 mmol/L (3.5-5.1); Sodium 132 mmol/L (136-145); Total Protein 7.6 g/dL (6.6-8.7)
[2025-06-06] VITALS (11 sets, daily range): BP systolic 106–170; BP diastolic 52–102; PULSE 96–130; RESP 16–22; TEMP 36.8–37.2; O2SAT 96–99
[2025-06-06 02:32] LABS: Hematocrit 29.0 % (37-53); Hemoglobin 9.00 g/dL (11.27-16.99); Mean Corpuscular HGB Conc 31.0 g/dL (30-55); Mean Corpuscular Hemoglobin 23.3 pg (27-33); Mean Corpuscular Volume 75.1 fl (82-101); Nucleated Red Blood Cells % 0 %; Platelet Count 388 10^3/cmm (157-399); Red Blood Count 3.86 10^6/uL (3.85-5.65); White Blood Count 12.51 10^3/uL (3.29-11.43)
[2025-06-06 02:52] LABS: Alanine Aminotransferase 42 U/L (0-41); Albumin Level 3.6 g/dL (3.5-5.2); Alkaline Phosphatase 72 U/L (40-130); Anion Gap 19.6 (5-19); Aspartate Amino Transferase 31 U/L (0-40); Blood Urea Nitrogen 26 mg/dL (8-23); Calcium 9.7 mg/dL (8.5-10.5); Carbon Dioxide 18 mmol/L (22-29); Chloride 99 mmol/L (98-107); Creatinine Clr Calc Pharmacy 43.0469; Globulin 2.9 g/dL (1.3-4.6); Glucose 265 mg/dL (65-115); Magnesium 2.0 mg/dL (1.7-2.3); Osmolality Calculated 288 mOsm/kg (285-295); Potassium 4.6 mmol/L (3.5-5.1); Sodium 132 mmol/L (136-145); Total Protein 6.5 g/dL (6.6-8.7)
[2025-06-06] MEDS: doxycycline 100 MG in sodium chloride 0.9% (plus) 100 ML IV ×2 (07:12→20:06)
[2025-06-06] MEDS: MEROPENEM 2,000 MG in sodium chloride 0.9% (plus) 50 ML 100 MG IV ×2 (07:12→20:07)
--- NOTE | 2025-06-06 07:15 | PC.NURSE ---
ASSUMED CARE OF PT FROM VOLODYMYR SANTOS AT 0715.
[2025-06-06] MEDS: vancomycin 500 MG in sodium chloride 0.9% (plus) 100 ML 200 MG IV ×2 (07:30→18:44)
[2025-06-06] MEDS: insulin glargine 100 units/1 mL 10 UNIT SUBCUT (10:00)
--- NOTE | 2025-06-06 15:20 | PC.NURSE ---
report called to VOLODYMYR Bishop
[2025-06-06] MEDS: heparin 5,000 unit/mL INJ 1 mL IVP ×2 (16:26→21:37)
[2025-06-06] MEDS: heparin drip 25,000 UNIT/500 ML PREMIX 23 UNIT IV (16:26)
--- NOTE | 2025-06-06 16:26 | P.PN_ITS ---
Subjective 2 Subjective: Patient was seen this morning, currently alert to person, not to place, not to time, he keeps repeating his name, he moves the left upper and left lower extremity, has right hemiparesis, right facial asymmetry, word are slurred, currently in A-fib with RVR heart rates in the 140s, - Patient was moved up to CSU started on amiodarone drip - Patient was started on a heparin drip Vitals/I&O/Wt Last Vital Signs Temp 98.2 F 06/06/25 11:39 Pulse 130 H 06/06/25 14:00 Resp 22 H 06/06/25 11:39 BP 138/82 06/06/25 11:39 Pulse Ox 97 06/06/25 11:39 O2 Del Method Room Air 06/06/25 11:39 06/06/25 06/06/25 06/06/25 06:59 14:59 22:59 Intake Total 1266 / 2316 250 / 250 266 / 516 Output Total 750 / 750 Balance 1266 / 2316 -500 / -500 266 / -234 Weight last 48 hrs Weight 81.647 kg Physical Exam 2 Const: COMMON NORMALS: no acute distress ORIENTATION/CONSCIOUSNESS: Yes awake, Yes oriented to person and Yes confused; not oriented to place and not oriented to time Eye: COMMON NORMALS: Equal, round and reactive pupils present PUPIL: Yes Equal, round and reactive pupils present Resp: COMMON NORMALS: normal respiratory effort, No retractions, No use of accessory muscles and clear to auscultation bilaterally AUSCULTATION: clear to auscultation bilaterally Cardio: COMMON NORMALS: S1 normal heart sound present and S2 normal heart sound present RATE: tachycardic RHYTHM: abnormal rhythm irregularly irregular HEART SOUNDS: S1 normal heart sound present and S2 normal heart sound present GI: COMMON NORMALS: Normal to inspection, nondistended, normoactive bowel sounds present and non-tender Extremity: COMMON NORMALS: no pedal edema Neuro: SENSORIUM/ORIENTATION: Yes oriented to person, No oriented to place and No oriented to time OTHER: Right facial droop, Slurring of his words Diminished strength right upper and right lower extremity Psych: COMMON NORMALS: mental status grossly normal Urinary Catheter Management: Mckeon: Cath Placed During This Visit: yes Reason for Continuing Indwelling Catheter: Other Urinary Catheter Date of Insertion: 06/05/25 Urinary Catheter Time of Insertion: 23:29 Data 06/06/25 02:25 06/06/25 02:25 Micro: Microbiology 06/05/25 17:41 Blood Culture - Preliminary Blood SPECIMEN COLLECTED 06/05/25 17:48 Blood Culture - Preliminary Blood SPECIMEN COLLECTED A&P Assessment and plan 1. Atrial fibrillation: 2. Chronic anticoagulation: 3. Type 2 diabetes mellitus: 4. Hyperkalemia: 5. History of stroke with residual effects: 6. Altered mental status: 7. Fever: 8. Uncontrolled hypertension: Plan: # 79-year-old man with past medical history as outlined above, presented to the hospital today with complaints of headache and altered mental status, found to have a fever in the emergency room. Additionally noted to have mildly deranged AST and ALT today. Acute encephalopathy -With fevers - With transaminitis - With leukocytosis - Kernig sign negative, Brudunski sign negative -CT chest no acute source of infection -CT abdomen no acute source of infection - UA within normal limits - Concerns for meningitis - Concern for tickborne illness Plan -Monitor mentation closely - Neurochecks - NIH stroke scale - Cannot do lumbar puncture immediately as patient is on Eliquis, we will hold Eliquis for now, instead switch to heparin drip, will have nursing staff reach out to radiology about when heparin drip should be held -IV steroids - Vancomycin - Meropenem - Doxycycline - IV acyclovir - LP ordered for tomorrow - Gentle IV hydration - Tick panel - Blood cultures History of CVA with right-sided deficits, facial droop, slurring his words A-fib with rapid ventricular response - Amiodarone drip - Heparin drip Type 2 diabetes mellitus - Lantus 10 units daily - Low-dose sliding scale CT of the abdomen and pelvis without any abdominal source of infection. Incidentally noted pancreatic hyperdense lesion of indeterminate etiology, unlikely to be the cause of current symptoms. Will need to have . MRI of the abdomen as outpatient Uncontrolled blood pressure monitor blood pressure, History of iron deficiency anemia History of systolic CHF History of aortic stenosis History of pulmonary hypertension DVT prophylaxis: Heparin drip Full code PDMP PDMP Reviewed: Not Reviewed Attestations 2 Medical Necessity Statement*: Patient requires hospitalization for acute encephalopathy, concerns for meningitis Diagnoses Atrial fibrillation I48.91 Chronic anticoagulation Z79.01 Type 2 diabetes mellitus E11.9 Hyperkalemia E87.5 History of stroke with residual effects I69.30 Altered mental status R41.82 Fever R50.9 Uncontrolled hypertension I10
--- NOTE | 2025-06-06 16:41 | PC.NURSE ---
per radiology stop the heparin 12 hours prior to lumbar puncture. Dr Donis notified.
--- NOTE | 2025-06-06 16:47 | PC.NURSE ---
per Dr Donis stop heparin at midnight for lumbar puncture the next day
--- NOTE | 2025-06-06 16:48 | PC.NURSE ---
assumed care from med surg at 1520. report given by VOLODYMYR Vega.
[2025-06-06] MEDS: venlafaxine ER (24HR) 37.5 mg Capsule PO (18:43)
[2025-06-06] MEDS: pantoprazole 40 mg SDV IVP (20:07)
[2025-06-06 21:23] LABS: Partial Thromboplastin Time 28.9 SECONDS (23.9-36.7)
[2025-06-06] MEDS: hyDRALAzine 20 mg/mL INJ 1 mL 10 MG IVP (21:50)
[2025-06-07] VITALS (7 sets, daily range): BP systolic 134–171; BP diastolic 70–90; PULSE 87–121; RESP 17–27; TEMP 36.6–37.1; O2SAT 96–97
--- NOTE | 2025-06-07 00:37 | PC.NURSE ---
Heparin drip stopped at 0000 per physician order
[2025-06-07] MEDS: metoprolol tartrate 1 mg/1 mL SDV 5 mL 5 MG IVP (02:44)
[2025-06-07 03:32] LABS: Hematocrit 28.3 % (37-53); Hemoglobin 8.80 g/dL (11.27-16.99); Mean Corpuscular HGB Conc 31.1 g/dL (30-55); Mean Corpuscular Hemoglobin 23.0 pg (27-33); Mean Corpuscular Volume 74.1 fl (82-101); Nucleated Red Blood Cells % 0 %; Platelet Count 432 10^3/cmm (157-399); Red Blood Count 3.82 10^6/uL (3.85-5.65); White Blood Count 16.90 10^3/uL (3.29-11.43)
[2025-06-07 03:57] LABS: Alanine Aminotransferase 34 U/L (0-41); Albumin Level 3.5 g/dL (3.5-5.2); Alkaline Phosphatase 66 U/L (40-130); Anion Gap 17.3 (5-19); Aspartate Amino Transferase 22 U/L (0-40); Blood Urea Nitrogen 33 mg/dL (8-23); Calcium 9.5 mg/dL (8.5-10.5); Carbon Dioxide 18 mmol/L (22-29); Chloride 105 mmol/L (98-107); Creatinine Clr Calc Pharmacy 40.1771; Globulin 3.0 g/dL (1.3-4.6); Glucose 290 mg/dL (65-115); Magnesium 2.3 mg/dL (1.7-2.3); Osmolality Calculated 300 mOsm/kg (285-295); Potassium 4.3 mmol/L (3.5-5.1); Sodium 136 mmol/L (136-145); Total Protein 6.5 g/dL (6.6-8.7)
--- NOTE | 2025-06-07 05:03 | PC.NURSE ---
Contacted physician due to a heart rate between 120-140 with the amiodarone drip going, provider ordered a 5mg metoprolol IV push. The patients current heart rate is now between 84-110. Care ongoing.
[2025-06-07] MEDS: doxycycline 100 MG in sodium chloride 0.9% (plus) 100 ML IV ×2 (06:11→17:36)
[2025-06-07] MEDS: vancomycin 500 MG in sodium chloride 0.9% (plus) 100 ML 200 MG IV ×2 (06:11→17:37)
[2025-06-07] MEDS: MEROPENEM 2,000 MG in sodium chloride 0.9% (plus) 50 ML 100 MG IV ×2 (06:50→18:23)
[2025-06-07] MEDS: insulin glargine 100 units/1 mL 10 UNIT SUBCUT (09:20)
--- NOTE | 2025-06-07 09:22 | PHA.VACGOAL ---
Vancomycin Goal - Goal Vancomycin Goal:: 15-20 mg/L Vancomycin Indication:: Other - Therapy Current therapy:: Meropenem Day of therpy:: Day [3]of [] . Actual body weight (kg): 180 lb - Data Labs: WBC 16.90 10^3/uL (3.29-11.43) H 06/07/25 03:08 RBC 3.82 10^6/uL (3.85-5.65) L 06/07/25 03:08 Hgb 8.80 g/dL (11.27-16.99) L 06/07/25 03:08 Hct 28.3 % (37-53) L 06/07/25 03:08 MCV 74.1 fl (82-101) L 06/07/25 03:08 MCH 23.0 pg (27-33) L 06/07/25 03:08 MCHC 31.1 g/dL (30-55) 06/07/25 03:08 RDW 16.6 % (12.1-15.1) H 06/07/25 03:08 Sodium 136 mmol/L (136-145) 06/07/25 03:08 Potassium 4.3 mmol/L (3.5-5.1) 06/07/25 03:08 Chloride 105 mmol/L (98-107) 06/07/25 03:08 Carbon Dioxide 18 mmol/L (22-29) L 06/07/25 03:08 Anion Gap 17.3 (5-19) 06/07/25 03:08 BUN 33 mg/dL (8-23) H 06/07/25 03:08 Creatinine 1.5 mg/dL (0.7-1.2) H 06/07/25 03:08 GFR Calculation Not Reportable 06/07/25 03:08 Treatment plan:: new consult Regimen:: PATIENT STARTED ON 500MG Q12H PER PROTOCOL FOR SUSPECTED MENINGITIS. SCr REMAINING ELEVATED BUT STABLE AT 1.5 MG/DL. CONTINUE DOSE, DRAW TROUGH BEFORE 4TH DOSE IS GIVEN.
--- NOTE | 2025-06-07 09:33 | PC.SOCIAL ---
IMM Updated Updated pt on IMM. No questions voiced. Provided pt a copy. Initialed, dated, & timed a copy & placed in chart.
[2025-06-07 11:53] LABS: Cyto Order Verification No Order
[2025-06-07 11:54] LABS: CSF Mononuclear # 0.002 10^3/uL (50-90); Mononuclear WBC CSF % 67 % (50-90); Polynuclear Cells ,CSF # 0.001 10^3/uL (0-10); Polynuclear WBC CSF % 33 % (0-10); Red Blood Cell CSF 0 10^3/uL (0-0); White Blood Cell CSF 3 /uL (0-5)
[2025-06-07 11:58] LABS: Pathology Referral Yes
--- NOTE | 2025-06-07 12:46 | P.PN_ITS ---
Subjective 2 Subjective: Patient was seen this morning, is at bedside, he is alert to person, not place, not to time, he does recognize his but is not able to say her name, patient's tells me that that is unusual for him, he is confused this morning, patient at home does not ambulate, he can feed himself, he can carry a conversation has right-sided hemiparesis right facial droop, discussed risk and benefits of lumbar puncture, patient's voiced understanding, all questions answered, agreed to proceed, will follow CSF studies Vitals/I&O/Wt Last Vital Signs Temp 97.9 F 06/07/25 07:26 Pulse 106 H 06/07/25 07:26 Resp 19 H 06/07/25 07:26 BP 171/85 06/07/25 07:26 Pulse Ox 96 06/07/25 04:00 O2 Del Method Room Air 06/07/25 04:00 06/06/25 06/07/25 06/07/25 22:59 06:59 14:59 Intake Total 948.703 / 1198.703 333.2 / 1531.903 450 / 450 Output Total 450 / 1200 650 / 1850 Balance 498.703 / -1.297 -316.8 / -318.097 450 / 450 Weight last 48 hrs Weight 81.647 kg Physical Exam 2 Const: COMMON NORMALS: no acute distress ORIENTATION/CONSCIOUSNESS: Yes awake, Yes oriented to person and Yes confused; not oriented to place and not oriented to time Eye: COMMON NORMALS: Equal, round and reactive pupils present PUPIL: Yes Equal, round and reactive pupils present Resp: COMMON NORMALS: normal respiratory effort, No retractions, No use of accessory muscles and clear to auscultation bilaterally AUSCULTATION: clear to auscultation bilaterally Cardio: COMMON NORMALS: regular rate, regular rhythm, S1 normal heart sound present and S2 normal heart sound present RATE: regular rate RHYTHM: r egular rhythm HEART SOUNDS: S1 normal heart sound present and S2 normal heart sound present GI: COMMON NORMALS: Normal to inspection, nondistended, normoactive bowel sounds present Extremity: COMMON NORMALS: no pedal edema Neuro: SENSORIUM/ORIENTATION: Yes oriented to person, No oriented to place and No oriented to time OTHER: Right facial droop, slurring of his words, right upper and right lower extremity hemiparesis Urinary Catheter Management: Mckeon: Cath Placed During This Visit: yes Reason for Continuing Indwelling Catheter: Accurate Measurement of Urinary Output in Critically Ill Patients Urinary Catheter Date of Insertion: 06/05/25 Urinary Catheter Time of Insertion: 23:29 Data 06/07/25 03:08 06/07/25 03:08 Micro: Microbiology 06/07/25 11:12 Gram Stain - Final Cerebrospinal Fluid Cryptococcal Antigen (CSF) - Final 06/07/25 11:12 Cryptococcal Antigen (Serum) - Final Blood 06/05/25 17:41 Blood Culture - Preliminary Blood NEGATIVE TO DATE 06/05/25 17:48 Blood Culture - Preliminary Blood NEGATIVE TO DATE A&P Assessment and plan 1. Atrial fibrillation: 2. Chronic anticoagulation: 3. Type 2 diabetes mellitus: 4. Hyperkalemia: 5. History of stroke with residual effects: 6. Altered mental status: 7. Fever: 8. Uncontrolled hypertension: Plan: # 79-year-old man with past medical history as outlined above, presented to the hospital today with complaints of headache and altered mental status, found to have a fever in the emergency room. Additionally noted to have mildly deranged AST and ALT today. Acute encephalopathy -With fevers - With transaminitis - With leukocytosis - Kernig sign negative, Brudunski sign negative -CT chest no acute source of infection -CT abdomen no acute source of infection - UA within normal limits - Concerns for meningitis versus encephalitis - Concern for tickborne illness Plan -Monitor mentation closely - Neurochecks - NIH stroke scale - Cannot do lumbar puncture immediately as patient is on Eliquis, we will hold Eliquis for now, instead switch to heparin drip, will have nursing staff reach out to radiology about when heparin drip should be held -IV steroids - Vancomycin - Meropenem - Doxycycline - IV acyclovir - LP ordered for today - Gentle IV hydration - Tick panel - Blood cultures History of CVA with right-sided deficits, facial droop, slurring his words A-fib with rapid ventricular response - Amiodarone drip, transition off - Heparin drip, hold for now, given LP Type 2 diabetes mellitus - Lantus 10 units daily - Low-dose sliding scale CT of the abdomen and pelvis without any abdominal source of infection. Incidentally noted pancreatic hyperdense lesion of indeterminate etiology, unlikely to be the cause of current symptoms. Will need to have . MRI of the abdomen as outpatient Uncontrolled blood pressure monitor blood pressure, History of iron deficiency anemia History of systolic CHF History of aortic stenosis History of pulmonary hypertension DVT prophylaxis: Heparin drip Full code PDMP PDMP Reviewed: Not Reviewed Attestations 2 Medical Necessity Statement*: Patient requires hospitalization for altered mental status, concerns for meningitis versus encephalitis Diagnoses Atrial fibrillation I48.91 Chronic anticoagulation Z79.01 Type 2 diabetes mellitus E11.9 Hyperkalemia E87.5 History of stroke with residual effects I69.30 Altered mental status R41.82 Fever R50.9 Uncontrolled hypertension I10
[2025-06-07] MEDS: pantoprazole 40 mg SDV IVP (17:36)
[2025-06-07] MEDS: venlafaxine ER (24HR) 37.5 mg Capsule PO (17:38)
--- NOTE | 2025-06-07 20:25 | FL_ITS ---
WS: [id number] LUMBAR PUNCTURE CLINICAL INFORMATION: ams TECHNIQUE: Informed consent: The procedure and its potential risk and complications were discussed with the patient. Verbal and written consent was obtained. Timeout: A timeout was performed to confirm correct patient, procedure, and site. Patient was prepped and draped in the usual sterile fashion. Lidocaine 1% was used for local anesthesia. Utilizing fluoroscopic guidance, a 3.5 inch 22-gauge spinal needle was advanced into the subarachnoid space at L3-L4 via LEFT oblique sublaminar approach. Free flow of clear CSF was obtained. 13 cc of clear CSF was collected and sent the lab for further analysis. FLUOROSCOPIC TIME: 1min [id number] # of spot films: 1 FL/FL guided lumbarpunc dx* 20206 IMPRESSION: Fluoroscopically guided lumbar puncture. No immediate complications
[2025-06-08] VITALS (8 sets, daily range): BP systolic 126–172; BP diastolic 68–101; PULSE 69–104; RESP 16–24; TEMP 36.4–37; O2SAT 94–97
--- NOTE | 2025-06-08 05:35 | PC.NURSE ---
held the 0645 dose of vancomyacin per pharmacy, due to a high vanc trough at 1750 yesterday afternoon and vanc still being hung. There is an order in for a vanc trough this morning but per pharmacy it will not be accurate.
[2025-06-08 05:36] LABS: Hematocrit 28.8 % (37-53); Hemoglobin 8.90 g/dL (11.27-16.99); Mean Corpuscular HGB Conc 30.9 g/dL (30-55); Mean Corpuscular Hemoglobin 23.1 pg (27-33); Mean Corpuscular Volume 74.8 fl (82-101); Nucleated Red Blood Cells % 0 %; Platelet Count 415 10^3/cmm (157-399); Red Blood Count 3.85 10^6/uL (3.85-5.65); White Blood Count 13.88 10^3/uL (3.29-11.43)
[2025-06-08 05:52] LABS: Alanine Aminotransferase 32 U/L (0-41); Albumin Level 3.5 g/dL (3.5-5.2); Alkaline Phosphatase 61 U/L (40-130); Anion Gap 16.4 (5-19); Aspartate Amino Transferase 24 U/L (0-40); Blood Urea Nitrogen 34 mg/dL (8-23); Calcium 9.7 mg/dL (8.5-10.5); Carbon Dioxide 20 mmol/L (22-29); Chloride 109 mmol/L (98-107); Creatinine Clr Calc Pharmacy 43.0469; Globulin 2.5 g/dL (1.3-4.6); Glucose 93 mg/dL (65-115); Magnesium 2.5 mg/dL (1.7-2.3); Osmolality Calculated 299 mOsm/kg (285-295); Potassium 4.4 mmol/L (3.5-5.1); Sodium 141 mmol/L (136-145); Total Protein 6.0 g/dL (6.6-8.7)
[2025-06-08] MEDS: MEROPENEM 2,000 MG in sodium chloride 0.9% (plus) 50 ML 100 MG IV ×2 (06:11→20:05)
[2025-06-08] MEDS: doxycycline 100 MG in sodium chloride 0.9% (plus) 100 ML IV ×2 (06:12→17:54)
--- NOTE | 2025-06-08 12:52 | P.PN_ITS ---
Subjective 2 Subjective: Patient was seen this morning, is at bedside is much more alert awake, he follows all commands, no headache, no blurry vision, no nausea, no vomiting feels that he is more near his baseline, is concerned about his ambulation/transfer ability Vitals/I&O/Wt Last Vital Signs Temp 97.6 F 06/08/25 08:00 Pulse 80 06/08/25 08:00 Resp 18 06/08/25 08:00 BP 141/74 06/08/25 08:00 Pulse Ox 97 06/08/25 07:40 O2 Del Method Room Air 06/08/25 04:00 06/07/25 06/08/25 06/08/25 22:59 06:59 14:59 Intake Total 876 / 1326 316 / 1642 350 / 350 Output Total 650 / 650 650 / 1300 Balance 226 / 676 -334 / 342 350 / 350 Physical Exam 2 Const: COMMON NORMALS: no acute distress ORIENTATION/CONSCIOUSNESS: Yes awake, Yes oriented to person and Yes oriented to place; not oriented to time Resp: COMMON NORMALS: normal respiratory effort, No retractions, No use of accessory muscles and clear to auscultation bilaterally AUSCULTATION: clear to auscultation bilaterally Cardio: COMMON NORMALS: S1 normal heart sound present and S2 normal heart sound present RATE: tachycardic RHYTHM: abnormal rhythm irregularly irregular HEART SOUNDS: S1 normal heart sound present and S2 normal heart sound present GI: COMMON NORMALS: Normal to inspection, nondistended, normoactive bowel sounds present and non-tender Extremity: COMMON NORMALS: no pedal edema Neuro: SENSORIUM/ORIENTATION: Yes oriented to person, Yes oriented to place and No oriented to time OTHER: right hemplegia, hemiparesis Psych: COMMON NORMALS: mental status grossly normal Urinary Catheter Management: Mckeon: Cath Placed During This Visit: yes Reason for Continuing Indwelling Catheter: Accurate Measurement of Urinary Output in Critically Ill Patients Urinary Catheter Date of Insertion: 06/05/25 Urinary Catheter Time of Insertion: 23:29 Data 06/08/25 05:22 06/08/25 05:22 Micro: Microbiology 06/07/25 11:12 Gram Stain - Final Cerebrospinal Fluid Cryptococcal Antigen (CSF) - Final 06/07/25 11:12 Cryptococcal Antigen (Serum) - Final Blood A&P Assessment and plan 1. Atrial fibrillation: 2. Chronic anticoagulation: 3. Type 2 diabetes mellitus: 4. Hyperkalemia: 5. History of stroke with residual effects: 6. Altered mental status: 7. Fever: 8. Uncontrolled hypertension: Plan: # 79-year-old man with past medical history as outlined above, presented to the hospital today with complaints of headache and altered mental status, found to have a fever in the emergency room. Additionally noted to have mildly deranged AST and ALT today. Acute encephalopathy -With fevers - With transaminitis - With leukocytosis - Kernig sign negative, Brudunski sign negative -CT chest no acute source of infection -CT abdomen no acute source of infection - UA within normal limits - Concerns for meningitis versus encephalitis - Concern for tickborne illness Plan -Monitor mentation closely - Neurochecks - NIH stroke scale - status post LP clear, colorless, 3 wbc, glucose 154, TP 85, gram stain wbc or organisms -IV steroids - Vancomycin - Meropenem - Doxycycline - IV acyclovir - Tick panel - Blood cultures History of CVA with right-sided deficits, facial droop, slurring his words A-fib with rapid ventricular response - Amiodarone - eliquis Type 2 diabetes mellitus - Lantus 10 units daily - Low-dose sliding scale CT of the abdomen and pelvis without any abdominal source of infection. Incidentally noted pancreatic hyperdense lesion of indeterminate etiology, unlikely to be the cause of current symptoms. Will need to have . MRI of the abdomen as outpatient Uncontrolled blood pressure monitor blood pressure, History of iron deficiency anemia History of systolic CHF History of aortic stenosis History of pulmonary hypertension DVT prophylaxis: Heparin drip Full code PDMP PDMP Reviewed: Not Reviewed Attestations 2 Medical Necessity Statement*: Patient requires hospitalization for meningitis versus encephalitis Diagnoses Atrial fibrillation I48.91 Chronic anticoagulation Z79.01 Type 2 diabetes mellitus E11.9 Hyperkalemia E87.5 History of stroke with residual effects I69.30 Altered mental status R41.82 Fever R50.9 Uncontrolled hypertension I10
[2025-06-08] MEDS: pantoprazole 40 mg SDV IVP (17:54)
[2025-06-08] MEDS: venlafaxine ER (24HR) 37.5 mg Capsule PO (17:54)
[2025-06-09] VITALS (9 sets, daily range): BP systolic 130–173; BP diastolic 73–84; PULSE 57–75; RESP 13–19; TEMP 36.4–37.1; O2SAT 93–97
[2025-06-09 04:31] LABS: Hematocrit 27.5 % (37-53); Hemoglobin 8.40 g/dL (11.27-16.99); Mean Corpuscular HGB Conc 30.5 g/dL (30-55); Mean Corpuscular Hemoglobin 23.0 pg (27-33); Mean Corpuscular Volume 75.1 fl (82-101); Nucleated Red Blood Cells % 0 %; Platelet Count 380 10^3/cmm (157-399); Red Blood Count 3.66 10^6/uL (3.85-5.65); White Blood Count 10.17 10^3/uL (3.29-11.43)
[2025-06-09 04:52] LABS: Alanine Aminotransferase 35 U/L (0-41); Albumin Level 3.3 g/dL (3.5-5.2); Alkaline Phosphatase 59 U/L (40-130); Anion Gap 12.9 (5-19); Aspartate Amino Transferase 33 U/L (0-40); Blood Urea Nitrogen 33 mg/dL (8-23); Calcium 9.3 mg/dL (8.5-10.5); Carbon Dioxide 21 mmol/L (22-29); Chloride 112 mmol/L (98-107); Creatinine Clr Calc Pharmacy 43.0469; Globulin 2.5 g/dL (1.3-4.6); Glucose 71 mg/dL (65-115); Osmolality Calculated 300 mOsm/kg (285-295); Potassium 3.9 mmol/L (3.5-5.1); Sodium 142 mmol/L (136-145); Total Protein 5.8 g/dL (6.6-8.7)
[2025-06-09] MEDS: doxycycline 100 MG in sodium chloride 0.9% (plus) 100 ML IV ×2 (05:52→16:39)
[2025-06-09] MEDS: MEROPENEM 2,000 MG in sodium chloride 0.9% (plus) 50 ML 100 MG IV (08:23)
--- NOTE | 2025-06-09 09:16 | PC.SOCIAL ---
IMM Updated Updated pt's on IMM. No questions voiced. Provided pt a copy. Initialed, dated, & timed copy in chart.
[2025-06-09] MEDS: polyethylene glycol 3350 Pkt 17 gm PO (10:40)
--- NOTE | 2025-06-09 11:36 | PC.SLP ---
Pt reported he was not hungry at the moment. Will attempt later.
--- NOTE | 2025-06-09 14:00 | PC.SLP ---
attempted again. will attempt one more time. pt asleep
--- NOTE | 2025-06-09 15:38 | PC.SLP ---
Check on tomorrow. Pt is still sleeping.
--- NOTE | 2025-06-09 16:15 | P.PN_ITS ---
Subjective 2 Subjective: Patient was seen this morning, currently alert oriented x 2, following commands, denies any fevers, no chills, discussed continuing IV antibiotics, IV acyclovir for another 24 hours, likely discharging tomorrow on p.o. Valtrex for viral meningitis, patient and voiced understanding Vitals/I&O/Wt Last Vital Signs Temp 97.8 F 06/09/25 12:34 Pulse 75 06/09/25 12:34 Resp 19 H 06/09/25 12:34 BP 146/82 06/09/25 12:34 Pulse Ox 94 06/09/25 12:34 O2 Del Method Room Air 06/09/25 12:34 06/09/25 06/09/25 06/09/25 06:59 14:59 22:59 Intake Total 316 / 1562 666 / 666 Output Total 250 / 1050 Balance 66 / 512 666 / 666 Physical Exam 2 Const: COMMON NORMALS: no acute distress ORIENTATION/CONSCIOUSNESS: Yes awake, Yes oriented to person and Yes oriented to place; not oriented to time Resp: COMMON NORMALS: normal respiratory effort, No retractions, No use of accessory muscles and clear to auscultation bilaterally AUSCULTATION: clear to auscultation bilaterally Cardio: COMMON NORMALS: regular rate, regular rhythm, S1 normal heart sound present and S2 normal heart sound present RATE: regular rate RHYTHM: r egular rhythm HEART SOUNDS: S1 normal heart sound present and S2 normal heart sound present GI: COMMON NORMALS: Normal to inspection, nondistended, normoactive bowel sounds present and non-tender Extremity: COMMON NORMALS: no pedal edema Neuro: SENSORIUM/ORIENTATION: Yes oriented to person, Yes oriented to place and No oriented to time OTHER: Right facial droop, right-sided hemiplegia Urinary Catheter Management: Mckeon: Cath Placed During This Visit: yes Reason for Continuing Indwelling Catheter: Accurate Measurement of Urinary Output in Critically Ill Patients Urinary Catheter Date of Insertion: 06/05/25 Urinary Catheter Time of Insertion: 23:29 Data 06/09/25 03:56 06/09/25 03:56 Micro: Microbiology 06/07/25 11:12 Gram Stain - Final Cerebrospinal Fluid CSF Culture - Preliminary Cryptococcal Antigen (CSF) - Final A&P Assessment and plan 1. Atrial fibrillation: 2. Chronic anticoagulation: 3. Type 2 diabetes mellitus: 4. Hyperkalemia: 5. History of stroke with residual effects: 6. Altered mental status: 7. Fever: 8. Uncontrolled hypertension: Plan: # 79-year-old man with past medical history as outlined above, presented to the hospital today with complaints of headache and altered mental status, found to have a fever in the emergency room. Additionally noted to have mildly deranged AST and ALT today. Acute encephalopathy -With fevers - With transaminitis - With leukocytosis - Kernig sign negative, Brudunski sign negative -CT chest no acute source of infection -CT abdomen no acute source of infection - UA within normal limits - Concerns for meningitis versus encephalitis - Concern for tickborne illness Plan -Monitor mentation closely - Neurochecks - NIH stroke scale - status post LP clear, colorless, 3 wbc, glucose 154, TP 85, gram stain wbc or organisms -IV steroids, discontinued - Vancomycin, discontinued - Meropenem, discontinue - Doxycycline - IV acyclovir - Tick panel - Blood cultures, so far negative History of CVA with right-sided deficits, facial droop, slurring his words A-fib with rapid ventricular response - Amiodarone - eliquis Type 2 diabetes mellitus - Lantus 10 units daily - Low-dose sliding scale CT of the abdomen and pelvis without any abdominal source of infection. Incidentally noted pancreatic hyperdense lesion of indeterminate etiology, unlikely to be the cause of current symptoms. Will need to have . MRI of the abdomen as outpatient Uncontrolled blood pressure monitor blood pressure, History of iron deficiency anemia History of systolic CHF History of aortic stenosis History of pulmonary hypertension DVT prophylaxis: Eliquis Full code PDMP PDMP Reviewed: Not Reviewed Attestations 2 Medical Necessity Statement*: Patient requires hospitalization for viral meningitis Diagnoses Atrial fibrillation I48.91 Chronic anticoagulation Z79.01 Type 2 diabetes mellitus E11.9 Hyperkalemia E87.5 History of stroke with residual effects I69.30 Altered mental status R41.82 Fever R50.9 Uncontrolled hypertension I10
[2025-06-09] MEDS: pantoprazole 40 mg SDV IVP (16:37)
[2025-06-09] MEDS: venlafaxine ER (24HR) 37.5 mg Capsule PO (16:39)
[2025-06-10 02:25] LABS: Hematocrit 27.5 % (37-53); Hemoglobin 8.40 g/dL (11.27-16.99); Mean Corpuscular HGB Conc 30.5 g/dL (30-55); Mean Corpuscular Hemoglobin 23.3 pg (27-33); Mean Corpuscular Volume 76.4 fl (82-101); Nucleated Red Blood Cells % 0 %; Platelet Count 334 10^3/cmm (157-399); Red Blood Count 3.60 10^6/uL (3.85-5.65); White Blood Count 10.15 10^3/uL (3.29-11.43)
[2025-06-10 02:49] LABS: Alanine Aminotransferase 33 U/L (0-41); Albumin Level 3.1 g/dL (3.5-5.2); Alkaline Phosphatase 59 U/L (40-130); Anion Gap 12.9 (5-19); Aspartate Amino Transferase 29 U/L (0-40); Blood Urea Nitrogen 28 mg/dL (8-23); Calcium 9.1 mg/dL (8.5-10.5); Carbon Dioxide 20 mmol/L (22-29); Chloride 112 mmol/L (98-107); Creatinine Clr Calc Pharmacy 46.3582; Globulin 2.5 g/dL (1.3-4.6); Glucose 108 mg/dL (65-115); Osmolality Calculated 298 mOsm/kg (285-295); Potassium 3.9 mmol/L (3.5-5.1); Sodium 141 mmol/L (136-145); Total Protein 5.6 g/dL (6.6-8.7)
[2025-06-10 04:00] VITALS: BP 164/84; PULSE 67; RESP 19; TEMP 36.5; O2SAT 97
[2025-06-10 06:00] VITALS: PULSE 64
[2025-06-10] MEDS: doxycycline 100 MG in sodium chloride 0.9% (plus) 100 ML IV (06:34)
[2025-06-10 07:21] VITALS: BP 161/77; PULSE 62; RESP 17; TEMP 36.7; O2SAT 96
[2025-06-10] MEDS: insulin glargine 100 units/1 mL 10 UNIT SUBCUT (08:52)
[2025-06-10] MEDS: polyethylene glycol 3350 Pkt 17 gm PO (08:57)
[2025-06-10] MEDS: Fleet Enema 133 mL Enema PR (09:14)
[2025-06-10] MEDS: lactulose oral liq 20 gm/30 mL UDC PO (11:32)
[2025-06-10 11:39] VITALS: BP 172/84; PULSE 71; RESP 21; TEMP 36.4; O2SAT 98
--- NOTE | 2025-06-10 12:22 | P.DS_ITS ---
Discharge Providers Date of Admission: 06/05/25 18:31 Date of Discharge: June 10, 2025 Attending Provider at Admission: Maksim Donis MD Attending Provider at Discharge: Maksim Donis MD Primary Care Provider: Katelynn Beckford DO Diagnoses at Discharge Discharge Diagnosis 1. Longstanding persistent atrial fibrillation: 2. Chronic anticoagulation: 3. Type 2 diabetes mellitus: 4. Hyperkalemia: 5. History of stroke with residual effects: 6. Fever: 7. Uncontrolled hypertension: Reason for Visit Reason for Visit: [facility] Hospital Course Hospital Course This is a 79-year-old male with past medical history of iron deficient anemia, history of IV Venofer infusions, chronic atrial fibrillation on Eliquis, cardiomyopathy, history of CVA with right-sided hemiparesis/hemiplegia Who presents [facility] for acute encephalopathy, with fevers, transaminitis, leukocytosis, concerning for meningitis and tickborne illness. Patient received broad-spectrum antibiotic therapy, antiviral therapy, doxycycline, blood cultures so far no growth, LP showed evidence of viral meningitis/aseptic meningitis, CSF studies so far are within normal limits, viral studies are pending. Patient's mentation significantly improved, remains afebrile, according to family he is back to his baseline, can follow commands(chronically has slurring of his words, right facial droop, right-sided hemiplegia), he was able to get up out of bed with assistance to pivot transfers with assistance, which is at his baseline. Will discharge patient on 10 remaining days of Valtrex for viral meningitis, for concerns for tickborne encephalopathy discharged on doxycycline For his A-fib with RVR, managed on metoprolol, amiodarone drip, transition to p.o. amiodarone, discharged on p.o. amiodarone with Eliquis For type 2 diabetes mellitus, discharged on a low-dose sliding scale CT of the abdomen and pelvis There is a 1.1 x 0.9 cm hyperdense structure in the uncinate process of the pancreas (series 4, image 33) of indeterminate etiology. Incidentally noted pancreatic hyperdense lesion of indeterminate etiology, unlikely to be the cause of current symptoms. Will have him follow-up with GI as outpatient Physical Exam Const: COMMON NORMALS: no acute distress ORIENTATION/CONSCIOUSNESS: Yes awake, Yes oriented to person and Yes oriented to place Resp: COMMON NORMALS: normal respiratory effort, No retractions, No use of accessory muscles and clear to auscultation bilaterally AUSCULTATION: clear to auscultation bilaterally Cardio: COMMON NORMALS: regular rate, regular rhythm, S1 normal heart sound present and S2 normal heart sound present RATE: regular rate RHYTHM: regular rhythm HEART SOUNDS: S1 normal heart sound present and S2 normal heart sound present GI: COMMON NORMALS: Normal to inspection, nondistended, normoactive bowel sounds present and no bruits Extremity: COMMON NORMALS: no pedal edema Neuro: SENSORIUM/ORIENTATION: Yes oriented to person and Yes oriented to place OTHER: Right facial droop, right hemiplegia, hemiparesis, can follow commands, slurred speech Psych: COMMON NORMALS: mental status grossly normal Urinary Catheter Management: Mckeon: Cath Placed During This Visit: yes Reason for Continuing Indwelling Catheter: Acute Urinary Retention or Obstruction Urinary Catheter Date of Insertion: 06/05/25 Urinary Catheter Time of Insertion: 23:29 Discharge Data Studies Completed and Pending Completed Studies During Hospitalization Category Date Time Status CT abdomen pelvis w con* [id number] Stat Cat Scan 06/05/25 16:[address] chest wo con [id number] Routine Cat Scan 06/05/25 18:[address] head wo con* [id number] Stat Cat Scan 06/05/25 13:37 Completed FL guided lumbarpunc dx* [id number] Routine Exams 06/07/25 20:25 Completed XR chest 1V portable [id number] Stat Exams 06/05/25 13:37 Completed Pending at discharge Category Date Time Status Blood Culture Stat Lab 06/05/25 17:41 Results CSF Culture & Gram Stain Stat Lab 06/07/25 11:12 Results Complete Blood Count w/Auto AM LABS Lab 06/11/25 04:00 Ordered Comprehensive Metabolic Panel AM LABS Lab 06/11/25 04:00 Ordered Cryptococcal Antigen (CSF) Stat Lab 06/07/25 11:12 Results Francisella tularensis IgM/IgG AM LABS Lab 06/06/25 02:25 Received Herpes Simplex Virus DNA Stat Lab 06/07/25 11:12 Received Lymes Disease Antibodies CSF Stat Lab 06/05/25 18:43 Received Sputum Culture and Gram Stain Stat Lab 06/05/25 18:36 Uncollected Tick Panel Stat Lab 06/05/25 21:48 Results Radiology Impressions Chest X-Ray 06/05/25 13:37 IMPRESSION: No acute findings. Head CT 06/05/25 13:37 IMPRESSION: 1. Limited quality due to motion artifact and imaging technique. 2. No acute intracranial hemorrhage or edema. 3. Moderate cerebral and cerebellar atrophy is stable. 4. Moderate small vessel ischemic disease. Abdomen/Pelvis CT 06/05/25 16:31 IMPRESSION: 1. No bowel obstruction or inflammatory process associated with the bowel. 2. No free air or significant free fluid in the abdomen or pelvis. 3. No evidence of appendicitis. 4. There is a 1.1 x 0.9 cm hyperdense structure in the uncinate process of the pancreas (series 4, image 33) of indeterminate etiology. While this may be artifactual, a true lesion can not be excluded and a pancreatic MRI/MRCP on a nonemergent basis may be of benefit to further assess this finding. Of note, there is no dilatation of the pancreatic duct or common bile duct. Chest CT 06/05/25 18:47 IMPRESSION: No acute findings. Lumbar Puncture Fluoroscopy 06/07/25 20:25 IMPRESSION: Fluoroscopically guided lumbar puncture. No immediate complications Laboratory Results WBC 10.15 10^3/uL (3.29-11.43) 06/10/25 01:51 RBC 3.60 10^6/uL (3.85-5.65) L 06/10/25 01:51 Hgb 8.40 g/dL (11.27-16.99) L 06/10/25 01:51 Hct 27.5 % (37-53) L 06/10/25 01:51 MCV 76.4 fl (82-101) L 06/10/25 01:51 MCH 23.3 pg (27-33) L 06/10/25 01:51 MCHC 30.5 g/dL (30-55) 06/10/25 01:51 RDW 16.7 % (12.1-15.1) H 06/10/25 01:51 Plt Count 334 10^3/cmm (157-399) 06/10/25 01:51 MPV 9.6 fL (7.4-10.4) 06/10/25 01:51 Neut % (Auto) 64.3 % 06/10/25 01:51 Lymph % (Auto) 18.3 % 06/10/25 01:51 [place] % (Auto) 10.8 % 06/10/25 01:51 Eos % (Auto) 5.8 % 06/10/25 01:51 Baso % (Auto) 0.4 % 06/10/25 01:51 Neut # (Auto) 6.52 10^3/uL (1.8-7.7) 06/10/25 01:51 Lymph # (Auto) 1.9 10^3/uL (0.8-4.8) 06/10/25 01:51 [place] # (Auto) 1.1 10^3/uL (0.2-0.9) H 06/10/25 01:51 Eos # (Auto) 0.6 10^3/uL (0.0-0.8) 06/10/25 01:51 Baso # (Auto) 0.0 10^3/uL (0.0-0.1) 06/10/25 01:51 Nucleated RBC % (auto) 0 % 06/10/25 01:51 Nucleated RBCs # 0.0 /100WBC 06/10/25 01:51 PT 14.20 SECONDS (12.1-14.9) 06/05/25 21:48 INR 1.03 (0.8-1.2) 06/05/25 21:48 APTT 28.9 SECONDS (23.9-36.7) 06/06/25 20:37 Sodium 141 mmol/L (136-145) 06/10/25 01:51 Potassium 3.9 mmol/L (3.5-5.1) 06/10/25 01:51 Chloride 112 mmol/L (98-107) H 06/10/25 01:51 Carbon Dioxide 20 mmol/L (22-29) L 06/10/25 01:51 Anion Gap 12.9 (5-19) 06/10/25 01:51 BUN 28 mg/dL (8-23) H 06/10/25 01:51 Creatinine 1.3 mg/dL (0.7-1.2) H 06/10/25 01:51 GFR Calculation Not Reportable 06/10/25 01:51 Glucose 108 mg/dL (65-115) 06/10/25 01:51 POC Glucose 207 mg/dL (70-110) H 06/10/25 10:41 Estimat Average Glucose 235 06/05/25 13:16 Hemoglobin A1c 9.8 % (4.0-6.0) H 06/05/25 13:16 Calculated Osmolality 298 mOsm/kg (285-295) H 06/10/25 01:51 Lactic Acid 3.2 mmol/L (0.5-2.2) H 06/05/25 15:14 Lactic Acid (Sepsis) 2.7 mmol/L (0.5-2.2) H 06/05/25 18:40 Calcium 9.1 mg/dL (8.5-10.5) 06/10/25 01:51 Phosphorus 2.4 mg/dL (2.5-4.5) L 06/08/25 05:22 Magnesium 2.5 mg/dL (1.7-2.3) H 06/08/25 05:22 Total Bilirubin 0.4 mg/dL (0.15-1.2) 06/10/25 01:51 AST 29 U/L (0-40) 06/10/25 01:51 ALT 33 U/L (0-41) 06/10/25 01:51 Alkaline Phosphatase 59 U/L (40-130) 06/10/25 01:51 Troponin T Baseline 38 ng/L (0-15) H 06/05/25 13:16 Troponin T 120 Minute 36.79 ng/L (0-15) H 06/05/25 15:14 Delta Troponin T -1.21 ABS# (0-10) L 06/05/25 15:14 Troponin T Hi Sens 6Hr 36.77 ng/L (0-15) H 06/05/25 18:40 Troponin T Hi Sens 6Hr Delta -1.23 ng/L (0-12) L 06/05/25 18:40 C-Reactive Protein 25.8 mg/L (0.0-4.9) H 06/05/25 18:40 NT-Pro-B Natriuret Pep 1028 pg/mL (0-450) H 06/05/25 13:16 Total Protein 5.6 g/dL (6.6-8.7) L 06/10/25 01:51 Albumin 3.1 g/dL (3.5-5.2) L 06/10/25 01:51 Globulin 2.5 g/dL (1.3-4.6) 06/10/25 01:51 Procalcitonin 1.56 ng/mL (0-0.5) H 06/05/25 18:40 TSH 2.09 uIU/mL (0.27-4.20) 06/05/25 18:40 Urine Color Yellow (Yellow) 06/05/25 15:00 Urine Appearance Clear (CLEAR) 06/05/25 15:00 Urine pH 6.0 (5-7) 06/05/25 15:00 Ur Specific [place] 1.022 (1.005-1.030) 06/05/25 15:00 Urine Protein 2+ (Negative) A 06/05/25 15:00 Urine Glucose (UA) 2+ (Normal) H 06/05/25 15:00 Urine Ketones Trace (Negative) 06/05/25 15:00 Urine Blood Negative (Negative) 06/05/25 15:00 Urine Nitrate Negative (Negative) 06/05/25 15:00 Urine Bilirubin Negative (Negative) 06/05/25 15:00 Urine Urobilinogen 1.0 mg/dL (Negative) 06/05/25 15:00 Ur Leukocyte Esterase Negative (Negative) 06/05/25 15:00 Urine RBC 0-2 /hpf (0-2) 06/05/25 15:00 Urine WBC 0-5 /hpf (0-5) 06/05/25 15:00 Ur Squamous Epith Cells 0-5 /hpf (0-5) 06/05/25 15:00 Amorphous Sediment Not Reportable 06/05/25 15:00 Urine Bacteria None seen /hpf (NONE) 06/05/25 15:00 Hyaline Casts 2.05 /lpf 06/05/25 15:00 CSF Appearance Clear (CLEAR) 06/07/25 11:12 CSF Color Colorless (COLORLESS) 06/07/25 11:12 CSF WBC 3 /uL (0-5) 06/07/25 11:12 CSF RBC 0 10^3/uL (0-0) 06/07/25 11:12 CSF Mononuclear # Auto 0.002 10^3/uL (50-90) L 06/07/25 11:12 CSF Mononuclear WBCs % 67 % (50-90) 06/07/25 11:12 CSF Polynuclear WBCs # 0.001 10^3/uL (0-10) 06/07/25 11:12 CSF Polynuclear WBCs % 33 % (0-10) H 06/07/25 11:12 CSF Diff Comment Yes 06/07/25 11:12 CSF Glucose 154 mg/dL (40-70) H 06/07/25 11:12 CSF Total Protein 85 mg/dL (15-45) H 06/07/25 11:12 Vancomycin Trough 13.4 ug/mL (10-15) 06/08/25 05:22 Lyme Ab (Western Blot) <0.90 index 06/05/25 21:48 Influenza A (PCR) Negative (Negative) 06/05/25 17:42 Influenza Type B (PCR) Negative (Negative) 06/05/25 17:42 RSV (PCR) Negative (Negative) 06/05/25 17:42 SARS-CoV-2 (PCR) Negative (Negative) 06/05/25 17:42 Vitals Last Vital Signs Temp 97.5 F L 06/10/25 11:39 Pulse 71 06/10/25 11:39 Resp 21 H 06/10/25 11:39 BP 172/84 06/10/25 11:39 Pulse Ox 98 06/10/25 11:39 O2 Del Method Room Air 06/10/25 11:39 Discharge Plan Discharge Patient Disposition: Home Condition: Stable Prescriptions: New polyethylene glycol 3350 17 gram Powder In Packet 17 g PO DAILY 30 Days Qty: 30 0RF metoprolol tartrate 25 mg Tablet 25 mg PO BID@0900,2100 30 Days Qty: 60 0RF insulin aspart U-100 [Novolog FlexPen U-100 Insulin] 100 unit/mL (3 mL) insulin pen See Rx Instructions .ROUTE .COMPLEX 30 Days Qty: 15 0RF Rx Instructions: Inject, subcut, 3 times daily, after meals, based on low-dose sliding scale (DME) glucometer testing kit See Rx Instructions .Route .MEDSUPPLY Qty: 1 0RF Rx Instructions: Glucometer testing kit Lancets, 100 Strips 100 doxycycline hyclate 100 mg tablet 100 mg PO BID 10 Days Qty: 20 0RF valacyclovir 1 gram tablet 1,000 mg PO Q8H 10 Days Qty: 30 0RF amiodarone 200 mg tablet 200 mg PO DAILY 30 Days Qty: 30 0RF Continued pantoprazole 40 mg tablet,delayed release (DR/EC) 40 mg PO DAILY folic acid 1 mg tablet 1 mg PO DAILY Qty: 30 2RF venlafaxine 37.5 mg capsule,extended release 24hr 37.5 mg PO QPM metformin 1,000 mg tablet 1,000 mg PO BID docusate sodium [Colace] 100 mg Capsule 100 mg PO BID Eliquis 5 mg Tablet 5 mg PO BID Discontinued amlodipine 5 mg tablet 5 mg PO QAM Discharge Order = DC NOW: Discharge Order (Routine); Ordered 06/10/25 Ordered By: Maksim Donis Referrals: Katelynn Beckford DO [Primary Care Provider, Plastic Surgery] - 2 weeks Referral Note: Please call your primary care provider on Thursday for a hospital F/U to see them. Horace Blank MD [Referring, Internal Medicine] - 1 week Referral Note: There is a 1.1 x 0.9 cm hyperdense structure in the uncinate process of the pancreas (series 4, image 33) of indeterminate etiology. Discharge Diet: Cardiac Discharge Activity: Resume usual activity Patient Instructions: Metoprolol (By mouth) (Lopressor, Toprol XL), Doxycycline (By mouth) (Acticlate, Adoxa, Avidoxy, Monodox, Doryx), Amiodarone (By mouth) (Cordarone, Pacerone), Valacyclovir (By mouth) (Valtrex), Insulin Aspart, Recombinant (By injection) (Novolog, Novolog..., Polyethylene Glycol 3350 (By mouth) (Miralax, Healthylax..., A-fib (Atrial Fibrillation) (DC), Viral Meningitis (DC), Hypertension (DC), Altered Mental Status (ED), Type 2 Diabetes in the Older Adult (DC), How to Check your Blood Sugar (DC), Opioid Safety, Patient Portal & [facility] Instructions Activity Restrictions/Additional Instructions: -Please monitor your blood sugars closely -Monitor your blood sugars 3 times daily as after meals -Please record your blood sugars, and a blood sugar log -For your NovoLog -Please inject blood sugar after meals based on sliding scale provided -Do not inject insulin if you do not eat as hypoglycemia kills -This is a NovoLog sliding scale -Insulin sliding ?fingerstick? Insulin ?141-180?0 units/sq 181-220?2 units/sq ?221-260?4 units/sq ?261-300 6 units/sq ?301-350?8 units/sq ?351-400 10 units/sq ?401-450?12 units/sq >450? 14units/sq -If your blood sugar is greater than 500 go to the emergency room -If your blood sugar is less than 60 or at anytime you feel lightheaded or dizzy or diaphoretic or have chest palpitations check your blood sugar, and eat a hard candy or drink orange juice and go immediately to the emergency room -Remember hypoglycemia kills, so if his blood sugar is less than 60 we have to increase it by taking in a sugary meal such as a hard candy or orange juice and go to the emergency room -If you have any questions please call us where here to help - Please follow-up with your primary care provider next week for recheck creatinine - Recheck hemoglobin in 1 week - For your hyperdense lesion noted in the pancreas There is a 1.1 x 0.9 cm hyperdense structure in the uncinate process of the pancreas (series 4, image 33) of indeterminate etiology.-, please follow-up with [facility] GI Discharge Attestations Time Spent in Discharge Care*: greater than 30 min Quality Metrics Clinical Quality Measures [ No reported AMI, CVA or VTE this stay] Coding Level of Care Code 10363 Total time (in minutes) for Discharge: 45 Diagnoses Longstanding persistent atrial fibrillation I48.11 Atrial fibrillation type: longstanding persistent Chronic anticoagulation Z79.01 Type 2 diabetes mellitus E11.9 Hyperkalemia E87.5 History of stroke with residual effects I69.30 Altered mental status R41.82 Fever R50.9 Uncontrolled hypertension I10
[2025-06-10 13:17] VITALS: BP 172/84; PULSE 71; TEMP 36.4; O2SAT 98
[2025-06-11 15:49] LABS: HSV 1 DNA Not Detected (Not Detected); HSV 2 DNA Not Detected (Not Detected)
[2025-06-11 23:00] LABS: Lyme Disease AB (IGG),IBL NO BANDS DETECTED; Lyme Disease AB (IGM), IBL NO BANDS DETECTED
[2025-06-12 18:13] LABS: RMSF IGG NOT DETECTED; RMSF IGM NOT DETECTED
[2025-06-13 21:55] LABS: F.tularensis IgG AB Serum Negative (Negative); F.tularensis IgM AB Serum Negative (Negative)
== END 2025-06-10 12:25 | disposition home or self-care (01) | DRG 75 ==
LOC: ER 18:28 → ER IP 18:32 → MEDSURG 06-06 08:09 → CSU 06-06 15:48 → MEDSURG 06-09 10:09
PROVIDERS: Student in an Organized Health Care Education/Training Program; Admitting Provider Family Medicine; Emergency Provider Family Medicine; PCP Surgery Plastic and Reconstructive Surgery; Visit Provider Family Medicine
DX: A87.9 Viral meningitis, unspecified (principal); A93.8 Other specified arthropod-borne viral fevers; I67.4 Hypertensive encephalopathy; I42.9 Cardiomyopathy, unspecified; I48.11 Longstanding persistent atrial fibrillation; I69.351 Hemiplegia and hemiparesis following cerebral infarction affecting right dominant side; N17.9 Acute kidney failure, unspecified; E87.1 Hypo-osmolality and hyponatremia; E87.20 Acidosis, unspecified; I50.22 Chronic systolic (congestive) heart failure; I27.20 Pulmonary hypertension, unspecified; I11.0 Hypertensive heart disease with heart failure; E11.9 Type 2 diabetes mellitus without complications; E78.5 Hyperlipidemia, unspecified; E87.5 Hyperkalemia; R50.9 Fever, unspecified; D50.9 Iron deficiency anemia, unspecified; R74.01 Elevation of levels of liver transaminase levels; K86.9 Disease of pancreas, unspecified; Z79.01 Long term (current) use of anticoagulants; Z79.899 Other long term (current) drug therapy; I69.328 Other speech and language deficits following cerebral infarction; Z11.52 Encounter for screening for COVID-19; Z79.84 Long term (current) use of oral hypoglycemic drugs; Z87.891 Personal history of nicotine dependence
CPT/HCPCS: 36415; 36416; 51702; 62328; 70450; 71045; 71250; 74177; 80053; 80202; 80503; 81001; 82945; 82962; 83036; 83605; 83735; 83880; 84100; 84145; 84157; 84443; 84484; 85025; 85610; 85730; 86140; 86160; 86403; 86617; 86618; 86666; 86668; 86757; 87040; 87070; 87075; 87205; 87327; 87530; 87637; 89050; 92523; 92526; 92610; 93005; 94664; 96365; 96366; 96367; 96372; 96375; 97162; 97530; 99285; J0133; J0283; J0290; J0360; J0612; J0696; J1100; J1644; J1815; J1956; J2185; J2470; J3372; J3373; J3490; J7030; J7050; J7799; J9999